=== PATIENT | male | born 1945 | race African-American/Black ===

== ENCOUNTER 2018-02-10 15:18 | Inpatient (IN) | payer OTHER ==
[2018-02-10] MEDS ORDERED: NS 1,000 ML IV ONE (16:03)
--- NOTE | 2018-02-10 16:03 | EDPHY ---
H & P Stated Complaint: Dry cough x 2wks, SOB and dizzy today, denies N/V/D - Personal History Current Tetanus/Diphtheria Vaccine: Yes - Medical/Surgical History Hx Asthma: No Hx Chronic Respiratory Disease: No Hx Diabetes: No Hx Cardiac Disease: No Hx Renal Disease: No Hx Cirrhosis: No Hx Alcoholism: No Hx HIV/AIDS: No Hx Splenectomy or Spleen Trauma: No Other PMH: none - Social History Smoking Status: Never smoked Time Seen by Provider: 02/10/18 15:49 HPI/ROS: CHIEF COMPLAINT: Dyspnea, cough, jaundice HISTORY OF PRESENT ILLNESS: 73 year old male history of diabetes, in the ER with via private vehicle. Patient describes his and him developing cold-like symptoms 3 weeks ago while visiting [place], including sore throat, rhinorrhea, dry cough. These symptoms have by and large resolved however his cough continues. Today when he was pulling is garbage cans up a small uphill he developed chest pain, shortness of breath. He went to [facility] was referred to the ER for both these complaints and new onset of jaundice. notes jaundice seems to developed within the past few days. He has not experienced abdominal pain, distension, fever, chills , back or flank pain, discolored stool or urine Denies unusual Tylenol use. PRIMARY CARE PROVIDER: Dr. Gildardo Cardoza REVIEW OF SYSTEMS: 10 systems reviewed and negative with the exception of the elements mentioned in the history of present illness PAST MEDICAL & SURGICAL HISTORY: diabetes. SOCIAL HISTORY: Nonsmoker. No alcohol use. . PHYSICAL EXAM (Prior to examination, patient consented to physical exam, hands were washed and my usual and customary physical exam procedures followed) 1) GENERAL: Well-developed, well-nourished, alert and oriented. Appears to be in no acute distress. 2) HEAD: Normocephalic, atraumatic 3) HEENT: Pupils equal, round, reactive to light bilaterally. Scleral icterus noted. Nasopharynx, oropharynx, clear, no lesions. Moist Mucous membranes. No tonsillar enlargement or exudate. Ears bilaterally with normal tympanic membranes. Signs of otitis media otitis externa 4) NECK: Full range of motion, no meningeal signs. 5) LUNGS: Clear auscultation bilaterally, no wheezes, no rhonchi, no retractions. 6) HEART: Regular rate and rhythm, no murmur, no heave, no gallop. 7) ABDOMEN: No guarding, no rebound, no focal tenderness, negative McBurney's, negative Pinto's, negative Rovsing's, negative peritoneal sign, unable to elicit any abdominal pain. No fluid wave. 8) MUSCULOSKELETAL: Moving all extremities, no focal areas of tenderness, no obvious trauma. No peripheral edema or discoloration. 9) BACK: No CVA tenderness, no midline vertebral tenderness, no fluctuance, no step-off, no obvious trauma, no visual or palpable abnormality. 10) SKIN: No rash, no petechiae.Jaundice noted. 11) Psychiatric: Patient is oriented X 3, there is no agitation. DIFFERENTIAL DIAGNOSIS: In no particular order include but limited to viral hepatitis, , malignancy, ([place],Annemarie Ellen) Constitutional: Initial Vital Signs Temperature (C) 36.9 C 02/10/18 15:37 Heart Rate 106 H 02/10/18 15:37 Respiratory Rate 18 02/10/18 15:37 Blood Pressure 130/53 H 02/10/18 15:37 O2 Sat (%) 99 02/10/18 15:37 O2 Delivery Mode Room Air Allergies/Adverse Reactions: Penicillins Allergy (Verified 02/10/18 17:57) Rash Home Medications: Medication Instructions Recorded Ascorbic Acid [Vitamin C 500 mg 500 mg PO DAILY 02/10/18 (*)] Cholecalciferol Vit D3 [Vitamin D3 1,000 units PO DAILY 02/10/18 (*)] Cyanocobalamin [Vitamin B12 (*)] 1,000 mcg PO DAILY 02/10/18 Insulin Glargine [Lantus] 30 unit SC HS 02/10/18 Multivitamins [Multivitamin (*)] 1 each PO DAILY 02/10/18 [place]-3 Fatty Acids [Fish Oil 1000 1,000 mg PO DAILY 02/10/18 mg (*)] glyBURIDE [Micronase] 5 mg PO BIDMEAL 02/10/18 metFORMIN HCL [Glucophage 500 mg 500 mg PO BIDMEAL 02/10/18 (*)] Medical Decision Making - Diagnostics Imaging Results: Imaging Impressions Abdomen Ultrasound 02/10/18 17:13 Impression: 1. Mild hepatomegaly, with no discrete mass. 2. There is no intra- or extrahepatic bile duct dilatation. 3. Periportal lymphadenopathy. 4. Contracted gallbladder, limiting assessment. Findings were discussed with Chelsea Rossi PA-C at 18:37, on 02/10/2018. Images reviewed myself (Annemarie Rossi) ED Course/Re-evaluation: 4:09 p.m.: I reviewed the patient's chest x-ray obtained urgent care earlier today. Will hold on repeating this at this time. Will obtain EKG laboratory studies. I saw this patient independently based on established practice protocols. Care of patient under supervision of secondary supervising physician Dr Mcintosh with whom I discussed case. 550 pm: Consultation with Dr Liang cardiology 6:20 p.m.: Patient was also seen and examined by Dr. Vickey Mcintosh in the ER. The differential was discussed with the patient his which includes, but is not limited to, hematologic malignancy. Recommended admission. He and were agreeable with admission. Dr. Mcintosh consulted with Dr. Ariel Dennison. Will consult with Oncology. (Annemarie Rossi) Critical Care: Total Critical Care Time Spent Managing this Patient: 65Minutes. This time was spent Exclusively with this patient. This Care was exclusive of procedures. The Organ System/life at risk was severe leukocytosis, severe anemia This Patient was in Critical Condition because severe anemia. I have consult with Oncology Dr. Rodriguez. He will consult see the patient. Patient has had written consent for blood products. 2 units of packed red blood cells have been ordered. Dr. rodriguez Requests 1gm solumedrol, which has been ordered. (Vickey Mcintosh) - Data Points Laboratory Results: Laboratory Results 02/10/18 18:10 02/10/18 18:10 02/10/18 02/10/18 02/10/18 18:10 18:10 18:10 Smear Review By Mata LONG MD Patient ABO/Rh Pending Rh Phenotype Pending Antibody Screen POSITIVE Antibody Identification UNDETERMINED Antibody ID Referred Pending Red Cell Ag Pheno DNA Pending GLORIA, IgG Interpret Pending GLORIA, Polyspecific Cancelled GLORIA, Poly Interpret Pending GLORIA, Complement Interp Pending Crossmatch See Detail Crossmatch IS Only See Detail See Detail 02/10/18 16:46 Smear Review By Mata LONG MD Patient ABO/Rh Rh Phenotype Antibody Screen Antibody Identification Antibody ID Referred Red Cell Ag Pheno DNA GLORIA, IgG Interpret GLORIA, Polyspecific GLORIA, Poly Interpret GLORIA, Complement Interp Crossmatch Crossmatch IS Only Medications Given: Folic Acid (Folic Acid) 1 mg PO DAILY SERGIO Stop: 08/09/18 18:44 Last Admin: 02/11/18 09:44 Dose: 1 mg Insulin Human Lispro (Humalog Lispro) 3 unit SC TIDMEAL SERGIO Stop: 08/10/18 13:44 Last Admin: 02/11/18 14:02 Dose: 3 units Insulin Human Lispro (Humalog Lispro) 0 unit SC ACHS SERGIO PRN Reason: Protocol Stop: 08/10/18 13:44 Last Admin: 02/11/18 14:07 Dose: 10 units Prednisone (Prednisone) 100 mg PO DAILY SERGIO Stop: 08/10/18 08:59 Last Admin: 02/11/18 09:44 Dose: 100 mg Discontinued Medications Sodium Chloride (Ns) 1,000 mls @ 0 mls/hr IV ONCE ONE PRN Reason: Wide Open Stop: 02/10/18 16:04 Last Admin: 02/10/18 16:26 Dose: 1,000 mls Methylprednisolone Sodium (Succinate 1 gm/ Dextrose) 100 mls @ 100 mls/hr IV AD SERGIO Stop: 08/09/18 19:59 Last Admin: 02/10/18 20:17 Dose: 100 mls Insulin Glargine (Lantus Syringe) 30 units SC HS SERGIO Stop: 08/09/18 20:59 Last Admin: 02/10/18 22:43 Dose: 30 units Methylprednisolone Sodium Succinate (Solu-Medrol) 1,000 mg IVP EDNOW ONE Stop: 02/10/18 19:25 Last Admin: 02/10/18 20:33 Dose: Not Given Point of Care Test Results: Chemistry 02/10/18 02/10/18 17:37 16:10 POC Troponin I 0.01 ng/mL ng/mL 0.02 ng/mL ng/mL (0.00-0.08) (0.00-0.08) Departure - Departure Disposition: [facility] Acute Clinical Impression: Hyperbilirubinemia Anemia Qualifiers: Anemia type: unspecified type Qualified Code(s): D64.9 - Anemia, unspecified Condition: Fair
[2018-02-10 16:29] LABS: INR 1.1 (0.83-1.16); PROTIME(PATIENT) 14.4 SEC (12.0-15.0)
[2018-02-10 17:48] LABS: PLATELET COUNT 241 10^3/uL (150-400)
[2018-02-10 18:27] LABS: PLATELET COUNT 235 10^3/uL (150-400)
[2018-02-10 18:34] LABS: INR 1.17 (0.83-1.16); PROTIME(PATIENT) 15.1 SEC (12.0-15.0)
[2018-02-10 18:54] LABS: HEPATITIS A ANTIBODY IGM (BCH) NEGATIVE (NEGATIVE); HEPATITIS B CORE AB IGM NEGATIVE (NEGATIVE); HEPATITIS B SURFACE ANTIGEN NEGATIVE (NEGATIVE)
[2018-02-10 19:04] LABS: HEPATITIS C ANTIBODY TOTAL NEGATIVE (NEGATIVE)
[2018-02-10] MEDS ORDERED: methylPREDNISolone SOD SUCC 125 MG/2 ML VIAL IVP ONE (19:24)
[2018-02-10] MEDS ORDERED: methylPREDNISolone SOD SUCC 1 GM in D5W 100 ML IV SCH (20:00)
[2018-02-10] MEDS ORDERED: HYDROmorphONE/DILAUDID 1 MG/ML INJ IVP PRN (20:13)
[2018-02-10] MEDS ORDERED: PROMETHAZINE HCL 25 MG/ML INJ IVP PRN (20:13)
[2018-02-10] MEDS ORDERED: ONDANSETRON DISINTEGRATING 4 MG TAB PO PRN (20:13)
[2018-02-10] MEDS ORDERED: LORazepam 0.5 MG TAB PO PRN (20:13)
[2018-02-10] MEDS ORDERED: oxyCODONE IR 5 MG TAB PO PRN (20:13)
[2018-02-10] MEDS ORDERED: ONDANSETRON 4 MG/2 ML VIAL IVP PRN (20:13)
[2018-02-10] MEDS ORDERED: ACETAMINOPHEN 325 MG TAB PO PRN (20:13)
--- NOTE | 2018-02-10 20:22 | PDGENHP ---
History and Physical - Chief Complaint sob - History of Present Illness 73 yo M with PMH of DM presenting from urgent care where he was being evaluated for cough and sob. Patient notes that he has felt a bit lightheaded and had cough for a couple of days, the ER was concerned that he appeared jaundiced and for that reason recommended he come to the ER for more thorough evaluation. Patient denies any significant change in his health recently prior to yesterday. He does seem perhaps a bit confused but his states this is his baseline. In the ER he was found to have WBC of 111k, hgb of 4. In review of his prior labs he was noted to have a WBC of 40K in August with predominant lymphocytes and by review of [facility] records he was referred to Dr. Zacarias for further evaluation. Patient and his note that they did not follow up with DR. Zacarias as they believed that his WBC was elevated as he had just received a pneumonia vaccine. History Information - Allergies/Home Medication List Allergies/Adverse Reactions: Penicillins Allergy (Verified 02/10/18 17:57) Rash Home Medications: Ascorbic Acid [Vitamin C 500 mg (*)] 500 mg PO DAILY 02/10/18 [Last Taken Unknown] Cholecalciferol Vit D3 [Vitamin D3 (*)] 1,000 units PO DAILY 02/10/18 [Last Taken Unknown] Cyanocobalamin [Vitamin B12 (*)] 1,000 mcg PO DAILY 02/10/18 [Last Taken Unknown ] Insulin Glargine [Lantus] 30 unit SC HS 02/10/18 [Last Taken 02/09/18] Multivitamins [Multivitamin (*)] 1 each PO DAILY 02/10/18 [Last Taken Unknown] [place]-3 Fatty Acids [Fish Oil 1000 mg (*)] 1,000 mg PO DAILY 02/10/18 [Last Taken Unknown] glyBURIDE [Micronase] 5 mg PO BIDMEAL 02/10/18 [Last Taken 02/10/18 AM] metFORMIN HCL [Glucophage 500 mg (*)] 500 mg PO BIDMEAL 02/10/18 [Last Taken AM] I have personally reviewed and updated: family history, medical history, social history, surgical history - Past Medical History diabetes type 2 - Surgical History Reports: no pertinent surgical hx - Family History Positive for: non-pertinent - Social History Smoking Status: Never smoked Alcohol Use: None Drug Use: None Additional social history: , his accompanies him here, she is recently retired from [employer] Review of Systems Review of Systems: ROS: 10pt was reviewed & negative except for what was stated in HPI & below Physical Exam Physical Exam: Temp Pulse Resp BP Pulse Ox 36.6 C 105 H 20 114/100 H 95 02/10/18 20:03 02/10/18 20:03 02/10/18 20:03 02/10/18 20:03 02/10/18 20:03 O2 (L/minute) 2 Constitutional: no apparent distress, chronically ill appearing Eyes: PERRL, icteric sclera Ears, Nose, Mouth, Throat: moist mucous membranes, hearing normal Cardiovascular: regular rate and rhythym, no murmur, rub, or gallop, No edema Respiratory: no respiratory distress, no rales or rhonchi Gastrointestinal: normoactive bowel sounds, soft, non-tender abdomen Genitourinary: no bladder tenderness Skin: warm, other (jaundiced, pale) Musculoskeletal: full muscle strength Neurologic: AAOx3 Psychiatric: anxious, poor memory Lymph, Heme, Immunologic: No no cervical LAD, No no supraclavicular LAD Lab Data & Imaging Review 02/10/18 18:10 02/10/18 18:10 WBC 112.28 10^3/uL (3.80-9.50) H* 02/10/18 18:10 RBC 1.43 10^6/uL (4.40-6.38) L 02/10/18 18:10 Hgb 4.1 g/dL (13.7-17.5) L* 02/10/18 18:10 Hct 14.8 % (40.0-51.0) L* 02/10/18 18:10 MCV 103.5 fL (81.5-99.8) H 02/10/18 18:10 MCH 28.7 pg (27.9-34.1) 02/10/18 18:10 MCHC 27.7 g/dL (32.4-36.7) L 02/10/18 18:10 RDW 25.9 % (11.5-15.2) H 02/10/18 18:10 Plt Count 235 10^3/uL (150-400) 02/10/18 18:10 MPV 9.4 fL (8.7-11.7) 02/10/18 18:10 Neut % (Auto) Not Reported 02/10/18 18:10 Lymph % (Auto) Not Reported 02/10/18 18:10 [place] % (Auto) Not Reported 02/10/18 18:10 Eos % (Auto) Not Reported 02/10/18 18:10 Baso % (Auto) Not Reported 02/10/18 18:10 Nucleat RBC Rel Count Not Reported 02/10/18 18:10 Absolute Neuts (auto) Not Reported 02/10/18 18:10 Absolute Lymphs (auto) Not Reported 02/10/18 18:10 Absolute Monos (auto) Not Reported 02/10/18 18:10 Absolute Eos (auto) Not Reported 02/10/18 18:10 Absolute Basos (auto) Not Reported 02/10/18 18:10 Absolute Nucleated RBC Not Reported 02/10/18 18:10 Immature Gran % Not Reported 02/10/18 18:10 Seg Neutrophils % 10.5 % 02/10/18 18:10 Band Neutrophils % 0.0 % 02/10/18 18:10 Lymphocytes % 89.5 % 02/10/18 18:10 Monocytes % 0.0 % 02/10/18 18:10 Eosinophils % 0.0 % 02/10/18 18:10 Basophils % 0.0 % 02/10/18 18:10 Metamyelocytes % 0.0 % 02/10/18 18:10 Myelocytes % 0.0 % 02/10/18 18:10 Promyelocytes % 0.0 % 02/10/18 18:10 Blast Cells % 0.0 % 02/10/18 18:10 Immature Gran # Not Reported 02/10/18 18:10 Absolute Seg Neuts 11.79 10^3/uL (1.70-6.50) H 02/10/18 18:10 Absolute Band Neuts 0.00 10^3/uL (0.00-0.70) 02/10/18 18:10 Absolute Lymphocytes 100.49 10^3/uL (1.00-3.00) H 02/10/18 18:10 Absolute Monocytes 0.00 10^3/uL (0.30-0.80) L 02/10/18 18:10 Absolute Eosinophils 0.00 10^3/uL (0.03-0.40) L 02/10/18 18:10 Absolute Basophils 0.00 10^3/uL (0.02-0.10) L 02/10/18 18:10 Absolute Metamyelocyte 0.00 10^3/mL (0.00-0.00) 02/10/18 18:10 Absolute Myelocytes 0.00 10^3/mL (0.00-0.00) 02/10/18 18:10 Absolute Promyelocytes 0.00 10^3/uL (0.00-0.00) 02/10/18 18:10 Absolute Plasma Cells 0.00 10^3/uL (0.00-0.00) 02/10/18 18:10 Absolute Blast Cells 0.00 10^3/uL (0.00-0.00) 02/10/18 18:10 Plasma Cells % 0.0 % 02/10/18 18:10 Smudge Cells 2+ H 02/10/18 18:10 Platelet Estimate ADEQUATE (ADEQ) 02/10/18 18:10 Polychromasia 2+ H 02/10/18 18:10 Hypochromasia 3+ H 02/10/18 18:10 Basophilic Stippling 1+ H 02/10/18 18:10 Microcytic Cells 3+ H 02/10/18 18:10 Oval Macrocytes 2+ H 02/10/18 18:10 PT 15.1 SEC (12.0-15.0) H 02/10/18 18:10 INR 1.17 (0.83-1.16) H 02/10/18 18:10 APTT 27.0 SEC (23.0-38.0) 02/10/18 18:10 Sodium 137 mEq/L (135-145) 02/10/18 18:10 Potassium 4.2 mEq/L (3.3-5.0) 02/10/18 18:10 Chloride 105 mEq/L (97-110) 02/10/18 18:10 Carbon Dioxide 23 mEq/l (22-31) 02/10/18 18:10 Anion Gap 9 mEq/L (6-14) 02/10/18 18:10 BUN 22 mg/dL (7-23) 02/10/18 18:10 Creatinine 0.8 mg/dL (0.7-1.3) 02/10/18 18:10 Estimated GFR > 60 02/10/18 18:10 Glucose 137 mg/dL (70-100) H 02/10/18 18:10 Calcium 9.5 mg/dL (8.5-10.4) 02/10/18 18:10 Total Bilirubin 9.6 mg/dL (0.1-1.4) H 02/10/18 16:00 Conjugated Bilirubin 1.0 mg/dL (0.0-0.5) H 02/10/18 16:00 Unconjugated Bilirubin 8.6 mg/dL (0.0-1.1) H 02/10/18 16:00 Icterus Index 7 02/10/18 16:00 AST 67 IU/L (17-59) H 02/10/18 16:00 ALT 17 IU/L (21-72) L 02/10/18 16:00 Alkaline Phosphatase 93 IU/L (38-126) 02/10/18 16:00 Lactate Dehydrogenase 740 IU/L (313-618) H 02/10/18 18:10 POC Troponin I 0.01 ng/mL (0.00-0.08) 02/10/18 17:37 Total Protein 7.1 g/dL (6.3-8.2) 02/10/18 16:00 Albumin 4.3 g/dL (3.5-5.0) 02/10/18 16:00 Lipase 221 IU/L (23-300) 02/10/18 16:00 Urine Color YELLOW 02/10/18 16:20 Urine Appearance CLEAR 02/10/18 16:20 Urine pH 5.0 (5.0-7.5) 02/10/18 16:20 Ur Specific [place] 1.008 (1.002-1.030) 02/10/18 16:20 Urine Protein NEGATIVE (NEGATIVE) 02/10/18 16:20 Urine Ketones NEGATIVE (NEGATIVE) 02/10/18 16:20 Urine Blood NEGATIVE (NEGATIVE) 02/10/18 16:20 Urine Nitrate NEGATIVE (NEGATIVE) 02/10/18 16:20 Urine Bilirubin NEGATIVE (NEGATIVE) 02/10/18 16:20 Urine Urobilinogen NEGATIVE EU (0.2-1.0) 02/10/18 16:20 Ur Leukocyte Esterase NEGATIVE (NEGATIVE) 02/10/18 16:20 Urine RBC NONE SEEN /hpf (0-3) 02/10/18 16:20 Urine WBC 0-1 /hpf (0-3) 02/10/18 16:20 Ur Epithelial Cells NONE SEEN /lpf (NONE-1+) 02/10/18 16:20 Hyaline Casts 1-5 /lpf (0-1) 02/10/18 16:20 Urine Glucose NEGATIVE (NEGATIVE) 02/10/18 16:20 Stool Occult Bld Scrn NEGATIVE (NEGATIVE) 02/10/18 18:34 Acetaminophen < 10 mcg/mL (10-30) L 02/10/18 16:46 Hepatitis A IgM Ab NEGATIVE (NEGATIVE) 02/10/18 16:00 Hep Bs Antigen NEGATIVE (NEGATIVE) 02/10/18 16:00 Hep B Core IgM Ab NEGATIVE (NEGATIVE) 02/10/18 16:00 Hepatitis C Antibody NEGATIVE (NEGATIVE) 02/10/18 16:00 Monoscreen NEGATIVE (NEGATIVE) 02/10/18 16:00 Patient ABO/Rh AB POSITIVE 02/10/18 18:10 Antibody Screen POSITIVE 02/10/18 18:10 Antibody Identification UNDETERMINED 02/10/18 18:10 GLORIA, IgG Specific IGG POSITIVE (NEGATIVE) 02/10/18 18:10 GLORIA, Polyspecific POSITIVE (NEGATIVE) H 02/10/18 18:10 Crossmatch IS Only See Detail 02/10/18 18:10 Visualized and Interpreted Chest x-ray results: Yes Chest X-Ray results: no infiltrate Visualized and Interpreted imaging results: Yes Interpretation: abd US: Hepatomegaly without discreet mass, no ductal dilation, periportal LAD Visualized and Interpreted EKG results: Yes EKG additional interpertation: sinus tach, rbbb, lafb Assessment & Plan Assessment: Anemia (Acute) Hyperbilirubinemia (Acute) 73 yo M with PMH of DM presenting with hyperleukocytosis and profound anemia # hyperleukocytosis: oncology consulted and has evaluated patient in ER, this is due to CLL as next. Was SOB but also severely anemic so overall seems he is asymptomatic from this. # CLL: in discussion with oncology this is almost certain dx given peripheral smear and presentation, patient did have significant leukocytosis present in August as well that was not followed up on. Ultimate treatment plan to be determined by oncology. # autoimmune hemolytic anemia: started on steroids and being transfused 2 units , will continue pred at 1mg/kg per onc recommendations, will follow serial hgb. Patient relatively asymptomatic currently. # profound anemia: 2/2 above, transfusing # elevated lfts: with US showing only periportal LAD, hep serologies negative, will continue to trend and obtain CT abdomen in the am for further characterization # DM: will treat with SSI and hold orals for now # IP status will require high level monitoring given significantly abnormal labs and high risk presenting issues > 48 hours for eval/mgmt of above Patient new to my care. Old records reviewed and summarized as above. Care plan reviewed with ER doctor and oncology, further hx obtained from patients present at bedside. > 35 min critical care time spent in review of labs/imaging and in coordination of care with consultants
[2018-02-10] MEDS ORDERED: INSULIN GLARGINE 100 UNITS/ML UNIT SC SCH (21:00)
[2018-02-10] MEDS: FOLIC ACID 1 MG TAB PO SCH (22:43)
--- NOTE | 2018-02-11 02:17 | HOSPPROG ---
Hospitalist Progress Note Assessment/Plan: Hospitalist night float note Notified by RN regarding patient slightly declined H&H. Chart was briefly reviewed and case was discussed at sign out with Dr. Dennison. 73-year-old gentleman presents with fatigue and dyspnea found to have hyper leukocytosis and severe anemia. Patient with likely new diagnosis CLL. He was seen in the emergency department by framing mill supervisor Dr. Rodriguez. As reported to me patient had a discussion with Dr. Rodriguez regarding findings of warm antibodies on type and screen and option for on cross match blood. Patient remains normotensive and mildly tachycardic. He did have a episode of tachycardia to the 140s while standing to void at bedside. Send out pending with [facility] and notified that units of blood will still be several hours out. I went to bedside to discuss status of blood and repeat hemoglobin with patient and his . They would prefer to wait so long as patient remains stable for the appropriate type and cross blood. Will monitor patient's telemetry status closely as well as vital signs. Objective: Vital Signs Temp Pulse Resp BP Pulse Ox 37.4 C 105 H 23 H 127/53 H 96 02/10/18 21:19 02/10/18 21:19 02/10/18 21:19 02/10/18 21:19 02/10/18 21:19 Laboratory Results 02/10/18 22:48 02/09/18 02/10/18 02/11/18 05:59 05:59 05:59 Intake Total 1000 Balance 1000 PT 15.1 SEC (12.0-15.0) H 02/10/18 18:10 INR 1.17 (0.83-1.16) H 02/10/18 18:10 ICD10 Worksheet Patient Problems: Problems Problem Status Onset Anemia Acute Hyperbilirubinemia Acute
[2018-02-11 05:29] LABS: PLATELET COUNT 239 10^3/uL (150-400)
--- NOTE | 2018-02-11 07:05 | PDMN ---
Medical Necessity Medical necessity: MCG: M35 anemia A-1 day: pt presents with cough, SOB, cold, lightheadedness, Hgb 4.1, 3.9, 4.2 Hct 14.8, 15.1 WBC 111, 112, 126, K 5.2, CLL suspected., 2 units PRBC to be transfused. steroids, elevated LFT DM, anticipate > 2 MN ongoing med nec care, further eval, monitoring and tx
--- NOTE | 2018-02-11 09:17 | HOSPPROG ---
Hospitalist Progress Note Assessment/Plan: DIAGNOSES: * acute hemolytic anemia, autoimmune, severe and symptomatic * CLL with marked progression of leukocytosis * hyperglycemia due to steroids in a patient with diabetes * elevated bilirubin, LDH and AST or due to hemolysis PLANS: * Continue high-dose steroids * Hydration * Awaiting 1st unit of red cell transfusion * Will review with Dr. Rodriguez when he visits with the plans are for further therapy for his leukemia * Will need to increase medication for management of hyperglycemia while on steroids * Continue cardiac monitoring * DVT prophylaxis, follow platelets closely Seen by me today on multidisciplinary rounds in addition to hospitalist rounds Reviewed with Dr. Cameron Rodriguez SUBJECTIVE: Tired, mild dyspnea at rest lying in bed No nausea, is hungry No pains, no angina, no neurologic symptoms OBJECTIVE Vitals reviewed: Tachycardic and tachypneic but without fever, blood pressure is okay supine in bed Child And Family Counselor, my review: Sinus tachycardia Exam: alert oriented, mildly anxious skin warm dry color ok resps not labored lungs clear BSs heart regular abd soft nondistended nontender, bowel sounds present limbs warm, no edema iv site ok Laboratory data: With platelet cell count now up to 126,000 Hemoglobin remains at 4 Objective: Vital Signs Temp Pulse Resp BP Pulse Ox 37.1 C 78 20 142/78 H 97 02/11/18 08:12 02/11/18 08:12 02/11/18 08:12 02/11/18 08:12 02/11/18 07:47 Laboratory Results 02/11/18 07:40 02/10/18 02/11/18 02/12/18 06:59 06:59 06:59 Intake Total 1800 Output Total 1175 Balance 625 PT 15.1 SEC (12.0-15.0) H 02/10/18 18:10 INR 1.17 (0.83-1.16) H 02/10/18 18:10 - Time Spent With Patient Time Spent with Patient: greater than 35 minutes Time Spent with Patient: Greater than 35 minutes spent on this patients care, greater than 50% of time spent counseling, educating, and coordinating care regarding the above mentioned plan. ICD10 Worksheet Patient Problems: Problems Problem Status Onset Anemia Acute Hyperbilirubinemia Acute
[2018-02-11] MEDS: predniSONE 20 MG TAB PO SCH (09:44)
[2018-02-11] MEDS: FOLIC ACID 1 MG TAB PO SCH (09:44)
[2018-02-11 11:50] LABS: PLATELET COUNT 228 10^3/uL (150-400)
--- NOTE | 2018-02-11 12:12 | ASMTCMCOM ---
CM Note CM Note Notes: Pt admitted for hemolytic anemia with a hemoglobin of 4.1 and new diagnosis of Chronic Lymphocitic Leukemia. Pt to receive two units of blood today, though pt had multiple antibodies in his type and cross leading to difficulty finding a matching unit. Therapies evals pending. D/C need TBD. CM to follow. D/C Plan: TBD Date Signed: 02/11/2018 12:11 PM Electronically Signed By:Lucila Mortensen
[2018-02-11] MEDS: INSULIN LISPRO 100 UNIT/ML SC SCH ×5 (14:02→22:04)
--- NOTE | 2018-02-11 17:17 | PDCONSULT ---
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 Patient's history is relatively unremarkable. He reports a couple days worth of cough and fatigue. He presented to urgent care on February 10, 2018. After briefly examining the patient they felt he would be best served in the emergency room. In the emergency room he was found to have an elevated white count at 112,280 with 11,790 of those being neutrophils and 100,490 being lymphocytes on differential. Hemoglobin was 4.1 with an MCV of 103.5 platelets were 235,000. Conference of metabolic panel showed an total bilirubin of 9.6 with 8.6 of the bilirubin being unconjugated. His LDH was found to be's 740. Other than fatigue and dry cough, patient reports feeling well without fevers chills or drenching night sweats. No nausea or vomiting. No changes in weight or appetite. Patient has noticed some lumps in his right axillae but no other lumps or bumps. Review of systems: A complete 12 point review of systems was obtained and found to be negative unless indicated in the history of present illness Past Medical History -DM type II Past Surgical History -No relevant surgical history Social History -No history of alcohol, drugs or tobacco Family History -No pertinent family history Medications and allergies reviewed in EMR Physical Examination Vital Signs Reviewed General: Jaundiced, pale male in no acute distress HEENT: pupils are equal round and reactive to light, scleral icterus and conjunctival pallor appreciated Neck: supple CV: Regular in rate and rhythm without rubs thrills or gallops Chest: Clear to auscultation and percussion Abdomen: soft, nontender, distended, without hepatosplenomegaly Neurologic: CN II-XII intact, no focal deficits Lymph: 4cm right supraclavicular LN, multiple enlarged right and left sided axillary LNs, bilateral inguinal adenopathy Extremities: warm and well perfused without edema Labs reviewed in chart Assessment and plan: Patient is a 73 year old male with history of DM who presents with warm autoimmune hemolytic anemia in the setting of likely newly diagnosed CLL. #Warm autoimmune hemolytic anemia Patient has a panagglutinin, GLORIA positive IgG, autoantibody with evidence of hemolysis (anemia/reticulocytosis, elevated LDH and unconjugated hyperbilirubinemia). Thankfully he is asymptomatic at the moment despite hbg of 4 g/dl. This gives time for blood bank to find correct cross match, which will take a long time. I agree with 2 U PRBC transfusion when cross match found. Treatment is immune suppression with steroids and folic acid to prevent aplastic crisis. -1.5mg/kg of prednisone (1 gram of solumedrol given in ER) until hbg >10g/dl then will start taper -1mg of folic acid daily -Hemolysis labs daily (CBC, CMP, LDH, reticulocyte count) #CLL Patient has had lymphocytic leukocytosis for roughly the last year or so, which has increased, as well a rubbery/mobile peripheral adenopathy. While immunophenotyping is pending, this seems consistent with CLL, especially in light of autoimmune hemolytic anemia. He is asymptomatic, outside hemolysis, without splenomegaly. -Flow cytometry is pending -Will likely send prognostic studies as an outpatient (FISH studies, IgVH mutational status) #DM Will need closer management while on steroids Cameron Rodriguez
[2018-02-11] MEDS: INSULIN GLARGINE 100 UNITS/ML UNIT SC SCH (21:59)
[2018-02-12] MEDS: predniSONE 20 MG TAB PO SCH (08:10)
[2018-02-12] MEDS: INSULIN LISPRO 100 UNIT/ML SC SCH ×7 (08:10→21:10)
[2018-02-12] MEDS: FOLIC ACID 1 MG TAB PO SCH (08:10)
[2018-02-12 08:23] LABS: PLATELET COUNT 184 10^3/uL (150-400)
--- NOTE | 2018-02-12 09:11 | HOSPPROG ---
Hospitalist Progress Note Assessment/Plan: DIAGNOSES: * acute hemolytic anemia, autoimmune, severe and symptomatic * CLL with marked progression of leukocytosis * hyperglycemia due to steroids in a patient with diabetes * elevated bilirubin, LDH and AST or due to hemolysis PLANS: * Continue high-dose steroidsWill review with Dr. Rodriguez when he visits with the plans are for further therapy for his leukemia * Will need to increase medication for management of hyperglycemia while on steroids * Continue cardiac monitoring * DVT prophylaxis, follow platelets closely Seen by me today on multidisciplinary rounds in addition to hospitalist rounds Reviewed with Dr. 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: Sinus tachycardia Exam: alert oriented, mildly anxious skin warm dry color ok resps not labored lungs clear BSs heart regular abd soft nondistended nontender, bowel sounds present limbs warm, no edema iv site ok Laboratory data: With platelet cell count now up to 137,000 Hemoglobin up to 5.6 Objective: Vital Signs Temp Pulse Resp BP Pulse Ox 36.6 C 84 22 H 115/61 97 02/12/18 07:32 02/12/18 07:32 02/12/18 07:32 02/12/18 07:32 02/12/18 07:32 Laboratory Results 02/12/18 08:05 02/11/18 07:40 02/11/18 02/12/18 02/13/18 06:59 06:59 06:59 Intake Total 1800 1192 Output Total 1175 Balance 625 1192 PT 15.1 SEC (12.0-15.0) H 02/10/18 18:10 INR 1.17 (0.83-1.16) H 02/10/18 18:10 - Time Spent With Patient Time Spent with Patient: greater than 35 minutes Time Spent with Patient: Greater than 35 minutes spent on this patients care, greater than 50% of time spent counseling, educating, and coordinating care regarding the above mentioned plan. ICD10 Worksheet Patient Problems: Problems Problem Status Onset Anemia Acute Hyperbilirubinemia Acute
--- NOTE | 2018-02-12 17:29 | GCON ---
PULMONARY/CRITICAL CARE CONSULTATION DATE OF CONSULTATION: 02/12/2018 REFERRING PHYSICIAN: Sammy Mayers MD REASON FOR REFERRAL: Evaluation and management of severe anemia. HISTORY: The patient is a 73-year-old male who apparently was known to have lymphocytosis for about a year or so. He did not return for further followup. For the past few days, he has had a cough and fatigue and went to an urgent care 2 days ago. He was found to have an elevated white blood count, mostly lymphocytes, and was also severely anemic with a hemoglobin of 4.5 and an elevated bilirubin. He was transferred to [facility], where he was found to have an autoantibody with ev idence of hemolysis. It took quite a long time to get an appropriate crossmatch, but the patient has been transfused 2 units of packed red blood cells. He does feel a bit better, and really reports no symptoms currently. PAST MEDICAL HISTORY: Type 2 diabetes. MEDICATIONS: At the time of admission include vitamin B12, Glucophage, vitamin C, glyburide, and ins ulin. ALLERGIES: Penicillin. SOCIAL HISTORY: The patient lives with his , who is a former [employer] employee. He denies alcohol, d rugs, or tobacco. FAMILY HISTORY: Unremarkable. REVIEW OF SYSTEMS: A 10-point review of systems adds nothing to the History of Present Illness. PHYSICAL EXAMINATION: GENERAL: The patient is awake and alert. He is in no acute distress. His bl ood pressure is 143/62, with a heart rate of 101. He is afebrile. Oxygen saturations are 95% on honorio m air. HEENT: Normocephalic and atraumatic. He is icteric. NECK: No adenopathy. Trachea is midl ine. CHEST: Clear to auscultation. CARDIAC: Regular rate and rhythm, without murmur. ABDOMEN: S oft, nontender. Bowel sounds are present. EXTREMITIES: No clubbing, cyanosis, or edema. SKIN: Th e patient is mildly jaundiced. NEURO: The patient is awake and alert. He has no gross motor or [place] deficits. LABORATORY: White blood count is 137.2. Hemoglobin is 5.6, up from 3.9 at admission. His white blo od cells are 90% lymphocytes. He has an MCV of 102.7, with polychromasia and oval macrocytes. An ab solute retic count is elevated at 0.2. A haptoglobin is pending. An abdominal ultrasound shows mild hepatomegaly with periportal lymphadenopathy. An LDH is 749, and his blood sugars have been between 220 and 350. Bilirubin is 9.2, mostly unconjugated. AST and ALT are normal. ASSESSMENT: 1. Hemolytic anemia. The patient apparently has an IgG autoantibody with evidence of hemolysis (ane sanam with reticulocytosis and elevated bilirubin). He is asymptomatic after transfusion of 2 units of packed red blood cells. He has been started on steroids. He would probably benefit from further tr ansfusion to get his hemoglobin up to a safer range, but given the risk of ongoing hemolysis, it may be most prudent to try to wait a little while before getting anymore red blood cells. 2. Probable chronic lymphocytic leukemia. 3. Diabetes. The patient's blood sugars are elevated, likely due to steroids. RECOMMENDATIONS: 1. Follow hemoglobin closely. 2. Continue steroids, change to p.o. 3. Sliding scale insulin. 4. Folic acid. 5. Await further studies per Oncology. /[id number]/MODL
--- NOTE | 2018-02-12 17:36 | CPEKG ---
Test Reason : OPEN Blood Pressure : / mmHG Vent. Rate : 104 BPM Atrial Rate : 104 BPM P-R Int : 152 ms QRS Dur : 135 ms QT Int : 378 ms P-R-T Axes : 059 -76 049 degrees QTc Int : 498 ms Sinus tachycardia RBBB and LAFB Minimal ST elevation, lateral leads Confirmed by Luis Damon ([id number]) on 02/12/2018 5:36:17 PM Referred By: Confirmed By:Luis Damon
--- NOTE | 2018-02-12 17:36 | CPEKG ---
Test Reason : OPEN Blood Pressure : / mmHG Vent. Rate : 101 BPM Atrial Rate : 101 BPM P-R Int : 151 ms QRS Dur : 136 ms QT Int : 376 ms P-R-T Axes : 060 -77 056 degrees QTc Int : 488 ms Sinus tachycardia RBBB and LAFB Minimal ST elevation, lateral leads Confirmed by Luis Damon ([id number]) on 02/12/2018 5:36:20 PM Referred By: Confirmed By:Luis Damon
[2018-02-12] MEDS: INSULIN GLARGINE 100 UNITS/ML UNIT SC SCH (21:09)
--- NOTE | 2018-02-12 22:52 | SOAPPROG ---
SOAP Progress Note Assessment/Plan: Assessment/Plan: Patient is a 73 year old male with history of DM who presents with warm autoimmune hemolytic anemia in the setting of likely newly diagnosed CLL. #Warm autoimmune hemolytic anemia Patient has a panagglutinin, GLORIA positive IgG, autoantibody with evidence of hemolysis (anemia/reticulocytosis, elevated LDH and unconjugated hyperbilirubinemia). Thankfully he is asymptomatic at the moment despite hbg of 4 g/dl. This gives time for blood bank to find correct cross match, which will take a long time. Treatment is immune suppression with steroids and folic acid to prevent aplastic crisis. -1.5mg/kg of prednisone (1 gram of solumedrol given in ER) daily until hbg >10g/ dl then will start taper -1mg of folic acid daily -Hemolysis labs daily (CBC, CMP, LDH, reticulocyte count) #CLL Patient has had lymphocytic leukocytosis for roughly the last year or so, which has increased, as well a rubbery/mobile peripheral adenopathy. While immunophenotyping is pending, this seems consistent with CLL, especially in light of autoimmune hemolytic anemia. He is asymptomatic, outside hemolysis, without splenomegaly. -Flow cytometry is pending -Will likely send prognostic studies as an outpatient (FISH studies, IgVH mutational status) #DM Will need closer management while on steroids Cameron Rodriguez 02/12/18 22:53 Subjective: Patient received 2 U of PRBCs without incident. He feels well without complaints. No CP or SOB. Objective: Vital Signs Temp Pulse Resp BP Pulse Ox 36.5 C 107 H 23 H 135/59 H 97 02/12/18 21:00 02/12/18 21:00 02/12/18 21:00 02/12/18 21:00 02/12/18 21:00 Laboratory Results 02/12/18 16:10 02/11/18 07:40 02/11/18 02/12/18 02/13/18 05:59 05:59 05:59 Intake Total 1800 1192 Output Total 1175 Balance 625 1192 PT 15.1 SEC (12.0-15.0) H 02/10/18 18:10 INR 1.17 (0.83-1.16) H 02/10/18 18:10 General: Jaundiced, pale male in no acute distress HEENT: pupils are equal round and reactive to light, scleral icterus and conjunctival pallor appreciated Neck: supple CV: Regular in rate and rhythm without rubs thrills or gallops Chest: Clear to auscultation and percussion Abdomen: soft, nontender, distended, without hepatosplenomegaly Neurologic: no focal deficits Lymph: 4cm right supraclavicular LN, multiple enlarged right and left sided axillary LNs, bilateral inguinal adenopathy Extremities: warm and well perfused without edema ICD10 Worksheet Patient Problems: Problems Problem Status Onset Anemia Acute Hyperbilirubinemia Acute
[2018-02-13 05:36] LABS: PLATELET COUNT 204 10^3/uL (150-400)
[2018-02-13] MEDS: INSULIN LISPRO 100 UNIT/ML SC SCH ×7 (07:40→21:14)
[2018-02-13] MEDS: predniSONE 20 MG TAB PO SCH (08:24)
[2018-02-13] MEDS: FOLIC ACID 1 MG TAB PO SCH (08:25)
--- NOTE | 2018-02-13 10:56 | HOSPPROG ---
Hospitalist Progress Note Assessment/Plan: DIAGNOSES: * acute hemolytic anemia, autoimmune, severe and symptomatic * CLL with marked progression of leukocytosis * hyperglycemia due to steroids in a patient with diabetes * elevated bilirubin, LDH and AST or due to hemolysis PLANS: * Continue high-dose steroids, follow cell counts closely * Will need to increase medication for management of hyperglycemia while on steroids * Continue cardiac monitoring * DVT prophylaxis, follow platelets closely * will review with oncologist when he visits artery plans for therapy for his leukemia Seen by me today on multidisciplinary rounds in addition to hospitalist rounds Reviewed by me with Dr. 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: Sinus tachycardia Exam: alert oriented, mildly anxious skin warm dry color ok resps not labored lungs clear BSs heart regular abd soft nondistended nontender, bowel sounds present limbs warm, no edema iv site ok Laboratory data: With platelet cell count now up to 144,000 Hemoglobin up to 5.9 Stable platelets Objective: Vital Signs Temp Pulse Resp BP Pulse Ox 36.9 C 95 21 H 122/54 H 90 L 02/13/18 08:00 02/13/18 08:00 02/13/18 08:00 02/13/18 08:00 02/13/18 08:00 Laboratory Results 02/13/18 04:59 02/11/18 07:40 02/12/18 02/13/18 02/14/18 06:59 06:59 06:59 Intake Total 1192 1500 Balance 1192 1500 PT 15.1 SEC (12.0-15.0) H 02/10/18 18:10 INR 1.17 (0.83-1.16) H 02/10/18 18:10 - Time Spent With Patient Time Spent with Patient: greater than 35 minutes Time Spent with Patient: Greater than 35 minutes spent on this patients care, greater than 50% of time spent counseling, educating, and coordinating care regarding the above mentioned plan. ICD10 Worksheet Patient Problems: Problems Problem Status Onset Anemia Acute Hyperbilirubinemia Acute
[2018-02-13] MEDS: INSULIN GLARGINE 100 UNITS/ML UNIT SC SCH ×2 (10:59→21:29)
[2018-02-13] MEDS ORDERED: HYDROmorphONE/DILAUDID 2 MG/ML INJ IVP PRN (12:00)
--- NOTE | 2018-02-13 12:52 | SOAPPROG ---
VERN Progress Note Assessment/Plan: Assessment: Patient is a 73 year old male with history of DM who presents with warm autoimmune hemolytic anemia in the setting of likely newly diagnosed CLL. #Warm autoimmune hemolytic anemia Patient has a panagglutinin, GLORIA positive IgG, autoantibody with evidence of hemolysis (anemia/reticulocytosis, elevated LDH and unconjugated hyperbilirubinemia). Hgb is better at 5.9 -1.5mg/kg of prednisone (1 gram of solumedrol given in ER) daily until hbg >10g/ dl then will start taper -1mg of folic acid daily -Hemolysis labs daily (CBC, CMP, LDH, reticulocyte count) #CLL Patient has had lymphocytic leukocytosis for roughly the last year or so, which has increased, as well a rubbery/mobile peripheral adenopathy. While immunophenotyping is pending, this seems consistent with CLL, especially in light of autoimmune hemolytic anemia. He is asymptomatic, outside hemolysis, without splenomegaly. -Flow cytometry is pending -Will likely send prognostic studies as an outpatient (FISH studies, IgVH mutational status) #DM Will need closer management while on steroids Plan: 02/13/18 12:50 Subjective: Feels ok Objective: Vital Signs Temp Pulse Resp BP Pulse Ox 98.3 F 104 H 20 138/56 H 89 L 02/13/18 12:00 02/13/18 12:00 02/13/18 12:00 02/13/18 12:00 02/13/18 12:00 Laboratory Results 02/13/18 04:59 02/11/18 07:40 02/12/18 02/13/18 02/14/18 05:59 05:59 05:59 Intake Total 1192 1500 Balance 1192 1500 PT 15.1 SEC (12.0-15.0) H 02/10/18 18:10 INR 1.17 (0.83-1.16) H 02/10/18 18:10 Physical Exam - Physical Exam General Appearance: alert, no apparent distress ICD10 Worksheet Patient Problems: Problems Problem Status Onset Anemia Acute Hyperbilirubinemia Acute
--- NOTE | 2018-02-13 13:32 | PDINTPN ---
Meteorology Faculty Member Progress Note Assessment/Plan: Assessment: Hemolytic anemia: On high-dose steroids. Hemoglobin drifted up slightly today. Lymphocytosis: Probable CLL Hyperglycemia: Due to high-dose steroids. Plan: Continue high-dose steroids. Follow CBC closely. Increase insulin. Okay to transfer to oncology floor. 02/13/18 13:29 02/13/18 13:31 Subjective: No dyspnea, chest pain, or lightheadedness Objective: Vital Signs Temp Pulse Resp BP Pulse Ox 36.8 C 104 H 20 138/56 H 89 L 02/13/18 12:00 02/13/18 12:00 02/13/18 12:00 02/13/18 12:00 02/13/18 12:00 Laboratory Results 02/13/18 04:59 02/11/18 07:40 02/12/18 02/13/18 02/14/18 05:59 05:59 05:59 Intake Total 1192 1500 Balance 1192 1500 PT 15.1 SEC (12.0-15.0) H 02/10/18 18:10 INR 1.17 (0.83-1.16) H 02/10/18 18:10 Physical Exam - Physical Exam General Appearance: alert, no apparent distress EENT: normal ENT inspection Neck: normal inspection Respiratory: lungs clear, normal breath sounds Cardiac/Chest: regular rate, rhythm, No edema Abdomen: normal bowel sounds, non-tender, soft Skin: normal color, warm/dry Extremities: normal inspection Neuro/Psych: alert, normal mood/affect, oriented x 3 ICD10 Worksheet Patient Problems: Problems Problem Status Onset Anemia Acute Hyperbilirubinemia Acute
--- NOTE | 2018-02-13 14:11 | ASMTCMCOM ---
CM Note CM Note Notes: Met with patient and to see if they were interested in receiving home RN services; they declined. No other d/c needs identified. Case Management available if this changes. Date Signed: 02/13/2018 02:10 PM Electronically Signed By:Bela Wade RN
[2018-02-13 16:17] LABS: PLATELET COUNT 209 10^3/uL (150-400)
[2018-02-14 05:52] LABS: PLATELET COUNT 212 10^3/uL (150-400)
[2018-02-14] MEDS: INSULIN LISPRO 100 UNIT/ML SC SCH ×7 (08:42→21:40)
[2018-02-14] MEDS: FOLIC ACID 1 MG TAB PO SCH (08:48)
[2018-02-14] MEDS: predniSONE 20 MG TAB PO SCH (08:48)
[2018-02-14] MEDS: INSULIN GLARGINE 100 UNITS/ML UNIT SC SCH ×2 (09:59→21:41)
--- NOTE | 2018-02-14 11:16 | SOAPPROG ---
VERN Progress Note Assessment/Plan: Assessment: Patient is a 73 year old male with history of DM who presents with warm autoimmune hemolytic anemia in the setting of likely newly diagnosed CLL. #Warm autoimmune hemolytic anemia Patient has a panagglutinin, GLORIA positive IgG, autoantibody with evidence of hemolysis (anemia/reticulocytosis, elevated LDH and unconjugated hyperbilirubinemia). Hgb is better at 6.5 -1.5mg/kg of prednisone (1 gram of solumedrol given in ER) daily until hbg >10g/ dl then will start taper -1mg of folic acid daily -Hemolysis labs daily (CBC, CMP, LDH, reticulocyte count) #CLL Patient has had lymphocytic leukocytosis for roughly the last year or so, which has increased, as well a rubbery/mobile peripheral adenopathy. While immunophenotyping is pending, this seems consistent with CLL, especially in light of autoimmune hemolytic anemia. He is asymptomatic, outside hemolysis, without splenomegaly. -Flow cytometry is pending -Will likely send prognostic studies as an outpatient (FISH studies, IgVH mutational status) #DM Will need closer management while on steroids Plan:Continue prednisone at the current dose, continue to manage glucose, possibly home tomorrow with outpt follow up Dr Rodriguez 02/13/18 12:50 02/14/18 11:14 Subjective: Feels ok Objective: Vital Signs Temp Pulse Resp BP Pulse Ox 98.7 F 91 19 135/67 H 92 02/14/18 07:39 02/14/18 07:39 02/14/18 07:39 02/14/18 07:39 02/14/18 07:39 Laboratory Results 02/14/18 04:00 02/14/18 05:01 02/13/18 02/14/18 02/15/18 05:59 05:59 05:59 Intake Total 1500 3060 Balance 1500 3060 PT 15.1 SEC (12.0-15.0) H 02/10/18 18:10 INR 1.17 (0.83-1.16) H 02/10/18 18:10 Physical Exam - Physical Exam EENT: scleral icterus (R), scleral icterus (L) Respiratory: lungs clear Cardiac/Chest: regular rate, rhythm Abdomen: normal bowel sounds ICD10 Worksheet Patient Problems: Problems Problem Status Onset Anemia Acute Hyperbilirubinemia Acute
[2018-02-14] MEDS ORDERED: metFORMIN HCL 500 MG TAB PO SCH (20:18)
--- NOTE | 2018-02-14 20:18 | HOSPPROG ---
Hospitalist Progress Note Assessment/Plan: DIAGNOSES: * acute hemolytic anemia, autoimmune, severe and symptomatic * On treatment with prednisone, with slow response so far but moving in good direction * Did require 2 units of transfusion for initial hemoglobin 4 * CLL with marked progression of leukocytosis, but aside from the hemolysis no symptoms, with good reticulocyte response and good platelets * hyperglycemia due to steroids in a patient with diabetes * elevated bilirubin, LDH and AST are due to hemolysis PLANS: * Continue high-dose steroids, follow cell counts closely, repeat CBC ordered for a.m. * Will resume his metformin and glyburide at this time, and continue to adjust insulin doses for steroid induced hyperglycemia (home dose lantus 30 units daily , currently receiving Lantus 20 units a.m, 38 units p.m. + scheduled and sliding scale short-acting) Unclear why oral meds were held at admission * Continue cardiac monitoring * DVT prophylaxis, follow platelets closely * No current plans for other treatment for CLL DISPOSITION: Potentially discharge to home tomorrow if continues to increase hemoglobin and no signs of other complications; review with Hematology SUBJECTIVE: Overall feels better, no symptoms from his anemia at this time No fever symptoms or other new changes OBJECTIVE Vitals reviewed: Still intermittent tachycardia currently at 98, otherwise stable without fever Supervisor Patching, my review: Sinus tachycardia Exam: alert oriented, mildly anxious skin warm dry color ok resps not labored lungs clear BSs heart regular abd soft nondistended nontender, bowel sounds present limbs warm, no edema iv site ok Laboratory data: White blood cell count a bit lower today Hemoglobin continues to rise slowly without further transfusion LDH and bilirubin slightly lower Haptoglobin today pending Platelets stable I discussed all the above in detail with the patient and his at the bedside today, answered numerous questions, extensive conversation Objective: Vital Signs Temp Pulse Resp BP Pulse Ox 36.8 C 103 H 16 128/80 H 98 02/14/18 16:17 02/14/18 16:17 02/14/18 16:17 02/14/18 16:17 02/14/18 16:17 Laboratory Results 02/14/18 04:00 02/14/18 05:01 02/13/18 02/14/18 02/15/18 06:59 06:59 06:59 Intake Total 1500 3060 Balance 1500 3060 PT 15.1 SEC (12.0-15.0) H 02/10/18 18:10 INR 1.17 (0.83-1.16) H 02/10/18 18:10 - Time Spent With Patient Time Spent with Patient: greater than 35 minutes Time Spent with Patient: Greater than 35 minutes spent on this patients care, greater than 50% of time spent counseling, educating, and coordinating care regarding the above mentioned plan. ICD10 Worksheet Patient Problems: Problems Problem Status Onset Anemia Acute Hyperbilirubinemia Acute
[2018-02-14] MEDS: glyBURIDE 5 MG TAB PO SCH (21:36)
[2018-02-14] MEDS: metFORMIN HCL 500 MG TAB PO SCH (21:36)
[2018-02-15] MEDS: INSULIN LISPRO 100 UNIT/ML SC SCH ×4 (07:46→12:00)
[2018-02-15] MEDS: metFORMIN HCL 500 MG TAB PO SCH (07:46)
[2018-02-15 08:00] VITALS: BP 124/65
[2018-02-15] MEDS: glyBURIDE 5 MG TAB PO SCH (08:08)
[2018-02-15] MEDS: INSULIN GLARGINE 100 UNITS/ML UNIT SC SCH (08:48)
[2018-02-15] MEDS: FOLIC ACID 1 MG TAB PO SCH (08:48)
[2018-02-15] MEDS: predniSONE 20 MG TAB PO SCH (08:48)
[2018-02-15 11:01] LABS: PLATELET COUNT 198 10^3/uL (150-400)
--- NOTE | 2018-02-15 12:47 | ASMTCMCOM ---
CM Note CM Note Notes: Patient plan of care reviewed in rounds. He is likely to be able to discharge today. Per therapies, no needs at this time. Cm available should other needs arise. Plan: DC to home independently when medically cleared. Date Signed: 02/15/2018 12:44 PM Electronically Signed By:Chandni Wesley RN
--- NOTE | 2018-02-15 13:35 | PDIAF ---
- Diagnosis Diagnosis: hemolytic anemia, CLL Code Status: Full Code - Medication Management Discharge Medications: electronically signed and located in the Home Medication List. - Orders Services needed: Home Care, Registered Nurse, Physical Therapy, Occupational Therapy Home Care Face to Face: I certify that this patient was under my care and that I had the required [id number] encounter meeting the encounter requirements on the discharge day. My findings support the fact that the patient is homebound as defined in Home Care Face to Face Continued: CMS Chapter 7 Medicare Benefits Manual 30.1.1 , The condition of the patient is such that there exists a normal inability to leave home and consequently, leaving home would require a considerable and taxing effort. Diet Recommendation: no restrictions on diet Additional Instructions: Check blood glucose 3 x day before meals and record results - follow-up closely with Dr. Cardoza for diabetes management - Follow Up Care Current Providers and Referrals: Cameron Rodriguez MD [Medical Doctor] - 02/17/18 Gildardo Cardoza MD [Primary Care Provider] - 3-5 days
--- NOTE | 2018-02-15 14:49 | ASMTLACE ---
LACE Length of stay for Answers: 4-6 days current admission Acuity / Level of Answers: Yes Care: Did the patient have an inpatient admission? Comorbidities - select Answers: Diabetes (uncontrolled or all that apply controlled) # of Emergency department Answers: 1-2 visits in the last 6 months Score: 9 Date Signed: 02/15/2018 02:48 PM Electronically Signed By:Chandni Wesley RN
--- NOTE | 2018-02-15 15:56 | SOAPPROG ---
SOAP Progress Note Assessment/Plan: E&M for Olimpia pos hemolytic anemia * Warm autoimmune hemolytic anemia: panagglutinin, GLORIA positive IgG, autoantibody with evidence of hemolysis (anemia/reticulocytosis, elevated LDH and unconjugated hyperbilirubinemia). Hemoglobin is better on prednisone. We will continue 100 mg of prednisone daily until hemoglobin closer to 10 g/dL and then start tapering. He is also to continue folic acid. * Probable CLL: Patient has had lymphocytic leukocytosis for roughly the last year, which has increased, as well a rubbery/mobile peripheral adenopathy. We are still awaiting the results of the flow cytometry but the picture is consistent. It is unclear if he will need systemic therapy but I suspect he probably will sooner than later. This can be determined after his hemolysis is calm down. Further workup can be performed once a diagnosis has been made. * Diabetes: The steroids are causing hyperglycemia so he will need to continue monitor this closely. * Disposition: There is no contraindication from our standpoint to going home and following up closely in our office. Have contacted Dr. Rodriguez who can see him later this week. Subjective: He is feeling well. He is tolerating his lunch and denies any acute GI complaints. He is a little bit tremulous with the steroids but otherwise tolerating it well. His blood sugars are elevated. He has no acute complaints. He denies any previous drenching night sweats. Objective: Vital Signs Temp Pulse Resp BP Pulse Ox 36.7 C 92 19 124/65 H 94 02/15/18 07:59 02/15/18 07:59 02/15/18 07:59 02/15/18 07:59 02/15/18 07:59 Laboratory Results 02/15/18 04:24 02/15/18 04:24 02/14/18 02/15/18 02/16/18 05:59 05:59 05:59 Intake Total 3060 Balance 3060 PT 15.1 SEC (12.0-15.0) H 02/10/18 18:10 INR 1.17 (0.83-1.16) H 02/10/18 18:10 Physical Exam - Physical Exam General Appearance: no apparent distress Respiratory: lungs clear Cardiac/Chest: regular rate, rhythm Skin: jaundice ICD10 Worksheet Patient Problems: Problems Problem Status Onset Anemia Acute Hyperbilirubinemia Acute
--- NOTE | 2018-02-15 18:50 | GDS ---
DISCHARGE DIAGNOSES: 1. Warm autoimmune hemolytic anemia. 2. CLL. 3. Diabetes. HISTORY: The patient is a 73-year-old male who presented with shortness of breath as well as found t o be jaundiced. He was found to have a white blood cell count greater than 100,000, hemoglobin of 4 as well as increased LFTs consistent with hemolytic anemia. He was seen in consultation with Jah carlos. All of his lab studies were consistent with a warm autoimmune hemolytic anemia. He was started on high-dose prednisone. He probably has CLL, flow cytometry is pending. He will probably need sys temic therapy for this but that can be initiated as an outpatient. High-dose steroids were causing s ome severe hyperglycemia. We had increased his insulin. DISCHARGE MEDICATIONS: Please see computerized record for full detailed list. New medications: 1. Prednisone 100 mg p.o. daily. 2. Lantus insulin 20 units added to the morning in addition to his previous 30 at night. 3. Lispro insulin 7 units subcu three times daily with meals. ADDITIONAL DISCHARGE INSTRUCTIONS: 1. Check blood glucoses 3 times a day before meals and record results to follow up closely with Dr. Cardoza for diabetes management. 2. Slow taper from steroids under the direction of Hematology. He has a followup appoint with Dr. iNng Rodriguez in 2 days. 3. Greater than 30 minutes' time was spent arranging this discharge. Patient seen and examined by me on day of discharge. /[id number]/MODL
== END 2018-02-15 15:27 | disposition home or self-care (01) | DRG 809 ==
LOC: OBSVTOIN 18:15 → F2N 21:12 → F1N 02-13 21:36
PROVIDERS: ADMIT Internal Medicine; ATTEND Internal Medicine
PROC: 30233N1 Transfusion of Nonautologous Red Blood Cells into Peripheral Vein, Percutaneous Approach (ICD-10-PCS; principal; 2018-02-11)
DX: D59.1 Other autoimmune hemolytic anemias (principal); C91.10 Chronic lymphocytic leukemia of B-cell type not having achieved remission; E11.65 Type 2 diabetes mellitus with hyperglycemia; T38.0X5A Adverse effect of glucocorticoids and synthetic analogues, initial encounter
CPT/HCPCS: 83010-90; 84484-PO; 85060-90; 86850-90; 86860-90; 86870-90; 86905-90; 86922-90; 86970-90; 86978-90; 88184-90; 88185-91; 97116-GP; 97161-GP; 97165-GO; 99001-90; G0472; G0480; G8978-GP-CH; G8978-GP-CJ; G8979-GP-CH; G8979-GP-CI; G8980-GP-CH; G8987-GO-CJ; G8988-GO-CH; J1815; J2930; J7512; P9016

== ENCOUNTER → 2018-02-10 | Outpatient (CLI) | payer OTHER | LOC: GIMAGING 14:09 | PROVIDERS: ATTEND Nurse Practitioner | DX: J00 Acute nasopharyngitis [common cold] (principal); R05 Cough; J45.909 Unspecified asthma, uncomplicated; E11.9 Type 2 diabetes mellitus without complications | CPT/HCPCS: 71046-PO ==

== ENCOUNTER 2018-08-01 19:50 | Inpatient (IN) | payer OTHER ==
[2018-08-01] MEDS ORDERED: NS 1,000 ML IV ONE ×2 (20:03→20:49)
--- NOTE | 2018-08-01 20:09 | EDPHY ---
H & P Stated Complaint: Weakness Time Seen by Provider: 08/01/18 19:55 HPI/ROS: CHIEF COMPLAINT: Altered mental status HISTORY OF PRESENT ILLNESS: Patient is a 73-year-old man with a history of type 2 diabetes and possibly CLL who's called the paramedics tonight because he was confused and jaundiced and breathing rapidly. She states that she 1st noticed this yesterday. He has not been febrile. The patient denies having any pain. No nausea vomiting. He denies shortness of breath. No urinary symptoms. No GI symptoms. Severity: Severe Modifying factors: None REVIEW OF SYSTEMS: Constitutional: See HPI denies: chills, fever, recent illness, recent injury EENTM: denies: blurred vision, double vision, nose congestion Respiratory: denies: cough, shortness of breath Cardiac: denies: chest pain, irregular heart rate, lightheadedness, palpitations Gastrointestinal/Abdominal: denies: abdominal pain, diarrhea, nausea, vomiting, blood streaked stools Genitourinary: denies: dysuria, frequency, hematuria, pain Musculoskeletal: denies: joint pain, muscle pain Skin: See HPI Neurological: See HPI denies: headache, numbness, paresthesia, tingling, dizziness, weakness Hematologic/Lymphatic: denies: blood clots, easy bleeding, easy bruising Immunologic/allergic: denies: HIV/AIDS, transplant 10 systems reviewed and negative except as noted EXAM: GENERAL: Moderate distress, severely jaundiced HEAD: Atraumatic, normocephalic. EYES: Pupils equal round and reactive to light, extraocular movements intact, sclera icteric ENT: TMs normal, nares patent, oropharynx clear without exudates. Moist mucous membranes. NECK: Normal range of motion, supple without lymphadenopathy or JVD. LUNGS: Tachypneic, Breath sounds clear to auscultation bilaterally and equal. No wheezes HEART: Tachycardic, Regular rate, a mild systolic murmur, rubs or gallops. ABDOMEN: Distended but nontender, normoactive bowel sounds. No guarding, no rebound. No masses appreciated. BACK: No CVA tenderness, no spinal tenderness, step-offs or deformities EXTREMITIES: Normal range of motion, no pitting or edema. No clubbing or cyanosis. NEUROLOGICAL: Cranial nerves II through XII grossly intact. Normal speech, normal gait. 5/5 strength, normal movement in all extremities, normal sensation , normal reflexes PSYCH: Answers questions but requires prompting SKIN: Jaundice, see above Source: Patient Exam Limitations: No limitations - Personal History Current Tetanus/Diphtheria Vaccine: Yes Current Tetanus Diphtheria and Acellular Pertussis (TDAP): Yes - Medical/Surgical History Hx Asthma: No Hx Chronic Respiratory Disease: No Hx Diabetes: No Hx Cardiac Disease: No Hx Renal Disease: No Hx Cirrhosis: No Hx Alcoholism: No Hx HIV/AIDS: No Hx Splenectomy or Spleen Trauma: No Other PMH: none - Family History Significant Family History: No pertinent family hx - Social History Smoking Status: Never smoked Alcohol Use: Sober Drug Use: None Constitutional: Initial Vital Signs Temperature (C) 37.5 C 08/01/18 19:56 Heart Rate 117 H 08/01/18 19:56 Respiratory Rate 32 H 08/01/18 19:56 Blood Pressure 144/54 H 08/01/18 19:56 O2 Sat (%) 93 08/01/18 19:56 O2 Delivery Mode Nasal Cannula O2 (L/minute) 2 Allergies/Adverse Reactions: Penicillins Allergy (Verified 08/01/18 19:56) Rash Home Medications: Medication Instructions Recorded Cholecalciferol Vit D3 [Vitamin D3 1,000 units PO WE@172902/10/18 (*)] Cyanocobalamin [Vitamin B12 (*)] 1,000 mcg PO DAILY@172902/10/18 Insulin Glargine [Lantus] 30 unit SC HS 02/10/18 Multivitamins [Multivitamin (*)] 1 each PO DAILY@172902/10/18 Summit-3 Fatty Acids [Fish Oil 1000 1,000 mg PO DAILY@172902/10/18 mg (*)] metFORMIN HCL [Glucophage 500 mg 500 mg PO BIDMEAL 02/10/18 (*)] Herbals/Supplements -Info Only 1 ea PO DAILY 08/01/18 Medical Decision Making - Diagnostics EKG Interpretation: An EKG obtained and was read and documented in trace view. Please see trace view for full reading and report. Sinus rhythm tachycardic, right bundle branch block similar to previous Imaging Results: Imaging Impressions Chest X-Ray 08/01/18 20:04 Impression: Hypoventilatory chest with no acute findings. Imaging: Discussed imaging studies w/ call center nurse Radiologist ED Course/Re-evaluation: The patient has a metabolic acidosis with a compensated respiratory alkalosis. He is severely anemic and white blood cell count greater than 100,000. He had a similar presentation 6 months ago and was diagnosed with warm autoimmune hemolytic anemia as well as CLL. He was treated with 1.5 mg per kg of prednisone and folic acid daily and blood transfusions although those take a long time to cross match. Will admit him and began treatment for the same. I discussed the case with the hospitalist Dr. Waller who will accept to step- down. I discussed the case with Dr. Smith who recommends 80 mg of prednisone and folic acid and blood transfusions. He will consult. Will also need to closely monitor his blood glucose considering the high-dose steroids. Differential Diagnosis: Partial list of the Differential diagnosis considered include but were not limited to; hemolytic anemia, liver cancer, pancreatic cancer, pleural effusion , DKA, hyperglycemia and although unlikely based on the history and physical exam, I also considered sepsis, trauma. I discussed these differential diagnoses and the plan with the patient as well as the usual and expected course. The patient understands that the diagnosis is provisional and that in medicine we are not always correct and that further workup is often warranted. Usual and customary warnings were given. All of the patient's questions were answered. The patient was instructed to return to the emergency department should the symptoms at all worsen or return, otherwise to followup with the physician as we discussed. Critical Care Time: Critical care time spent by me, Dr. Barnett exclusive with this patient was 45 minutes, exclusive of the PA time exclusive of procedures. The organ system that was at risk was cardiovascular and I gave IV fluids, medications, consultations and admission to prevent worsening of the patient's condition - Data Points Laboratory Results: Laboratory Results 08/01/18 20:10 08/01/18 20:10 08/01/18 08/01/18 08/01/18 20:25 20:15 20:11 WBC RBC Hgb POC Hgb Hct POC Hct MCV MCH MCHC RDW Plt Count MPV Neut % (Auto) Lymph % (Auto) [place] % (Auto) Eos % (Auto) Baso % (Auto) Nucleat RBC Rel Count Absolute Neuts (auto) Absolute Lymphs (auto) Absolute Monos (auto) Absolute Eos (auto) Absolute Basos (auto) Absolute Nucleated RBC Immature Gran % Seg Neutrophils % Band Neutrophils % Lymphocytes % Monocytes % Eosinophils % Basophils % Metamyelocytes % Myelocytes % Promyelocytes % Blast Cells % Immature Gran # Absolute Seg Neuts Absolute Band Neuts Absolute Lymphocytes Absolute Monocytes Absolute Eosinophils Absolute Basophils Absolute Metamyelocyte Absolute Myelocytes Absolute Promyelocytes Absolute Plasma Cells Nucleated RBCs Absolute Blast Cells Plasma Cells % Platelet Estimate Polychromasia Basophilic Stippling Microcytic Cells Smear Review By PT REJ INR REJ APTT REJ Puncture Site VENOUS Patient Temperature 37.0 DEGREES DEGREES VBG pH 7.39 (7.31-7.42) VBG HCO3 17 mEQ/L L mEQ/L (22-26) VBG Total CO2 17 mEq/L L mEq/L (21-27) VBG O2 Saturation 100 % H % (65-75) VBG Base Excess -7.6 mEq/L L mEq/L (-2.5-2.5) VBG Lactic Acid Mixed VBG pCO2 28 mmHg L mmHg (40-44) Mixed VBG pO2 127 mmHG H mmHG (35-40) POC Sodium Sodium POC Potassium Potassium POC Chloride Chloride Carbon Dioxide POC Total CO2 Anion Gap POC BUN BUN Creatinine POC Creatinine Estimated GFR Glucose POC Glucose Calcium Total Bilirubin Conjugated Bilirubin Unconjugated Bilirubin AST ALT Alkaline Phosphatase Ammonia Total Protein Albumin Lipase Patient ABO/Rh Pending Rh Phenotype Pending Antibody Screen POSITIVE Antibody Identification UNDETERMINED Antibody ID Referred Pending Red Cell Ag Pheno DNA Pending GLORIA, IgG Specific IGG POSITIVE (NEGATIVE) GLORIA, IgG Interpret Pending GLORIA, Polyspecific POSITIVE H (NEGATIVE) GLORIA, Poly Interpret Pending GLORIA, Complement Interp Pending Crossmatch See Detail Crossmatch IS Only See Detail 08/01/18 08/01/18 08/01/18 20:11 20:11 20:10 WBC RBC Hgb POC Hgb TNP Hct POC Hct < 15 % L* % (40-51) MCV MCH MCHC RDW Plt Count MPV Neut % (Auto) Lymph % (Auto) [place] % (Auto) Eos % (Auto) Baso % (Auto) Nucleat RBC Rel Count Absolute Neuts (auto) Absolute Lymphs (auto) Absolute Monos (auto) Absolute Eos (auto) Absolute Basos (auto) Absolute Nucleated RBC Immature Gran % Seg Neutrophils % Band Neutrophils % Lymphocytes % Monocytes % Eosinophils % Basophils % Metamyelocytes % Myelocytes % Promyelocytes % Blast Cells % Immature Gran # Absolute Seg Neuts Absolute Band Neuts Absolute Lymphocytes Absolute Monocytes Absolute Eosinophils Absolute Basophils Absolute Metamyelocyte Absolute Myelocytes Absolute Promyelocytes Absolute Plasma Cells Nucleated RBCs Absolute Blast Cells Plasma Cells % Platelet Estimate Polychromasia Basophilic Stippling Microcytic Cells Smear Review By PT INR APTT Puncture Site Patient Temperature VBG pH VBG HCO3 VBG Total CO2 VBG O2 Saturation VBG Base Excess VBG Lactic Acid 5.5 mmol/L H mmol/L (0.7-2.1) Mixed VBG pCO2 Mixed VBG pO2 POC Sodium 135 mEq/L mEq/L (135-145) Sodium POC Potassium 4.6 mEq/L mEq/L (3.3-5.0) Potassium POC Chloride 105 mEq/L mEq/L (97-110) Chloride Carbon Dioxide POC Total CO2 17 mEq/L L mEq/L (22-31) Anion Gap POC BUN 41 mg/dL H mg/dL (7-23) BUN Creatinine POC Creatinine 1.4 mg/dL H mg/dL (0.7-1.3) Estimated GFR Glucose POC Glucose 378 mg/dL H mg/dL (70-100) Calcium Total Bilirubin Conjugated Bilirubin Unconjugated Bilirubin AST ALT Alkaline Phosphatase Ammonia 15.0 uMOL/L uMOL/L (9.0-30.0) Total Protein Albumin Lipase Patient ABO/Rh Rh Phenotype Antibody Screen Antibody Identification Antibody ID Referred Red Cell Ag Pheno DNA GLORIA, IgG Specific GLORIA, IgG Interpret GLORIA, Polyspecific GLORIA, Poly Interpret GLORIA, Complement Interp Crossmatch Crossmatch IS Only 08/01/18 08/01/18 20:10 20:10 WBC 104.11 10^3/uL H* 10^3/uL (3.80-9.50) RBC 1.29 10^6/uL L 10^6/uL (4.40-6.38) Hgb 3.5 g/dL L* g/dL (13.7-17.5) POC Hgb Hct 12.2 % L* % (40.0-51.0) POC Hct MCV 94.6 fL fL (81.5-99.8) MCH 27.1 pg L pg (27.9-34.1) MCHC 28.7 g/dL L g/dL (32.4-36.7) RDW 20.1 % H % (11.5-15.2) Plt Count 217 10^3/uL 10^3/uL (150-400) MPV 10.7 fL fL (8.7-11.7) Neut % (Auto) Not Reported Lymph % (Auto) Not Reported [place] % (Auto) Not Reported Eos % (Auto) Not Reported Baso % (Auto) Not Reported Nucleat RBC Rel Count Not Reported Absolute Neuts (auto) Not Reported Absolute Lymphs (auto) Not Reported Absolute Monos (auto) Not Reported Absolute Eos (auto) Not Reported Absolute Basos (auto) Not Reported Absolute Nucleated RBC Not Reported Immature Gran % Not Reported Seg Neutrophils % 16.0 % % Band Neutrophils % 0.0 % % Lymphocytes % 84.0 % % Monocytes % 0.0 % % Eosinophils % 0.0 % % Basophils % 0.0 % % Metamyelocytes % 0.0 % % Myelocytes % 0.0 % % Promyelocytes % 0.0 % % Blast Cells % 0.0 % % Immature Gran # Not Reported Absolute Seg Neuts 16.66 10^3/uL H 10^3/uL (1.70-6.50) Absolute Band Neuts 0.00 10^3/uL 10^3/uL (0.00-0.70) Absolute Lymphocytes 87.45 10^3/uL H 10^3/uL (1.00-3.00) Absolute Monocytes 0.00 10^3/uL L 10^3/uL (0.30-0.80) Absolute Eosinophils 0.00 10^3/uL L 10^3/uL (0.03-0.40) Absolute Basophils 0.00 10^3/uL L 10^3/uL (0.02-0.10) Absolute Metamyelocyte 0.00 10^3/mL 10^3/mL (0.00-0.00) Absolute Myelocytes 0.00 10^3/mL 10^3/mL (0.00-0.00) Absolute Promyelocytes 0.00 10^3/uL 10^3/uL (0.00-0.00) Absolute Plasma Cells 0.00 10^3/uL 10^3/uL (0.00-0.00) Nucleated RBCs 3.0 /100 WBC H /100 WBC (0-0) Absolute Blast Cells 0.00 10^3/uL 10^3/uL (0.00-0.00) Plasma Cells % 0.0 % % Platelet Estimate ADEQUATE (ADEQ) Polychromasia 3+ H Basophilic Stippling 1+ H Microcytic Cells 3+ H Smear Review By Pending PT INR APTT Puncture Site Patient Temperature VBG pH VBG HCO3 VBG Total CO2 VBG O2 Saturation VBG Base Excess VBG Lactic Acid Mixed VBG pCO2 Mixed VBG pO2 POC Sodium Sodium 137 mEq/L mEq/L (135-145) POC Potassium Potassium 4.6 mEq/L mEq/L (3.5-5.2) POC Chloride Chloride 102 mEq/L mEq/L (97-110) Carbon Dioxide 17 mEq/l L mEq/l (22-31) POC Total CO2 Anion Gap 18 mEq/L H mEq/L (6-14) POC BUN BUN 38 mg/dL H mg/dL (7-23) Creatinine 1.3 mg/dL mg/dL (0.7-1.3) POC Creatinine Estimated GFR 54 Glucose 367 mg/dL H mg/dL (70-100) POC Glucose Calcium 9.6 mg/dL mg/dL (8.5-10.4) Total Bilirubin 15.8 mg/dL H mg/dL (0.1-1.4) Conjugated Bilirubin 1.9 mg/dL H mg/dL (0.0-0.5) Unconjugated Bilirubin 13.9 mg/dL H mg/dL (0.0-1.1) AST 61 IU/L H IU/L (17-59) ALT 14 IU/L L IU/L (21-72) Alkaline Phosphatase 79 IU/L IU/L (38-126) Ammonia Total Protein 7.2 g/dL g/dL (6.3-8.2) Albumin 4.6 g/dL g/dL (3.5-5.0) Lipase 123 IU/L IU/L (23-300) Patient ABO/Rh Rh Phenotype Antibody Screen Antibody Identification Antibody ID Referred Red Cell Ag Pheno DNA GLORIA, IgG Specific GLORIA, IgG Interpret GLORIA, Polyspecific GLORIA, Poly Interpret GLORIA, Complement Interp Crossmatch Crossmatch IS Only Medications Given: Discontinued Medications Folic Acid (Folic Acid) 1 mg PO EDNOW ONE Stop: 08/01/18 20:38 Last Admin: 08/01/18 20:46 Dose: 1 mg Sodium Chloride (Ns) 1,000 mls @ 0 mls/hr IV EDNOW ONE; Wide Open PRN Reason: Protocol Stop: 08/01/18 20:04 Last Admin: 08/01/18 20:20 Dose: 1,000 mls Sodium Chloride (Ns) 1,000 mls @ 0 mls/hr IV ONCE ONE PRN Reason: Wide Open Stop: 08/01/18 20:50 Last Admin: 08/01/18 20:50 Dose: 1,000 mls Insulin Glargine (Lantus Syringe) 10 units SC HS SERGIO Stop: 01/28/19 20:59 Last Admin: 08/02/18 00:49 Dose: Not Given Insulin Human Regular (Humulin R) 5 unit IVP EDNOW ONE Stop: 08/01/18 20:43 Last Admin: 08/01/18 20:47 Dose: 5 units Prednisone (Prednisone) 80 mg PO EDNOW ONE Stop: 08/01/18 20:34 Last Admin: 08/01/18 20:44 Dose: 80 mg Point of Care Test Results: Chemistry 08/01/18 20:10 POC Sodium 135 mEq/L mEq/L (135-145) POC Potassium 4.6 mEq/L mEq/L (3.3-5.0) POC Chloride 105 mEq/L mEq/L (97-110) POC Total CO2 17 mEq/L L mEq/L (22-31) POC BUN 41 mg/dL H mg/dL (7-23) POC Creatinine 1.4 mg/dL H mg/dL (0.7-1.3) POC Glucose 378 mg/dL H mg/dL (70-100) ISTAT H&H 08/01/18 20:10 POC Hgb TNP POC Hct < 15 % L* % (40-51) Departure - Departure Disposition: [facility] Inpatient Acute Clinical Impression: Warm autoimmune hemolytic anemia, CLL (chronic lymphocytic leukemia), Hyperglycemia Condition: Critical
[2018-08-01] MEDS ORDERED: IOPAMIDOL (ISOVUE-300) 100 ML BTL ONE (20:20)
[2018-08-01] MEDS ORDERED: predniSONE 20 MG TAB PO ONE (20:33)
[2018-08-01] MEDS ORDERED: FOLIC ACID 1 MG TAB PO ONE (20:37)
[2018-08-01] MEDS ORDERED: INSULIN REGULAR HUMAN 100 UNIT/ML UNIT IVP ONE (20:42)
--- NOTE | 2018-08-01 20:45 | CPEKG ---
Test Reason : OPEN Blood Pressure : / mmHG Vent. Rate : 116 BPM Atrial Rate : 116 BPM P-R Int : 112 ms QRS Dur : 141 ms QT Int : 358 ms P-R-T Axes : 035 -71 036 degrees QTc Int : 498 ms Sinus tachycardia Multiple ventricular premature complexes RBBB and LAFB Confirmed by Leslie Herron ([id number]) on 08/01/2018 8:45:11 PM Referred By: LESLIE HERRON Confirmed By:Leslie Herron
[2018-08-01] MEDS ORDERED: INSULIN GLARGINE 100 UNITS/ML UNIT SC SCH (21:00)
[2018-08-01] MEDS ORDERED: ACETAMINOPHEN 325 MG TAB PO PRN (21:07)
[2018-08-01] MEDS ORDERED: D50W 25 GM/50 ML SYR IVP PRN (21:09)
[2018-08-01 21:21] LABS: PLATELET COUNT 217 10^3/uL (150-400)
[2018-08-01 22:15] LABS: INR 1.3 (0.83-1.16); PROTIME(PATIENT) 15.6 SEC (12.0-15.0)
--- NOTE | 2018-08-01 22:46 | GHP ---
[f rep st] HISTORY AND PHYSICAL DATE OF ADMISSION: 08/01/2018 CHIEF COMPLAINT: Jaundice. HISTORY OF PRESENT ILLNESS: The patient is a pleasant 73-year-old gentleman with a past medical hist ory of CLL and warm autoimmune hemolytic anemia as well as diabetes mellitus type 2, who had a very s imilar presentation to the hospital in the fall of 2017. It was at that time he was diagnosed with h emolytic anemia and CLL. He has had an elevated white blood cell count dating back to 2016. At that time, he was started on prednisone and the patient's tells me that this was tapered off in ua of this year. His bilirubin level and hemoglobin level had trended favorably when checked again in May, but today he presents to the emergency room with a total bilirubin of 15 and unconjugated bilirubin level at 13. His hemoglobin is remarkably low at 3.5, which was measured at 9.8 in May o this year. Hematology/oncology was consulted and it was recommended to start prednisone and folic acid. The patient is currently complaining of fatigue, but no complaints of shortness of breath, jay st pressure or chest tightness. PAST MEDICAL HISTORY: 1. Diabetes mellitus type 2. 2. CLL. 3. Warm autoimmune hemolytic anemia. PAST SURGICAL HISTORY: None. MEDICATIONS: 1. Metformin. 2. Glyburide. 3. Humalog sliding scale. 4. Lantus 30 units nightly. 5. Of note, patient was discharged previously when on prednisone with Lantus at 20 units in the morn ing and 30 units in the evening time. ALLERGIES: Penicillin. FAMILY HISTORY: No family history of CLL. SOCIAL HISTORY: The patient is currently . No children. He is a nonsmoker, nondrinker. He lives at home. 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 His was an employee here at [employer] for many years and retired 1 to 2 years ago. REVIEW OF SYSTEMS: CONSTITUTIONAL: No complaints of any fevers or chills. ENT: No recent upper re spiratory illnesses. CARDIOVASCULAR: No complaints of any chest pain, palpitations, or syncopal epi sodes. RESPIRATORY: No complaints of shortness of breath or productive cough. GASTROINTESTINAL: N o nausea, vomiting, diarrhea, or constipation. No focal abdominal pain. GENITOURINARY: No difficul ty with urination. The patient's reports that she thought there might have been blood in his ur ine. NEUROLOGIC: No complaints of any headaches or focal weakness. HEMATOLOGIC: No history of any deep vein thrombosis or pulmonary embolism. PSYCHIATRIC: No history of anxiety or depression. END OCRINE: No polyuria or heat intolerance. SKIN: Jaundiced but no other skin rashes. MUSCULOSKELETA L: No focal joint pains. PHYSICAL EXAM: VITAL SIGNS: Temperature 37.5, blood pressure 144/54, heart rate 117, respirations 3 2, saturating 93% on 2 L nasal cannula. GENERAL: The patient is awake and alert, but quite fatigued appearing. His does much of the talking in obtaining history. HEENT: Extraocular movements i ntact. Scleral icterus is notable. NECK: Supple. No thyroid enlargement appreciated. CHEST: Nimesh ar on auscultation with normal respiratory effort. HEART: Tachycardic, regular. No murmurs noted. ABDOMEN: Mildly distended. No splenomegaly appreciated. Nontender. GENITOURINARY: No Zazueta cath eter in place. EXTREMITIES: Trace edema noted on both lower extremities, equal. NEUROLOGIC: Crani al nerves 2 through 12 appear intact. Strength testing deferred considering fatigue. IMAGING DATA: Chest x-ray shows hypoventilatory changes without acute findings. LABORATORY DATA: White blood cell count is 104,000, hemoglobin 3.5, platelets 217. Sodium 135, pota ssium 4.6, chloride 102, bicarb 17, BUN 38, creatinine 1.3, glucose of 367, AST 61, ALT 14, alk phos 79, total bilirubin is 15, unconjugated bilirubin is 13. ASSESSMENT AND PLAN: 1. Anemia. Findings are consistent with hemolytic anemia and patient has a history of warm autoimmu ne hemolytic anemia. 2 units of blood have been ordered and it may take some time to find an appropr iate match. Hematology/oncology is consulted and recommended to start prednisone 80 mg daily along w ith folic acid. We will await formal consultation. 2. Diabetes mellitus type 2. Uncertain control. Hemoglobin A1c will not be helpful in light of sev ere anemia. Continue with 30 units of Lantus nightly and sliding scale, but I am anticipating he robert l need more aggressive dosing of Lantus. At his prior discharge when he was on prednisone, he needed 20 units of Lantus in the morning in addition to the 30 at nighttime. 3. Chronic lymphocytic leukemia. Currently under the care of Dr. Rodriguez with hematology/oncology. 4. Deep venous thrombosis prophylaxis. Compression devices. 5. Disposition. We will admit under inpatient status. /[id number]/MODL
[2018-08-02] MEDS: FOLIC ACID 1 MG TAB PO SCH (07:28)
[2018-08-02] MEDS ORDERED: INSULIN GLARGINE 100 UNITS/ML UNIT SC SCH ×2 (07:30→21:00)
[2018-08-02] MEDS ORDERED: INSULIN LISPRO 100 UNIT/ML SC SCH (08:00)
[2018-08-02] MEDS ORDERED: metFORMIN HCL 500 MG TAB PO SCH (08:00)
[2018-08-02] MEDS ORDERED: predniSONE 20 MG TAB PO SCH (09:00)
[2018-08-02] MEDS ORDERED: PETROLAT,WHT/MIN OIL/SOD CHL 3.5 GM OPHT.OINT EACHEYE PRN ×2 (09:17→10:31)
[2018-08-02] MEDS ORDERED: fentanYL/NACL/100 ML BAG IV ONE (09:19)
[2018-08-02] MEDS ORDERED: PROPOFOL/EMULSION 1,000 MG/100 ML BOTTLE IV ONE (09:20)
[2018-08-02] MEDS ORDERED: EPINEPHrine 1 MG/10 ML SYR IVP ONE ×2 (09:24→11:17)
[2018-08-02] MEDS ORDERED: SODIUM BICARBONATE 50 MEQ/50 ML SYR ONE (09:24)
[2018-08-02] MEDS ORDERED: MAGNESIUM SULFATE 1 GM/2 ML VIAL ONE (09:24)
[2018-08-02] MEDS ORDERED: methylPREDNISolone SOD SUCC 125 MG/2 ML VIAL IVP ONE (09:29)
[2018-08-02] MEDS ORDERED: D5W 1,000 ML IV SCH (09:30)
[2018-08-02] MEDS: INSULIN REGULAR HUMAN 100 UNIT in NS 100 ML IV SCH (09:36)
--- NOTE | 2018-08-02 09:39 | HOSPPROG ---
Hospitalist Progress Note Assessment/Plan: CRITICAL CARE NOTE > 90 MINS BEDSIDE CRITICAL CARE TIME See ACLS Resuscitation note of this am DIAGNOSES: * s/p cardiac arrest in hospital, resuscitated with return of mentation * profound anemia, hemolytic * Severe metabolic acidosis * Acute kidney injury * CLL which is the cause of his anemia * Diabetes mellitus currently with significant hyperglycemia; was hyperglycemic through the night after receiving steroids last night and he did not receive his Lantus last night as best I can tell PLANS: * Continue mechanical ventilation at this time, may be able to wean him off of that very quickly * Continue to monitor vital signs oxygenation and EKG closely * He has received a total of 3 units packed red blood cell transfusion and has been treated with Solu-Medrol 125 mg this morning; we have asked for another 6 units of packed red blood cells to be kept in blood bank and repeat hemoglobin is pending at this time, expect he will continue to hemolyze for the time being , hopefully steroids will arrest that but expect will need further transfusion 1 we can get it available * Have reviewed with Dr. Batres and Dr. Rodriguez and they both agree that IVIG would not be helpful in this situation * Insulin drip protocol at this time * IV hydration and will follow closely for any signs of pulmonary or other edema development SUBJECTIVE: Patient has had cardiac arrest this morning now resuscitated and awake and following commands Currently on mechanical ventilator OBJECTIVE Vitals reviewed: Helmet Hat Puncher, my review: Sinus tachycardia Exam: Orally intubated with tube in good position and secured, on mechanical ventilator alert making good eye contact and following commands skin warm dry quite jaundiced resps Proventil lungs clear BSs heart regular abd soft nondistended nontender, bowel sounds present limbs warm, no edema iv site ok Imaging: Have reviewed images from today's chest x-ray after his resuscitation; endotracheal tube tip approximately 3 cm above jovanny, low lung volumes with crowding of structures, there appears to be some perihilar edema which is new Lab data: All this morning's chemistry and CBC numbers are pending at this time 1st ABG after resuscitation: Objective: Vital Signs Temp Pulse Resp BP Pulse Ox 37.0 C 115 H 40 H 118/52 L 100 08/01/18 22:22 08/02/18 06:00 08/02/18 06:00 08/02/18 06:00 08/02/18 06:00 08/01/18 08/02/18 08/03/18 06:59 06:59 06:59 Intake Total 1900 Output Total 0 Balance 1900 PT 15.6 SEC (12.0-15.0) H 08/01/18 21:50 INR 1.30 (0.83-1.16) H 08/01/18 21:50 ICD10 Worksheet Patient Problems: Problems Problem Status Onset CLL (chronic lymphocytic leukemia) Acute Hyperglycemia Acute Anemia Acute Hyperbilirubinemia Acute
[2018-08-02] MEDS ORDERED: SODIUM BICARBONATE 50 MEQ/50 ML SYR IVP ONE (09:43)
[2018-08-02] MEDS ORDERED: NS 1,000 ML IV SCH ×2 (09:45→23:15)
[2018-08-02] MEDS ORDERED: fentaNYL/NACL 100 ML IV SCH (10:00)
[2018-08-02] MEDS ORDERED: NA BICARBONATE 50 MEQ/50 ML VIAL IV ONE (10:00)
[2018-08-02] MEDS: PROPOFOL/EMULSION 100 ML IV SCH ×2 (10:03→14:01)
--- NOTE | 2018-08-02 10:04 | PDCODEBLUE ---
Giancarlo Lancaster Note Responded to giancarlo lancaster this morning in the patient's room at 8:35 a.m. This patient was admitted last evening with hemolytic anemia hemoglobin 3 bilirubin 15 without history of known hemolytic anemia from CLL not on treatment at the time of admission. Blood for transfusion was requested from the ER last night but because of difficulty with cross matching it took until this morning to get blood here. We had 3 units of packed red cells for him, and his nurse was in the room with the 1st unit getting ready to her get up when the patient suddenly became unresponsive in full cardiopulmonary arrest. She immediately started chest compressions and called for help and giancarlo lancaster called and ACLS was started. The electrical rhythm was PE a throughout the period of arrest. The patient had good chest compressions throughout with rotating participants. He was bag mask ventilated promptly and we had successful endotracheal intubation by anesthesiologist. He had some secretions but no other material in the airway and ventilation seemed appropriate throughout. There was good CO2 color change with the advanced airway placement. He received 3 doses of epinephrine and we are able to give him the 1st unit of blood during CPR. At 8:50 a.m. we had return of circulation with a sinus tachycardia and at that point he was hypertensive probably from the epinephrine. His airway was secured. Since that time he has remained in a sinus tachycardia with good blood pressure. He has by this time had return of mentation is making good eye contact 1 week all his name and is following commands by wiggling his toes. His was at the bedside throughout the protocol and she has received excellent support from the staff here. We have a chest x-ray which now shows good placement of the endotracheal tube, as well as some mild perihilar edema We have an EKG showing a sinus rhythm tachycardic with right bundle branch block otherwise unremarkable Initial ABG showed a pH of 6.7, repeat ABG now on ventilator pH is up to 7.0 but very low bicarb levels He has been oxygenating easily Feet and hands warm will with good capillary refill No fever CBC and chemistries are pending Dr. Irizarry has arrived at the bedside and is assisting in his care as well
[2018-08-02] MEDS: SODIUM BICARBONATE 150 MEQ in WATER FOR INJECTION,STERILE 1,000 ML IV SCH ×2 (10:08→15:47)
[2018-08-02 10:14] LABS: PLATELET COUNT 115 10^3/uL (150-400)
--- NOTE | 2018-08-02 10:44 | CPEKG ---
Test Reason : OPEN Blood Pressure : / mmHG Vent. Rate : 120 BPM Atrial Rate : 121 BPM P-R Int : 118 ms QRS Dur : 152 ms QT Int : 337 ms P-R-T Axes : 007 -77 056 degrees QTc Int : 477 ms Sinus tachycardia RBBB and LAFB Confirmed by Jaime Abraham ([id number]) on 08/02/2018 10:44:29 AM Referred By: Salbador Waller Confirmed By:Jaime Abraham
--- NOTE | 2018-08-02 10:45 | PDMN ---
Medical Necessity Medical necessity: [facility] [place] liver disease complications: total serum bili > 5 ( 15). pt with hemolytic anemia - Hgb 3, bili 15, with known hx of CLL , severe metabolic acidosis, acute kidney injury, DM,. pt will be transfused , hematology/oncology consult pend. PT was called code blue 08/02/18 pt currently on vent. good response- following commands. > 2 MN ongoing med nec care anticipated.
[2018-08-02] MEDS ORDERED: EPINEPHrine 1 MG/ML INJ ONE (11:17)
[2018-08-02] MEDS: FAMOTIDINE 20 MG/NACL 50 ML IV SCH ×2 (11:54→20:12)
--- NOTE | 2018-08-02 15:54 | ASMTCMCOM ---
CM Note CM Note Notes: Pt is a 73 yo M with a history of CLL, warm autoimmune hemolytic anemia, and diabetes type 2. Giancarlo Saleh was called on pt this am. CM provided support to his , Kaleigh, including check-ins throughout the day. Pt is currently vented and sedated but has followed some commands. Kaleigh reports she and Al met in College and that she feels he is the kindest man she has met. She says he makes her laugh all the time and is her best friend. Kaleigh just retired from [employer] 18 months ago. CM will continue to follow as pt progresses for discharge planning and to provide ongoing support. Plan: TBD Date Signed: 08/02/2018 03:53 PM Electronically Signed By:ZOHRA Szymanski
[2018-08-02 18:05] LABS: PLATELET COUNT 156 10^3/uL (150-400)
[2018-08-02] MEDS ORDERED: NS BOLUS 500 ML (Wide open) IV ONE (18:30)
[2018-08-02] MEDS ORDERED: ACETAMINOPHEN 650 MG/20.3 ML UDCUP TUBE PRN (20:00)
--- NOTE | 2018-08-02 21:09 | GOP ---
[f rep st] OPERATIVE REPORT DATE OF OPERATION: 08/02/2018 SURGEON: Seymour Ravi MD PREOPERATIVE DIAGNOSIS: Hypovolemic shock. POSTOPERATIVE DIAGNOSIS: Hypovolemic shock. PROCEDURE PERFORMED: Right radial arterial line. DESCRIPTION OF PROCEDURE: Verbal consent was obtained from the patient's at bedside. The right radial artery was directly punctured with a 20-gauge over -the-wire arterial catheter. The artery was directly punctured and the guidewire passed smoothly into the artery. The catheter slid to its hub. There was good pulsatile blood flow noted upon connection to the monitor. The catheter was secured to the wrist with a silk suture. Sterile dressing was applied. No immediate complications occurred. /[id number]/MODL MTDD
[2018-08-02] MEDS ORDERED: NOREPINEPHRINE BITARTRATE 4 MG in NS 500 ML IV SCH (21:30)
--- NOTE | 2018-08-02 23:33 | HOSPPROG ---
Hospitalist Progress Note Assessment/Plan: Hospitalist night float note Notified by RN regarding patient's evening lab studies. Chart was reviewed. Patient with history CLL presented found to be severely anemic. Delay in transfusion due to multiple antibodies. Patient coded 0835 and ROSC obtained at 8:50 a.m. Per day hospitalist documentation patient did have appropriate neurologic testing and responses in the afternoon. His has since been sedated and intubated. Patient with acute rise in creatinine this evening from 1.7-2.8. Additionally has not had any urine output since resuscitation due to likely ATN. ABG result also noted to be alkalotic. Patient continues to require low-dose Levophed Case discussed with Nephrology Dr. Goodwin. Will plan to DC the bicarb drip. Changed to normal saline. Monitor electrolytes and ABG. Maintain MAP greater than 65. No need for emergent dialysis. Nephrology will consult in the morning. Spoke with patient's at bedside and updated on plan. Objective: Vital Signs Temp Pulse Resp BP Pulse Ox 38.1 C 114 H 16 115/51 L 100 08/02/18 23:00 08/02/18 23:00 08/02/18 23:00 08/02/18 23:00 08/02/18 23:00 Laboratory Results 08/02/18 21:35 08/02/18 21:35 08/01/18 08/02/18 08/03/18 05:59 05:59 05:59 Intake Total 1900 2945.5 Output Total 0 1025 Balance 1900 1920.5 PT 15.6 SEC (12.0-15.0) H 08/01/18 21:50 INR 1.30 (0.83-1.16) H 08/01/18 21:50 ICD10 Worksheet Patient Problems: Problems Problem Status Onset CLL (chronic lymphocytic leukemia) Acute Hyperglycemia Acute Anemia Acute Hyperbilirubinemia Acute
[2018-08-03] MEDS: INSULIN REGULAR HUMAN 100 UNIT in NS 100 ML IV SCH (02:38)
--- NOTE | 2018-08-03 08:05 | GCON ---
[f rep st] CONSULTATION HEMATOLOGICAL/ONCOLOGICAL INITIAL VISIT PRIMARY ONCOLOGIST: Dr. Cameron Rodriguez. REASON FOR CONSULTATION: Hemolytic anemia and CLL. HISTORY OF PRESENT ILLNESS: The patient is a 73-year-old gentleman who was diagnosed last January with an autoimmune hemolytic anemia. At that time, he also had an elevated white count of 112,000 with most of it being lymphocytes. Hemoglobin at the time of diagnosis was only 4.1 g/dL. 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 He was able to taper off the steroids in the initial event, but has refused to go on any therapy for the underlying CLL due to concerns of toxicity. However, he does not want to stop all therapy and he has been watched closely by Dr. Rodriguez, who just saw him a few weeks ago. Patient and his called Dr. Rodriguez yesterday complaining of fatigue. He recommended evaluation in the emergency room, where he was found to have hemoglobin of only 3.5 g/dL and a very high bilirubin of 15. He was admitted to the hospital and started back on steroids. Blood was typed and crossed, but took several hours to find matching units. Early this morning, when he was getting the first unit ready for transfusion, the patient suddenly became unresponsive and in full cardiac arrest. Chest compressions were started immediately as well as a Code Blue called and it looked like he was in a PEA. He was intubated and after epinephrine did have return of circulation and he also received his first unit of blood during the CPR. He is currently sedated and intubated. His is in the room with him. I was unable to collect any history from the patient but got from the records, from Dr. Rodriguez, Dr. Mayers, and his . PAST MEDICAL HISTORY: ALLERGIES: He is allergic to penicillin. HOME MEDICATIONS: Include metformin, omega-3 fatty acids, multivitamins, insulin, B12, and vitamin D. CHRONIC ILLNESSES: Included: 1. Type 2 diabetes. 2. CLL FISH panel negative, IgVH unmutated. 3. Warm antibody hemolytic anemia. SURGICAL HISTORY: Noncontributory. FAMILY HISTORY: Noncontributory. SOCIAL HISTORY: He is . Nonsmoker, nondrinker, and previously worked for [employer]. His was an employee at [employer] for years and retired about 2 years ago. REVIEW OF SYSTEMS: Unable to obtain. PHYSICAL EXAMINATION: VITAL SIGNS: Temperature is currently 38.7, pulse 126, blood pressure is 82/62. GENERAL: He is an intubated gentleman and sedated. HEENT: Sclerae are icteric. SKIN: Jaundice. LUNGS: Reveal bilateral crackles. CARDIAC: Tachycardic. LABORATORY DATA: When he was last in the office, his hemoglobin was 9.8 g/dL and stable. His retic at the time was normal at 1.6%. White count was 36,000, platelet count 253,000. Bilirubin was relatively stable at 4. LDH was normal. When he came into the hospital, his white count was 104,000, hemoglobin 3.5, platelet count 217,000. After the code, his white count was 120,000, hemoglobin up to 5.3, platelet count 115,000. Chemistries on arrival showed a BUN and creatinine 41 and 1.4. Glucose was high. Lactic acid at that time was up a little bit at 5.5. At the time of the code or shortly thereafter, his BUN and creatinine was 45 and 1.7 and his bicarb was 9. AST and ALT were 214 and 124. Bilirubin at that time was 13.1. It was 15.8 when he first arrived. His lactic acid now is up to 15.2. Chest x-ray showed bilateral parahilar infiltrates and atelectasis. IMPRESSION: 1. Acute cardiac arrest secondary to severe anemia. 2. 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 3. Chronic lymphocytic leukemia without other disease defining characteristics , except for the hemolytic anemia. Unfortunately, in his situation, the hemolysis will continue to recur until his chronic lymphocytic leukemia is under better control. He has been somewhat reluctant to consider going on systemic therapy for the chronic lymphocytic leukemia . I have recommend going back on steroids and he is currently on 125 mg of Solu-Medrol twice daily. I would like to keep him on that until his blood counts are better and then we can start bringing him down. I spoke to his regarding the underlying chronic lymphocytic leukemia and explained to her that sometimes patients can also get benefit from the hemolysis with concurrent rituximab. In addition, obinutuzumab, a cousin of rituximab, is very active against chronic lymphocytic leukemia . Finally, a drug such as ibrutinib is very active in chronic lymphocytic leukemia and generally well- tolerated. She indicated she does not want to make any major decision about treatment until he is able to discuss it with her. We will see if he will recover from this cardiac arrest. I would recommend keeping his goal hemoglobin closer to 7 with transfusions and the steroids. We will continue to follow along with you while in the hospital. /[id number]/MODL MTDD
[2018-08-03] MEDS: FAMOTIDINE 20 MG/NACL 50 ML IV SCH ×2 (08:08→21:12)
[2018-08-03] MEDS: methylPREDNISolone SOD SUCC 125 MG/2 ML VIAL IVP SCH (08:31)
[2018-08-03 08:55] LABS: PLATELET COUNT 136 10^3/uL (150-400)
--- NOTE | 2018-08-03 08:55 | SOAPPROG ---
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 When better recovered , especially after extubation, can discuss options. No urgent need to treat right now but hemolysis won't entirely resolve without therapy. * Olimpia+ Hemolytic anemia: Received 4 units PRBC. Hgb stable and bilirubin dropping on solumedrol; continue at 125 mg daily. Transfuse if hgb drops below 7 g/dL with recent cardiac arrest. * Cardiac Arrest: primarily due to critically low hgb; still tachy but off pressors this morning * Acute, oliguric renal failure: ATN from cardiac arrest * Elevated LFTs: shock liver from cardiac arrest Subjective: Intubated but awake. I explained to the patient what happened yesterday and what we are doing about the hemolytic anemia. Objective: Vital Signs Temp Pulse Resp BP Pulse Ox 38.5 C H 112 H 29 H 128/59 H 98 08/03/18 08:00 08/03/18 08:00 08/03/18 08:00 08/03/18 08:00 08/03/18 08:00 Laboratory Results 08/03/18 05:45 08/03/18 05:45 08/02/18 08/03/18 08/04/18 05:59 05:59 05:59 Intake Total 1900 4720.5 Output Total 0 1041 Balance 1900 3679.5 PT 15.6 SEC (12.0-15.0) H 08/01/18 21:50 INR 1.30 (0.83-1.16) H 08/01/18 21:50 Laboratory Tests 08/02/18 08/02/18 08/03/18 09:30 15:30 05:45 Hgb 7.7 L 7.5 L Carbon Dioxide 9 L* Creatinine 1.7 H Total Bilirubin 13.1 H AST 214 H ALT 124 H 08/03/18 05:45 Hgb Carbon Dioxide 18 L Creatinine 3.6 H Total Bilirubin 11.2 H AST 717 H ALT 519 H Physical Exam - Physical Exam General Appearance: alert EENT: scleral icterus (R), scleral icterus (L) Respiratory: lungs clear Cardiac/Chest: tachycardia Abdomen: soft Skin: jaundice ICD10 Worksheet Patient Problems: Problems Problem Status Onset CLL (chronic lymphocytic leukemia) Acute Hyperglycemia Acute Anemia Acute Hyperbilirubinemia Acute
--- NOTE | 2018-08-03 09:03 | HOSPPROG ---
Hospitalist Progress Note Assessment/Plan: CRITICAL CARE NOTE > 50 mins crit care time today DIAGNOSES: * s/p PEA cardiac arrest in hospital, resuscitated with return of mentation * profound anemia, autoimmune hemolytic (this was the cause of his cardiac arrest) -hemoglobin currently stable at 7 after 3 units packed red blood cells ( these were not ideally compatable due to antibodies but only available units) -significant difficulty finding compatible blood, but we do have 5 units in the blood bank that we can use * Hypotension fever and tachycardia, concern for possible sepsis * Acute respiratory failure on mechanical ventilator - currently doing well on a CPAP weaning trial, may be able to extubate later today * Acute oliguric renal failure with rapidly rising creatinine * Shock liver (mild with high transaminases) - note that bilirubin today is actually improved from admission and is mostly due to hemolysis * Metabolic acidosis is now resolved * CLL which is the cause of his hemolytic anemia * Diabetes mellitus - doing well so far on insulin drip * Will want to start DVT prophylaxis but waiting to see today's platelet count before starting * Ulcer prophylaxis PLANS: * Continue efforts to wean from mechanical ventilation * Attempting to wean off of pressor support at this time * I have ordered Blood cultures * Will review chest x-ray and consult with Infectious Disease regarding antibiotic therapy for possible sepsis * Follow anemia very closely, transfuse for hemoglobin less than 7 * Continue Solu-Medrol 125 mg daily at this time, changed to p. O. 1 milligram/ kilogram daily when taking oral * Insulin drip protocol at this time * Nephrology has been consulted for his kidneys; no definite indications to start any replacement therapy at present * IV hydration and will follow closely for any signs of pulmonary or other edema development Seen by me on hospitalist rounds as well as multidisciplinary rounds today Current devices include * oral tracheal tube and mechanical ventilator * PICC catheter * Arterial line * Zazueta catheter * A tibial IO catheter had been placed during his ACLS resuscitation but has been removed SUBJECTIVE: Answering questions by nodding his head Denies pain or discomfort other than irritation of endotracheal tube Denies shortness of breath or nausea Is aware he is in the hospital OBJECTIVE Vitals reviewed: Tachycardic approximately 115 regular, blood pressures in normal range currently weaning off nor epi, temperatures have been steady at 38.6 range, respirations currently on CPAP at 22 per minute Brusher Hand, my review: Sinus tachycardia with occasional PVCs, no other arrhythmia is Exam: Orally intubated with tube in good position and secured, on mechanical ventilator alert making good eye contact; answers questions with head nod, moves all 4 limbs, seems a reasonably oriented skin warm dry quite jaundiced resps Proventil lungs clear BSs heart regular abd soft nondistended nontender, bowel sounds present limbs some edema No signs of bleeding or bruising iv site ok Imaging: Have reviewed images from today's chest x-ray after his resuscitation; endotracheal tube tip approximately 3 cm above jovanny, low lung volumes with crowding of structures, there appears to be some perihilar edema which is new Lab data: Sugars in good range on insulin drip Creatinine is increased to 3.6 Electrolytes in good range AST 700 ALT 500 Bilirubin has improved to 11 CO2 still low at 18 Last ABG shows some mild respiratory alkalosis Hemoglobin stable 7.5 with the rest of CBC pending Objective: Vital Signs Temp Pulse Resp BP Pulse Ox 38.5 C H 112 H 29 H 128/59 H 98 08/03/18 08:00 08/03/18 08:00 08/03/18 08:00 08/03/18 08:00 08/03/18 08:00 Laboratory Results 08/03/18 05:45 08/03/18 05:45 08/02/18 08/03/18 08/04/18 06:59 06:59 06:59 Intake Total 1900 4720.5 Output Total 0 1041 Balance 1900 3679.5 PT 15.6 SEC (12.0-15.0) H 08/01/18 21:50 INR 1.30 (0.83-1.16) H 08/01/18 21:50 ICD10 Worksheet Patient Problems: Problems Problem Status Onset CLL (chronic lymphocytic leukemia) Acute Hyperglycemia Acute Anemia Acute Hyperbilirubinemia Acute
--- NOTE | 2018-08-03 10:43 | PDCONSULT ---
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 The patient reportedly had been doing well and his prednisone was tapered off a couple of months ago. Yesterday he presented to the ED with jaundice and had a PEA arrest with a Hb of <4mg/dL. He was intubated and resuscitated successfully and is s/p transfusion. This am he was extubated and currently feeling ok, however is confused and does not recall the events of yesterday. He is c/o thirst. He has been anuric most of the night and is currently requiring a low dose of levophed. His is at bedside and is waiting for her family to get here late this am prior to making any major decisions. She states he has had no issues with his kidneys in the past. He denies use of NSAIDs and other ROS. MEDICATIONS: List reviewed. ALLERGIES: PCN ROS: Negative except as per HPI. PMH: AHA, warm, DM2, CLL SURGICAL HX: None. FAMILY HX: No family h/o renal disease. SOCIAL HX: , no ETOH or smoking history. OBJECTIVE: Temp Pulse Resp BP Pulse Ox 38.2 C 85 33 H 119/53 L 94 08/03/18 10:00 08/03/18 10:00 08/03/18 10:00 08/03/18 10:00 08/03/18 10:00 O2 (L/minute) 2 FIO2 (%) 40 PHYSICAL EXAM: General: awake, alert but oriented to self only HEENT: Mild jaundice, dry MM Neck: Supple, no thyromegaly CV: RRR, no murmur or rubs RESP: CTA b/l, no wheezing ABD: Soft, distended, NT EXT: No edema, no rashes NEURO: Non-focal, confused LABS: WBC 101.93 10^3/uL (3.80-9.50) H* 08/03/18 05:45 RBC 2.52 10^6/uL (4.40-6.38) L 08/03/18 05:45 Hgb 7.5 g/dL (13.7-17.5) L 08/03/18 05:45 POC Hgb TNP 08/01/18 20:10 Hct 22.9 % (40.0-51.0) L 08/03/18 05:45 POC Hct < 15 % (40-51) L* 08/01/18 20:10 MCV 92.1 fL (81.5-99.8) 08/03/18 05:45 MCH 29.8 pg (27.9-34.1) 08/03/18 05:45 MCHC 32.3 g/dL (32.4-36.7) L 08/03/18 05:45 RDW 18.2 % (11.5-15.2) H 08/03/18 05:45 Plt Count 136 10^3/uL (150-400) L 08/03/18 05:45 MPV 10.1 fL (8.7-11.7) 08/02/18 15:30 Neut % (Auto) Not Reported 08/02/18 15:30 Lymph % (Auto) Not Reported 08/02/18 15:30 [place] % (Auto) Not Reported 08/02/18 15:30 Eos % (Auto) Not Reported 08/02/18 15:30 Baso % (Auto) Not Reported 08/02/18 15:30 Nucleat RBC Rel Count Not Reported 08/02/18 15:30 Absolute Neuts (auto) Not Reported 08/02/18 15:30 Absolute Lymphs (auto) Not Reported 08/02/18 15:30 Absolute Monos (auto) Not Reported 08/02/18 15:30 Absolute Eos (auto) Not Reported 08/02/18 15:30 Absolute Basos (auto) Not Reported 08/02/18 15:30 Absolute Nucleated RBC Not Reported 08/02/18 15:30 Immature Gran % CHILD'S NURSE 08/02/18 15:30 Seg Neutrophils % 10.7 % 08/02/18 15:30 Band Neutrophils % 0.0 % 08/02/18 15:30 Lymphocytes % 88.8 % 08/02/18 15:30 Monocytes % 0.0 % 08/02/18 15:30 Eosinophils % 0.0 % 08/02/18 15:30 Basophils % 0.0 % 08/02/18 15:30 Metamyelocytes % 0.0 % 08/02/18 15:30 Myelocytes % 0.5 % 08/02/18 15:30 Promyelocytes % 0.0 % 08/02/18 15:30 Blast Cells % 0.0 % 08/02/18 15:30 Immature Gran # CHILD'S NURSE 08/02/18 15:30 Absolute Seg Neuts 11.27 10^3/uL (1.70-6.50) H 08/02/18 15:30 Absolute Band Neuts 0.00 10^3/uL (0.00-0.70) 08/02/18 15:30 Absolute Lymphocytes 93.53 10^3/uL (1.00-3.00) H 08/02/18 15:30 Absolute Monocytes 0.00 10^3/uL (0.30-0.80) L 08/02/18 15:30 Absolute Eosinophils 0.00 10^3/uL (0.03-0.40) L 08/02/18 15:30 Absolute Basophils 0.00 10^3/uL (0.02-0.10) L 08/02/18 15:30 Absolute Metamyelocyte 0.00 10^3/mL (0.00-0.00) 08/02/18 15:30 Absolute Myelocytes 0.53 10^3/mL (0.00-0.00) H 08/02/18 15:30 Absolute Promyelocytes 0.00 10^3/uL (0.00-0.00) 08/02/18 15:30 Absolute Plasma Cells 0.00 10^3/uL (0.00-0.00) 08/02/18 15:30 Nucleated RBCs 6.1 /100 WBC (0-0) H 08/02/18 15:30 Absolute Blast Cells 0.00 10^3/uL (0.00-0.00) 08/02/18 15:30 Plasma Cells % 0.0 % 08/02/18 15:30 Platelet Estimate ADEQUATE (ADEQ) 08/02/18 15:30 Polychromasia 1+ H 08/02/18 15:30 Hypochromasia 1+ H 08/02/18 09:30 Basophilic Stippling 1+ H 08/01/18 20:10 Microcytic Cells 2+ H 08/02/18 15:30 Oval Macrocytes 1+ H 08/02/18 09:30 Echinocytes 2+ H 08/02/18 09:30 Elliptocytes 1+ H 08/02/18 09:30 Smear Review By Keith ROTHMAN MD 08/02/18 09:30 PT 15.6 SEC (12.0-15.0) H 08/01/18 21:50 INR 1.30 (0.83-1.16) H 08/01/18 21:50 APTT 20.0 SEC (23.0-38.0) L 08/01/18 21:50 POC Blood Source ARTERIAL 08/02/18 09:39 Puncture Site NONE GIVEN 08/03/18 01:15 Patient Temperature 37.0 DEGREES 08/03/18 01:15 pCO2 29 mmHg (34-38) L 08/03/18 01:15 pO2 112 mmHg (65-75) H 08/03/18 01:15 Total CO2 22 mEq/L (23-27) L 08/03/18 01:15 POC ABG pH 7.01 (7.35-7.45) L* 08/02/18 09:39 ABG pH 7.47 (7.35-7.45) H 08/03/18 01:15 POC ABG pCO2 29 mmHg (34-38) L 08/02/18 09:39 POC ABG pO2 193 mmHg (65-75) H 08/02/18 09:39 ABG PO2/FiO2 Ratio 224 RATIO 08/02/18 20:34 POC ABG HCO3 7 mEq/L (22-26) L 08/02/18 09:39 ABG HCO3 21 mEq/L (22-26) L 08/03/18 01:15 POC ABG Total CO2 8 mEq/L (23-27) L* 08/02/18 09:39 POC ABG O2 Sat 99 % (92-95) H 08/02/18 09:39 ABG O2 Saturation 99 % (92-95) H 08/03/18 01:15 POC ABG Base Excess -24.0 mEq/L (-2.5-2.5) L 08/02/18 09:39 ABG Base Excess -2.2 mEq/L (-2.5-2.5) 08/03/18 01:15 ABG Lactic Acid 14.9 mmol/L (0.5-1.6) H 08/02/18 09:49 VBG pH 7.39 (7.31-7.42) 08/01/18 20:11 POC VBG pH 6.70 (7.31-7.42) L 08/02/18 08:57 POC VBG pCO2 35 mmHg (40-44) L 08/02/18 08:57 POC VBG pO2 270 mmHg (35-40) H 08/02/18 08:57 VBG HCO3 17 mEQ/L (22-26) L 08/01/18 20:11 POC VBG HCO3 4 mEq/L (22-26) L 08/02/18 08:57 VBG Total CO2 17 mEq/L (21-27) L 08/01/18 20:11 POC VBG Total CO2 5 mEq/L (21-27) L 08/02/18 08:57 VBG O2 Saturation 100 % (65-75) H 08/01/18 20:11 VBG Base Excess -7.6 mEq/L (-2.5-2.5) L 08/01/18 20:11 POC VBG Base Excess < -30.0 mEq/L (-2.5-2.5) L 08/02/18 08:57 VBG Lactic Acid 5.5 mmol/L (0.7-2.1) H 08/01/18 20:11 Mixed VBG pCO2 28 mmHg (40-44) L 08/01/18 20:11 Mixed VBG pO2 127 mmHG (35-40) H 08/01/18 20:11 POC Mix VBG O2 Sat 99 % (65-75) H 08/02/18 08:57 O2 Concentration % 80 % (0-100) 08/02/18 20:34 Respiration Rate 28 08/02/18 09:40 Set Respiration Rate 24 08/02/18 09:40 Assist Control YES 08/02/18 09:40 POC FiO2 100.0000 % (0-100) 08/02/18 09:39 Tidal Volume 650 08/02/18 09:40 End Tidal CO2 17 08/02/18 20:34 PEEP 5 08/02/18 09:40 POC Sodium 135 mEq/L (135-145) 08/01/18 20:10 Sodium 137 mEq/L (135-145) 08/03/18 05:45 POC Potassium 4.6 mEq/L (3.3-5.0) 08/01/18 20:10 Potassium 4.5 mEq/L (3.5-5.2) 08/03/18 05:45 POC Chloride 105 mEq/L (97-110) 08/01/18 20:10 Chloride 105 mEq/L (97-110) 08/03/18 05:45 Carbon Dioxide 18 mEq/l (22-31) L 08/03/18 05:45 POC Total CO2 17 mEq/L (22-31) L 08/01/18 20:10 Anion Gap 14 mEq/L (6-14) 08/03/18 05:45 POC BUN 41 mg/dL (7-23) H 08/01/18 20:10 BUN 84 mg/dL (7-23) H 08/03/18 05:45 Creatinine 3.6 mg/dL (0.7-1.3) H 08/03/18 05:45 POC Creatinine 1.4 mg/dL (0.7-1.3) H 08/01/18 20:10 Estimated GFR 17 08/03/18 05:45 Glucose 157 mg/dL (70-100) H 08/03/18 05:45 POC Glucose 176 mg/dL (70-100) H 08/03/18 10:01 Hemoglobin A1c 5.3 % (4.0-6.0) 08/02/18 09:30 Estim Average Glucose 105 mg/dL (68-126) 08/02/18 09:30 POC Lactic Acid Arter 15.2 mmol/L (0.5-1.6) H 08/02/18 09:39 POC Lactic Acid Reggie 17.2 mmol/L (0.7-2.1) H 08/02/18 08:57 Calcium 7.2 mg/dL (8.5-10.4) L 08/03/18 05:45 Phosphorus 8.4 mg/dL (2.5-4.5) H 08/03/18 05:45 Magnesium 2.3 mg/dL (1.6-2.3) 08/03/18 05:45 Total Bilirubin 11.2 mg/dL (0.1-1.4) H 08/03/18 05:45 Conjugated Bilirubin 4.2 mg/dL (0.0-0.5) H 08/03/18 05:45 Unconjugated Bilirubin 7.0 mg/dL (0.0-1.1) H 08/03/18 05:45 AST 717 IU/L (17-59) H 08/03/18 05:45 ALT 519 IU/L (21-72) H 08/03/18 05:45 Alkaline Phosphatase 68 IU/L (38-126) 08/03/18 05:45 Ammonia 15.0 uMOL/L (9.0-30.0) 08/01/18 20:11 Total Protein 5.2 g/dL (6.3-8.2) L 08/03/18 05:45 Albumin 3.2 g/dL (3.5-5.0) L 08/03/18 05:45 Lipase 123 IU/L (23-300) 08/01/18 20:10 Specimen Hemolysis Cancelled 08/02/18 09:30 Urine Color KIMMY 08/02/18 17:10 Urine Appearance HAZY 08/02/18 17:10 Urine pH 5.0 (5.0-7.5) 08/02/18 17:10 Ur Specific Eck[place] 1.014 (1.002-1.030) 08/02/18 17:10 Urine Protein 2+ (NEGATIVE) H 08/02/18 17:10 Urine Ketones NEGATIVE (NEGATIVE) 08/02/18 17:10 Urine Blood 3+ (NEGATIVE) H 08/02/18 17:10 Urine Nitrate NEGATIVE (NEGATIVE) 08/02/18 17:10 Urine Bilirubin NEGATIVE (NEGATIVE) 08/02/18 17:10 Urine Urobilinogen NEGATIVE EU (0.2-1.0) 08/02/18 17:10 Ur Leukocyte Esterase NEGATIVE (NEGATIVE) 08/02/18 17:10 Urine RBC 1-3 /hpf (0-3) 08/02/18 17:10 Urine WBC 3-5 /hpf (0-3) H 08/02/18 17:10 Ur Epithelial Cells NONE SEEN /lpf (NONE-1+) 08/02/18 17:10 Urine Bacteria TRACE /hpf (NONE SEEN) H 08/02/18 17:10 Urine Glucose 2+ (NEGATIVE) H 08/02/18 17:10 Antibody Screen POSITIVE 08/01/18 20:25 Antibody Identification UNDETERMINED 08/01/18 20:25 Antibody ID Referred Cancelled 08/01/18 Unknown GLORIA, IgG Specific IGG POSITIVE (NEGATIVE) 08/01/18 20:25 GLORIA, IgG Interpret Cancelled 08/01/18 Unknown GLORIA, Polyspecific POSITIVE (NEGATIVE) H 08/01/18 20:25 GLORIA, Poly Interpret Cancelled 08/01/18 Unknown GLORIA, Complement Interp Cancelled 08/01/18 Unknown Crossmatch See Detail 08/01/18 20:25 Crossmatch IS Only See Detail 08/01/18 20:25 IMAGING: Renal US pending. ASSESSMENT/PLAN: The patient is a 73 y/o M with a known h/o CLL, AIHA, and DM2 who presented with significant anemia causing PEA arrest now with CONTRERAS likely 2/ 2 to hypovolemic ATN. CONTRERAS -unknown baseline Cr,up to 1.8 on admission now 3.6 -anuric, germain in place -renal US, urine culture, urine sodium, Upr:cr ordered -long discussion with regarding need for hemodialysis and will make decision to place catheter in IR this afternoon -avoid contrast and nephrotoxins -will continue to monitor Hypotension -unclear etiology -blood cultures ordered -Hb stable at >7 -keep MAP>65, on levophed -consider echo AIHA and CLL -hematology consult appreciated -will await if any indication for plasma exchange Acidosis -likely 2/2 to CONTRERAS and arrest -bicarb 18, currently on fluids with bicarb BMD -phos >8, hold binder for now -renal diet if progressing Consult appreciated, will continue to follow. Please contact if ?'s. Talib Cantu, [facility] #[phone]
[2018-08-03] MEDS: ENOXAPARIN 40 MG/0.4 ML SYR SC SCH (12:26)
--- NOTE | 2018-08-03 15:23 | PDINTPN ---
Registered Radiologic Technologist Progress Note Assessment/Plan: Assessment: Status post PEA arrest: Likely due to severe anemia with lactic acidosis. Vital signs stable since initial cardiac arrest, although he has persistent tachycardia. Acute respiratory failure: This was due to his arrest. His gas exchange is now good and he has passed weaning parameters Hemolytic anemia: Patient has been transfused and his hemoglobin has been stable. He is on high-dose IV steroids Acute kidney injury: The patient is oliguric and has a rapidly jovanny aiming creatinine. It is likely the DDL need dialysis, but he does not have an acute indication currently. CLL: His white blood count remains at his stable elevated level Plan: Extubate. Continue steroids. Follow hemoglobin closely. Renal consult 35 min critical care time managing ventilator status, tachycardia 08/03/18 15:23 Subjective: Alert, nods appropriately. Denies pain. Objective: Vital Signs Temp Pulse Resp BP Pulse Ox 37.8 C 99 32 H 124/61 H 92 08/03/18 14:00 08/03/18 15:00 08/03/18 15:00 08/03/18 15:00 08/03/18 15:00 Laboratory Results 08/03/18 05:45 08/03/18 12:30 08/02/18 08/03/18 08/04/18 05:59 05:59 05:59 Intake Total 1900 4720.5 1100 Output Total 0 1041 Balance 1900 3679.5 1100 PT 15.6 SEC (12.0-15.0) H 08/01/18 21:50 INR 1.30 (0.83-1.16) H 08/01/18 21:50 Physical Exam - Physical Exam General Appearance: alert, no apparent distress EENT: normal ENT inspection Neck: normal inspection Respiratory: lungs clear, normal breath sounds Cardiac/Chest: regular rate, rhythm, No edema Abdomen: normal bowel sounds, non-tender Skin: normal color, warm/dry Extremities: normal inspection Neuro/Psych: alert, normal mood/affect, oriented x 3 ICD10 Worksheet Patient Problems: Problems Problem Status Onset CLL (chronic lymphocytic leukemia) Acute Hyperglycemia Acute Anemia Acute Hyperbilirubinemia Acute
--- NOTE | 2018-08-03 16:06 | GCON ---
[f rep st] CONSULTATION PULMONARY/CRITICAL CARE CONSULTATION DATE OF CONSULTATION: 08/02/2018 REFERRING PHYSICIAN: Sammy Mayers MD REASON FOR REFERRAL: Evaluation and management of shock and cardiopulmonary arrest. HISTORY: The patient is a 73-year-old gentleman with a history of CLL, warm autoimmune hemolytic anemia and type 2 diabetes. He has been followed by Oncology, but has been treated only with steroids for his hemolytic anemia, no therapy specifically directed at his CLL. His steroids were tapered off in April of this year and he was followed by Oncology, most recently in May. He presented to the emergency room yesterday with hemoglobin level of 3.5 and a bilirubin of 15, mostly unconjugated. Prednisone was started in units and blood was ordered, but he had antibodies and was a difficult crossmatch, so the blood had come up from [facility]. The blood was being given this morning when the patient suddenly had a PEA arrest. CPR was initiated and the patient was intubated. The blood had just arrived and was quickly infused, with return of spontaneous circulation. PAST MEDICAL HISTORY: 1. Type 2 diabetes. 2. CLL. 3. Warm autoimmune hemolytic anemia. MEDICATIONS: At the time of admission include metformin, glyburide, insulin. ALLERGIES: Penicillin. SOCIAL HISTORY: The patient is . His was a long-time employee of [employer]. He does not smoke or drink. FAMILY HISTORY: Unremarkable. REVIEW OF SYSTEMS: Review of systems is unobtainable. PHYSICAL EXAMINATION: GENERAL: The patient is intubated and unresponsive. He was not sedated for the code/intubation. VITAL SIGNS: Blood pressure 100/75 with a heart rate of 119. He is afebrile, oxygen saturations are 100% on a ventilator. HEENT: Normocephalic and atraumatic. He is icteric. NECK: No adenopathy. Trachea is midline. CHEST: Clear to auscultation. CARDIAC: Regular, tachycardia without murmur. ABDOMEN: Soft. Bowel sounds are present. He is not distended. EXTREMITIES: No clubbing, cyanosis, or edema. NEURO: The patient is unresponsive. LABORATORY: Hemoglobin is 3.5 with a white blood count of 104, 84% lymphocytes. A chemistry group shows a carbon dioxide level of 9 with an anion gap of 26. His creatinine is 1.7, glucose is 453. A bilirubin is 13.1 with an unconjugated bilirubin of 9.6 and albumin is 3.3. An INR is 1.3. An arterial blood gas shows a pH of 6.72 with a pO2 of 210, and a CO2 of 33. Chest x-ray shows perihilar infiltrates. Images reviewed by me. Serum lactate level is 14.9. ASSESSMENT: 1. Acute pulseless electrical activity arrest. This is likely due to severe anemia with diffuse anoxic lactic acidosis. He has had return of spontaneous circulation with packed red blood cells. 2. Severe lactic acidosis. This is likely due to severe anemia with impaired tissue oxygenation. This should improve with transfusions. I have also given him some sodium bicarbonate. 3. Autoimmune hemolytic anemia. The patient developed severe anemia with elevated bilirubin due to hemolysis. He has received a transfusion for this as well as getting steroids, which were started last night. Hopefully, he will not hemolyze his crossmatch blood as rapidly as he hemolyzed his own [place] blood. 4. Chronic lymphocytic leukemia. This is currently untreated and being followed by Oncology. 5. Acute kidney injury. This is likely due to anoxic injury from the anemia. RECOMMENDATIONS: Check stat hemoglobin and transfuse further to maintain hemoglobin at the level of at least 6. The patient will be given bicarb to help correct his lactic acidosis. Steroids will be continued. Oncology has been consulted. Hopefully, once his hemodynamics have stabilized and we are able to correct his acid-base abnormality, he can be extubated. Sixty-five minutes critical care time managing shock, respiratory failure, and severe anemia. /[id number]/MODL MTDD
[2018-08-03] MEDS ORDERED: D50W 25 GM/50 ML SYR IVP PRN (17:15)
[2018-08-03] MEDS ORDERED: INSULIN GLARGINE 100 UNITS/ML UNIT SC SCH (17:16)
[2018-08-03] MEDS: INSULIN REGULAR HUMAN 100 UNIT/ML UNIT SC SCH ×2 (17:57→21:52)
[2018-08-03] MEDS: LIDOCAINE 4%/MENTHOL 1% PATCH TD SCH (17:58)
[2018-08-03] MEDS ORDERED: NA BICARBONATE 50 MEQ/50 ML VIAL ONE (18:43)
[2018-08-03] MEDS ORDERED: NA BICARBONATE 50 MEQ/50 ML VIAL IV ONE (18:45)
[2018-08-03] MEDS ORDERED: SODIUM BICARBONATE 650 MG TAB PO SCH (21:00)
[2018-08-03] MEDS: ALTEPLASE 2 MG VIAL IVP PRN (21:12)
--- NOTE | 2018-08-03 21:28 | PDINTPN ---
Bell Staff Progress Note Assessment/Plan: 73 M with a history of CLL and warm autoimmune hemolytic anemia admitted 2018 with altered mental status, shortness of breath and jaundice. He was found to have a hemoglobin of only 3.5 down from 9.8 2 months ago. He had been tapering off prednisone and folic acid. He was given prednisone and blood which was difficult to match. On the morning of 08/02/2018 however he had a PEA arrest requiring CPR and intubation, thought to be related to severe anemia and diffuse anoxic lactic acidosis. He subsequently stabilized and was extubated the morning of 08/03/2018. However he has remained anuric and continues to have respiratory distress with respiratory rates in the 40s.. * CONTRERAS-likely related to his PEA arrest and with worsening, refractory acidosis with marginal respiratory compensation. Have discussed with renal and surgery with plans for HD. His is not currently on pressors. Long discussion with his about his wishes which are clearly in line with aggressive treatment * Acute respiratory failure with hypoxemia- likely the result of volume overload related to CONTRERAS- his oxygen is marginal and his physical exam reveals coarse rales. We should be able to stabilize his breathing with Bipap to hold him over until an adequate amount of volume can be removed. * Code status- let it be quite clear, after discussion with his , who was understandably upset at the mere mention of code status, that this patient is a full code. * CLL- WBC is at about 100k, but no therapy at this time for CLL per heme onc * Hemolytic anemia- one unit RBC transfusing now and remains on steroids. * Transaminitis- related to shock liver and improving- observe * * critical care time 65 minutes Objective: Vital Signs Temp Pulse Resp BP Pulse Ox 38.1 C 89 32 H 130/60 H 98 08/03/18 21:00 08/03/18 21:00 08/03/18 21:00 08/03/18 21:00 08/03/18 21:00 Laboratory Results 08/03/18 18:20 08/03/18 12:30 08/02/18 08/03/18 08/04/18 05:59 05:59 05:59 Intake Total 1900 4720.5 3056 Output Total 0 1041 35 Balance 1900 3679.5 3021 PT 15.6 SEC (12.0-15.0) H 08/01/18 21:50 INR 1.30 (0.83-1.16) H 08/01/18 21:50 Physical Exam - Physical Exam General Appearance: alert, moderate distress, obese EENT: PERRL/EOMI, No scleral icterus (R), No scleral icterus (L) Neck: supple, No lymphadenopathy (R), No lymphadenopathy (L) Respiratory: respiratory distress, accessory muscle use, rhonchi, No wheezing Cardiac/Chest: regular rate, rhythm, No edema, No JVD Abdomen: non-tender, soft, No distended Skin: normal color, warm/dry, No cyanosis Lymphatic: no adenopathy Extremities: No pedal edema Neuro/Psych: alert, cognition abnormalities, No abnormal mold filling operator [id number] ICD10 Worksheet Patient Problems: Problems Problem Status Onset CLL (chronic lymphocytic leukemia) Acute Hyperglycemia Acute Anemia Acute Hyperbilirubinemia Acute
[2018-08-03] MEDS ORDERED: LIDOCAINE 1% 300 MG/30 ML SDV MISC ONE (22:15)
--- NOTE | 2018-08-03 22:32 | SOAPPROG ---
SOAP Progress Note Assessment/Plan: Assessment: Renal buttoner Asked to see pt re: resp distress and need for hd. Extubated earlier today and did reasonably well with RR in 30's all day. This evening had some decompensation with RR into 40's and sl worsening of met acidosis. Remains essentially anuric but is now off pressors. Doing better now on bipap but remains dyspneic. Will dialyze this evening and again tomorrow. Attempt gentle uf, would resume pressors if needed to support bp. Discussed with [id number], consent obtained. Surgery has kindly agreed to place catheter. Plan: 08/03/18 22:27 Objective: Vital Signs Temp Pulse Resp BP Pulse Ox 38.1 C 105 H 41 H 132/60 H 92 08/03/18 21:59 08/03/18 21:59 08/03/18 21:59 08/03/18 21:59 08/03/18 21:59 Laboratory Results 08/03/18 18:20 08/03/18 12:30 08/02/18 08/03/18 08/04/18 05:59 05:59 05:59 Intake Total 1900 4720.5 3056 Output Total 0 1041 35 Balance 1900 3679.5 3021 PT 15.6 SEC (12.0-15.0) H 08/01/18 21:50 INR 1.30 (0.83-1.16) H 08/01/18 21:50 Physical Exam - Physical Exam General Appearance: mild distress Respiratory: rhonchi Cardiac/Chest: tachycardia Abdomen: non-tender, soft Extremities: other (trace dependent edema) ICD10 Worksheet Patient Problems: Problems Problem Status Onset CLL (chronic lymphocytic leukemia) Acute Hyperglycemia Acute Anemia Acute Hyperbilirubinemia Acute
--- NOTE | 2018-08-04 00:34 | POSTOPPROG ---
Post Op Note Date of Operation: 08/04/18 Surgeon: Gildardo Cox Pre-op Diagnosis: ARF due to cardiopulmonary arrest Post-op Diagnosis: ARF due to cardiopulmonary arrest Indication: ARF due to cardiopulmonary arrest Procedure: placement of right subclavian dialysis catheter Findings: ARF due to cardiopulmonary arrest Inf/Abcess present in the surg proc area at time of surgery?: No EBL: Minimal Total fluids administered: maintance Complications: none Bowel Protocol: N/A Clean Closure Performed: N/A Specimen(s): none
[2018-08-04] MEDS ORDERED: HEPARIN 50,000 UNIT/10 ML VIAL IV ONE (06:04)
[2018-08-04] MEDS: PATCH REMOVAL 1 EA PATCH TD SCH (07:03)
[2018-08-04] MEDS: INSULIN REGULAR HUMAN 100 UNIT/ML UNIT SC SCH ×4 (07:55→20:53)
[2018-08-04] MEDS: methylPREDNISolone SOD SUCC 125 MG/2 ML VIAL IVP SCH (08:24)
[2018-08-04] MEDS: ENOXAPARIN 40 MG/0.4 ML SYR SC SCH (08:26)
--- NOTE | 2018-08-04 09:04 | GOP ---
[f rep st] OPERATIVE REPORT DATE OF OPERATION: 08/03/2018 SURGEON: Gildardo Cox MD ANESTHESIA: Local infiltrative anesthesia (intradermal and subcutaneous injection of lidocaine 3 cc). PREOPERATIVE DIAGNOSIS: Acute renal failure secondary to cardiopulmonary arrest , secondary to severe anemia due to hemolytic process. POSTOPERATIVE DIAGNOSIS: Acute renal failure secondary to cardiopulmonary arrest, secondary to severe anemia due to hemolytic process. PROCEDURE PERFORMED: Placement of a right subclavian dialysis catheter. FINDINGS: Acute renal failure secondary to cardiopulmonary arrest, secondary to severe anemia due to hemolytic process. INDICATIONS: Acute renal failure secondary to cardiopulmonary arrest, secondary to severe anemia due to hemolytic process. DESCRIPTION OF PROCEDURE: The patient is placed as close to supine as possible. He is on a CPAP mask and he gets short of breath with supine position. At approximately 5 degrees, he tolerates the position,his neck veins are distended and I feel I can safely do it at this level. Note is made that he has previously had a Lovenox injection today (40 mg, 8 hours prior). Surgical time-out is carried out. The consent has been signed by his sister-in- law. The ICU nurse and I agree as to the procedure. The right chest is carefully prepped with a ChloraPrep swab. A large sterile field is developed. Dialysis catheter has the Hep-Lock adaptor is placed and all lumens are flushed. An attempt is made to use the supraclavicular approach because of the potential for bleeding. Transiently, I am able to access the supraclavicular portion of the subclavian vein, but I cannot feed a guidewire. Second attempt is unsuccessful. A change is made to the subclavian approach. Using subclavian approach, I am able to access the vein on the first pass. I feed a guidewire centrally. The access needle is removed over the wire. The skin is incised. Both dilators are carefully individually passed. The flushed dialysis catheter is carefully passed over the guidewire. The appropriate hub is removed and the guidewire passed through that lumen. Now, the dialysis catheter is advanced over the guidewire. The guidewire is removed. Hep-Lock adaptor is again placed and it is subsequently flushed. A Biopatch is placed. The skin is anesthetized and 2 separate sutures are used to secure the dialysis catheter to the skin. A sterile dressing is applied. A chest x-ray is obtained, which shows no evidence of pneumothorax and good dialysis catheter position. The patient tolerates the procedure well. TIME: 11 p.m. /[id number]/MODL MTDD
[2018-08-04] MEDS ORDERED: FUROSEMIDE 100 MG/10 ML VIAL IVP ONE (11:12)
[2018-08-04] MEDS ORDERED: FUROSEMIDE 120 MG in D5W 50 ML IV ONE (11:30)
[2018-08-04 11:53] LABS: CREATINE KINASE 1181 IU/L (0-224)
--- NOTE | 2018-08-04 12:19 | PDINTPN ---
Manager Marketing Communications Progress Note Assessment/Plan: Assessment: Status post PEA arrest: Likely due to severe anemia with lactic acidosis. Vital signs stable since initial cardiac arrest, although he has persistent tachycardia. Acute respiratory failure: This was due to his arrest. He was extubated 08/03, did well for a while, then had increased oxygen needs and tachypnea, likely due to pulmonary edema. Now on BiPAP. Pneumonia is possible but less likely. Hemolytic anemia: Patient has been transfused and his hemoglobin has been stable. Bili remains elevated. He is on high-dose IV steroids Acute kidney injury: The patient is oliguric and had increasing creatinine. Received dialysis due to worsening respiratory status 08/03 evening. Urine output a bit better this AM. CLL: His white blood count remains at his stable elevated level Plan: Continue steroids. Follow hemoglobin closely. Continue BiPAP. HD later today. Will try a dose of Lasix 40 min critical care time managing tenuous respiratory status, tachycardia 08/04/18 12:19 Subjective: Increased dyspnea/tachypnea compared to yesterday. Objective: Vital Signs Temp Pulse Resp BP Pulse Ox 37.9 C 131 H 35 H 122/67 H 98 08/04/18 11:45 08/04/18 11:45 08/04/18 11:45 08/04/18 11:45 08/04/18 11:45 Laboratory Results 08/04/18 11:30 08/04/18 05:20 08/03/18 08/04/18 08/05/18 05:59 05:59 05:59 Intake Total 4720.5 3829 Output Total 1041 2120 Balance 3679.5 1709 PT 15.6 SEC (12.0-15.0) H 08/01/18 21:50 INR 1.30 (0.83-1.16) H 08/01/18 21:50 CXR: Increased infiltrates. Images reviewed by me. Physical Exam - Physical Exam General Appearance: alert, no apparent distress EENT: normal ENT inspection Neck: normal inspection Respiratory: decreased breath sounds Abdomen: normal bowel sounds, non-tender Skin: normal color, warm/dry Extremities: normal inspection Neuro/Psych: alert, normal mood/affect, No motor weakness ICD10 Worksheet Patient Problems: Problems Problem Status Onset CLL (chronic lymphocytic leukemia) Acute Hyperglycemia Acute Anemia Acute Hyperbilirubinemia Acute
--- NOTE | 2018-08-04 13:05 | SOAPPROG ---
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 When better can discuss options. No urgent need to treat right now but hemolysis won't entirely resolve without therapy. * Olimpia+ Hemolytic anemia: Received total of 5 units PRBC. Hgb stable and bilirubin dropping on solumedrol; continue at 125 mg daily. Transfuse if hgb drops below 7 g/dL with recent cardiac arrest. The increase in bilirubin may be due to the recent liver injury as the unconjugated portion is about the same. * Cardiac Arrest: primarily due to critically low hgb; still tachy but off pressors this morning * Acute renal failure: ATN from cardiac arrest; getting HD for fluid overload but may be starting to produce urine. * Elevated LFTs: shock liver from cardiac arrest. Subjective: Extubated but still tachypnic. with patient. Chest sore from compressions. Objective: Vital Signs Temp Pulse Resp BP Pulse Ox 37.9 C 131 H 35 H 122/67 H 98 08/04/18 11:45 08/04/18 11:45 08/04/18 11:45 08/04/18 11:45 08/04/18 11:45 Laboratory Results 08/04/18 11:30 08/04/18 05:20 08/03/18 08/04/18 08/05/18 05:59 05:59 05:59 Intake Total 4720.5 3829 Output Total 1041 2120 Balance 3679.5 1709 PT 15.6 SEC (12.0-15.0) H 08/01/18 21:50 INR 1.30 (0.83-1.16) H 08/01/18 21:50 Laboratory Tests 08/03/18 08/04/18 05:45 05:20 WBC 101.93 H* 81.17 H* Hgb 7.5 L 8.0 L Plt Count 136 L 116 L Laboratory Tests 08/03/18 08/03/18 08/04/18 05:45 12:30 05:20 BUN 84 H 92 H 76 H Creatinine 3.6 H 4.3 H 4.0 H Total Bilirubin 11.2 H 12.1 H 15.2 H Conjugated Bilirubin 4.2 H 5.2 H 8.2 H Unconjugated Bilirubin 7.0 H 6.9 H 7.0 H AST 717 H 544 H 306 H ALT 519 H 479 H 465 H Physical Exam - Physical Exam General Appearance: alert Respiratory: decreased breath sounds, rhonchi Cardiac/Chest: tachycardia Skin: jaundice ICD10 Worksheet Patient Problems: Problems Problem Status Onset CLL (chronic lymphocytic leukemia) Acute Hyperglycemia Acute Anemia Acute Hyperbilirubinemia Acute
--- NOTE | 2018-08-04 13:15 | SOAPPROG ---
SOAP Progress Note Assessment/Plan: Assessment: 73 y/o M with a known h/o CLL, AIHA, and DM2 who presented with significant anemia causing PEA arrest now with CONTRERAS likely 2/2 to hypovolemic ATN. CONTRERAS -unknown baseline Cr, 1.8 on admission. Suspected ATN in setting of PEA arrest -oliguric with germain in -HD initiated early this am- plan again this afternoon given volume overload, resp status-- will reassess after treatment to decide if needs to be placed on CRRT overnight to keep up with volume. Per crit care, doing better from resp status -will check lytes frequently to ensure not tumor lysis developing-- has only gotten steroids so less likely -ok for prn lasix Hypotension -blood cultures, TTE ordered -off pressors currently AIHA and CLL -hematology consult appreciated -on steroids, hb stable -follow lytes Acidosis -likely 2/2 to CONTRERAS and arrest -improving with HD BMD -phos >8, hold binder for now until taking po. HD will help -renal diet if progressing I discussed with ICU MD/RN and family Denita Prasad MD [facility] pager [phone] office [phone] Subjective: Had HD overnight due to resp failure-- 2kg UF. On BIPAP currently. Family at bedside and I updated them on status. Objective: Vital Signs Temp Pulse Resp BP Pulse Ox 37.9 C 131 H 35 H 122/67 H 98 08/04/18 11:45 08/04/18 11:45 08/04/18 11:45 08/04/18 11:45 08/04/18 11:45 Laboratory Results 08/04/18 11:30 08/04/18 05:20 08/03/18 08/04/18 08/05/18 05:59 05:59 05:59 Intake Total 4720.5 3829 Output Total 1041 2120 Balance 3679.5 1709 PT 15.6 SEC (12.0-15.0) H 08/01/18 21:50 INR 1.30 (0.83-1.16) H 08/01/18 21:50 Physical Exam - Physical Exam General Appearance: other (on BIPAP, tachypneic, awake and alert) Respiratory: other (coarse bs throughout) Cardiac/Chest: regular rate, rhythm, other (tachycardic, no rub) Abdomen: normal bowel sounds, non-tender, soft Extremities: other (trace edema bilat LE) Neuro/Psych: alert, other (follows commands) ICD10 Worksheet Patient Problems: Problems Problem Status Onset CLL (chronic lymphocytic leukemia) Acute Hyperglycemia Acute Anemia Acute Hyperbilirubinemia Acute
[2018-08-04] MEDS: HEPARIN 5,000 UNIT/0.5 ML INJ SC SCH ×2 (13:59→21:53)
--- NOTE | 2018-08-04 16:48 | HOSPPROG ---
Hospitalist Progress Note Assessment/Plan: # PEA arrest - in setting of severe anemia - currently neurologically recovered # acute resp failure - now extubated; d/t pulm edema # acute renal failure - currently on HD - markedly elevated uric acid - will hold on rasburicase if does not improve with HD (discussed with Dr Batres) # pulm edema - volume removal via HD # hemolytic anemia - d/t CLL - cont steroids # CLL - had not been on treatment # DM2 - glucs elevated; restart lantus today # fever - not clearly infective; possibly d/t hemolysis - follow BCx # elevated LFTs - shock liver + hemolysis # hypotension - off pressors Subjective: extubated yesterday; c/o chest pain today Objective: Vital Signs Temp Pulse Resp BP Pulse Ox 37.9 C 126 H 30 H 151/68 H 91 L 08/04/18 15:49 08/04/18 15:49 08/04/18 15:49 08/04/18 15:49 08/04/18 15:49 Laboratory Results 08/04/18 11:30 08/04/18 05:20 08/03/18 08/04/18 08/05/18 05:59 05:59 05:59 Intake Total 4720.5 3829 Output Total 1041 2120 Balance 3679.5 1709 PT 15.6 SEC (12.0-15.0) H 08/01/18 21:50 INR 1.30 (0.83-1.16) H 08/01/18 21:50 45 mins cc time - Physical Exam Constitutional: no apparent distress, appears nourished Cardiovascular: other (R subclavian HD catheter) Respiratory: inspiratory crackles, No clear to auscultation, No expiratory wheeze Gastrointestinal: soft, non-tender abdomen, no palpable masses, No guarding, No rebound ICD10 Worksheet Patient Problems: Problems Problem Status Onset Anemia Acute Hyperbilirubinemia Acute CLL (chronic lymphocytic leukemia) Acute Hyperglycemia Acute
[2018-08-04] MEDS ORDERED: INSULIN GLARGINE 100 UNITS/ML UNIT SC SCH ×2 (16:52→21:00)
[2018-08-04] MEDS: LIDOCAINE 4%/MENTHOL 1% PATCH TD SCH (17:28)
--- NOTE | 2018-08-04 18:33 | CPEKG ---
Test Reason : OPEN Blood Pressure : / mmHG Vent. Rate : 132 BPM Atrial Rate : 136 BPM P-R Int : 164 ms QRS Dur : 143 ms QT Int : 318 ms P-R-T Axes : -71 -78 025 degrees QTc Int : 471 ms Sinus tachycardia with irregular rate Probable left atrial enlargement RBBB and LAFB Confirmed by Jaime Abraham ([id number] on 08/04/2018 6:32:38 PM Referred By: Salbador Waller Confirmed By:Jaime Abraham
[2018-08-04 20:01] LABS: HEPATITIS B CORE AB TOTAL NEGATIVE (NEGATIVE); HEPATITIS B SURFACE ANTIGEN NEGATIVE (NEGATIVE)
[2018-08-04] MEDS ORDERED: HEPARIN 50,000 UNIT/10 ML VIAL ONE (20:54)
[2018-08-04] MEDS: FAMOTIDINE 20 MG/NACL 50 ML IV SCH (20:54)
[2018-08-05] MEDS: ACETAMINOPHEN 325 MG TAB PO PRN (01:11)
[2018-08-05 06:01] LABS: PLATELET COUNT 114 10^3/uL (150-400)
[2018-08-05] MEDS: HEPARIN 5,000 UNIT/0.5 ML INJ SC SCH ×3 (06:29→21:41)
[2018-08-05] MEDS: PATCH REMOVAL 1 EA PATCH TD SCH (06:30)
[2018-08-05] MEDS: INSULIN REGULAR HUMAN 100 UNIT/ML UNIT SC SCH ×4 (09:06→21:41)
[2018-08-05] MEDS: methylPREDNISolone SOD SUCC 125 MG/2 ML VIAL IVP SCH (09:08)
--- NOTE | 2018-08-05 09:28 | ASMTCMCOM ---
CM Note CM Note Notes: Patient has not been able to participate in therapies yet. Awaiting recommendations for d/c planning. D/C plan TBD. CM is following. Date Signed: 08/05/2018 09:26 AM Electronically Signed By:Karina Vyas LCSW
--- NOTE | 2018-08-05 10:13 | SOAPPROG ---
SOAP Progress Note Assessment/Plan: Assessment/Plan: 73 y/o M with a known h/o CLL, AIHA, and DM2 who presented with significant anemia causing PEA arrest now with CONTRERAS likely 2/2 to hypovolemic ATN. 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 08/05/18 11:14 Subjective: Patient up to chair but still slightly confused. at bedside and aware of plan. Objective: Vital Signs Temp Pulse Resp BP Pulse Ox 37.5 C 132 H 28 H 105/56 L 97 08/05/18 07:00 08/05/18 07:00 08/05/18 07:00 08/05/18 07:00 08/05/18 07:00 Laboratory Results 08/05/18 05:43 08/05/18 05:43 08/04/18 08/05/18 08/06/18 05:59 05:59 05:59 Intake Total 3829 707 Output Total 2120 400 Balance 1709 307 PT 15.6 SEC (12.0-15.0) H 08/01/18 21:50 INR 1.30 (0.83-1.16) H 08/01/18 21:50 Physical Exam - Physical Exam General Appearance: alert, mild distress EENT: PERRL/EOMI, scleral icterus (L) Neck: non-tender, supple Respiratory: decreased breath sounds, crackles Cardiac/Chest: tachycardia Abdomen: normal bowel sounds, non-tender, soft Skin: jaundice Extremities: normal range of motion Neuro/Psych: alert, disoriented to time ICD10 Worksheet Patient Problems: Problems Problem Status Onset CLL (chronic lymphocytic leukemia) Acute Hyperglycemia Acute Anemia Acute Hyperbilirubinemia Acute
--- NOTE | 2018-08-05 11:10 | PDINTPN ---
Systems Requirements Planner Progress Note Assessment/Plan: Assessment: Status post PEA arrest: Likely due to severe anemia with lactic acidosis. Vital signs stable since initial cardiac arrest, although he has persistent tachycardia. Acute respiratory failure: This was due to his arrest. He was extubated 08/03, did well for a while, then had increased oxygen needs and tachypnea, likely due to pulmonary edema. Now on BiPAP. Pneumonia is possible but less likely. Hemolytic anemia: Patient has been transfused and his hemoglobin has been stable. Bili remains elevated. He is on high-dose IV steroids Acute kidney injury: The patient is oliguric and had increasing creatinine. Received dialysis due to worsening respiratory status 08/03 evening. Urine output a bit better this AM. CLL: His white blood count remains at his stable elevated level Plan: Continue steroids. Follow hemoglobin closely. Continue BiPAP. HD later today. Will try a dose of Lasix 40 min critical care time managing tenuous respiratory status, tachycardia 08/04/18 12:19 Subjective: Complains of dyspnea. Objective: Vital Signs Temp Pulse Resp BP Pulse Ox 37.5 C 132 H 28 H 105/56 L 97 08/05/18 07:00 08/05/18 07:00 08/05/18 07:00 08/05/18 07:00 08/05/18 07:00 Microbiology 08/03/18 10:55 Urine Culture - Final Urine,Catheterized Laboratory Results 08/05/18 05:43 08/05/18 05:43 08/04/18 08/05/18 08/06/18 05:59 05:59 05:59 Intake Total 3829 707 Output Total 2120 400 Balance 1709 307 PT 15.6 SEC (12.0-15.0) H 08/01/18 21:50 INR 1.30 (0.83-1.16) H 08/01/18 21:50 Physical Exam - Physical Exam General Appearance: alert, no apparent distress EENT: normal ENT inspection Neck: normal inspection Respiratory: lungs clear Cardiac/Chest: regular rate, rhythm, No edema Abdomen: normal bowel sounds, non-tender Skin: normal color, warm/dry Extremities: normal inspection Neuro/Psych: alert, normal mood/affect, No oriented x 3 ICD10 Worksheet Patient Problems: Problems Problem Status Onset CLL (chronic lymphocytic leukemia) Acute Hyperglycemia Acute Anemia Acute Hyperbilirubinemia Acute
--- NOTE | 2018-08-05 11:29 | PDINTPN ---
Upholsterer Outside Progress Note Assessment/Plan: Assessment: Status post PEA arrest: Likely due to severe anemia with lactic acidosis. Vital signs stable since initial cardiac arrest, although he has persistent tachycardia. Acute respiratory failure: This was due to his arrest. He was extubated 08/03, did well for a while, then had increased oxygen needs and tachypnea, likely due to pulmonary edema. Now on BiPAP. Pneumonia is possible but less likely. Hemolytic anemia: Patient has been transfused and his hemoglobin has generally been stable, although down a bit this morning. Bili remains elevated. He is on high-dose IV steroids Acute kidney injury: The patient is oliguric and had increasing creatinine. Received dialysis due to worsening respiratory status 08/03, 08/04. Urine output a bit better this AM but still not adequate. CLL: His white blood count trends down, likely due to steroids Elevated uric acid Tachycardia: ST. Likely multifactorial. Plan: Continue steroids. Follow hemoglobin closely, will repeat this afternoon after HD, which should also remove uric acid. HD later this morning. Continue PO with fluid restriction. Possibly transfer to SDU after HD if doing well. 40 min critical care time managing tenuous respiratory status, tachycardia 08/05/18 11:22 Subjective: Feels a bit better, less dyspnea. Thirsty. Objective: Vital Signs Temp Pulse Resp BP Pulse Ox 37.5 C 132 H 28 H 105/56 L 97 08/05/18 07:00 08/05/18 07:00 08/05/18 07:00 08/05/18 07:00 08/05/18 07:00 Microbiology 08/03/18 10:55 Urine Culture - Final Urine,Catheterized Laboratory Results 08/05/18 05:43 08/05/18 05:43 08/04/18 08/05/18 08/06/18 05:59 05:59 05:59 Intake Total 3829 707 Output Total 2120 400 Balance 1709 307 PT 15.6 SEC (12.0-15.0) H 08/01/18 21:50 INR 1.30 (0.83-1.16) H 08/01/18 21:50 Physical Exam - Physical Exam General Appearance: alert, no apparent distress EENT: normal ENT inspection Neck: normal inspection Respiratory: lungs clear, normal breath sounds Cardiac/Chest: regular rate, rhythm, No edema Abdomen: normal bowel sounds, non-tender Skin: normal color, warm/dry Extremities: normal inspection Neuro/Psych: alert, normal mood/affect, oriented x 3 ICD10 Worksheet Patient Problems: Problems Problem Status Onset CLL (chronic lymphocytic leukemia) Acute Hyperglycemia Acute Anemia Acute Hyperbilirubinemia Acute
[2018-08-05] MEDS: SEVELAMER HCL 800 MG TAB PO SCH ×2 (12:17→17:12)
--- NOTE | 2018-08-05 12:45 | HOSPPROG ---
Hospitalist Progress Note Assessment/Plan: # PEA arrest - in setting of severe anemia - currently neurologically recovered # acute resp failure - now extubated; d/t pulm edema # acute renal failure - currently on HD - markedly elevated uric acid - will hold on rasburicase if does not improve with HD (discussed with Dr Batres) # pulm edema - volume removal via HD # aspiration pna - suspect this is driving his tachycardia and fevers - start levaquin/flagyl to cover nosocomial aspiration (pcn allergy) - start mucinex - oxy for pain control so he can cough # hemolytic anemia - d/t CLL - cont steroids # CLL - had not been on treatment # DM2 - glucs elevated; cont lantus today # elevated LFTs - shock liver + hemolysis # hypotension - off pressors Subjective: sitting in chair; persistent tachycardia, borderline fevers; coughing Objective: Vital Signs Temp Pulse Resp BP Pulse Ox 37.7 C 134 H 15 128/63 H 98 08/05/18 12:00 08/05/18 12:00 08/05/18 12:00 08/05/18 12:00 08/05/18 12:00 Microbiology 08/03/18 10:55 Urine Culture - Final Urine,Catheterized Laboratory Results 08/05/18 05:43 08/05/18 05:43 08/04/18 08/05/18 08/06/18 05:59 05:59 05:59 Intake Total 3829 707 Output Total 2120 400 125 Balance 1709 307 -125 PT 15.6 SEC (12.0-15.0) H 08/01/18 21:50 INR 1.30 (0.83-1.16) H 08/01/18 21:[address] Irizarry CXR personally reviewed - Physical Exam Constitutional: no apparent distress, appears nourished Cardiovascular: no murmur, rub, or gallop, tachycardia, No systolic murmur Respiratory: no respiratory distress, inspiratory crackles, No dullness to percussion, No rhonchi Gastrointestinal: soft, non-tender abdomen, no palpable masses, No guarding, No rebound, No distension ICD10 Worksheet Patient Problems: Problems Problem Status Onset Anemia Acute Hyperbilirubinemia Acute CLL (chronic lymphocytic leukemia) Acute Hyperglycemia Acute
[2018-08-05] MEDS ORDERED: ALBUMIN 25% 50 ML SOLN IV ONE (14:39)
--- NOTE | 2018-08-05 15:02 | SOAPPROG ---
VERN Progress Note Assessment/Plan: E&M for CLL * CLL; FISH neg; IgVH unmutated: Has not wanted therapy. I recommended treating with rituximab as it will help the hemolysis and the CLL. He was agreeable. I don't think the lab abnormalities are indicative of tumor lysis syndrome. I suspect it may be due to recent cardiac arrest and renal failure. He is undergoing dialysis so the uric acid can be monitored closely. * Olimpia+ Hemolytic anemia: Received total of 5 units PRBC. Hgb still going down slowly and bilirubin going up on solumedrol; continue at 125 mg daily. Recommend starting rituximab to help alleviate the hemolysis. Transfuse if hgb drops below 7 g/dL with recent cardiac arrest. The increase in bilirubin may be due to the recent liver injury as the unconjugated portion is about the same. * Elevated Uric acid and phosphorous: see above * Cardiac Arrest: primarily due to critically low hgb; * Acute renal failure: ATN from cardiac arrest; getting HD; still producing some urine. * Elevated LFTs: shock liver from cardiac arrest. Subjective: He is up in a chair and eating some lunch. He is still very sore in his chest and his voice is a little bit soft. He has family members with him today. Objective: Vital Signs Temp Pulse Resp BP Pulse Ox 37.7 C 134 H 15 128/63 H 98 08/05/18 12:00 08/05/18 12:00 08/05/18 12:00 08/05/18 12:00 08/05/18 12:00 Microbiology 08/03/18 10:55 Urine Culture - Final Urine,Catheterized Laboratory Results 08/05/18 05:43 08/05/18 05:43 08/04/18 08/05/18 08/06/18 05:59 05:59 05:59 Intake Total 3829 707 Output Total 2120 400 125 Balance 1709 307 -125 PT 15.6 SEC (12.0-15.0) H 08/01/18 21:50 INR 1.30 (0.83-1.16) H 08/01/18 21:50 Laboratory Tests 08/03/18 08/04/18 08/05/18 05:45 05:20 05:43 WBC 101.93 H* 81.17 H* 61.76 H* Hgb 7.5 L 8.0 L 7.0 L Plt Count 136 L 116 L 114 L Laboratory Tests 08/04/18 08/04/18 08/05/18 05:20 11:30 05:43 BUN 80 H Creatinine 4.7 H Uric Acid 17.3 H 13.1 H Phosphorus 8.9 H 10.2 H Total Bilirubin 15.2 H 16.2 H AST 306 H 154 H ALT 465 H 376 H Physical Exam - Physical Exam General Appearance: no apparent distress EENT: scleral icterus (R), scleral icterus (L) Respiratory: rhonchi (mild) Cardiac/Chest: regular rate, rhythm, tachycardia Abdomen: non-tender, soft Skin: jaundice ICD10 Worksheet Patient Problems: Problems Problem Status Onset CLL (chronic lymphocytic leukemia) Acute Hyperglycemia Acute Anemia Acute Hyperbilirubinemia Acute
[2018-08-05] MEDS: ALTEPLASE 2 MG VIAL IVP PRN ×2 (15:27→16:43)
[2018-08-05] MEDS ORDERED: NOREPINEPHRINE BITARTRATE 4 MG in NS 500 ML IV SCH (15:30)
[2018-08-05] MEDS: ALBUMIN 25% 50 ML IV PRN ×2 (15:37→15:38)
[2018-08-05] MEDS: guaiFENesin 600 MG TAB.ER PO SCH ×2 (17:12→20:32)
[2018-08-05] MEDS: oxyCODONE IR 5 MG TAB PO PRN (17:17)
[2018-08-05] MEDS: LIDOCAINE 4%/MENTHOL 1% PATCH TD SCH (17:20)
[2018-08-05] MEDS: FAMOTIDINE 20 MG/NACL 50 ML IV SCH (20:27)
[2018-08-05] MEDS: INSULIN GLARGINE 100 UNITS/ML UNIT SC SCH (21:41)
[2018-08-05] MEDS ORDERED: HEPARIN 50,000 UNIT/10 ML VIAL ONE (23:25)
[2018-08-06] MEDS: HEPARIN 5,000 UNIT/0.5 ML INJ SC SCH ×3 (06:00→21:12)
[2018-08-06] MEDS: PATCH REMOVAL 1 EA PATCH TD SCH (06:00)
[2018-08-06 06:46] LABS: PLATELET COUNT 117 10^3/uL (150-400)
[2018-08-06] MEDS: INSULIN REGULAR HUMAN 100 UNIT/ML UNIT SC SCH ×2 (07:50→11:50)
[2018-08-06] MEDS: SEVELAMER HCL 800 MG TAB PO SCH ×3 (07:52→17:24)
[2018-08-06] MEDS: guaiFENesin 600 MG TAB.ER PO SCH ×2 (07:53→20:42)
[2018-08-06] MEDS: methylPREDNISolone SOD SUCC 125 MG/2 ML VIAL IVP SCH (07:55)
[2018-08-06] MEDS ORDERED: diphenhydrAMINE 25 MG CAP PO ONE ×2 (10:30→19:30)
[2018-08-06] MEDS ORDERED: ACETAMINOPHEN 325 MG TAB PO ONE ×3 (10:30→19:30)
[2018-08-06] MEDS ORDERED: RITUXIMAB IV ONE ×2 (11:00→20:00)
[2018-08-06] MEDS ORDERED: NS IV ONE ×2 (11:00→20:00)
--- NOTE | 2018-08-06 11:00 | SOAPPROG ---
SOAP Progress Note Assessment/Plan: Assessment/Plan: CONTRERAS: oliguric, likely ATN. Pt had HD yesterday but still with worsening hyperkalemia and acidosis compared to yesterday. - Will do HD again today. - If his potassium and acid loads continue to rise despite HD, will consider CRRT tomorrow. - Avoid hypotension and nephrotoxins. - Will continue to monitor. Hyperkalemia: will modulate on HD as above. Acidosis: will modulate on HD as above. Hyperuricemia: will recheck tomorrow. Anemia: pt being transfused PRBCs today. Subjective: No acute events overnight. Pt had HD yesterday, had difficulty with BP. Objective: Vital Signs Temp Pulse Resp BP Pulse Ox 37.4 C 130 H 28 H 114/60 94 08/06/18 09:58 08/06/18 09:58 08/06/18 09:58 08/06/18 09:58 08/06/18 09:58 Microbiology 08/03/18 10:55 Urine Culture - Final Urine,Catheterized Laboratory Results 08/06/18 06:30 08/06/18 07:45 08/05/18 08/06/18 08/07/18 05:59 05:59 05:59 Intake Total 707 2202 Output Total 400 275 Balance 307 1927 PT 15.6 SEC (12.0-15.0) H 08/01/18 21:50 INR 1.30 (0.83-1.16) H 08/01/18 21:50 General: awake, alert, no acute distress Eyes: EOMI, PERRL OP: Clear CV: RRR Resp: nonlabored respirations on NC Abd: Soft, NT Ext: +1 edema BLE Neuro: CN II-XII Grossly intact Access: R subclavian catheter ICD10 Worksheet Patient Problems: Problems Problem Status Onset CLL (chronic lymphocytic leukemia) Acute Hyperglycemia Acute Anemia Acute Hyperbilirubinemia Acute
--- NOTE | 2018-08-06 11:23 | SOAPPROG ---
SOAP Progress Note Assessment/Plan: E&M for CLL * CLL; FISH neg; IgVH unmutated: Has not wanted therapy but willing to get rituximab as it will help the hemolysis and the CLL. I don't think the lab abnormalities are indicative of tumor lysis syndrome. I suspect it may be due to recent cardiac arrest and renal failure. He is undergoing dialysis so the uric acid and electrolyte abnormalities can be monitored and managed closely. I spoke with Nephrology and Critical care. * Olimpia+ Hemolytic anemia: Received total of 6 units PRBC. Hgb still going down slowly and bilirubin going up on solumedrol; continue at 125 mg daily. Will start rituximab to help alleviate the hemolysis today and run slow. Transfuse if hgb drops below 7 g/dL with recent cardiac arrest. The increase in bilirubin may be due to the recent liver injury as the unconjugated portion is about the same. Will check retic, ldh, and lft's daily. * Elevated Uric acid and phosphorous: see above * Cardiac Arrest: primarily due to critically low hgb; * Acute renal failure: ATN from cardiac arrest; getting HD; still producing some urine. * Elevated LFTs: shock liver from cardiac arrest. Subjective: Family with patient. Chest is sore and very tired but no acute complaints. Off levophed this morning. Had bmx2 yesterday. Objective: Vital Signs Temp Pulse Resp BP Pulse Ox 37.4 C 130 H 28 H 114/60 94 08/06/18 09:58 08/06/18 09:58 08/06/18 09:58 08/06/18 09:58 08/06/18 09:58 Microbiology 08/03/18 10:55 Urine Culture - Final Urine,Catheterized Laboratory Results 08/06/18 06:30 08/06/18 07:45 08/05/18 08/06/18 08/07/18 05:59 05:59 05:59 Intake Total 707 2202 Output Total 400 275 Balance 307 1927 PT 15.6 SEC (12.0-15.0) H 08/01/18 21:50 INR 1.30 (0.83-1.16) H 08/01/18 21:50 Laboratory Tests 08/05/18 08/06/18 05:43 06:30 WBC 61.76 H* 55.97 H* Hgb 7.0 L 6.1 L Plt Count 114 L 117 L Laboratory Tests 08/05/18 08/06/18 05:43 07:45 BUN 80 H 97 H Creatinine 4.7 H 5.1 H Physical Exam - Physical Exam General Appearance: alert, no apparent distress Respiratory: rales Cardiac/Chest: edema, tachycardia Abdomen: soft, distended (mild), No normal bowel sounds Skin: jaundice ICD10 Worksheet Patient Problems: Problems Problem Status Onset CLL (chronic lymphocytic leukemia) Acute Hyperglycemia Acute Anemia Acute Hyperbilirubinemia Acute
--- NOTE | 2018-08-06 11:38 | PDINTPN ---
Chyron Operator Progress Note Assessment/Plan: Assessment: Status post PEA arrest: Likely due to severe anemia with lactic acidosis. Vital signs stable since initial cardiac arrest, although he has persistent tachycardia. Acute respiratory failure: This was due to his arrest. He was extubated 08/03, did well for a while, then had increased oxygen needs and tachypnea, likely due to pulmonary edema. Now on BiPAP. Pneumonia is possible but less likely. Hemolytic anemia: Patient has been transfused and his hemoglobin has trended down again. Bili remains elevated. He is on high-dose IV steroids Acute kidney injury: The patient is oliguric and had persistently elevated creatinine. Received dialysis due to worsening respiratory status 08/03, 08/04. Urine output a bit better this AM but still not adequate. Potassium remains high. CLL: His white blood count trends down, likely due to steroids Elevated uric acid Tachycardia: ST. Likely multifactorial. Plan: Continue steroids. Repeat HD today, which should also remove uric acid. Transfuse PRBCs. Unable to get a complete crossmatch due to his antibodies, but will observe closely in the ICU. Continue PO with fluid restriction. Rituxan later today Increase activity as tolerated Continue DVT, GI prophylaxis 08/06/18 11:40 08/06/18 11:40 Subjective: Still feels quite weak. Thirsty. Poor appetite Objective: Vital Signs Temp Pulse Resp BP Pulse Ox 37.4 C 130 H 28 H 114/60 94 08/06/18 09:58 08/06/18 09:58 08/06/18 09:58 08/06/18 09:58 08/06/18 09:58 Microbiology 08/03/18 10:55 Urine Culture - Final Urine,Catheterized Laboratory Results 08/06/18 06:30 08/06/18 07:45 08/05/18 08/06/18 08/07/18 05:59 05:59 05:59 Intake Total 707 2202 Output Total 400 275 Balance 307 1927 PT 15.6 SEC (12.0-15.0) H 08/01/18 21:50 INR 1.30 (0.83-1.16) H 08/01/18 21:50 Chest x-ray 08/05: Persistent multifocal infiltrates. Images reviewed by me. Physical Exam - Physical Exam General Appearance: alert, no apparent distress EENT: normal ENT inspection Neck: normal inspection Respiratory: lungs clear, normal breath sounds Cardiac/Chest: regular rate, rhythm, No edema Abdomen: normal bowel sounds, non-tender Skin: normal color, warm/dry Extremities: normal inspection Neuro/Psych: alert, normal mood/affect, oriented x 3 ICD10 Worksheet Patient Problems: Problems Problem Status Onset CLL (chronic lymphocytic leukemia) Acute Hyperglycemia Acute Anemia Acute Hyperbilirubinemia Acute
--- NOTE | 2018-08-06 12:41 | HOSPPROG ---
Hospitalist Progress Note Assessment/Plan: # S/P PEA arrest - in setting of severe anemia, lactic acidosis # acute resp failure - now extubated; d/t pulm edema -Stable # acute renal failure, likely due to ATN - currently on HD - markedly elevated uric acid - HD today # pulm edema - volume removal via HD, appears improving # aspiration pna - suspect this is driving his tachycardia and fevers - cont levaquin/flagyl to cover nosocomial aspiration (pcn allergy) - start mucinex - oxy for pain control so he can cough # hemolytic anemia - d/t CLL, Olimpia + - cont steroids - s/p multiple units PRBC transfusion - Additional transfusion today # CLL - had not been on treatment -Rituxan to be given today # DM2 - glucs elevated -Steroids are contributing -A1C was not elevated -cont Lantus at current dose -change ISS to regular dose (from low dose) # elevated LFTs - shock liver + hemolysis # hypotension - off pressors # Hyperkalemia -HD today #Hyponatremia, volume overload Subjective: feels better. getting transfused. will have HD today Objective: Vital Signs Temp Pulse Resp BP Pulse Ox 37.3 C 129 H 33 H 128/65 H 94 08/06/18 11:52 08/06/18 11:52 08/06/18 11:52 08/06/18 11:52 08/06/18 11:52 Microbiology 08/03/18 10:55 Urine Culture - Final Urine,Catheterized Laboratory Results 08/06/18 11:45 08/06/18 07:45 08/05/18 08/06/18 08/07/18 05:59 05:59 05:59 Intake Total 707 2202 Output Total 400 275 Balance 307 1927 PT 15.6 SEC (12.0-15.0) H 08/01/18 21:50 INR 1.30 (0.83-1.16) H 08/01/18 21:50 - Physical Exam Constitutional: no apparent distress Eyes: PERRL, EOMI Ears, Nose, Mouth, Throat: moist mucous membranes, hearing normal Cardiovascular: regular rate and rhythym, edema Respiratory: no respiratory distress, reduced air movement Gastrointestinal: normoactive bowel sounds, soft, non-tender abdomen Skin: warm Neurologic: AAOx3 Psychiatric: interacting appropriately, not anxious, not encephalopathic Lymph, Heme, Immunologic: No petechiae ICD10 Worksheet Patient Problems: Problems Problem Status Onset CLL (chronic lymphocytic leukemia) Acute Hyperglycemia Acute Anemia Acute Hyperbilirubinemia Acute
[2018-08-06] MEDS ORDERED: ALBUMIN 25% 50 ML IV PRN (14:00)
--- NOTE | 2018-08-06 14:06 | ASMTCMCOM ---
CM Note CM Note Notes: Patient's Kaleigh would like to cancel the family meeting today and revisit the option next week. CM following. Date Signed: 08/06/2018 02:04 PM Electronically Signed By:Karina Vyas LCSW
[2018-08-06] MEDS: INSULIN LISPRO 100 UNIT/ML SC SCH (17:23)
[2018-08-06] MEDS: LIDOCAINE 4%/MENTHOL 1% PATCH TD SCH (17:24)
[2018-08-06] MEDS ORDERED: HEPARIN 50,000 UNIT/10 ML VIAL ONE (18:41)
[2018-08-06] MEDS: FAMOTIDINE 20 MG/NACL 50 ML IV SCH (19:29)
[2018-08-06] MEDS: INSULIN GLARGINE 100 UNITS/ML UNIT SC SCH (20:56)
[2018-08-07 04:45] LABS: PLATELET COUNT 149 10^3/uL (150-400)
[2018-08-07] MEDS: HEPARIN 5,000 UNIT/0.5 ML INJ SC SCH ×3 (06:10→20:29)
[2018-08-07] MEDS: PATCH REMOVAL 1 EA PATCH TD SCH (06:15)
[2018-08-07] MEDS: INSULIN LISPRO 100 UNIT/ML SC SCH ×3 (09:01→18:38)
[2018-08-07] MEDS: SEVELAMER HCL 800 MG TAB PO SCH ×3 (09:01→18:38)
[2018-08-07] MEDS: guaiFENesin 600 MG TAB.ER PO SCH ×2 (09:01→20:37)
[2018-08-07] MEDS: methylPREDNISolone SOD SUCC 125 MG/2 ML VIAL IVP SCH (09:02)
[2018-08-07] MEDS: levOFLOXACIN 500 MG/DEXTROSE 100 ML IV SCH (09:02)
--- NOTE | 2018-08-07 10:32 | SOAPPROG ---
SOAP Progress Note Assessment/Plan: Assessment: CONTRERAS: oliguric, likely ATN. - Pt had HD 08/05, 08/06, and will do HD again today. - Mental status improved today - Avoid hypotension and nephrotoxins. - Will continue to monitor. Hyperkalemia: Improved, continue HD as needed Acidosis: Improved, continue HD as needed Hyperuricemia: Improved, continue HD as needed Anemia: Hemolytic, s/p multiple pRBCs, last given 08/06, stable today CLL: On Rituxan, getting dose today Plan: 08/07/18 10:29 08/07/18 10:31 08/07/18 10:33 08/07/18 10:34 Subjective: Pt has good appetite this morning, no complaints. Significant improvement in mental status this morning per pt, and RN at bedside. Objective: Vital Signs Temp Pulse Resp BP Pulse Ox 37.1 C 111 H 19 137/70 H 93 08/07/18 07:00 08/07/18 07:00 08/07/18 07:00 08/07/18 07:00 08/07/18 07:00 Laboratory Results 08/07/18 04:30 08/07/18 04:30 08/06/18 08/07/18 08/08/18 05:59 05:59 05:59 Intake Total 2202 1600 Output Total 275 425 Balance 1927 1175 PT 15.6 SEC (12.0-15.0) H 08/01/18 21:50 INR 1.30 (0.83-1.16) H 08/01/18 21:50 ICD10 Worksheet Patient Problems: Problems Problem Status Onset CLL (chronic lymphocytic leukemia) Acute Hyperglycemia Acute Anemia Acute Hyperbilirubinemia Acute
--- NOTE | 2018-08-07 11:17 | PDINTPN ---
Layer Out Plate Glass Progress Note Assessment/Plan: Assessment: Status post PEA arrest: Likely due to severe anemia with lactic acidosis. Vital signs stable since initial cardiac arrest, although he has persistent tachycardia. Acute respiratory failure: This was due to his arrest. He was extubated 08/03, did well for a while, then had increased oxygen needs and tachypnea, likely due to pulmonary edema, now improved. Pneumonia is possible but less likely. Hemolytic anemia: Patient has been transfused and his hemoglobin has trended down again, last transfusion 08/06. Bili remains elevated. He is on high-dose IV steroids Acute kidney injury: The patient is oliguric and had persistently elevated creatinine. Received dialysis due to worsening respiratory status 08/03, 08/04. Urine output a bit better this AM but still not adequate. Potassium remains high. CLL: His white blood count trends down, likely due to steroids/Rituxan Elevated uric acid Tachycardia: ST. Likely multifactorial. Plan: Continue steroids. Repeat HD today, which should also remove uric acid/ phosphorus. Continue PO with fluid restriction. Increase activity as tolerated Continue DVT, GI prophylaxis Repeat CXR. Tx to SDU 08/07/18 11:15 08/07/18 11:17 Subjective: Feels better, strength improved. Didn't sleep very well due to uncomfortable bed. Objective: Vital Signs Temp Pulse Resp BP Pulse Ox 37.0 C 117 H 28 H 118/77 99 08/07/18 11:00 08/07/18 11:00 08/07/18 11:00 08/07/18 11:00 08/07/18 11:00 Laboratory Results 08/07/18 04:30 08/07/18 04:30 08/06/18 08/07/18 08/08/18 05:59 05:59 05:59 Intake Total 2202 1600 Output Total 275 425 Balance 1927 1175 PT 15.6 SEC (12.0-15.0) H 08/01/18 21:50 INR 1.30 (0.83-1.16) H 08/01/18 21:50 Physical Exam - Physical Exam General Appearance: alert, no apparent distress EENT: normal ENT inspection Neck: normal inspection Respiratory: lungs clear, normal breath sounds Cardiac/Chest: regular rate, rhythm, edema Abdomen: non-tender, soft Skin: normal color, warm/dry Extremities: normal inspection Neuro/Psych: alert, normal mood/affect, oriented x 3 ICD10 Worksheet Patient Problems: Problems Problem Status Onset CLL (chronic lymphocytic leukemia) Acute Hyperglycemia Acute Anemia Acute Hyperbilirubinemia Acute
--- NOTE | 2018-08-07 13:41 | SOAPPROG ---
SOAP Progress Note Assessment/Plan: Assessment: 1) CLL (Untreated) 2) Warm antibody AIHA secondary to #1 3) Cardiac arrest 4) Acute renal failure 5) Elevated LFT'S secondary to shock liver Plan: Mr. Castrejon AIHA seems to be stabilizing/ improving. He received a dose of IV Rituxan yesterday. I would favor giving a total of 4 weekly doses. Next would be due Thursday of next week. For now will continue High dose solumedrol and daily folic acid. He is receiving hemodialysis. Agree with transfusion of PRBC's if Hgb falls below 7.0 given his recent cardiac arrest. Plan d/w patient and family. Their questions were answered. Case d/w nursing. 08/07/18 13:37 08/07/18 13:39 08/07/18 13:41 Subjective: Doing somewhat better. Received Rituxan last evening. Family at bedside. Objective: Vital Signs Temp Pulse Resp BP Pulse Ox 37.3 C 114 H 20 123/81 H 98 08/07/18 12:00 08/07/18 12:00 08/07/18 12:00 08/07/18 12:00 08/07/18 12:00 Laboratory Results 08/07/18 04:30 08/07/18 04:30 08/06/18 08/07/18 08/08/18 05:59 05:59 05:59 Intake Total 2202 1600 Output Total 275 425 Balance 1927 1175 PT 15.6 SEC (12.0-15.0) H 08/01/18 21:50 INR 1.30 (0.83-1.16) H 08/01/18 21:50 - Time Spent With Patient Time Spent With Patient: 25 minutes Physical Exam - Physical Exam General Appearance: alert, no apparent distress EENT: scleral icterus (R), scleral icterus (L) Cardiac/Chest: regular rate, rhythm Abdomen: non-tender, soft, No splenomegaly Skin: pallor Neuro/Psych: alert, normal mood/affect ICD10 Worksheet Patient Problems: Problems Problem Status Onset CLL (chronic lymphocytic leukemia) Acute Hyperglycemia Acute Anemia Acute Hyperbilirubinemia Acute
--- NOTE | 2018-08-07 15:14 | HOSPPROG ---
Hospitalist Progress Note Assessment/Plan: # S/P PEA arrest - in setting of severe anemia, lactic acidosis # acute resp failure - now extubated; d/t pulm edema -Stable # acute renal failure, likely due to ATN - currently on HD, getting me HD - markedly elevated uric acid, improving - HD today # pulm edema - volume removal via HD, appears improving # aspiration pna - suspect this is driving his tachycardia and fevers - cont levaquin/flagyl to cover nosocomial aspiration (pcn allergy) - cont mucinex # hemolytic anemia - d/t CLL, Olimpia + - cont steroids - s/p multiple units PRBC transfusion - Additional transfusion today # CLL - had not been on treatment -Rituxan to be given today # DM2 - glucs elevated -Steroids are contributing -A1C was not elevated -cont Lantus at current dose -change ISS to regular dose (from low dose) # elevated LFTs - shock liver + hemolysis # hypotension - off pressors # Hyperkalemia -HD today #Hyponatremia, volume overload Plan: overall improving HD today cont steroids daily cont abx Rituxan q weekly glucose mgmt, will adjust further today Subjective: no cp or sob. no n/v. getting HD Objective: Vital Signs Temp Pulse Resp BP Pulse Ox 37.3 C 114 H 20 123/81 H 98 08/07/18 12:00 08/07/18 12:00 08/07/18 12:00 08/07/18 12:00 08/07/18 12:00 Laboratory Results 08/07/18 04:30 08/07/18 04:30 08/06/18 08/07/18 08/08/18 05:59 05:59 05:59 Intake Total 2202 1600 Output Total 275 425 Balance 1927 1175 PT 15.6 SEC (12.0-15.0) H 08/01/18 21:50 INR 1.30 (0.83-1.16) H 08/01/18 21:50 - Physical Exam Constitutional: no apparent distress Eyes: PERRL, EOMI Ears, Nose, Mouth, Throat: moist mucous membranes, hearing normal Cardiovascular: regular rate and rhythym, No edema Respiratory: no respiratory distress, no rales or rhonchi, reduced air movement Gastrointestinal: normoactive bowel sounds, soft, non-tender abdomen Skin: warm Neurologic: AAOx3 Psychiatric: interacting appropriately, not anxious, not encephalopathic Lymph, Heme, Immunologic: No petechiae ICD10 Worksheet Patient Problems: Problems Problem Status Onset CLL (chronic lymphocytic leukemia) Acute Hyperglycemia Acute Anemia Acute Hyperbilirubinemia Acute
[2018-08-07] MEDS: LIDOCAINE 4%/MENTHOL 1% PATCH TD SCH (18:38)
[2018-08-07] MEDS ORDERED: HEPARIN 50,000 UNIT/10 ML VIAL ONE (20:00)
[2018-08-07] MEDS: FAMOTIDINE 20 MG/NACL 50 ML IV SCH (20:28)
[2018-08-07] MEDS: oxyCODONE IR 5 MG TAB PO PRN (20:33)
[2018-08-07] MEDS: INSULIN GLARGINE 100 UNITS/ML UNIT SC SCH (20:37)
[2018-08-08 04:21] LABS: PLATELET COUNT 166 10^3/uL (150-400)
[2018-08-08] MEDS: HEPARIN 5,000 UNIT/0.5 ML INJ SC SCH ×3 (06:17→21:22)
[2018-08-08] MEDS: PATCH REMOVAL 1 EA PATCH TD SCH (06:18)
[2018-08-08] MEDS: INSULIN LISPRO 100 UNIT/ML SC SCH ×3 (08:46→18:13)
[2018-08-08] MEDS: guaiFENesin 600 MG TAB.ER PO SCH ×3 (08:59→21:20)
[2018-08-08] MEDS: methylPREDNISolone SOD SUCC 125 MG/2 ML VIAL IVP SCH (08:59)
[2018-08-08] MEDS: SEVELAMER HCL 800 MG TAB PO SCH ×3 (08:59→18:13)
--- NOTE | 2018-08-08 09:58 | SOAPPROG ---
SOTESSIE Progress Note Assessment/Plan: Assessment: 1) CLL (Untreated) 2) Warm antibody AIHA secondary to #1 3) Cardiac arrest 4) Acute renal failure 5) Elevated LFT'S secondary to shock liver Plan: Mr. Castrejon AIHA is stable and improving. He received a dose of IV Rituxan on ThursdayAugust 06. I would favor giving a total of 4 weekly doses. Next would be due Thursday of this coming week. [facility] he will need more definitive treatment of his CLL. For now will continue High dose solumedrol and daily folic acid. If things continue to improve, we could consider decreasing his steroid dose tomorrow. He is receiving intermittent hemodialysis. He is still making urine. Recommend transfusion of PRBC's if Hgb falls below 7.0 given his recent cardiac arrest. Plan d/w patient and family. Their questions were answered. Case d/w nursing. Subjective: Hgb slightly better. at bedside. Objective: Vital Signs Temp Pulse Resp BP Pulse Ox 36.6 C 114 H 19 117/82 H 97 08/08/18 07:55 08/08/18 07:55 08/08/18 07:55 08/08/18 07:55 08/08/18 07:55 Laboratory Results 08/08/18 04:05 08/08/18 04:05 08/07/18 08/08/18 08/09/18 05:59 05:59 05:59 Intake Total 1600 1946.5 Output Total 425 1725 Balance 1175 221.5 PT 15.6 SEC (12.0-15.0) H 08/01/18 21:50 INR 1.30 (0.83-1.16) H 08/01/18 21:50 - Time Spent With Patient Time Spent With Patient: 25 minutes Physical Exam - Physical Exam General Appearance: alert, other (Fatigued) EENT: scleral icterus (R), scleral icterus (L) Cardiac/Chest: regular rate, rhythm Abdomen: non-tender, soft, No splenomegaly Skin: jaundice Neuro/Psych: alert ICD10 Worksheet Patient Problems: Problems Problem Status Onset CLL (chronic lymphocytic leukemia) Acute Hyperglycemia Acute Anemia Acute Hyperbilirubinemia Acute
--- NOTE | 2018-08-08 11:09 | SOAPPROG ---
SOAP Progress Note Assessment/Plan: Assessment/Plan: CONTRERAS: oliguric, likely ATN. Pt had HD yesterday. He is now having more UOP. - No need for HD today. - Will continue to monitor daily for HD needs and renal recovery. - Avoid hypotension and nephrotoxins. - Will continue to monitor. Hyperkalemia: now improved with HD, not gaining in between HD as much as last week. Will continue to monitor. Acidosis: will continue to monitor and modulate on HD as needed. Hyperuricemia: much improved with uric acid down to 7.1, will continue to monitor. Anemia: pt transfused on 08/06, will continue to monitor. Subjective: No acute events overnight. Pt states that he is feeling quite tired. He has no pain or dyspnea. He is having increasing UOP since yesterday. Objective: Vital Signs Temp Pulse Resp BP Pulse Ox 36.6 C 112 H 20 117/82 H 94 08/08/18 07:55 08/08/18 10:00 08/08/18 10:00 08/08/18 07:55 08/08/18 10:00 Laboratory Results 08/08/18 04:05 08/08/18 04:05 08/07/18 08/08/18 08/09/18 05:59 05:59 05:59 Intake Total 1600 1946.5 Output Total 425 1725 Balance 1175 221.5 PT 15.6 SEC (12.0-15.0) H 08/01/18 21:50 INR 1.30 (0.83-1.16) H 08/01/18 21:50 General: alert and oriented, no acute distress Eyes: EOMI, PERRL OP: Clear CV: RRR Resp: nonlabored respirations on NC Abd: Soft, NT Ext: trace edema BLE Neuro: CN II-XII grossly intact, no asterixis Psych: cooperative ICD10 Worksheet Patient Problems: Problems Problem Status Onset CLL (chronic lymphocytic leukemia) Acute Hyperglycemia Acute Anemia Acute Hyperbilirubinemia Acute
--- NOTE | 2018-08-08 11:21 | PDINTPN ---
Differential Tester Progress Note Assessment/Plan: Assessment: Status post PEA arrest: Likely due to severe anemia with lactic acidosis. Vital signs stable since initial cardiac arrest, although he has persistent tachycardia. Acute respiratory failure: This was due to his arrest. He was extubated 08/03, did well for a while, then had increased oxygen needs and tachypnea, likely due to pulmonary edema, now improved. Pneumonia is possible but less likely. Hemolytic anemia: Patient has been transfused and his hemoglobin has trended down again, last transfusion 08/06. Bili remains elevated. He is on high-dose IV steroids Acute kidney injury: The patient has had persistently elevated creatinine, although urine output is increasing (25-30 ml/hour). Received dialysis due to worsening respiratory status and electrolyte abnormalities 08/03-08/07. Potassium remains high. CLL: His white blood count trends down, likely due to steroids/Rituxan Elevated uric acid Tachycardia: ST. Likely multifactorial. Diabetes: Remains hyperglycemic on insulin. Likely due to steroids. Plan: Continue steroids. Hold HD today, reassess daily. Continue PO with fluid restriction. Complete course of Levaquin/metronidazole for possible aspiration. Consider restarting metformin Increase activity as tolerated Continue DVT, GI prophylaxis Tx to MedSurg/Oncology floor. 08/08/18 11:29 Subjective: Slept poorly last night due to noise. Still feels quite weak. Appetite good. Objective: Vital Signs Temp Pulse Resp BP Pulse Ox 36.6 C 112 H 20 117/82 H 94 08/08/18 07:55 08/08/18 10:00 08/08/18 10:00 08/08/18 07:55 08/08/18 10:00 Laboratory Results 08/08/18 04:05 08/08/18 04:05 08/07/18 08/08/18 08/09/18 05:59 05:59 05:59 Intake Total 1600 1946.5 Output Total 425 1725 Balance 1175 221.5 PT 15.6 SEC (12.0-15.0) H 08/01/18 21:50 INR 1.30 (0.83-1.16) H 08/01/18 21:50 Check chest x-ray: Improved infiltrates, particularly the right upper lobe. Images reviewed by me Physical Exam - Physical Exam General Appearance: alert, no apparent distress EENT: normal ENT inspection Neck: normal inspection Respiratory: lungs clear, normal breath sounds Cardiac/Chest: regular rate, rhythm, No edema Abdomen: normal bowel sounds, non-tender Skin: normal color, warm/dry Extremities: normal inspection Neuro/Psych: alert, normal mood/affect, oriented x 3 ICD10 Worksheet Patient Problems: Problems Problem Status Onset CLL (chronic lymphocytic leukemia) Acute Hyperglycemia Acute Anemia Acute Hyperbilirubinemia Acute
--- NOTE | 2018-08-08 12:25 | ASMTCMCOM ---
CM Note CM Note Notes: CM spoke with pt in the room and with pt's Kaleigh ([phone]). They would both prefer pt discharge to [facility] inpatient rehab, which is the recommendation of therapies. Kaleigh doesn not think IpR outside of [place] would work for her. Referral sent to [facility] IpR and message left for Yumiko. CM to follow. D/C Plan: IpR Date Signed: 08/08/2018 12:24 PM Electronically Signed By:Lucila Mortensen
--- NOTE | 2018-08-08 13:21 | HOSPPROG ---
Hospitalist Progress Note Assessment/Plan: # S/P PEA arrest - in setting of severe anemia, lactic acidosis # acute resp failure - now extubated; d/t pulm edema -Stable # acute renal failure, likely due to ATN - No HD. -Renal following. Monitor need for ongoing HD daily -making urine # pulm edema - volume removal via HD, but making good urine today. He still has some edema which will need to be followed closely. No diuretics today, await nephrology reccs # aspiration pna - cont levaquin/flagyl to cover nosocomial aspiration (pcn allergy) - cont mucinex # hemolytic anemia - d/t CLL, Olimpia + - cont steroids - s/p multiple units PRBC transfusion - transfuse as needed # CLL - had not been on treatment -Rituxan weekly # DM2 - glucs elevated -Steroids are contributing -A1C was not elevated on admission -cont Lantus and ISS. The pt's is reluctant to modify or increase regimen further as she is hoping to decrease the steroids soon and A1C was low on admission. -can likely restart metformin soon pending renal improvement # elevated LFTs - shock liver + hemolysis # hypotension - off pressors # Hyperkalemia, resolving -monitor closely #Hyponatremia, volume overload Ok to transfer to med surg Subjective: feels better. no cp or sob. on O2. no HD today Objective: Vital Signs Temp Pulse Resp BP Pulse Ox 36.6 C 112 H 20 117/82 H 94 08/08/18 07:55 08/08/18 10:00 08/08/18 10:00 08/08/18 07:55 08/08/18 10:00 Laboratory Results 08/08/18 04:05 08/08/18 04:05 08/07/18 08/08/18 08/09/18 05:59 05:59 05:59 Intake Total 1600 1946.5 Output Total 425 1725 Balance 1175 221.5 PT 15.6 SEC (12.0-15.0) H 08/01/18 21:50 INR 1.30 (0.83-1.16) H 08/01/18 21:50 - Physical Exam Constitutional: no apparent distress Eyes: PERRL, EOMI Ears, Nose, Mouth, Throat: moist mucous membranes Cardiovascular: regular rate and rhythym, edema Respiratory: reduced air movement Gastrointestinal: normoactive bowel sounds, soft, non-tender abdomen Skin: warm Neurologic: AAOx3 Psychiatric: interacting appropriately, not anxious, not encephalopathic Lymph, Heme, Immunologic: No petechiae ICD10 Worksheet Patient Problems: Problems Problem Status Onset CLL (chronic lymphocytic leukemia) Acute Hyperglycemia Acute Anemia Acute Hyperbilirubinemia Acute
[2018-08-08] MEDS: ACETAMINOPHEN 325 MG TAB PO PRN (14:30)
[2018-08-08] MEDS: oxyCODONE IR 5 MG TAB PO PRN (14:35)
[2018-08-08] MEDS: FAMOTIDINE 20 MG/NACL 50 ML IV SCH (21:20)
[2018-08-08] MEDS: INSULIN GLARGINE 100 UNITS/ML UNIT SC SCH (21:21)
[2018-08-09] MEDS: LIDOCAINE 4%/MENTHOL 1% PATCH TD SCH ×3 (01:43→18:26)
[2018-08-09] MEDS: HEPARIN 5,000 UNIT/0.5 ML INJ SC SCH ×3 (06:05→21:07)
[2018-08-09 06:57] LABS: PLATELET COUNT 213 10^3/uL (150-400)
[2018-08-09] MEDS: guaiFENesin 600 MG TAB.ER PO SCH ×3 (07:57→21:07)
[2018-08-09] MEDS: methylPREDNISolone SOD SUCC 125 MG/2 ML VIAL IVP SCH (07:57)
[2018-08-09] MEDS: INSULIN LISPRO 100 UNIT/ML SC SCH ×4 (07:58→18:26)
[2018-08-09] MEDS: levOFLOXACIN 500 MG/DEXTROSE 100 ML IV SCH (07:59)
[2018-08-09] MEDS: SEVELAMER HCL 800 MG TAB PO SCH ×3 (07:59→18:25)
[2018-08-09] MEDS: PATCH REMOVAL 1 EA PATCH TD SCH (07:59)
[2018-08-09] MEDS: FOLIC ACID 1 MG TAB PO SCH (08:31)
--- NOTE | 2018-08-09 11:23 | SOAPPROG ---
VERN Progress Note Assessment/Plan: Assessment: Assessment: 1) CLL (Untreated) 2) Warm antibody AIHA secondary to #1 3) Cardiac arrest 4) Acute renal failure 5) Elevated LFT'S secondary to shock liver Plan: Mr. Castrejon AIHA is stable . He received a dose of IV Rituxan on ThursdayAugust 06. I would favor giving a total of 4 weekly doses. Next would be due Thursday of this coming week.Retic count and bilirubin remain elevated [facility] he will need more definitive treatment of his CLL. For now will continue High dose solumedrol and daily folic acid. continue solumedrol at current dose. He is receiving intermittent hemodialysis. He is still making urine. no transfusion today Plan d/w patient and family. Their questions were answered. Case d/w nursing. 08/09/18 11:21 Subjective: weak Objective: Vital Signs Temp Pulse Resp BP Pulse Ox 98.0 F 110 H 22 H 120/79 98 08/09/18 07:23 08/09/18 07:23 08/09/18 07:23 08/09/18 07:23 08/09/18 07:23 Microbiology 08/03/18 10:55 Blood Culture - Final Blood 08/03/18 11:15 Blood Culture - Final Blood Laboratory Results 08/09/18 05:40 08/09/18 05:40 08/08/18 08/09/18 08/10/18 05:59 05:59 05:59 Intake Total 1946.5 1947 Output Total 1725 975 Balance 221.5 972 PT 15.6 SEC (12.0-15.0) H 08/01/18 21:50 INR 1.30 (0.83-1.16) H 08/01/18 21:50 Physical Exam - Physical Exam General Appearance: mild distress Respiratory: lungs clear Cardiac/Chest: regular rate, rhythm Abdomen: normal bowel sounds, non-tender Extremities: swelling ICD10 Worksheet Patient Problems: Problems Problem Status Onset CLL (chronic lymphocytic leukemia) Acute Hyperglycemia Acute Anemia Acute Hyperbilirubinemia Acute
--- NOTE | 2018-08-09 11:42 | SOAPPROG ---
SOAP Progress Note Assessment/Plan: Assessment/Plan: CONTRERAS: oliguric, likely ATN. Pt had HD yesterday. He is now having more UOP and is nonoliguric. - Will do HD today. - Will continue to monitor daily for HD needs and renal recovery. - Avoid hypotension and nephrotoxins. - Will continue to monitor. Hyperkalemia: now improved with HD, not gaining in between HD as much as last week. Will continue to monitor, modulating with HD today. Acidosis: will continue to monitor and modulate on HD as needed. Hyperuricemia: uric acid up to 10.6 today, HD today, will continue to monitor daily. Anemia: pt transfused on 08/06, Hgb again down to 7.1 today, will continue to monitor. Hyperphosphatemia: will increase sevelamer and continue to monitor. Subjective: No acute events overnight. Pt states that he is tired, has no other complaints today. Objective: Vital Signs Temp Pulse Resp BP Pulse Ox 36.7 C 110 H 22 H 120/79 98 08/09/18 07:23 08/09/18 07:23 08/09/18 07:23 08/09/18 07:23 08/09/18 07:23 Microbiology 08/03/18 10:55 Blood Culture - Final Blood 08/03/18 11:15 Blood Culture - Final Blood Laboratory Results 08/09/18 05:40 08/09/18 05:40 08/08/18 08/09/18 08/10/18 05:59 05:59 05:59 Intake Total 1946.5 1947 Output Total 1725 975 Balance 221.5 972 PT 15.6 SEC (12.0-15.0) H 08/01/18 21:50 INR 1.30 (0.83-1.16) H 08/01/18 21:50 General: alert and oriented, no acute distress Eyes: EOMI, pERRL OP: Clear CV: RRR REsp: nonlabored respirations on NC Abd: Soft, NT Ext: no edema BLE Neuro: CN II-XII Grossly intact Psych: cooperative ICD10 Worksheet Patient Problems: Problems Problem Status Onset CLL (chronic lymphocytic leukemia) Acute Hyperglycemia Acute Anemia Acute Hyperbilirubinemia Acute
[2018-08-09] MEDS ORDERED: D50W 25 GM/50 ML SYR IVP PRN (12:05)
--- NOTE | 2018-08-09 12:06 | HOSPPROG ---
Hospitalist Progress Note Assessment/Plan: 73yo M with h/o untreated CLL, hemolytic anemia presented with jaundice found to have severe hemolytic anemia that precipitated cardiac arrest. Fortunately, has done well neurologically. #AIHA: Stable. s/p 6u PRBCs. Warm ab mediated 2/2 CLL. - No indication for transfusion today - Follow reticulocyte count and bilirubin levels - Heme following. Continue solumedrol 125mg IV daily. - Planning on 4 weekly doses of rituximab, 2nd dose on 08/13 #PEA cardiac arrest s/p ROSC: In setting of severe anemia. #Acute renal failure: Due to ATN, making some urine - Renal following, plan for HD today #Acute respiratory failure: 2/2 pulm edema, aspiration. Now on nasal cannula. - Volume removal with dialysis #Aspiration pneumonia - Continue levofloxacin/metronidazole (pcn allergy) #CLL: WBC better - Rituximab as above #DM2 with steroid-induced hyperglycemia: A1c 5.2% - Increasing glargine 37->40u qhs, increasing SSI - Hold metformin #Abnormal LFTs: Shock liver + hemolysis. Improving. #Hypotension: Off pressors. #Hyperkalemia: Resolved. #Hyponatremia: 2/2 volume overload. #Hyperuricemia: 10.6. Monitor. VTE ppx: SQH Code: full Dispo: Remain inpatient, ok for floor. Subjective: Feeling lethargic but otherrwise ok. No breathing difficulty or chest pain. Not dizzy when getting up. Objective: Vital Signs Temp Pulse Resp BP Pulse Ox 36.7 C 110 H 22 H 120/79 98 08/09/18 07:23 08/09/18 07:23 08/09/18 07:23 08/09/18 07:23 08/09/18 07:23 Microbiology 08/03/18 10:55 Blood Culture - Final Blood 08/03/18 11:15 Blood Culture - Final Blood Laboratory Results 08/09/18 05:40 08/09/18 05:40 08/08/18 08/09/18 08/10/18 05:59 05:59 05:59 Intake Total 1946.5 1947 Output Total 1725 975 Balance 221.5 972 PT 15.6 SEC (12.0-15.0) H 08/01/18 21:50 INR 1.30 (0.83-1.16) H 08/01/18 21:50 - Physical Exam Constitutional: no apparent distress, appears nourished, not in pain Eyes: icteric sclera Ears, Nose, Mouth, Throat: moist mucous membranes, hearing normal, ears appear normal, no oral mucosal ulcers Cardiovascular: regular rate and rhythym, no murmur, rub, or gallop, No edema Respiratory: reduced air movement (bases), No expiratory wheeze, No inspiratory crackles Gastrointestinal: normoactive bowel sounds, soft, non-tender abdomen, no palpable masses Genitourinary: no bladder fullness, no bladder tenderness, no renal bruits Skin: no rashes or abrasions, no fluctuance, no induration Musculoskeletal: full muscle strength, no muscle tenderness, normal joint ROM Neurologic: AAOx3 Psychiatric: interacting appropriately ICD10 Worksheet Patient Problems: Problems Problem Status Onset CLL (chronic lymphocytic leukemia) Acute Hyperglycemia Acute Anemia Acute Hyperbilirubinemia Acute
--- NOTE | 2018-08-09 14:41 | WOCRNPDOC ---
WOCRN Advanced Assessment Note - Skin Integrity Problem, Advanced Assess Sacrum Pressure Injury Dressing Type: Allevyn Life Dressing Description: Clean/Dry, Intact Integumentary Issue Intervention: Dressing Changed Vera Wound Tissue: Blanching Wound Bed Color: [place], Yellow Wound Bed Constitution: Smooth Tissue Wound Edges: Attached Site Measurement - Head-to-Toe Length X Width X Depth (cm): 8x1.5x0.1 Pressure Injury Stage: Deep Tissue Injury (DTI) Pressure Injury Present on Admit: No Skin Integrity Problem Comment: Presents as a linear wound in the gluteal cleft that runs from lower sacrum to just below coccyx. Cleaned area surrounding lower wound bed to remove calizime cream for better visualization. Area seems very tender based on patient verbalizing discomfort. Wound bed is a mixture of smooth tissue and deflated blister with a clear yellowish line running vertically 12-6 oclock down the middle of the open area. Cleaned wound with ns and gauze. Wound gel applied and covered with upside down Mepilex sacral border dressing. Jennifer PYLE in room for care. Discussed wound and patient at length with who expressed many concerns about this wound and its etiology. Left Sacrum Dressing Type: Allevyn Life Dressing Description: Intact Integumentary Issue Intervention: Dressing Changed Site Measurement - Head-to-Toe Length X Width X Depth (cm): 1x2.5xblister Pressure Injury Stage: Deep Tissue Injury (DTI) Pressure Injury Present on Admit: No Skin Integrity Problem Comment: Possible DTI, appears to be a blister that angles downward from sacrum towards greater trochanget on the L buttocks. covered with Mepilex border sacral dressing and will continue to monitor. Jennifer PYLE in room for care.
[2018-08-09] MEDS ORDERED: INSULIN LISPRO 100 UNIT/ML SC SCH (18:00)
[2018-08-09] MEDS: CYANO/VITAMIN B12 1000 MCG TAB PO SCH (18:25)
[2018-08-09] MEDS ORDERED: HEPARIN 50,000 UNIT/10 ML VIAL ONE (19:26)
[2018-08-09] MEDS: INSULIN GLARGINE 100 UNITS/ML UNIT SC SCH (21:06)
[2018-08-09] MEDS: FAMOTIDINE 20 MG TAB PO SCH (21:07)
[2018-08-10] MEDS: HEPARIN 5,000 UNIT/0.5 ML INJ SC SCH ×3 (06:13→20:53)
[2018-08-10] MEDS: PATCH REMOVAL 1 EA PATCH TD SCH (06:14)
[2018-08-10] MEDS: INSULIN LISPRO 100 UNIT/ML SC SCH ×3 (09:55→17:54)
[2018-08-10] MEDS: guaiFENesin 600 MG TAB.ER PO SCH ×2 (10:00→20:53)
[2018-08-10] MEDS: FOLIC ACID 1 MG TAB PO SCH (10:01)
[2018-08-10] MEDS: SEVELAMER HCL 800 MG TAB PO SCH ×4 (10:01→17:50)
[2018-08-10] MEDS: methylPREDNISolone SOD SUCC 125 MG/2 ML VIAL IVP SCH (10:01)
--- NOTE | 2018-08-10 10:49 | SOAPPROG ---
SOAP Progress Note Assessment/Plan: Assessment: CONTRERAS after PEA arrest, non oliguric CLL with Warm AIHA, recieved steroids and rituximab PEA arrest atrial fib with RVR jaundice Plan: no HD today Assess HD needs tomorrow, discussed with and patient indications for dialysis 08/10/18 10:44 Subjective: feels overall OK no cp sob nausea or vomiting enjoying his breakfast spirits good at bedside Objective: Vital Signs Temp Pulse Resp BP Pulse Ox 36.2 C 117 H 22 H 123/72 H 90 L 08/10/18 08:00 08/10/18 08:00 08/10/18 08:00 08/10/18 08:00 08/10/18 08:00 Laboratory Results 08/10/18 05:00 08/10/18 05:00 08/09/18 08/10/18 08/11/18 05:59 05:59 05:59 Intake Total 1947 300 Output Total 975 1826 Balance 972 -1526 PT 15.6 SEC (12.0-15.0) H 08/01/18 21:50 INR 1.30 (0.83-1.16) H 08/01/18 21:50 Physical Exam - Physical Exam General Appearance: alert, other (ill appearing) Neck: normal inspection Respiratory: No rhonchi, No wheezing Cardiac/Chest: other (tachy, irreg, no rub + 1/6 murmur) Abdomen: normal bowel sounds, non-tender, soft Extremities: pedal edema Neuro/Psych: alert, normal mood/affect, oriented x 3 ICD10 Worksheet Patient Problems: Problems Problem Status Onset CLL (chronic lymphocytic leukemia) Acute Hyperglycemia Acute Anemia Acute Hyperbilirubinemia Acute
[2018-08-10] MEDS: ALTEPLASE 2 MG VIAL IVP PRN ×2 (11:44→12:29)
--- NOTE | 2018-08-10 13:37 | SOAPPROG ---
VERN Progress Note Assessment/Plan: Assessment: Assessment: 1) CLL (Untreated) 2) Warm antibody AIHA secondary to #1 3) Cardiac arrest 4) Acute renal failure 5) Elevated LFT'S secondary to shock liver Plan: Mr. Castrejon AIHA is stable . He received a dose of IV Rituxan on ThursdayAugust 06. I would favor giving a total of 4 weekly doses. Next would be due Thursday of this coming week.Retic count and bilirubin remain elevated [facility] he will need more definitive treatment of his CLL. Discussed Ibrutinib with patient and his today, will also discuss with Dr. Rodriguez. May take 1-2 weeks to obtain this medication if we pursue this course. For now will continue High dose solumedrol and daily folic acid. continue solumedrol at current dose. He is receiving intermittent hemodialysis. He is still making urine. no transfusion today Plan d/w patient and family. Their questions were answered. Case d/w nursing. 08/09/18 11:21 08/10/18 13:34 Subjective: Patient quiet without complaints today. Objective: Vital Signs Temp Pulse Resp BP Pulse Ox 98.4 F 120 H 17 122/75 H 94 08/10/18 11:37 08/10/18 11:37 08/10/18 11:37 08/10/18 11:37 08/10/18 11:37 Laboratory Results 08/10/18 05:00 08/10/18 05:00 08/09/18 08/10/18 08/11/18 05:59 05:59 05:59 Intake Total 1947 300 Output Total 975 1826 Balance 972 -1526 PT 15.6 SEC (12.0-15.0) H 08/01/18 21:50 INR 1.30 (0.83-1.16) H 08/01/18 21:50 Physical Exam - Physical Exam General Appearance: other (Somnolent) EENT: scleral icterus (R), scleral icterus (L) Respiratory: chest non-tender, lungs clear, normal breath sounds, wheezing, No respiratory distress Neuro/Psych: alert ICD10 Worksheet Patient Problems: Problems Problem Status Onset CLL (chronic lymphocytic leukemia) Acute Hyperglycemia Acute Anemia Acute Hyperbilirubinemia Acute
--- NOTE | 2018-08-10 13:49 | HOSPPROG ---
Hospitalist Progress Note Assessment/Plan: 73yo M with h/o untreated CLL, hemolytic anemia presented with jaundice found to have severe hemolytic anemia that precipitated cardiac arrest. Fortunately, has done well neurologically. #AIHA: Stable, hemolysis parameters still elevated. s/p 6u PRBCs. Warm ab mediated 2/2 CLL. - Have ordered 2 units PRBCs to hold given difficult crossmatch and possible need for transfusion in near future - Follow reticulocyte count, bilirubin, LDH daily - Heme following. Continue solumedrol 125mg IV daily. - Planning on 4 weekly doses of rituximab, 2nd dose on 08/13 #PEA cardiac arrest s/p ROSC: In setting of severe anemia. #Acute renal failure: Due to ATN, making some urine - Renal following, no HD today #Acute respiratory failure: 2/2 pulm edema, aspiration. Now on nasal cannula. - Volume removal with dialysis #Aspiration pneumonia - Continue levofloxacin/metronidazole (pcn allergy), day 4 #CLL: WBC better - Onc discussing ibrutinib w/pt #DM2 with steroid-induced hyperglycemia: A1c 5.2% - Cont glargine 40u qhs, increased SSI - Hold metformin #Abnormal LFTs: Shock liver + hemolysis. Improving. #Hypotension: Off pressors. #Hyperkalemia: Resolved. #Hyponatremia: 2/2 volume overload. #Hyperuricemia: 10.6. Monitor. VTE ppx: SQH Code: full Dispo: Remain inpatient, ok for floor. Subjective: Sleepy, worn out from dialysis. Otherwise no complaints. Family at bedside, had nice chat. Objective: Vital Signs Temp Pulse Resp BP Pulse Ox 36.9 C 120 H 17 122/75 H 94 08/10/18 11:37 08/10/18 11:37 08/10/18 11:37 08/10/18 11:37 08/10/18 11:37 Laboratory Results 08/10/18 05:00 08/10/18 05:00 08/09/18 08/10/18 08/11/18 05:59 05:59 05:59 Intake Total 1947 300 Output Total 975 6136 Balance 972 -1526 PT 15.6 SEC (12.0-15.0) H 08/01/18 21:50 INR 1.30 (0.83-1.16) H 08/01/18 21:50 - Physical Exam Constitutional: no apparent distress, other (tired) Eyes: icteric sclera Ears, Nose, Mouth, Throat: moist mucous membranes, hearing normal, ears appear normal, no oral mucosal ulcers Cardiovascular: regular rate and rhythym, no murmur, rub, or gallop, No edema Respiratory: no respiratory distress, no rales or rhonchi, clear to auscultation Gastrointestinal: normoactive bowel sounds, soft, non-tender abdomen, no palpable masses Genitourinary: no bladder fullness, no bladder tenderness, no renal bruits Skin: no rashes or abrasions, no fluctuance, no induration Musculoskeletal: full muscle strength, no muscle tenderness, normal joint ROM Neurologic: AAOx3, sensation intact bilaterally Psychiatric: interacting appropriately, not anxious, not encephalopathic, thought process linear ICD10 Worksheet Patient Problems: Problems Problem Status Onset CLL (chronic lymphocytic leukemia) Acute Hyperglycemia Acute Anemia Acute Hyperbilirubinemia Acute
--- NOTE | 2018-08-10 15:05 | ASMTCMCOM ---
CM Note CM Note Notes: CM notified by inpatient rehab that they are unable to accommodate pt on dialysis. CM notified pt's and sisters and Kaleigh is very upset and does not want to consider any other facility. She asked for director's name of inpatient rehab and said she is going to advocate for herself. CM notified Yumiko from inpt rehab and said she would relay Kaleigh's contact information to Susan Simms. Kaleigh said she would NOT consider a SNF, despite providing list of nicer facilities in the area, including private pay facilities. She said she would rather him to go home with homecare instead of going to a SNF. CM to follow as pt continues to progress. CM supervisor coin machine notified of situation. Plan: TBD. Date Signed: 08/10/2018 03:04 PM Electronically Signed By:ZOHRA Szymanski
[2018-08-10] MEDS: CYANO/VITAMIN B12 1000 MCG TAB PO SCH (17:50)
[2018-08-10] MEDS: LIDOCAINE 4%/MENTHOL 1% PATCH TD SCH (19:33)
[2018-08-10] MEDS: INSULIN GLARGINE 100 UNITS/ML UNIT SC SCH (20:53)
[2018-08-10] MEDS: FAMOTIDINE 20 MG TAB PO SCH (20:54)
[2018-08-11] MEDS: HEPARIN 5,000 UNIT/0.5 ML INJ SC SCH ×3 (05:27→21:55)
[2018-08-11] MEDS: PATCH REMOVAL 1 EA PATCH TD SCH ×2 (07:07→18:46)
[2018-08-11] MEDS: INSULIN LISPRO 100 UNIT/ML SC SCH ×3 (07:58→17:52)
[2018-08-11] MEDS: SEVELAMER HCL 800 MG TAB PO SCH ×3 (08:00→18:37)
[2018-08-11] MEDS: FOLIC ACID 1 MG TAB PO SCH (08:23)
[2018-08-11] MEDS: guaiFENesin 600 MG TAB.ER PO SCH (08:23)
[2018-08-11] MEDS: levOFLOXACIN 500 MG/DEXTROSE 100 ML IV SCH (09:20)
[2018-08-11] MEDS: methylPREDNISolone SOD SUCC 125 MG/2 ML VIAL IVP SCH (09:20)
--- NOTE | 2018-08-11 10:03 | SOAPPROG ---
SOAP Progress Note Assessment/Plan: Assessment: CONTRERAS after PEA arrest, non oliguric, UOP better today, rate of rise of creat slowing a bit as well CLL with Warm AIHA, recieved steroids and rituximab PEA arrest atrial fib with RVR jaundice Plan: I have suggested a short run of HD today, family will discuss whether or not to do dialysis today Assess HD needs tomorrow, discussed with , family and patient indications for dialysis all questions answered continue support next Rituximab will be Thursday, 08/1308/10/18 10:44 08/11/18 09:59 Subjective: tired had BM earlier today germain back in place, didn't like the straight caths very much no cp today SOB about the same, no nausea or vomiting had a pretty good appetite this morning as well Objective: Vital Signs Temp Pulse Resp BP Pulse Ox 36.4 C 114 H 20 112/55 L 96 08/11/18 07:44 08/11/18 07:44 08/11/18 07:44 08/11/18 07:44 08/11/18 07:44 Laboratory Results 08/11/18 05:30 08/11/18 05:30 08/10/18 08/11/18 08/12/18 05:59 05:59 05:59 Intake Total 300 860 240 Output Total 1826 1950 Balance -1526 -1090 240 PT 15.6 SEC (12.0-15.0) H 08/01/18 21:50 INR 1.30 (0.83-1.16) H 08/01/18 21:50 Physical Exam - Physical Exam General Appearance: other (ill appearing, ) Neck: normal inspection Respiratory: rales, wheezing, No rhonchi Cardiac/Chest: edema, systolic murmur, irregularly irregular, No friction rub Abdomen: normal bowel sounds, non-tender, soft Skin: warm/dry Extremities: swelling (awake, tired, answers questions appropriately) ICD10 Worksheet Patient Problems: Problems Problem Status Onset CLL (chronic lymphocytic leukemia) Acute Hyperglycemia Acute Anemia Acute Hyperbilirubinemia Acute
--- NOTE | 2018-08-11 11:36 | SOAPPROG ---
SOAP Progress Note Assessment/Plan: Assessment: Assessment: 1) CLL (Untreated) 2) Warm antibody AIHA secondary to #1 3) Cardiac arrest 4) Acute renal failure 5) Elevated LFT'S secondary to shock liver, also possible hemolysis Plan: Mr. Aguirre's AIHA is stable to slightly worse . He received a dose of IV Rituxan on ThursdayAugust 06. I would favor giving a total of 4 weekly doses. Next would be due Thursday of this coming week.Retic count and bilirubin remain elevated. will transfuse 1 unit prbc today for hgb 6.6. long term care pharmacist he will need more definitive treatment of his CLL. Discussed Ibrutinib with patient and his today, on order For now will continue High dose solumedrol and daily folic acid. continue solumedrol at current dose. He is receiving intermittent hemodialysis. He is still making urine. Plan d/w patient and family. Their questions were answered. Case d/w nursing and hospital team 08/09/18 11:21 08/10/18 13:34 08/11/18 11:36 Subjective: Tired Objective: Vital Signs Temp Pulse Resp BP Pulse Ox 97.6 F 114 H 20 112/55 L 96 08/11/18 07:44 08/11/18 07:44 08/11/18 07:44 08/11/18 07:44 08/11/18 07:44 Laboratory Results 08/11/18 05:30 08/11/18 05:30 08/10/18 08/11/18 08/12/18 05:59 05:59 05:59 Intake Total 300 860 240 Output Total 1826 1950 420 Balance -1526 -1090 -180 PT 15.6 SEC (12.0-15.0) H 08/01/18 21:50 INR 1.30 (0.83-1.16) H 08/01/18 21:50 Physical Exam - Physical Exam General Appearance: no apparent distress EENT: scleral icterus (R), scleral icterus (L) ICD10 Worksheet Patient Problems: Problems Problem Status Onset CLL (chronic lymphocytic leukemia) Acute Hyperglycemia Acute Anemia Acute Hyperbilirubinemia Acute
[2018-08-11] MEDS ORDERED: INSULIN GLARGINE 100 UNITS/ML UNIT SC SCH ×2 (11:58→12:40)
--- NOTE | 2018-08-11 12:03 | HOSPPROG ---
Hospitalist Progress Note Assessment/Plan: 73yo M with h/o untreated CLL, hemolytic anemia presented with jaundice found to have severe hemolytic anemia that precipitated cardiac arrest. Fortunately, has done well neurologically. #AIHA: Not better. s/p 6u PRBCs. Warm ab mediated 2/2 CLL. - Transfuse 1u PRBC (blood not completely compatible. d/w heme, benefits outweigh risks so will proceed with transfusion) - Follow reticulocyte count, bilirubin, LDH daily - Continue solumedrol 125mg IV daily. - Planning on 4 weekly doses of rituximab, 2nd dose on 08/13 #Acute renal failure: Due to ATN, making some urine - Renal following, HD today with blood transfusion #PEA cardiac arrest s/p ROSC: In setting of severe anemia. #Acute respiratory failure: Resolved. 2/2 pulm edema, aspiration. #Aspiration pneumonia - Continue levofloxacin/metronidazole (pcn allergy), day 10/03 #CLL: Untreated - Onc discussing ibrutinib w/pt #DM2 with steroid-induced hyperglycemia and now hypoglycemia: A1c 5.2% - Decrease glargine to 30u qhs, decrease SSI - Hold metformin #Urinary retention - Germain in place, start flomax #Abnormal LFTs: Shock liver + hemolysis. Improving. #Hypotension: Off pressors. #Hyperkalemia: Resolved. #Hyponatremia: 2/2 volume overload. #Hyperuricemia: 10.6. Monitor. VTE ppx: SQH Code: full Dispo: Remain inpatient, ok for floor. Subjective: Very tired. Otherwise no new complaints. Germain catheter placed after straight cath x3 for urinary retention. Objective: Vital Signs Temp Pulse Resp BP Pulse Ox 36.4 C 114 H 20 112/55 L 96 08/11/18 07:44 08/11/18 07:44 08/11/18 07:44 08/11/18 07:44 08/11/18 07:44 Laboratory Results 08/11/18 05:30 08/11/18 05:30 08/10/18 08/11/18 08/12/18 05:59 05:59 05:59 Intake Total 300 860 240 Output Total 1826 1950 420 Balance -1526 -1090 -180 PT 15.6 SEC (12.0-15.0) H 08/01/18 21:50 INR 1.30 (0.83-1.16) H 08/01/18 21:50 - Physical Exam Constitutional: no apparent distress, other (tired) Eyes: icteric sclera Ears, Nose, Mouth, Throat: dry mucous membranes Cardiovascular: no murmur, rub, or gallop, tachycardia, No edema Respiratory: no respiratory distress, no rales or rhonchi, clear to auscultation Gastrointestinal: normoactive bowel sounds, soft, non-tender abdomen, no palpable masses Genitourinary: germain in urethra Skin: no rashes or abrasions, no fluctuance, no induration Musculoskeletal: generalized weakness Neurologic: AAOx3 Psychiatric: interacting appropriately ICD10 Worksheet Patient Problems: Problems Problem Status Onset CLL (chronic lymphocytic leukemia) Acute Hyperglycemia Acute Anemia Acute Hyperbilirubinemia Acute
--- NOTE | 2018-08-11 13:42 | ASMTCMCOM ---
CM Note CM Note Notes: Spoke with patient's , Kaleigh and she states she is ready for patient to be transferred to when the Dr.'s are ready. Patient is scheduled for dialysis and blood transfusion today. Kaleigh was informed Inpatient Rehab cannot take a patient on dialysis ( per Susan Simms, Director) but they will follow the patient's progress and reevaluate him when he is medically ready for rehab. (if he still qualifies) Kaleigh states if patient does not get inpatient rehab then she will want home health PT/OT and she chooses [facility] as her home health resource. D/C plan remains inpatient rehab when medically ready or [facility] PT/OT if patient does not need higher level of care. CM following. ' Date Signed: 08/11/2018 01:40 PM Electronically Signed By:Karina Vyas LCSW
[2018-08-11] MEDS: TAMSULOSIN HCL 0.4 MG CAP PO SCH (13:58)
[2018-08-11] MEDS: CYANO/VITAMIN B12 1000 MCG TAB PO SCH (17:59)
[2018-08-11] MEDS: LIDOCAINE 4%/MENTHOL 1% PATCH TD SCH ×2 (18:04→20:18)
[2018-08-11] MEDS ORDERED: HEPARIN 50,000 UNIT/10 ML VIAL ONE (18:43)
[2018-08-11] MEDS: FAMOTIDINE 20 MG TAB PO SCH (20:19)
[2018-08-11] MEDS: ACETAMINOPHEN 325 MG TAB PO PRN (21:53)
[2018-08-12] MEDS: HEPARIN 5,000 UNIT/0.5 ML INJ SC SCH ×3 (05:52→21:56)
[2018-08-12] MEDS: INSULIN LISPRO 100 UNIT/ML SC SCH ×3 (09:02→18:31)
[2018-08-12] MEDS: methylPREDNISolone SOD SUCC 125 MG/2 ML VIAL IVP SCH (09:29)
[2018-08-12] MEDS: TAMSULOSIN HCL 0.4 MG CAP PO SCH (09:29)
[2018-08-12] MEDS: FOLIC ACID 1 MG TAB PO SCH (09:29)
[2018-08-12] MEDS: SEVELAMER HCL 800 MG TAB PO SCH ×3 (09:35→18:30)
--- NOTE | 2018-08-12 09:46 | WOCRNPDOC ---
LISA Advanced Assessment Note - Skin Integrity Problem, Advanced Assess Sacrum Pressure Injury Dressing Type: Mepilex Border Dressing Description: Clean/Dry, Intact Integumentary Issue Intervention: Dressing Changed Keron Wound Tissue: Blanching Wound Bed Color: [place], [place], Yellow Wound Bed Constitution: Red/[place] - Non Granular Tissue Wound Edges: Attached Site Measurement - Head-to-Toe Length X Width X Depth (cm): 8x1.5x0.1 Pressure Injury Stage: Stage 2 Pressure Injury Present on Admit: No Skin Integrity Problem Comment: Wound appears to be in the healing process; Wound bed is pinker and what was a distinct yellowish line running the length of the wound (12-6 oclock) is more difuse and pink tinged. The top third that looked like a deflated blister is now open. Entirety of wound looks healthy, no signs of infection. Since so close to anus, used keron wipes to clean. Appears that pt was recently incontinent of small smount of stool. This was cleaned thuroughly to allow for optimal visualization of area. Wound also cleaned with ns and gauze. Wound gel applied and covered with Mepilex sacral border placed upside down. present and aware of dindings. Questions answered. Padmini Rollins COURT TRANSCRIBER in room for care and assessment. Left Sacrum Dressing Type: Mepilex Border Dressing Description: Clean/Dry, Intact Integumentary Issue Intervention: Dressing Changed Site Measurement - Head-to-Toe Length X Width X Depth (cm): 1x2.5x0 Skin Integrity Problem Comment: This wound also apears to be in the healing process. What was a very loose blister now appears completely deflated and the tissue seems to be re-attaching as evidenced by the tissue in the middle of the wound appears utility clerk (closer to the color of the patient's healthy skin) than the edge. Cleaned with ns and gauze. Mepilex sacral border dressing applied upside down. Padmini PYLE and COURT TRANSCRIBER in room for assessment.
--- NOTE | 2018-08-12 10:35 | SOAPPROG ---
SOAP Progress Note Assessment/Plan: Assessment/Plan: CONTRERAS: oliguric, likely ATN. Pt had HD yesterday. He is now having more UOP and is nonoliguric. - HD last done yesterday. - Will plan on next HD on Thursday if needed, but will continue to assess daily for HD needs and renal recovery. - Avoid hypotension and nephrotoxins. Hyperkalemia: now improved with HD, will continue to monitor. Hyperuricemia: improved from admission, will continue to monitor. Anemia: pt transfused PRBCs yesterday, will continue to monitor. Hyperphosphatemia: will continue sevelamer and continue to monitor, expect to improve with renal recovery. Subjective: No acute events overnight. Pt had HD yesterday, tolerated well. He is feeling well, breathing comfortably, eating breakfast. He has no new complaints today. Objective: Vital Signs Temp Pulse Resp BP Pulse Ox 36.6 C 117 H 21 H 119/74 94 08/12/18 08:09 08/12/18 08:09 08/12/18 08:09 08/12/18 08:09 08/12/18 08:09 Laboratory Results 08/12/18 04:45 08/12/18 04:45 08/11/18 08/12/18 08/13/18 05:59 05:59 05:59 Intake Total 860 665 Output Total 1950 1940 Balance -1090 -1275 PT 15.6 SEC (12.0-15.0) H 08/01/18 21:50 INR 1.30 (0.83-1.16) H 08/01/18 21:50 General: alert and oriented, no acute distress Eyes: EOMI, PERRL OP: Clear CV: RRR Resp: nonlabored respirations on RA Abd: Soft, NT/ND Ext: no edema BLE Neuro: CN II-XII grossly intact, no asterixis Psych: cooperative ICD10 Worksheet Patient Problems: Problems Problem Status Onset CLL (chronic lymphocytic leukemia) Acute Hyperglycemia Acute Anemia Acute Hyperbilirubinemia Acute
--- NOTE | 2018-08-12 11:21 | SOAPPROG ---
SOAP Progress Note Assessment/Plan: Assessment: Assessment: 1) CLL (Untreated) 2) Warm antibody AIHA secondary to #1 3) Cardiac arrest 4) Acute renal failure 5) Elevated LFT'S secondary to shock liver, also possible hemolysis Plan: Labs showing some improvement today, decreased reticulocyte count, downtrending LDH and bilirubin suggest that hemolysis may be improving. Transfused yesterday with good response with improvement of hemoglobin from 6.7 to 7.5. -Plan for IV Rituxan tomorrow, will need total of 4 weekly doses.Retic count and bilirubin remain elevated -Plan as discussed with patient and Dr. Rodriguez is to start Ibrutinib as soon as possible as more definitive treatment of his CLL. Ibrutinib has been ordered, pending insurance approval and delivery, will start as soon as available. Long discussion with patient's regarding Ibrutinib, patient and his are in agreement to start when Ibrutinib available. For now will continue High dose solumedrol and daily folic acid. continue solumedrol at current dose. Plan d/w patient and family. Their questions were answered. Case d/w nursing and hospital team 08/09/18 11:21 08/10/18 13:34 08/11/18 11:36 08/12/18 10:57 08/12/18 11:24 Subjective: Feeling slightly better than yesterday, very tired Objective: Vital Signs Temp Pulse Resp BP Pulse Ox 97.9 F 117 H 21 H 119/74 94 08/12/18 08:09 08/12/18 08:09 08/12/18 08:09 08/12/18 08:09 08/12/18 08:09 Laboratory Results 08/12/18 04:45 08/12/18 04:45 08/11/18 08/12/18 08/13/18 05:59 05:59 05:59 Intake Total 860 665 Output Total 1950 1940 Balance -1090 -1275 PT 15.6 SEC (12.0-15.0) H 08/01/18 21:50 INR 1.30 (0.83-1.16) H 08/01/18 21:50 Somnolent, NAD Lying in bed + Scleral icterus Tachycardia, normal rhythm on monitor Breathing non-labored Alert - Time Spent With Patient Time Spent With Patient: 25 minutes ICD10 Worksheet Patient Problems: Problems Problem Status Onset CLL (chronic lymphocytic leukemia) Acute Hyperglycemia Acute Anemia Acute Hyperbilirubinemia Acute
--- NOTE | 2018-08-12 12:00 | HOSPPROG ---
Hospitalist Progress Note Assessment/Plan: 73yo M with h/o untreated CLL, hemolytic anemia presented with jaundice found to have severe hemolytic anemia that precipitated cardiac arrest. Fortunately, has done well neurologically. #AIHA: Parameters improving. s/p 7u PRBCs. Warm ab mediated 2/2 CLL. - No transfusion today - Follow reticulocyte count, bilirubin, LDH daily - Continue solumedrol 125mg IV daily. - Planning on 4 weekly doses of rituximab, 2nd dose tomorrow 08/13 #Acute renal failure: Due to ATN, making some urine - Renal following, no HD today (last yesterday) #PEA cardiac arrest s/p ROSC: In setting of severe anemia. #Acute respiratory failure: Resolved. 2/2 pulm edema, aspiration. #Aspiration pneumonia: s/p 7 day course of levofloxacin and metronidazole #CLL: Untreated - Onc discussing ibrutinib w/pt #DM2 with steroid-induced hyperglycemia and now hypoglycemia: A1c 5.2% - Decrease glargine to 25u qhs, decrease SSI - Hold metformin #Urinary retention - Germain in place, started flomax #Abnormal LFTs: Shock liver + hemolysis. Improving. #Hypotension: Off pressors. #Hyperkalemia: Resolved. #Hyponatremia: 2/2 volume overload. #Hyperuricemia: 10.6. Monitor. VTE ppx: SQH Code: full Dispo: Remain inpatient, ok for floor. ADD pending clinical course. Subjective: Tired, worn out form dialysis. Otherwise no new complaints. Objective: Vital Signs Temp Pulse Resp BP Pulse Ox 36.6 C 117 H 21 H 119/74 94 08/12/18 08:09 08/12/18 08:09 08/12/18 08:09 08/12/18 08:09 08/12/18 08:09 Laboratory Results 08/12/18 04:45 08/12/18 04:45 08/11/18 08/12/18 08/13/18 05:59 05:59 05:59 Intake Total 860 665 Output Total 1950 1940 Balance -1090 -1275 PT 15.6 SEC (12.0-15.0) H 08/01/18 21:50 INR 1.30 (0.83-1.16) H 08/01/18 21:50 - Physical Exam Constitutional: no apparent distress Eyes: icteric sclera Ears, Nose, Mouth, Throat: moist mucous membranes Cardiovascular: no murmur, rub, or gallop, tachycardia, No edema Respiratory: no respiratory distress, no rales or rhonchi, clear to auscultation Gastrointestinal: normoactive bowel sounds, soft, non-tender abdomen, no palpable masses Genitourinary: germain in urethra Skin: no rashes or abrasions, no fluctuance, no induration Musculoskeletal: full muscle strength, no muscle tenderness, normal joint ROM Neurologic: AAOx3 Psychiatric: interacting appropriately ICD10 Worksheet Patient Problems: Problems Problem Status Onset CLL (chronic lymphocytic leukemia) Acute Hyperglycemia Acute Anemia Acute Hyperbilirubinemia Acute
--- NOTE | 2018-08-12 15:42 | ASMTCMCOM ---
CM Note CM Note Notes: Spoke og Calderon at [facility] - they may have a bed for patient next week if he does not require dialysis anymore. Also spoke with Gina Archibald, home care and home health aides teacher at [facility]. She would like to be kept in the loop re: patient's d/c plan. [phone] Current CM Discharge plan: [facility] vs home with [facility] Date Signed: 08/12/2018 03:42 PM Electronically Signed By:Bela Wade RN
[2018-08-12] MEDS: CYANO/VITAMIN B12 1000 MCG TAB PO SCH (18:30)
[2018-08-12] MEDS: LIDOCAINE 4%/MENTHOL 1% PATCH TD SCH (18:30)
[2018-08-12] MEDS: FAMOTIDINE 20 MG TAB PO SCH (21:54)
[2018-08-12] MEDS: INSULIN GLARGINE 100 UNITS/ML UNIT SC SCH (21:55)
[2018-08-13] MEDS: HEPARIN 5,000 UNIT/0.5 ML INJ SC SCH ×3 (06:41→21:25)
[2018-08-13] MEDS: PATCH REMOVAL 1 EA PATCH TD SCH (06:50)
[2018-08-13] MEDS: INSULIN LISPRO 100 UNIT/ML SC SCH ×3 (08:39→18:36)
[2018-08-13] MEDS: methylPREDNISolone SOD SUCC 125 MG/2 ML VIAL IVP SCH (09:01)
[2018-08-13] MEDS: FOLIC ACID 1 MG TAB PO SCH (09:01)
[2018-08-13] MEDS: TAMSULOSIN HCL 0.4 MG CAP PO SCH (09:01)
[2018-08-13] MEDS: SEVELAMER HCL 800 MG TAB PO SCH ×3 (09:01→18:36)
--- NOTE | 2018-08-13 09:01 | HOSPPROG ---
Hospitalist Progress Note Assessment/Plan: 73yo M with h/o untreated CLL, hemolytic anemia presented with jaundice found to have severe hemolytic anemia that precipitated cardiac arrest. Fortunately, has done well neurologically. #AIHA: Stable. s/p 7u PRBCs total. Warm ab mediated 2/2 CLL. - No transfusion today - Follow reticulocyte count, bilirubin, LDH daily - Continue solumedrol 125mg IV daily. - Planning on 4 weekly doses of rituximab, 2nd dose today 08/13 #Acute renal failure: Due to ATN, making fair amount of urine (1.5L yesterday) - Renal following, likely no HD today but will defer to them #Atrial fibrillation/flutter w/RVR: New diagnosis - TTE - Trop neg - Discussed starting beta rose but pt/family hesitant now. His bahtz2ende is 2 - will need to discuss systemic anticoagulation with heme/onc and family. #PEA cardiac arrest s/p ROSC: In setting of severe anemia. #Acute respiratory failure: Resolved. 2/2 pulm edema, aspiration. #Aspiration pneumonia: s/p 7 day course of levofloxacin and metronidazole #CLL: Untreated - Onc obtaining ibrutinib #DM2 with steroid-induced hyperglycemia and intermittent hypoglycemia: A1c 5.2% . BG now stable - Cont glargine 25u qhs, SSI, hold metformin #Urinary retention - Zazueta in place, started flomax #Abnormal LFTs: Shock liver + hemolysis. Improving. #Hypotension: Off pressors. #Hyperkalemia: Resolved. #Hyponatremia: 2/2 volume overload. #Hyperuricemia: 10.6. Monitor. VTE ppx: SQH Code: full Dispo: Remain inpatient. ADD pending clinical course. Therapies recommending inpt rehab, which may be a challenge if still needs HD. Ongoing discussion w/CM. Subjective: More awake today. Bilateral lower legs hurt, he thinks from SCDs. Denies dizziness, palpitations, dyspnea, chest pain. Objective: Vital Signs Temp Pulse Resp BP Pulse Ox 36.8 C 115 H 18 120/71 94 08/13/18 07:44 08/13/18 07:44 08/13/18 07:44 08/13/18 07:44 08/13/18 07:44 Laboratory Results 08/13/18 06:40 08/13/18 06:40 08/12/18 08/13/18 08/14/18 05:59 05:59 05:59 Intake Total 665 2000 Output Total 1940 1500 Balance -1275 500 PT 15.6 SEC (12.0-15.0) H 08/01/18 21:50 INR 1.30 (0.83-1.16) H 08/01/18 21:50 - Physical Exam Constitutional: no apparent distress, appears nourished, not in pain Eyes: PERRL, EOMI, icteric sclera Ears, Nose, Mouth, Throat: moist mucous membranes Cardiovascular: tachycardia, No edema Respiratory: no respiratory distress, no rales or rhonchi, clear to auscultation Gastrointestinal: normoactive bowel sounds, soft, non-tender abdomen, no palpable masses Genitourinary: no bladder fullness, no bladder tenderness, no renal bruits Skin: no rashes or abrasions, no fluctuance, no induration Musculoskeletal: generalized weakness Neurologic: AAOx3 Psychiatric: interacting appropriately ICD10 Worksheet Patient Problems: Problems Problem Status Onset CLL (chronic lymphocytic leukemia) Acute Hyperglycemia Acute Anemia Acute Hyperbilirubinemia Acute
[2018-08-13] MEDS: LIDOCAINE 4%/MENTHOL 1% PATCH TD SCH (09:14)
--- NOTE | 2018-08-13 09:57 | SOAPPROG ---
SOAP Progress Note Assessment/Plan: Assessment/Plan: CONTRERAS: oliguric, likely ATN. Pt had HD last on 08/11. He is now having more UOP and is nonoliguric, but Cr continues to uptrend. - Will do HD again tomorrow. - Will continue to monitor for renal recovery. - Avoid hypotension and nephrotoxins. Hyperkalemia: now improved with HD, will continue to monitor. Hyperuricemia: improved from admission, 8.7 today, will continue to monitor. Anemia: pt transfused PRBCs last on 08/11, will continue to monitor. Hyperphosphatemia: will continue sevelamer and continue to monitor, expect to improve with renal recovery. Subjective: No acute events overnight. Pt states that he is quite tired, he also has pain in his legs. Planning for rituximab #2 today. Objective: Vital Signs Temp Pulse Resp BP Pulse Ox 36.8 C 115 H 18 120/71 94 08/13/18 07:44 08/13/18 07:44 08/13/18 07:44 08/13/18 07:44 08/13/18 07:44 Laboratory Results 08/13/18 06:40 08/13/18 06:40 08/12/18 08/13/18 08/14/18 05:59 05:59 05:59 Intake Total 665 2000 Output Total 1940 1500 Balance -1275 500 PT 15.6 SEC (12.0-15.0) H 08/01/18 21:50 INR 1.30 (0.83-1.16) H 08/01/18 21:50 General: alert and oriented, no acute distress Eyes: EOMI, PERRL OP: Clear CV: RRR Resp: nonlabored respirations on RA Abd: Soft, NT Ext: +1 edema BLE Neuro: CN II-XII Grossly intact Psych: cooperative ICD10 Worksheet Patient Problems: Problems Problem Status Onset CLL (chronic lymphocytic leukemia) Acute Hyperglycemia Acute Anemia Acute Hyperbilirubinemia Acute
[2018-08-13] MEDS ORDERED: ACETAMINOPHEN 325 MG TAB PO SCH (11:30)
[2018-08-13] MEDS ORDERED: diphenhydrAMINE 25 MG CAP PO SCH (11:30)
[2018-08-13] MEDS ORDERED: NS IV SCH (12:00)
[2018-08-13] MEDS ORDERED: RITUXIMAB IV SCH (12:00)
--- NOTE | 2018-08-13 12:42 | SOAPPROG ---
SOAP Progress Note Assessment/Plan: Assessment: Assessment: 1) CLL (Untreated) 2) Warm antibody AIHA secondary to #1 3) Cardiac arrest 4) Acute renal failure 5) Elevated LFT'S secondary to shock liver, also possible hemolysis Plan: CBC stable. Plan for HD tomorrow per nephrology recs. -IV Rituxan today, will need total of 4 weekly doses. -Plan to start Ibrutinib as soon as possible as more definitive treatment of his CLL. Ibrutinib has been ordered, pending insurance approval and delivery, will start as soon as available. Plan d/w patient and family. Their questions were answered. Case d/w nursing and hospital team 08/09/18 11:21 08/10/18 13:34 08/11/18 11:36 08/12/18 10:57 08/12/18 11:24 08/13/18 12:34 Subjective: Unobtained, patient sleeping. reports he is feeling about the same today. Objective: Vital Signs Temp Pulse Resp BP Pulse Ox 98.4 F 112 H 18 125/73 H 94 08/13/18 11:43 08/13/18 11:43 08/13/18 11:43 08/13/18 11:43 08/13/18 11:43 Laboratory Results 08/13/18 06:40 08/13/18 06:40 08/12/18 08/13/18 08/14/18 05:59 05:59 05:59 Intake Total 665 2000 Output Total 1940 1500 Balance -1275 500 PT 15.6 SEC (12.0-15.0) H 08/01/18 21:50 INR 1.30 (0.83-1.16) H 08/01/18 21:50 Sleeping, Tachycardia, breathing non-labored, jaundice ICD10 Worksheet Patient Problems: Problems Problem Status Onset CLL (chronic lymphocytic leukemia) Acute Hyperglycemia Acute Anemia Acute Hyperbilirubinemia Acute
--- NOTE | 2018-08-13 15:42 | ASMTCMCOM ---
CM Note CM Note Notes: CM met with pt in his room. He was not up to having a conversation and gave CM permission to speak with his Kaleigh and sister Kamla. Kaleigh had gone home to sleep, per Kamla, so CM spoke with Kamla. CM explained that [facility] says pt does not meet criteria for inpatient rehab (needs to meet 3 modifiers and not be on dialysis, which he most likely will still be on upon D/C) and that hospitalist strongly recommends SNF. CM left a list of SNFs to be given to . Sister says will most likely not consider that option. Per previous CM notes, if inpatient rehab is not an option she wants [facility] PT and OT. CM put in a referral today. CM will continue to follow. CM D/C plan: TBD Date Signed: 08/13/2018 03:41 PM Electronically Signed By:Elaine Barton
--- NOTE | 2018-08-13 17:37 | ECHO ---
[email or web address] [address] [address] Main: [phone] Echocardiography Examination Transthoracic Name: JC ACOSTA MR#: [id number] Study Date: 08/13/2018 Study Time: 11:04 AM Date of : 1945 Age: 73 year(s) Height: 180.3 cm (71 in.) Weight: 94.8 kg (209 lb.) BSA: 2.15 m2 Gender: Male Examination: Echo Contrast: Image Quality: Adequate Rhythm: Heart Rate: BP: 120 mmHg/71 mmHg Indication: New atrial fibrillation/eval valves Procedure Staff Referring Physician: Underlay Stitcher: Evita Huffman [facility] Reading Physician: Jennie Benavides MD Requesting Provider: Ordering Physician: Kong Prajapati Indication: New atrial fibrillation/eval valves Measurements Chambers AV/MV Label Value Normal Value Label Value Normal Value LVOTd 2.3 cm (1.9cm - 2.1cm) AV PGmax 16 mmHg LVDd, 2D 4.4 cm (4.2cm - 5.9cm) AV PGmean 9 mmHg LVDs, 2D 3 cm (2.1cm - 4cm) AV Vmax 2.03 m/s IVSd, 2D 0.9 cm (0.6cm - 1.1cm) MV E Vmax 1.19 m/s LVPWd, 2D 0.7 cm (0.6cm - 1cm) MV A Vmax 0.47 m/s LA Volume, BP 78 ml (18ml - 58ml) MV E/A 2.53 LADs, 2D 3.2 cm (3cm - 4cm) MV E/E' lateral 9.2 LAESV index, BP 36.3 ml/m2 MV E/E' septal 10.4 (0.45 - 1.25) Additional Vessels MV E' septal 0.11 m/s Label Value Normal Value MV E' lateral 0.13 m/s AoAsc 3.4 cm MV E/E' mean 9.92 AoRoot, MM 3.6 cm (2.2cm - 3.7cm) MV E' mean 0.12 m/s Conclusions 1. The left ventricle is normal in size. There is global hypercontractility. Ejection fraction 75%. No regional wall motion abnormalities. 2. RV is normal diastolic function. 3. Mild mitral regurgitation. 4. unable to estimate PA systolic pressure. Patient: JC ACOSTA Study Date: 08/13/2018 Page 1 of 2 11:04 AM 5. no previous echo Findings Left Ventricle: Left ventricle is normal in size. Global hypercontractility of the left ventricle. EF range is estimated at 75 % - 80 %. Left ventricle wall thickness is normal. There are no regional wall motion abnormalities. Unable to assess Diastolic Dysfunction due to atrial fibrillation/a flutter. IVS: The septum is intact. Right Ventricle: Normal size right ventricle. Right ventricular systolic function is normal. Left Atrium: The left atrium is normal in size. Left Atrium Measurements LAESV index, BP is 36.3 ml/m2. IAS: Normal appearing atrial septum. Right Atrium: The right atrium is normal in size. Mitral Valve: Calcified posterior mitral leaflet.. Mild mitral regurgitation. No mitral valve stenosis. Aortic Valve: Aortic leaflets are normal in appearance. No aortic valve regurgitation. There is no aortic stenosis. Aortic leaflets exhibit moderate calcification. Tricuspid Valve: Tricuspid valve leaflets are normal in appearance and function. Trivial tricuspid regurgitation. No tricuspid valve stenosis. Pulmonic Valve: Pulmonic valve is poorly visualized. Pulmonic leaflets exhibit normal cuspal separation. No pulmonic valve regurgitation is evident. There is no pulmonic valve stenosis. Aorta: The aorta is normal. The aortic root size in M-mode measures 3.6 cm. The ascending aorta measures 3.4 cm. Aorta Measurements AoRoot, MM is 3.6 cm. Pulmonary Artery: The pulmonary artery morphology appears normal. Pericardium: No pericardial effusion. There is a left pleural effusion. Exam Details Procedure Ordered: Echo Procedure Status: Routine study Image Quality: Adequate Facility Location: Cardiac Echo 1 (No Signature Object) Patient: JC ACOSTA Study Date: 08/13/2018 Page 2 of 2 11:04 AM [id number]
[2018-08-13] MEDS: CYANO/VITAMIN B12 1000 MCG TAB PO SCH (18:36)
[2018-08-13] MEDS: FAMOTIDINE 20 MG TAB PO SCH (21:25)
[2018-08-13] MEDS: INSULIN GLARGINE 100 UNITS/ML UNIT SC SCH (21:25)
[2018-08-14] MEDS: PATCH REMOVAL 1 EA PATCH TD SCH (00:05)
[2018-08-14] MEDS: HEPARIN 5,000 UNIT/0.5 ML INJ SC SCH ×3 (06:41→21:34)
[2018-08-14] MEDS: INSULIN LISPRO 100 UNIT/ML SC SCH ×3 (08:21→16:22)
[2018-08-14] MEDS: SEVELAMER HCL 800 MG TAB PO SCH ×3 (08:26→16:24)
[2018-08-14] MEDS: TAMSULOSIN HCL 0.4 MG CAP PO SCH (08:27)
[2018-08-14] MEDS: methylPREDNISolone SOD SUCC 125 MG/2 ML VIAL IVP SCH (08:27)
[2018-08-14] MEDS: FOLIC ACID 1 MG TAB PO SCH (08:27)
--- NOTE | 2018-08-14 12:09 | SOAPPROG ---
SOAP Progress Note Assessment/Plan: Assessment: 1. arf: ischemic atn s/p arrest, now clearly recovering based on increasing uo and stablizing creat but remains extremely azotemic. Will dialyze today without fluid removal, I expect this may be his last hd treatment. Discussed in detail with , she is in agreement. 2. hyperphos: on binder, dialyzing, anticipate resolution as arf recovers 3. anemia: transfusing prn 4. CLL: rx per Heme/Onc Plan: 08/03/18 22:27 08/14/18 12:06 Subjective: Having some LE pain. concerned about need for hd. Objective: Vital Signs Temp Pulse Resp BP Pulse Ox 36.4 C 116 H 20 128/79 H 96 08/14/18 08:00 08/14/18 08:00 08/14/18 08:00 08/14/18 08:00 08/14/18 08:00 Laboratory Results 08/14/18 05:05 08/14/18 05:05 08/13/18 08/14/18 08/15/18 05:59 05:59 05:59 Intake Total 2000 550 Output Total 1500 3050 Balance 500 -2500 PT 15.6 SEC (12.0-15.0) H 08/01/18 21:50 INR 1.30 (0.83-1.16) H 08/01/18 21:50 Physical Exam - Physical Exam General Appearance: no apparent distress Respiratory: lungs clear (anteriorly) Cardiac/Chest: tachycardia Abdomen: normal bowel sounds, non-tender, soft Extremities: pedal edema (?trace) ICD10 Worksheet Patient Problems: Problems Problem Status Onset CLL (chronic lymphocytic leukemia) Acute Hyperglycemia Acute Anemia Acute Hyperbilirubinemia Acute
--- NOTE | 2018-08-14 12:55 | SOAPPROG ---
[facility] Progress Note Assessment/Plan: Assessment/Plan: 73 yo gentleman with 1) CLL (Untreated) 2) Warm antibody AIHA secondary to #1 3) Cardiac arrest due to severe hemolytic anemia 4) Acute renal failure likely due to ATN 5) Elevated LFT'S secondary to shock liver, also possible hemolysis Plan: -Slight drop in Hgb today; will transfuse in HD today per nephrology recs. -IV Rituxan 08/13, will need total of 4 weekly doses. -Plan to start Ibrutinib as soon as possible as more definitive treatment of his CLL. Ibrutinib has been ordered, pending insurance approval and delivery, will start as soon as available. Given new onset afib and possible need to anticoagulate, would start BTK inhibitor at 50% dose as ibrutinib has potential SE of afib/bleeding risk -hemolysis is improving based on trend of LDH and Unconjugated bili Will discuss w Pt in HD today 08/14/18 12:55 Subjective: In HD now Objective: Vital Signs Temp Pulse Resp BP Pulse Ox 36.9 C 122 H 16 123/64 H 95 08/14/18 12:00 08/14/18 12:00 08/14/18 12:00 08/14/18 12:00 08/14/18 12:00 Laboratory Results 08/14/18 05:05 08/14/18 05:05 08/13/18 08/14/18 08/15/18 05:59 05:59 05:59 Intake Total 2000 550 Output Total 1500 3050 Balance 500 -2500 PT 15.6 SEC (12.0-15.0) H 08/01/18 21:50 INR 1.30 (0.83-1.16) H 08/01/18 21:50 Plan to examine in HD today ICD10 Worksheet Patient Problems: Problems Problem Status Onset CLL (chronic lymphocytic leukemia) Acute Hyperglycemia Acute Anemia Acute Hyperbilirubinemia Acute
--- NOTE | 2018-08-14 15:09 | HOSPPROG ---
Hospitalist Progress Note Assessment/Plan: 73yo M with h/o untreated CLL, hemolytic anemia presented with jaundice found to have severe hemolytic anemia that precipitated cardiac arrest. #AIHA 2/2 untreated CLL: Hemolysis parameters improving. s/p 7u PRBCs total. - Transfuse 1u PRBC today (may take time to get compatible blood) - Continue solumedrol 125mg IV daily - Planning on 4 weekly doses of rituximab, 2nd dose 08/13 #Acute renal failure: Due to ATN, making fair amount of urine (3L yesterday) - Renal following, HD today, assess daily for dialysis needs #Atrial fibrillation/flutter w/RVR: New diagnosis. HR persistently 140s. TTE nl valves, ef - Pt and initially resistant to any AV kirti blockers. Later today, they agreed to PO metop but not IV dilt. Will start metop 25mg PO BID. - Also had lengthy discussion re: indication for anticoagulation to prevent strokes ([id number]=1 for age, DM). became upset that we are starting so many medications and refused. #CLL: Untreated - Onc obtaining ibrutinib #PEA cardiac arrest s/p ROSC: In setting of severe anemia. #Acute respiratory failure: Resolved. 2/2 pulm edema, aspiration. #Aspiration pneumonia: s/p 7 day course of levofloxacin and metronidazole #DM2 with steroid-induced hyperglycemia and intermittent hypoglycemia: A1c 5.2% . BG ok - Cont glargine 25u qhs, SSI, hold metformin #Urinary retention - Germain in place, started flomax #Abnormal LFTs: Shock liver + hemolysis. Improving. #Hypotension: Off pressors. #Hyperkalemia: Resolved. #Hyponatremia: 2/2 volume overload. #Hyperuricemia: 10.6. Monitor. VTE ppx: SQH Code: full Dispo: Remain inpatient. ADD pending clinical course. Therapies recommending inpt rehab, however, wouldn't be accepted if on HD. Family adamant about no SNF. Ongoing discussion w/CM, patient, family. Subjective: Met with patient and family in dialysis today. Al is feeling ok, no new compalints. feeling overwhelmed. Objective: Vital Signs Temp Pulse Resp BP Pulse Ox 36.9 C 122 H 16 123/64 H 95 08/14/18 12:00 08/14/18 12:00 08/14/18 12:00 08/14/18 12:00 08/14/18 12:00 Laboratory Results 08/14/18 05:05 08/14/18 05:05 08/13/18 08/14/18 08/15/18 05:59 05:59 05:59 Intake Total 2000 550 Output Total 1500 3050 Balance 500 -2500 PT 15.6 SEC (12.0-15.0) H 08/01/18 21:50 INR 1.30 (0.83-1.16) H 08/01/18 21:50 - Physical Exam Constitutional: no apparent distress Eyes: icteric sclera Ears, Nose, Mouth, Throat: moist mucous membranes Cardiovascular: irregularly irregular, tachycardia, No edema Respiratory: no respiratory distress, reduced air movement (bases) Gastrointestinal: normoactive bowel sounds, soft, non-tender abdomen, no palpable masses Genitourinary: germain in urethra Skin: no rashes or abrasions, no fluctuance, no induration Musculoskeletal: generalized weakness Neurologic: AAOx3 Psychiatric: interacting appropriately ICD10 Worksheet Patient Problems: Problems Problem Status Onset CLL (chronic lymphocytic leukemia) Acute Hyperglycemia Acute Anemia Acute Hyperbilirubinemia Acute
[2018-08-14] MEDS: CYANO/VITAMIN B12 1000 MCG TAB PO SCH (16:23)
[2018-08-14] MEDS: METOPROLOL TARTRATE 25 MG TAB PO SCH ×2 (16:23→22:23)
[2018-08-14] MEDS: LIDOCAINE 4%/MENTHOL 1% PATCH TD SCH (17:00)
[2018-08-14] MEDS ORDERED: HEPARIN 50,000 UNIT/10 ML VIAL DIAL ONE (20:34)
[2018-08-14] MEDS: INSULIN GLARGINE 100 UNITS/ML UNIT SC SCH (20:44)
[2018-08-14] MEDS: FAMOTIDINE 20 MG TAB PO SCH (20:46)
[2018-08-15] MEDS: HEPARIN 5,000 UNIT/0.5 ML INJ SC SCH ×3 (05:03→21:32)
[2018-08-15] MEDS: ALTEPLASE 2 MG VIAL IVP PRN (05:58)
[2018-08-15] MEDS: PATCH REMOVAL 1 EA PATCH TD SCH (07:49)
[2018-08-15] MEDS: SEVELAMER HCL 800 MG TAB PO SCH ×3 (08:10→17:37)
[2018-08-15] MEDS: methylPREDNISolone SOD SUCC 125 MG/2 ML VIAL IVP SCH (08:10)
[2018-08-15] MEDS: FOLIC ACID 1 MG TAB PO SCH (08:11)
[2018-08-15] MEDS: TAMSULOSIN HCL 0.4 MG CAP PO SCH (08:11)
[2018-08-15] MEDS: METOPROLOL TARTRATE 25 MG TAB PO SCH ×2 (08:11→21:33)
[2018-08-15] MEDS: INSULIN LISPRO 100 UNIT/ML SC SCH ×3 (08:12→17:42)
--- NOTE | 2018-08-15 11:54 | SOAPPROG ---
SOAP Progress Note Assessment/Plan: Assessment/Plan: 73 yo gentleman with 1) CLL (Untreated) 2) Warm antibody AIHA secondary to #1 3) Cardiac arrest due to severe hemolytic anemia 4) Acute renal failure likely due to ATN 5) Elevated LFT'S secondary to shock liver, also possible hemolysis Plan: -H/H improved today; no need for transfusion -IV Rituxan 08/13, will need total of 4 weekly doses. -Plan to start Ibrutinib as soon as possible as more definitive treatment of his CLL. Ibrutinib has been ordered, pending insurance approval and delivery, will start as soon as available. Given new onset afib and possible need to anticoagulate (although pt and refuse at this time), would start BTK inhibitor at 50-75% dose as ibrutinib has potential SE of afib/bleeding risk -hemolysis is improving based on overall trend of LDH and Unconjugated bili -No additional changes to therapy made today 08/14/18 12:55 08/15/18 11:51 Subjective: No acute events overnight Received 1unit PRBCs without incident Tachycardia treated w b-rose Objective: Vital Signs Temp Pulse Resp BP Pulse Ox 36.7 C 118 H 19 110/70 99 08/15/18 11:32 08/15/18 11:32 08/15/18 11:32 08/15/18 11:32 08/15/18 11:32 Laboratory Results 08/15/18 07:52 08/15/18 07:52 08/14/18 08/15/18 08/16/18 05:59 05:59 05:59 Intake Total 550 1660 Output Total 3050 1150 1000 Balance -2500 510 -1000 PT 15.6 SEC (12.0-15.0) H 08/01/18 21:50 INR 1.30 (0.83-1.16) H 08/01/18 21:50 Not examined today per pt preference ICD10 Worksheet Patient Problems: Problems Problem Status Onset CLL (chronic lymphocytic leukemia) Acute Hyperglycemia Acute Anemia Acute Hyperbilirubinemia Acute
--- NOTE | 2018-08-15 12:33 | SOAPPROG ---
SOAP Progress Note Assessment/Plan: Assessment: 1. arf: ischemic atn s/p arrest, now clearly recovering based on increasing uo and stablized creat yesterday prior to hd. Dialyzed yesterday for azotemia, will plan to monitor off hd for next few days for recovery. I am cautiously optimistic that he will not require add'l hd but would leave hd cath in place until clearly recovered. 2. hyperphos: on binder, dialyzing, anticipate resolution as arf recovers 3. anemia: transfusing prn 4. CLL: rx per Heme/Onc Plan: 08/03/18 22:27 08/14/18 12:06 08/15/18 12:30 Subjective: Uneventful hd yesterday without UF. Objective: Vital Signs Temp Pulse Resp BP Pulse Ox 36.7 C 118 H 19 110/70 99 08/15/18 11:32 08/15/18 11:32 08/15/18 11:32 08/15/18 11:32 08/15/18 11:32 Laboratory Results 08/15/18 07:52 08/15/18 07:52 08/14/18 08/15/18 08/16/18 05:59 05:59 05:59 Intake Total 550 1660 Output Total 3050 1150 1750 Balance -2500 510 -1750 PT 15.6 SEC (12.0-15.0) H 08/01/18 21:50 INR 1.30 (0.83-1.16) H 08/01/18 21:50 Physical Exam - Physical Exam General Appearance: no apparent distress EENT: scleral icterus (R), scleral icterus (L) Respiratory: lungs clear (anteriorly) Cardiac/Chest: regular rate, rhythm Abdomen: soft Extremities: pedal edema (trace) ICD10 Worksheet Patient Problems: Problems Problem Status Onset CLL (chronic lymphocytic leukemia) Acute Hyperglycemia Acute Anemia Acute Hyperbilirubinemia Acute
--- NOTE | 2018-08-15 13:20 | HOSPPROG ---
Hospitalist Progress Note Assessment/Plan: 73yo M with h/o untreated CLL, hemolytic anemia presented with jaundice found to have severe hemolytic anemia that precipitated cardiac arrest. #AIHA 2/2 untreated CLL: Hemolysis parameters stable/improving. s/p 8u PRBCs total. - No transfusion today - Continue solumedrol 125mg IV daily - Planning on 4 weekly doses of rituximab, 2nd dose was 08/13 #Acute renal failure: Due to ATN, making fair amount of urine (2-3L yesterday) - Renal following, last HD 08/14, may not need any more #Atrial fibrillation/flutter w/RVR: New diagnosis this admit. Looks like converted back to sinus tachy yesterday. TTE nl valves, ef. - Check ecg - Continue metop 25mg BID. Pt/ refused IV diltiazem drip yesterday when rates consistently >140 - Several discussions with pt/ re: indication for anticoagulation to prevent strokes ([id number]=6 for age, DM). They are refusing currently (of note , ibrutinib also increases afib risk) #CLL: Untreated - Onc planning on starting ibrutinib as soon as it's available #PEA cardiac arrest s/p ROSC: In setting of severe anemia. #Acute respiratory failure: Resolved. 2/2 pulm edema, aspiration. #Aspiration pneumonia: s/p 7 day course of levofloxacin and metronidazole #DM2 with steroid-induced hyperglycemia and intermittent hypoglycemia: A1c 5.2% . BG ok - Cont glargine 25u qhs, SSI, hold metformin #Urinary retention - Germain in place, started flomax #Abnormal LFTs: Shock liver + hemolysis. Improving. #Hypotension: Off pressors. #Hyperkalemia: Resolved. #Hyponatremia: 2/2 volume overload. #Hyperuricemia: 10.6. Monitor. VTE ppx: SQH Code: full Dispo: Remain inpatient. ADD pending clinical course. Therapies recommending inpt rehab, however, wouldn't be accepted if on HD. Family adamant about no SNF. Ongoing discussion w/CM, patient, family. Subjective: More alert today. No new complaints. He has limited recollection of events earlier in hospitalization (resonably so) and we went over these in detail, including his cardiac arrest. Objective: Vital Signs Temp Pulse Resp BP Pulse Ox 36.7 C 118 H 19 110/70 99 08/15/18 11:32 08/15/18 11:32 08/15/18 11:32 08/15/18 11:32 08/15/18 11:32 Laboratory Results 08/15/18 07:52 08/15/18 07:52 08/14/18 08/15/18 08/16/18 05:59 05:59 05:59 Intake Total 550 1660 Output Total 3050 1150 1750 Balance -2500 510 -1750 PT 15.6 SEC (12.0-15.0) H 08/01/18 21:50 INR 1.30 (0.83-1.16) H 08/01/18 21:50 - Physical Exam Constitutional: no apparent distress, appears nourished, not in pain Eyes: icteric sclera Ears, Nose, Mouth, Throat: moist mucous membranes, hearing normal, ears appear normal, no oral mucosal ulcers Cardiovascular: tachycardia, No edema Respiratory: no respiratory distress, reduced air movement (bases), No expiratory wheeze, No inspiratory crackles Gastrointestinal: normoactive bowel sounds, soft, non-tender abdomen, no palpable masses Genitourinary: germain in urethra Skin: no rashes or abrasions, no fluctuance, no induration Musculoskeletal: generalized weakness Neurologic: AAOx3 Psychiatric: interacting appropriately ICD10 Worksheet Patient Problems: Problems Problem Status Onset CLL (chronic lymphocytic leukemia) Acute Hyperglycemia Acute Anemia Acute Hyperbilirubinemia Acute
[2018-08-15] MEDS: CYANO/VITAMIN B12 1000 MCG TAB PO SCH (17:38)
[2018-08-15] MEDS: LIDOCAINE 4%/MENTHOL 1% PATCH TD SCH (17:56)
[2018-08-15] MEDS: INSULIN GLARGINE 100 UNITS/ML UNIT SC SCH (21:32)
[2018-08-15] MEDS: ACETAMINOPHEN 325 MG TAB PO PRN (21:33)
[2018-08-15] MEDS: FAMOTIDINE 20 MG TAB PO SCH (21:34)
[2018-08-16] MEDS: HEPARIN 5,000 UNIT/0.5 ML INJ SC SCH ×3 (05:40→22:27)
[2018-08-16] MEDS: PATCH REMOVAL 1 EA PATCH TD SCH (05:41)
[2018-08-16] MEDS: INSULIN LISPRO 100 UNIT/ML SC SCH ×3 (09:22→19:09)
[2018-08-16] MEDS: METOPROLOL TARTRATE 25 MG TAB PO SCH ×2 (09:27→22:24)
[2018-08-16] MEDS: methylPREDNISolone SOD SUCC 125 MG/2 ML VIAL IVP SCH (09:28)
[2018-08-16] MEDS: TAMSULOSIN HCL 0.4 MG CAP PO SCH (09:28)
[2018-08-16] MEDS: SEVELAMER HCL 800 MG TAB PO SCH ×4 (09:28→19:24)
[2018-08-16] MEDS: FOLIC ACID 1 MG TAB PO SCH (09:28)
--- NOTE | 2018-08-16 10:36 | SOAPPROG ---
SOAP Progress Note Assessment/Plan: Assessment/Plan: CONTRERAS: oliguric, likely ATN. Pt had HD last on 08/14. He is now having more UOP and is nonoliguric, may be recovering. - No HD today. - Will continue to monitor daily for renal recovery and HD needs, may not need further HD but will leave catheter in for now. - Avoid hypotension and nephrotoxins. Hyperuricemia: will recheck with am labs. Anemia: pt transfused PRBCs multiple times this admission. Hyperphosphatemia: expect this to improve further with renal recovery, will cut down sevelamer dosage and monitor. Subjective: No acute events overnight. Pt notes he has pain in his legs, particularly when they are touched. He has no dyspnea. Objective: Vital Signs Temp Pulse Resp BP Pulse Ox 36.6 C 118 H 20 121/74 H 96 08/16/18 08:02 08/16/18 09:27 08/16/18 08:02 08/16/18 09:27 08/16/18 08:02 Laboratory Results 08/16/18 06:15 08/16/18 06:15 08/15/18 08/16/18 08/17/18 05:59 05:59 05:59 Intake Total 1660 1200 Output Total 1150 3750 Balance 510 -2550 PT 15.6 SEC (12.0-15.0) H 08/01/18 21:50 INR 1.30 (0.83-1.16) H 08/01/18 21:50 General: alert and oriented, no acute distress Eyes: EOMI, PERRL OP: Clear CV: RRR Resp: nonlabored respirations on RA Abd: Soft, NT Exxt: +1 edema BLE Neuro: CN II-XII Grossly intact, no asterixis Psych: cooperative ICD10 Worksheet Patient Problems: Problems Problem Status Onset CLL (chronic lymphocytic leukemia) Acute Hyperglycemia Acute Anemia Acute Hyperbilirubinemia Acute
--- NOTE | 2018-08-16 12:00 | WOCRNPDOC ---
WOCRN Advanced Assessment Note - Skin Integrity Problem, Advanced Assess Sacrum Pressure Injury Dressing Type: Mepilex Border Dressing Description: Intact Integumentary Issue Intervention: Dressing Changed Wound Bed Color: [place] Wound Bed Constitution: Red/[place] - Non Granular Tissue (100%) Site Measurement - Head-to-Toe Length X Width X Depth (cm): 5 cm total length; two smaller open areas of 1.5x0.8x0.1 proximal and 1.5x0.7x0.1 distal Skin Integrity Problem Comment: Wound almost fully epithelized. Open area to this wound has decreased to a total length of 5 cm consisting of two smaller epithelizing areas seperated by a fully healed skin bridge of roughly 2 cm. Cleaned with ns and gauze. Wound gel applied and covered with Mepilex sacral border placed upside down. Per RN, patient had just refused repositioning. Reinforced to patient importance of turning and offloading. Explained to patient and findings and reiterated the importance of keeping up with the turning. LASHANDA Dumont in room for care and aware of findings. Left Sacrum Dressing Type: Mepilex Border Dressing Description: Intact Integumentary Issue Intervention: Dressing Changed Wound Bed Color: [place] Wound Bed Constitution: Red/[place] - Non Granular Tissue (100%) Wound Edges: Epithelizing Site Measurement - Head-to-Toe Length X Width X Depth (cm): 0.3x0.6x0.1 Skin Integrity Problem Comment: Epithelizing wound almost fully healed. Wound care will continue to follow. LASHANDA Dumont in room for care.
--- NOTE | 2018-08-16 13:55 | CPEKG ---
Test Reason : OPEN Blood Pressure : / mmHG Vent. Rate : 122 BPM Atrial Rate : 135 BPM P-R Int : 107 ms QRS Dur : 137 ms QT Int : 344 ms P-R-T Axes : 194 -76 -02 degrees QTc Int : 490 ms Atrial flutter RBBB and LAFB Confirmed by Wili Liang ([id number]) on 08/16/2018 1:55:17 PM Referred By: Salbador Waller Confirmed By:Wili Liang
--- NOTE | 2018-08-16 14:00 | CPEKG ---
Test Reason : OPEN Blood Pressure : / mmHG Vent. Rate : 107 BPM Atrial Rate : 283 BPM P-R Int : 207 ms QRS Dur : 137 ms QT Int : 361 ms P-R-T Axes : 214 268 005 degrees QTc Int : 482 ms Atrial flutter RBBB and LAFB Confirmed by Wili Liang ([id number]) on 08/16/2018 2:00:07 PM Referred By: Salbador Waller Confirmed By:Wili Liang
--- NOTE | 2018-08-16 14:26 | SOAPPROG ---
SOAP Progress Note Assessment/Plan: A/P: 73 yo gentleman with previously untreated CLL with severe hemolytic anemia resulting in cardiac arrest and ARF. * CLL: had previously planned ibrutinib but with recent afib and arrhtythmia potential with ibrutinib, plan venetoclax instead. Disc with Dr. Rodriguez who is coordinating with [facility] outpatient pharmacy. Anticipate initiation of tx later this week when drug arrives. * Warm antibody AIHA secondary to CLL: hemoglobin stabilizing, LDH and bili improving. Rituxan #2 08/13/18, on Solumedrol 125 mg QD. Will complete 2 more weekly doses of Rituxan. Reinforced with that treatment of AIHA is treatment of underlying CLL itself. - Rituxan 08/20 and 08/27 - cont steroids - xfus support - CLL therapy as above. * Afib: now in sinus rhythm. /pt refused anticoagulation. * Cardiac arrest due to severe hemolytic anemia. * Acute renal failure likely due to ATN: non-oliguric, improving. d/w Dr. Rodriguez and Dr. Banks-Rosa Elena. 08/16/18 14:19 Subjective: No pain. Good appetite. No new complaints. PE: VS reviewed. Gen: fatigued, NAD. HEENT: icteric. Lungs: breathing comfortably, CTA. CV: RRR, 1+ bilat edema. Abd: soft, NT. Neuro: grossly nonfocal. Laboratory Tests 08/13/18 08/14/18 08/15/18 06:40 05:05 07:52 WBC Hgb 7.3 L 6.8 L Plt Count Creatinine Unconjugated Bilirubin 2.6 H Lactate Dehydrogenase 1142 H 08/15/18 08/16/18 08/16/18 07:52 06:15 06:15 WBC 25.20 H Hgb 7.8 L 7.3 L Plt Count 215 Creatinine 3.9 H Unconjugated Bilirubin Lactate Dehydrogenase 08/16/18 06:15 WBC Hgb Plt Count Creatinine Unconjugated Bilirubin 1.8 H Lactate Dehydrogenase 1046 H Objective: Vital Signs Temp Pulse Resp BP Pulse Ox 36.3 C 115 H 20 111/70 94 08/16/18 11:32 08/16/18 11:32 08/16/18 11:32 08/16/18 11:32 08/16/18 11:32 Laboratory Results 08/16/18 06:15 08/16/18 06:15 08/15/18 08/16/18 08/17/18 05:59 05:59 05:59 Intake Total 1660 1200 Output Total 1150 3750 550 Balance 510 -2550 -550 PT 15.6 SEC (12.0-15.0) H 08/01/18 21:50 INR 1.30 (0.83-1.16) H 08/01/18 21:50 ICD10 Worksheet Patient Problems: Problems Problem Status Onset CLL (chronic lymphocytic leukemia) Acute Hyperglycemia Acute Anemia Acute Hyperbilirubinemia Acute
[2018-08-16] MEDS: ALTEPLASE 2 MG VIAL IVP PRN ×4 (16:24→23:05)
--- NOTE | 2018-08-16 16:27 | HOSPPROG ---
Hospitalist Progress Note Assessment/Plan: 73yo M with h/o untreated CLL, hemolytic anemia presented with jaundice found to have severe hemolytic anemia that precipitated cardiac arrest. #AIHA 2/2 untreated CLL: Hemolysis parameters stable/improving. s/p 8u PRBCs total. - No transfusion today, H/H borderline -repeat H/H later today, if below 7.21 will order PRBC - Continue solumedrol 125mg IV daily - Planning on 4 weekly doses of rituximab, 2nd dose was 08/13 #Acute renal failure: Due to ATN, making fair amount of urine (2-3L yesterday) -non oliguric now, discussed with renal, hold off on HD now, but leave catheter in place. - Renal following, last HD 08/14, may not need any more #Atrial fibrillation/flutter w/RVR: New diagnosis this admit. Looks like converted back to sinus tachy yesterday. TTE nl valves, ef. - sinus tach now - Continue metop 25mg BID. Pt/ refused IV diltiazem drip when rates consistently >140 - Several discussions with pt/ re: indication for anticoagulation to prevent strokes ([id number]=8 for age, DM). They are refusing currently (of note , ibrutinib also increases afib risk) #CLL: Untreated -Discussed with onc and no longer planning ibrutinib, rather will plan on starting venoclotax #PEA cardiac arrest s/p ROSC: In setting of severe anemia. #Acute respiratory failure: Resolved. 2/2 pulm edema, aspiration. improved today #Aspiration pneumonia: s/p 7 day course of levofloxacin and metronidazole #DM2 with steroid-induced hyperglycemia and intermittent hypoglycemia: A1c 5.2% . BG ok - Cont glargine 25u qhs, SSI, hold metformin #Urinary retention - Germain in place, started flomax #Abnormal LFTs: Shock liver + hemolysis. Improving. #Hypotension: Off pressors. #Hyperkalemia: Resolved. #Hyponatremia: 2/2 volume overload. resolved now #Hyperuricemia: 10.6. Monitor. Subjective: tired today. no acute complaints. Objective: Vital Signs Temp Pulse Resp BP Pulse Ox 36.3 C 115 H 20 111/70 94 08/16/18 11:32 08/16/18 11:32 08/16/18 11:32 08/16/18 11:32 08/16/18 11:32 Laboratory Results 08/16/18 06:15 08/16/18 06:15 08/15/18 08/16/18 08/17/18 05:59 05:59 05:59 Intake Total 1660 1200 Output Total 1150 3750 1000 Balance 510 -2550 -1000 PT 15.6 SEC (12.0-15.0) H 08/01/18 21:50 INR 1.30 (0.83-1.16) H 08/01/18 21:50 - Physical Exam Constitutional: chronically ill appearing Eyes: PERRL, anicteric sclera, EOMI Ears, Nose, Mouth, Throat: moist mucous membranes, hearing normal, ears appear normal, no oral mucosal ulcers Cardiovascular: tachycardia Respiratory: no respiratory distress, reduced air movement Gastrointestinal: normoactive bowel sounds, soft, non-tender abdomen, no palpable masses Genitourinary: germain in urethra Skin: no rashes or abrasions, no fluctuance, no induration Musculoskeletal: generalized weakness Neurologic: AAOx3 Psychiatric: interacting appropriately, not encephalopathic Lymph, Heme, Immunologic: no cervical LAD, no supraclavicular LAD ICD10 Worksheet Patient Problems: Problems Problem Status Onset CLL (chronic lymphocytic leukemia) Acute Hyperglycemia Acute Anemia Acute Hyperbilirubinemia Acute
--- NOTE | 2018-08-16 18:50 | ASMTCMCOM ---
CM Note CM Note Notes: Pt discussed in rounds and is not ready for discharge. Pt was seen by Palliative care who will follow up again tomorrow. CM available for needs. PLAN: Likely IP REHAB or HHC when medically cleared Date Signed: 08/16/2018 05:43 PM Electronically Signed By:Camelia Simpson
[2018-08-16] MEDS: LIDOCAINE 4%/MENTHOL 1% PATCH TD SCH ×2 (19:07→22:23)
[2018-08-16] MEDS: CYANO/VITAMIN B12 1000 MCG TAB PO SCH (19:10)
[2018-08-16] MEDS: FAMOTIDINE 20 MG TAB PO SCH (22:24)
[2018-08-16] MEDS: INSULIN GLARGINE 100 UNITS/ML UNIT SC SCH (22:28)
[2018-08-17] MEDS: PATCH REMOVAL 1 EA PATCH TD SCH (05:08)
[2018-08-17] MEDS: INSULIN LISPRO 100 UNIT/ML SC SCH ×3 (07:53→16:48)
[2018-08-17] MEDS: FOLIC ACID 1 MG TAB PO SCH (08:21)
[2018-08-17] MEDS: METOPROLOL TARTRATE 25 MG TAB PO SCH ×2 (08:21→20:37)
[2018-08-17] MEDS: TAMSULOSIN HCL 0.4 MG CAP PO SCH (08:22)
[2018-08-17] MEDS: SEVELAMER HCL 800 MG TAB PO SCH ×3 (08:22→17:13)
--- NOTE | 2018-08-17 09:01 | SOAPPROG ---
SOAP Progress Note Assessment/Plan: Assessment: Reviewed hx. Non oliguric ATN related to PEA arrest. Major issues are CLL with warm AIHA. 1. Non oliguric ATN BUN, Cr still rising. Excellent UO, lytes ok. Asked patient to increase fluid intake today. Likely HD tomorrow, but expect recovery. 2. Convert to regular diet to try to increase intake. K has been fine, excellent UO. 3. Would like to DC germain. 4. HG down. Per heme re threshold for transfusion > 25 minutes spent. Plan: 08/17/18 08:58 Subjective: Pain in multiple locations Objective: Vital Signs Temp Pulse Resp BP Pulse Ox 36.7 C 116 H 20 120/76 97 08/17/18 07:50 08/17/18 08:21 08/17/18 07:50 08/17/18 08:21 08/17/18 07:50 Laboratory Results 08/17/18 06:20 08/17/18 06:20 08/16/18 08/17/18 08/18/18 05:59 05:59 05:59 Intake Total 1200 1000 Output Total 3750 2000 Balance -2550 -1000 PT 15.6 SEC (12.0-15.0) H 08/01/18 21:50 INR 1.30 (0.83-1.16) H 08/01/18 21:50 Physical Exam - Physical Exam General Appearance: mild distress Neck: other (Tunneled dialysis catheter line site ok) Respiratory: normal breath sounds Cardiac/Chest: regular rate, rhythm Male Genitalia: other (germain) Skin: normal color Extremities: pedal edema (trace) Neuro/Psych: oriented x 3 ICD10 Worksheet Patient Problems: Problems Problem Status Onset CLL (chronic lymphocytic leukemia) Acute Hyperglycemia Acute Anemia Acute Hyperbilirubinemia Acute
[2018-08-17] MEDS: methylPREDNISolone SOD SUCC 125 MG/2 ML VIAL IVP SCH (10:50)
--- NOTE | 2018-08-17 10:53 | SOAPPROG ---
SOAP Progress Note Assessment/Plan: Assessment: SOAP Progress Note Assessment/Plan: A/P: 73 yo gentleman with previously untreated CLL with severe hemolytic anemia resulting in cardiac arrest and ARF. * CLL: had previously planned ibrutinib but with recent afib and arrhtythmia potential with ibrutinib, plan venetoclax instead. Unclear when insurance auth will come through. Started brief conversation with regarding potential side effects. She is very reluctant to start a new med, until he is 'stronger'. Due to risk of tumor lysis with the drug, will give rasburicase prior to starting. Will need to coordinate timing of dialysis, etc. Consider non contrast CT at some point to establish extent of disease prior to therapy. * Warm antibody AIHA secondary to CLL: hemoglobin stabilizing, LDH and bili improving. Rituxan #2 08/13/18, on Solumedrol 125 mg QD. Will complete 2 more weekly doses of Rituxan. Reinforced with that treatment of AIHA is treatment of underlying CLL itself. - Rituxan 08/20 and 08/27 - cont steroids - xfus support, reasonable to order another unit for transfusion given Hct today. - CLL therapy as above. * Afib: now in sinus rhythm. /pt refused anticoagulation. * Cardiac arrest due to severe hemolytic anemia. * Acute renal failure likely due to ATN: non-oliguric, improving. * * Deconditioning-PT working with patient. d/w Dr. Rodriguez and Dr. Gomez. Subjective: feels weak, doesn't like the food here Objective: Vital Signs Temp Pulse Resp BP Pulse Ox 36.7 C 116 H 20 120/76 97 08/17/18 07:50 08/17/18 08:21 08/17/18 07:50 08/17/18 08:21 08/17/18 07:50 Laboratory Results 08/17/18 06:20 08/17/18 06:20 08/16/18 08/17/18 08/18/18 05:59 05:59 05:59 Intake Total 1200 1000 Output Total 3750 2000 Balance -2550 -1000 PT 15.6 SEC (12.0-15.0) H 08/01/18 21:50 INR 1.30 (0.83-1.16) H 08/01/18 21:50 Physical Exam - Physical Exam General Appearance: no apparent distress Neck: supple Respiratory: lungs clear (anteriorly) Abdomen: soft, other (slight tender to palpation, no rebound) Neuro/Psych: alert, depressed affect ICD10 Worksheet Patient Problems: Problems Problem Status Onset CLL (chronic lymphocytic leukemia) Acute Hyperglycemia Acute Anemia Acute Hyperbilirubinemia Acute
[2018-08-17] MEDS: HEPARIN 5,000 UNIT/0.5 ML INJ SC SCH ×3 (12:25→20:36)
--- NOTE | 2018-08-17 14:57 | HOSPPROG ---
Hospitalist Progress Note Assessment/Plan: 73yo M with h/o untreated CLL, hemolytic anemia presented with jaundice found to have severe hemolytic anemia that precipitated cardiac arrest. #AIHA 2/2 untreated CLL: Hemolysis parameters stable/improving. s/p 8u PRBCs total. - Transfuse today for hgb of 7 hct of 20. - Continue solumedrol 125mg IV daily - Planning on 4, weekly doses of rituximab, 2nd dose was 08/13 #Acute renal failure: Due to ATN, making fair amount of urine (2-3L yesterday) -non oliguric now, discussed with renal, -creatinine trending up. - Renal following, last HD 08/14, -likely HD tomorrow, after discussion with nephrology. #Atrial fibrillation/flutter w/RVR: New diagnosis this admit. Today appears to be in a flutter. rates up to 140 today - back in a flutter. -patient sees Dr. Yoo. -consulted cardiology today to discuss treatment options, family may be interested in anticoagulation after all. - Continue metop 25mg BID. Pt/ refused IV diltiazem drip when rates consistently >140 - Several discussions with pt/ re: indication for anticoagulation to prevent strokes ([id number]=9 for age, DM), may be interested in anticoagulation at this point. #CLL: Untreated -Discussed with onc and no longer planning ibrutinib, rather will plan on starting venoclotax -per discussion with nephrology and onc will give rasburicase with venetoclax given renal impairment. #PEA cardiac arrest s/p ROSC: In setting of severe anemia. #Acute respiratory failure: Resolved. 2/2 pulm edema, aspiration. improved today #Aspiration pneumonia: s/p 7 day course of levofloxacin and metronidazole #DM2 with steroid-induced hyperglycemia and intermittent hypoglycemia: A1c 5.2% . BG ok - Cont glargine 25u qhs, SSI, hold metformin #Urinary retention -dc germain today, cleared by renal. #Abnormal LFTs: Shock liver + hemolysis. Improving. #Hypotension: Off pressors. #Hyperkalemia: Resolved. #Hyponatremia: 2/2 volume overload. resolved now #Hyperuricemia: 10.6. Monitor. Subjective: sternum still sore. better appetitte. Objective: Vital Signs Temp Pulse Resp BP Pulse Ox 37.0 C 110 H 18 109/67 95 08/17/18 11:42 08/17/18 11:42 08/17/18 11:42 08/17/18 11:42 08/17/18 11:42 Laboratory Results 08/17/18 06:20 08/17/18 06:20 08/16/18 08/17/18 08/18/18 05:59 05:59 05:59 Intake Total 1200 1000 Output Total 3750 2000 Balance -2550 -1000 PT 15.6 SEC (12.0-15.0) H 08/01/18 21:50 INR 1.30 (0.83-1.16) H 08/01/18 21:50 - Physical Exam Constitutional: chronically ill appearing Eyes: PERRL, anicteric sclera, EOMI Ears, Nose, Mouth, Throat: moist mucous membranes, hearing normal, ears appear normal, no oral mucosal ulcers Cardiovascular: regular rate and rhythym, no murmur, rub, or gallop Respiratory: no respiratory distress, no rales or rhonchi, clear to auscultation Gastrointestinal: normoactive bowel sounds, soft, non-tender abdomen, no palpable masses Genitourinary: germain in urethra Skin: no rashes or abrasions, no fluctuance, no induration Musculoskeletal: generalized weakness Neurologic: AAOx3 Psychiatric: interacting appropriately, not anxious, not encephalopathic, thought process linear Lymph, Heme, Immunologic: no cervical LAD, no supraclavicular LAD ICD10 Worksheet Patient Problems: Problems Problem Status Onset CLL (chronic lymphocytic leukemia) Acute Hyperglycemia Acute Anemia Acute Hyperbilirubinemia Acute
[2018-08-17] MEDS: LIDOCAINE 4%/MENTHOL 1% PATCH TD SCH (16:48)
[2018-08-17] MEDS: CYANO/VITAMIN B12 1000 MCG TAB PO SCH (16:49)
[2018-08-17] MEDS ORDERED: fentaNYL 100 MCG/2 ML INJ ONE (16:52)
--- NOTE | 2018-08-17 17:04 | ASMTCMCOM ---
CM Note CM Note Notes: Pt discussed in rounds and Pt continues to have low platelet and Hct, not ready for D/c Palliative care met with Pt and who is opening to Pall Care. If Pt off dialysis he may be accepted to IP Rehab if there is a bed. Yumiko (IP Rehab Coordinator) has been watching his progress. CM will continue to monitor for needs. PLAN: IP Rehab vs HHC when medically stable. Date Signed: 08/17/2018 05:04 PM Electronically Signed By:Camelia Simpson
[2018-08-17] MEDS: INSULIN GLARGINE 100 UNITS/ML UNIT SC SCH (20:29)
[2018-08-17] MEDS: SIMETHICONE 80 MG TAB CHEW PO SCH (20:37)
[2018-08-17] MEDS: FAMOTIDINE 20 MG TAB PO SCH (20:38)
[2018-08-18] MEDS: HEPARIN 5,000 UNIT/0.5 ML INJ SC SCH ×3 (06:02→21:42)
[2018-08-18] MEDS: PATCH REMOVAL 1 EA PATCH TD SCH (06:02)
[2018-08-18 06:17] LABS: PLATELET COUNT 152 10^3/uL (150-400)
[2018-08-18] MEDS: INSULIN LISPRO 100 UNIT/ML SC SCH ×3 (08:12→18:15)
--- NOTE | 2018-08-18 10:09 | SOAPPROG ---
SOAP Progress Note Assessment/Plan: Assessment: Reviewed hx. Non oliguric ATN related to PEA arrest. Major issues are CLL with warm AIHA. 1. Non oliguric ATN Cr stable, BUN slightly. Excellent UO. Chose to dialyze today given potential for chemo with tumor lysis in days ahead. 2. Zazueta now DC'd 3. Now on regular diet, encouraging intake. 4. Heme Pt to receive Venetoclax when available. This may induce tumor lysis. He will get rasburicase. We will need to prehydrate, and monitor Ca and Phos. Plan: 08/17/18 08:58 08/18/18 10:04 Subjective: Seen on dialysis. Stable run Objective: Vital Signs Temp Pulse Resp BP Pulse Ox 36.6 C 111 H 18 125/78 H 97 08/18/18 07:35 08/18/18 07:35 08/18/18 07:35 08/18/18 07:35 08/18/18 07:35 Laboratory Results 08/18/18 06:06 08/18/18 06:06 08/17/18 08/18/18 08/19/18 05:59 05:59 05:59 Intake Total 1000 2535 Output Total 1999 2049 350 Balance -1000 485 -350 PT 15.6 SEC (12.0-15.0) H 08/01/18 21:50 INR 1.30 (0.83-1.16) H 08/01/18 21:50 Physical Exam - Physical Exam General Appearance: no apparent distress Neck: other (Catheter site ok) Respiratory: lungs clear Cardiac/Chest: tachycardia Extremities: pedal edema Neuro/Psych: oriented x 3 ICD10 Worksheet Patient Problems: Problems Problem Status Onset CLL (chronic lymphocytic leukemia) Acute Hyperglycemia Acute Anemia Acute Hyperbilirubinemia Acute
[2018-08-18] MEDS: SIMETHICONE 80 MG TAB CHEW PO SCH ×4 (12:55→21:45)
[2018-08-18] MEDS: SEVELAMER HCL 800 MG TAB PO SCH ×5 (12:55→18:16)
--- NOTE | 2018-08-18 13:45 | HOSPPROG ---
Hospitalist Progress Note Assessment/Plan: 73yo M with h/o untreated CLL, hemolytic anemia presented with jaundice found to have severe hemolytic anemia that precipitated cardiac arrest. #AIHA 2/2 untreated CLL: Hemolysis parameters stable/improving. s/p 8u PRBCs total. - Transfuse 1 unit PRBC yesterday for hgb of 7 hct of 20. - Continue solumedrol 125mg IV daily - Planning on 4 X once weekly doses of rituximab, 2nd dose was 08/13 #Acute renal failure: Due to ATN, making fair amount of urine (2-3L yesterday) -non oliguric now, discussed with renal,HD today -creatinine stable - Renal following, last HD 08/14, #Atrial fibrillation/flutter w/RVR: New diagnosis this admit. Today appears to be in a flutter. rates up to 140 today - back in a flutter yesterday, rates 115-140. -patient sees Dr. Yoo. -consulted cardiology today to discuss treatment options, family may be interested in anticoagulation after all. - Continue metop 25mg BID. Pt/ refused IV diltiazem drip when rates consistently >140 - Several discussions with pt/ re: indication for anticoagulation to prevent strokes ([id number]=9 for age, DM), may be interested in anticoagulation at this point. #CLL: Untreated -Discussed with onc and no longer planning ibrutinib, rather will plan on starting venoclotax -per discussion with nephrology and onc will give rasburicase with venetoclax given renal impairment. #PEA cardiac arrest s/p ROSC: In setting of severe anemia. #Acute respiratory failure: Resolved. 2/2 pulm edema, aspiration. improved today #Aspiration pneumonia: s/p 7 day course of levofloxacin and metronidazole #DM2 with steroid-induced hyperglycemia and intermittent hypoglycemia: A1c 5.2% . BG ok - Cont glargine 25u qhs, SSI, hold metformin #Urinary retention -dc germain today, cleared by renal. still making large amounts of urine #Abnormal LFTs: Shock liver + hemolysis. Improving. #Hypotension: Off pressors. #Hyperkalemia: Resolved. #Hyponatremia: 2/2 volume overload. resolved now #Hyperuricemia: 10.6. Monitor. Subjective: patient does fairly little talking, discussion mostly dominated by . chest is sore. no other specific complaints. Objective: Vital Signs Temp Pulse Resp BP Pulse Ox 36.6 C 116 H 18 146/80 H 96 08/18/18 13:29 08/18/18 13:29 08/18/18 13:29 08/18/18 13:29 08/18/18 13:29 Laboratory Results 08/18/18 06:06 08/18/18 06:06 08/17/18 08/18/18 08/19/18 05:59 05:59 05:59 Intake Total 9995 Output Total 1999 2049 350 Balance -1000 485 -350 PT 15.6 SEC (12.0-15.0) H 08/01/18 21:50 INR 1.30 (0.83-1.16) H 08/01/18 21:50 - Physical Exam Constitutional: chronically ill appearing Eyes: PERRL, anicteric sclera, EOMI Ears, Nose, Mouth, Throat: moist mucous membranes, hearing normal, ears appear normal, no oral mucosal ulcers Cardiovascular: irregularly irregular Respiratory: reduced air movement Gastrointestinal: normoactive bowel sounds, soft, non-tender abdomen, no palpable masses Genitourinary: no bladder fullness, no bladder tenderness, no renal bruits Skin: no rashes or abrasions, no fluctuance, no induration Musculoskeletal: generalized weakness Neurologic: AAOx3, sensation intact bilaterally Psychiatric: interacting appropriately, not anxious, not encephalopathic, thought process linear Lymph, Heme, Immunologic: no cervical LAD, no supraclavicular LAD ICD10 Worksheet Patient Problems: Problems Problem Status Onset CLL (chronic lymphocytic leukemia) Acute Hyperglycemia Acute Anemia Acute Hyperbilirubinemia Acute
[2018-08-18] MEDS: METOPROLOL TARTRATE 25 MG TAB PO SCH ×4 (13:54→22:05)
[2018-08-18] MEDS: methylPREDNISolone SOD SUCC 125 MG/2 ML VIAL IVP SCH (13:54)
[2018-08-18] MEDS: FOLIC ACID 1 MG TAB PO SCH ×3 (13:58→16:03)
[2018-08-18] MEDS: TAMSULOSIN HCL 0.4 MG CAP PO SCH ×3 (14:00→17:08)
[2018-08-18] MEDS ORDERED: HEPARIN 50,000 UNIT/10 ML VIAL ONE (14:38)
[2018-08-18] MEDS: CYANO/VITAMIN B12 1000 MCG TAB PO SCH (18:16)
[2018-08-18] MEDS: LIDOCAINE 4%/MENTHOL 1% PATCH TD SCH (18:16)
--- NOTE | 2018-08-18 19:17 | GCON ---
[f rep st] CONSULTATION CARDIAC CONSULTATION DATE OF CONSULTATION: 08/18/2018 CHIEF COMPLAINT: Atrial fibrillation/flutter. HISTORY OF PRESENT ILLNESS: This is a 73-year-old gentleman whom I first met many years ago. I have not seen him in quite some time. He has a history of CLL and diabetes mellitus. Apparently, he had an exacerbation of CLL and was admitted on 08/01 for hemolytic anemia. He subsequently had a cardia c arrest thought secondary to hypoperfusion from his anemia. He was resuscitated and returned to nor mal sinus rhythm. He has had since that time intermittent bouts of atrial fibrillation/flutter and s inus tachycardia with no other cardiac events. An echocardiogram showed normal LV function without s ignificant valvar heart disease. He has received hemodialysis and blood units throughout the ensuing days. We were asked to comment on his atrial fibrillation. His did not want IV diltiazem. He has been on p.o. metoprolol. He is on no blood thinners by choice, as well as the patient remains a nemic. His hemoglobin today was 8.4. Today, he is seen and he is eating dinner with his . He is feeling better. He did have dialysis today. He appears to be in sinus tach that cardioverts to sinus versus atrial fibrillation at this time. I had a discussion with him about our options. At this point, they have agreed to try amiodarone p.o. at this time, and we can titrate this up and discontinue the beta rose. The is comfortable with this approach , and I think hopefully it will help stabilize the rhythm. He does not appear to be having an any AC S symptomatology. He has potassium 4.8. His creatinine is 4.0, BUN 95. He appears to be making uri ne at this time. He also has abnormal liver functions. Some of this could have been post arrest hyp operfusion. All in all though, he is not short of breath or having any syncope, and maintains a good blood pressure at this time. PAST MEDICAL HISTORY: 1. Type 2 diabetes mellitus. 2. CLL. 3. Autoimmune hemolytic anemia. 4. No history of arrhythmias or known CAD. PAST SURGICAL HISTORY: None. MEDICINES: See reconciliation form. ALLERGIES: Penicillin. FAMILY HISTORY: Noncontributory. SOCIAL HISTORY: He is , lives with his . No alcohol or cigarette issues. REVIEW OF SYSTEMS: Except for HPI, negative for any ACS symptomatology or other problems. PHYSICAL EXAMINATION: VITAL SIGNS: Blood pressure now is 133/69. Heart rate in the one-teens, appe ars to be atrial fibrillation. GENERAL: He is alert and oriented, in no acute distress. He is eati ng dinner. HEENT: Mouth: Oropharynx clear. He is swallowing without problems. BACK/CVA/CHEST WAL L: No palpable tenderness. LUNGS: Clear to auscultation. CARDIOVASCULAR: Regular rate and rhythm . I cannot hear loud gallops, murmurs, rubs. ABDOMEN: Soft, nontender. MUSCULOSKELETAL: No signs of clubbing or edema. LABORATORY DATA: Labs as above. Echocardiogram showed normal LV function. No regional wall motion abnormality. He was in atrial fibrillation at that time. He had no significant valvar heart disease or pericardial effusion. ASSESSMENT: 1. Atrial arrhythmias, including probable sinus tachycardia, premature atrial contractions, atrial f ibrillation, atrial flutter. This has all been in response to his ongoing cardiac arrest, anemia, an d metabolic issues with his dialysis. At this point, he has maintained good blood pressure support. His echocardiogram shows normal left ventricular function without ischemic wall motion abnormality. He is not having any ongoing symptoms acute coronary syndrome at this time. At this point, I would like to begin amiodarone 200 mg p.o. b.i.d. and would anticipate probably keeping this med on for a m atter of months while he gets through his acute chronic lymphocytic leukemia crisis and renal insuffi ciency. We can back off the metoprolol as tolerated as well. The patient and do not want intra venous meds or blood thinners at this time. I think this is reasonable, especially given his overall condition. He is not having acute blood loss. At this time, he has been having p.r.n. dialysis. 2. Cardiac arrest, possibly due to hypoperfusion. No acute coronary syndrome. The patient has not had ischemic testing for many years. In speaking to his , he was not having any acute coronary s yndrome symptomatology prior to this admission. At some point down the line, probably outpatient, nu clear stress test will be performed unless he has more unstable cardiac issues which can be dealt wit h as an inpatient. For now, he appears to be stable from a cardiac standpoint. Many questions answe red with the patient and his . We will continue to follow through the hospital. /[id number]/MODL
[2018-08-18] MEDS: FAMOTIDINE 20 MG TAB PO SCH (21:29)
[2018-08-18] MEDS: INSULIN GLARGINE 100 UNITS/ML UNIT SC SCH (21:42)
[2018-08-18] MEDS: AMIODARONE HCL 200 MG TAB PO SCH (22:06)
[2018-08-19 04:58] LABS: PLATELET COUNT 144 10^3/uL (150-400)
[2018-08-19] MEDS: PATCH REMOVAL 1 EA PATCH TD SCH (05:32)
[2018-08-19] MEDS ORDERED: SIMETHICONE 80 MG TAB CHEW PO ONE (05:45)
[2018-08-19] MEDS: HEPARIN 5,000 UNIT/0.5 ML INJ SC SCH ×3 (06:27→21:17)
[2018-08-19] MEDS: METOPROLOL TARTRATE 25 MG TAB PO SCH ×3 (08:59→21:17)
[2018-08-19] MEDS: FOLIC ACID 1 MG TAB PO SCH (09:00)
[2018-08-19] MEDS: TAMSULOSIN HCL 0.4 MG CAP PO SCH (09:00)
[2018-08-19] MEDS: SEVELAMER HCL 800 MG TAB PO SCH (09:01)
[2018-08-19] MEDS: methylPREDNISolone SOD SUCC 125 MG/2 ML VIAL IVP SCH (09:01)
[2018-08-19] MEDS: AMIODARONE HCL 200 MG TAB PO SCH ×2 (09:01→21:17)
[2018-08-19] MEDS: INSULIN LISPRO 100 UNIT/ML SC SCH ×3 (09:01→18:56)
[2018-08-19] MEDS: SIMETHICONE 80 MG TAB CHEW PO SCH ×4 (09:02→19:44)
--- NOTE | 2018-08-19 10:27 | SOAPPROG ---
SOAP Progress Note Assessment/Plan: Assessment/Plan: CONTRERAS: oliguric, likely ATN. Pt had HD on 08/14 and then again on 08/18, looked like his Cr was peaking. He is now having more UOP and is nonoliguric, likely recovering. - No HD today. - Will plan to hold off on further HD if possible, if can show improvement and not need HD through the weekend then will consider removing catheter on Thursday. - Will continue to monitor daily for HD needs and renal recovery. - Avoid hypotension and nephrotoxins. Anemia: pt transfused PRBCs multiple times this admission, will continue to monitor. Hyperphosphatemia: expect this to improve further with renal recovery, will d/c sevelamer and continue to monitor. Hypervolemia: pt with good UOP, will continue to monitor. Subjective: No acute events overnight. Pt had HD yesterday, tolerated well. He still has tenderness in his legs. He has no other complaints today. Objective: Vital Signs Temp Pulse Resp BP Pulse Ox 36.7 C 83 17 117/82 H 95 08/19/18 08:35 08/19/18 08:35 08/19/18 08:35 08/19/18 08:35 08/19/18 08:35 Laboratory Results 08/19/18 04:30 08/19/18 04:30 08/18/18 08/19/18 08/20/18 05:59 05:59 05:59 Intake Total 2535 1200 Output Total 2050 1850 Balance 485 -650 PT 15.6 SEC (12.0-15.0) H 08/01/18 21:50 INR 1.30 (0.83-1.16) H 08/01/18 21:50 General: alert and oriented, no acute distress Eyes: EOMI, PERRL OP: Clear CV: RRR Resp: nonlabored respirations Abd: Soft, NT Ext: +1 edema BLE Neuro: CN II-XII Grossly intact, no asterixis Psych: cooperative Access: RIJ tunneled catheter ICD10 Worksheet Patient Problems: Problems Problem Status Onset CLL (chronic lymphocytic leukemia) Acute Hyperglycemia Acute Anemia Acute Hyperbilirubinemia Acute
--- NOTE | 2018-08-19 11:21 | SOAPPROG ---
SOAP Progress Note Assessment/Plan: Assessment:1 1. Atrial arrhythmias. Most likely due to the overall stress and strain of his recent hospitalization chemotherapy. He is hemodynamically stable. At this time will continue beta-rose and amiodarone for rate control. Anticoagulation will not be use at this time per patient wishes and also concern over bleeding risk with his hemolytic anemia. He remains hemodynamically stable. He can increase his activity as tolerated. Plan: 1. Continue current meds. 08/19/18 11:21 Subjective: Patient is hemodynamically stable. Remains in probable atrial fib with rate fairly well controlled. He seems to be improving from his ATN. At this point would continue current meds. Risk of anticoagulation discussed with and patient they declined at this time. Objective: Vital Signs Temp Pulse Resp BP Pulse Ox 36.7 C 83 17 117/82 H 95 08/19/18 08:35 08/19/18 08:35 08/19/18 08:35 08/19/18 08:35 08/19/18 08:35 Laboratory Results 08/19/18 04:30 08/19/18 04:30 08/18/18 08/19/18 08/20/18 05:59 05:59 05:59 Intake Total 2535 1200 Output Total 2050 1850 Balance 485 -650 PT 15.6 SEC (12.0-15.0) H 08/01/18 21:50 INR 1.30 (0.83-1.16) H 08/01/18 21:50 ICD10 Worksheet Patient Problems: Problems Problem Status Onset CLL (chronic lymphocytic leukemia) Acute Hyperglycemia Acute Anemia Acute Hyperbilirubinemia Acute
--- NOTE | 2018-08-19 12:21 | HOSPPROG ---
Hospitalist Progress Note Assessment/Plan: 73yo M with h/o untreated CLL, hemolytic anemia presented with jaundice found to have severe hemolytic anemia that precipitated cardiac arrest. #AIHA 2/2 untreated CLL: Hemolysis parameters improving. s/p 8u PRBCs total. - No transfusion today - Continue solumedrol 125mg IV daily - Planning on 4 weekly doses of rituximab, 3rd dose tomorrow 08/20 #Acute renal failure: Due to ATN, great UOP - Renal following, last HD 08/18, none today, hopeful that he may not need further HD #Atrial arrhythmia (afib/flutter): New diagnosis this admit - Cards consulted - continue amio 200bid, metoprolol 25bid - Patient declining anticoagulation ([id number]=3) #CLL: Untreated - Onc no longer planning ibrutinib (arrhythmogenic), instead planning on venetoclax (will need rasburicase to mitigate TLS) #Abnormal LFTs: rising ast/alt and alk phos - Monitor for now, consider RUQ US if continues to increase #PEA cardiac arrest s/p ROSC: In setting of severe anemia. #Acute respiratory failure: Resolved. 2/2 pulm edema, aspiration. #Aspiration pneumonia: s/p 7 day course of levofloxacin and metronidazole #DM2 with steroid-induced hyperglycemia and intermittent hypoglycemia: A1c 5.2% . BG ok - Cont glargine 25u qhs, SSI, hold metformin #Urinary retention: Resolved, germain now out. #Hypotension: Off pressors. #Hyperkalemia: Resolved. #Hyponatremia: 2/2 volume overload. #Hyperuricemia: 10.6. Monitor. VTE ppx: SQH Code: full Dispo: Remain inpatient. ADD pending clinical course. Therapies recommending inpt rehab, however, wouldn't be accepted if on HD. Family adamant about no SNF. Ongoing discussion w/CM, patient, family. Subjective: No complaints. Objective: Vital Signs Temp Pulse Resp BP Pulse Ox 37 C 111 H 16 125/73 H 98 08/19/18 11:23 08/19/18 11:47 08/19/18 11:47 08/19/18 11:47 08/19/18 11:47 Laboratory Results 08/19/18 04:30 08/19/18 04:30 08/18/18 08/19/18 08/20/18 05:59 05:59 05:59 Intake Total 2535 1200 200 Output Total 2049 1850 Balance 485 -650 200 PT 15.6 SEC (12.0-15.0) H 08/01/18 21:50 INR 1.30 (0.83-1.16) H 08/01/18 21:50 - Physical Exam Constitutional: no apparent distress Eyes: PERRL, anicteric sclera, EOMI Ears, Nose, Mouth, Throat: moist mucous membranes, hearing normal, ears appear normal, no oral mucosal ulcers Cardiovascular: no murmur, rub, or gallop, tachycardia, No edema Respiratory: no respiratory distress, no rales or rhonchi, clear to auscultation Gastrointestinal: normoactive bowel sounds, soft, non-tender abdomen, no palpable masses Genitourinary: no bladder fullness, no bladder tenderness, no renal bruits Skin: no rashes or abrasions, no fluctuance, no induration Musculoskeletal: generalized weakness Neurologic: AAOx3 Psychiatric: interacting appropriately ICD10 Worksheet Patient Problems: Problems Problem Status Onset CLL (chronic lymphocytic leukemia) Acute Hyperglycemia Acute Anemia Acute Hyperbilirubinemia Acute
--- NOTE | 2018-08-19 12:59 | WOCRNPDOC ---
WOCRN Advanced Assessment Note - Skin Integrity Problem, Advanced Assess Sacrum Pressure Injury Dressing Type: Mepilex Border Dressing Description: Intact Integumentary Issue Intervention: Dressing Changed Wound Bed Constitution: Healed Pressure Injury Stage: Stage 2 Pressure Injury Present on Admit: No Skin Integrity Problem Comment: Fully epithelized and still fragile tissue. Cleaned with ns, perianal area wiped with wet washcloth, pt expressed discomfort at wiping asking to stop. Wound gel applied and covered with Mepilex sacral border dressing upside down. LASHANDA Rose and in room for care. Reinforced with patient and continued importance of turning and off loading , skin care, etc. Will follow up again next week. Left Sacrum Dressing Type: Mepilex Border Wound Bed Constitution: Healed Skin Integrity Problem Comment: Healed wound.
--- NOTE | 2018-08-19 18:09 | SOAPPROG ---
SOAP Progress Note Assessment/Plan: Assessment: SOAP Progress Note Assessment/Plan: A/P: 73 yo gentleman with previously untreated CLL with severe hemolytic anemia resulting in cardiac arrest and ARF. * CLL: had previously planned ibrutinib but with recent afib and arrhythmia potential with ibrutinib, plan venetoclax instead. Patient and reluctant to start any new therapy Venetoclax has been ordered through the office, waiting insurance authorization.Due to risk of tumor lysis with the drug, will give rasburicase prior to starting. Consider non contrast CT at some point to establish extent of disease prior to therapy. * Warm antibody AIHA secondary to CLL: hemoglobin stabilizing, LDH and bili improving. Rituxan #2 08/13/18, on Solumedrol 125 mg QD. Will complete 2 more weekly doses of Rituxan. Reinforced with that treatment of AIHA is treatment of underlying CLL itself. - Rituxan 08/20 and 08/27 - cont steroids, can likely switch to po soon. - xfus support, - CLL therapy as above. * Afib: intermittent, /pt refused anticoagulation. * Cardiac arrest due to severe hemolytic anemia. * Acute renal failure likely due to ATN: non-oliguric, improving. still with intermittent dialysis * * Deconditioning-PT working with patient. 08/19/18 18:06 Subjective: in bed, but awake and alert, questioning the need for all the medicines Objective: Vital Signs Temp Pulse Resp BP Pulse Ox 36.8 C 118 H 19 118/71 97 08/19/18 15:40 08/19/18 15:40 08/19/18 15:40 08/19/18 15:40 08/19/18 15:40 Laboratory Results 08/19/18 04:30 08/19/18 04:30 08/18/18 08/19/18 08/20/18 05:59 05:59 05:59 Intake Total 2535 1200 200 Output Total 2050 1850 Balance 485 -650 200 PT 15.6 SEC (12.0-15.0) H 08/01/18 21:50 INR 1.30 (0.83-1.16) H 08/01/18 21:50 Physical Exam - Physical Exam General Appearance: alert, no apparent distress Respiratory: lungs clear (anteriorly) Abdomen: soft Extremities: pedal edema ICD10 Worksheet Patient Problems: Problems Problem Status Onset CLL (chronic lymphocytic leukemia) Acute Hyperglycemia Acute Anemia Acute Hyperbilirubinemia Acute
[2018-08-19] MEDS: LIDOCAINE 4%/MENTHOL 1% PATCH TD SCH (18:47)
[2018-08-19] MEDS: CYANO/VITAMIN B12 1000 MCG TAB PO SCH (18:47)
[2018-08-19] MEDS: ACETAMINOPHEN 325 MG TAB PO PRN ×2 (18:51→21:18)
[2018-08-19] MEDS: INSULIN GLARGINE 100 UNITS/ML UNIT SC SCH (21:18)
[2018-08-19] MEDS: FAMOTIDINE 20 MG TAB PO SCH (22:34)
[2018-08-20] MEDS: HEPARIN 5,000 UNIT/0.5 ML INJ SC SCH ×3 (05:33→21:12)
[2018-08-20] MEDS: PATCH REMOVAL 1 EA PATCH TD SCH (05:33)
[2018-08-20 06:01] LABS: PLATELET COUNT 123 10^3/uL (150-400)
[2018-08-20] MEDS: FOLIC ACID 1 MG TAB PO SCH (08:54)
[2018-08-20] MEDS: METOPROLOL TARTRATE 25 MG TAB PO SCH ×2 (08:54→21:12)
[2018-08-20] MEDS: INSULIN LISPRO 100 UNIT/ML SC SCH ×3 (08:54→18:23)
[2018-08-20] MEDS: AMIODARONE HCL 200 MG TAB PO SCH (08:54)
[2018-08-20] MEDS: SIMETHICONE 80 MG TAB CHEW PO SCH ×4 (08:55→21:17)
[2018-08-20] MEDS: TAMSULOSIN HCL 0.4 MG CAP PO SCH (08:55)
[2018-08-20] MEDS: methylPREDNISolone SOD SUCC 125 MG/2 ML VIAL IVP SCH (08:55)
[2018-08-20] MEDS: ACETAMINOPHEN 325 MG TAB PO PRN ×2 (09:13→18:23)
[2018-08-20] MEDS ORDERED: ACETAMINOPHEN 325 MG TAB PO SCH (11:30)
[2018-08-20] MEDS ORDERED: diphenhydrAMINE 25 MG CAP PO SCH (11:30)
--- NOTE | 2018-08-20 11:56 | SOAPPROG ---
SOAP Progress Note Assessment/Plan: A/P: 73 yo gentleman with previously untreated CLL with severe hemolytic anemia resulting in cardiac arrest and ARF. * CLL: had previously planned ibrutinib but with recent afib and arrhythmia potential with ibrutinib, plan venetoclax instead. Patient and reluctant to start any new therapy. Venetoclax has been ordered through the office, waiting insurance authorization. Due to risk of tumor lysis with the drug, will give rasburicase prior to starting and keep HD catheter. Consider non contrast CT at some point to establish extent of disease prior to therapy. * Warm antibody AIHA secondary to CLL: hemoglobin stabilizing, LDH and bili improving. Rituxan #2 08/13/18, on Solumedrol 125 mg QD. Will complete 2 more weekly doses of Rituxan. Reinforced with that treatment of AIHA is treatment of underlying CLL itself. - Rituxan 08/20 and 08/27 - switch methylpred to prednisone 60 mg QD - xfus support - CLL therapy as above. * Afib: intermittent, /pt refused anticoagulation. * Cardiac arrest due to severe hemolytic anemia. * Acute renal failure likely due to ATN: non-oliguric, improving. still with intermittent dialysis * Deconditioning-PT working with patient. 08/20/18 11:53 Subjective: S: slow improvement, no new concerns. O: VS reviewed. Gen: NAD. HEENT: icteric. Lungs: breathing comfortably, reduced BS bilat (supine). CV: bilat pretibial edema. Abd: soft , NT. Laboratory Tests 08/19/18 08/20/18 08/20/18 04:30 05:25 05:25 WBC 11.05 H Hgb 7.6 L Plt Count 123 L Sodium 134 L Potassium 4.1 Chloride 103 Carbon Dioxide 22 BUN 70 H Creatinine 3.1 H Glucose 288 H Total Bilirubin 3.1 H Conjugated Bilirubin 1.6 H Unconjugated Bilirubin 1.5 H AST 33 ALT 105 H Alkaline Phosphatase 166 H Lactate Dehydrogenase 899 H Objective: Vital Signs Temp Pulse Resp BP Pulse Ox 36.2 C 99 18 120/76 97 08/20/18 11:06 08/20/18 11:06 08/20/18 11:06 08/20/18 11:06 08/20/18 11:06 Laboratory Results 08/20/18 05:25 08/20/18 05:25 08/19/18 08/20/18 08/21/18 05:59 05:59 05:59 Intake Total 1200 630 Output Total 1850 875 Balance -650 -245 PT 15.6 SEC (12.0-15.0) H 08/01/18 21:50 INR 1.30 (0.83-1.16) H 08/01/18 21:50 ICD10 Worksheet Patient Problems: Problems Problem Status Onset CLL (chronic lymphocytic leukemia) Acute Hyperglycemia Acute Anemia Acute Hyperbilirubinemia Acute
[2018-08-20] MEDS ORDERED: RITUXIMAB IV SCH (12:00)
[2018-08-20] MEDS ORDERED: NS IV SCH (12:00)
--- NOTE | 2018-08-20 12:22 | SOAPPROG ---
VERN Progress Note Assessment/Plan: Assessment:1 1. Atrial arrhythmias. Most likely due to the overall stress and strain of his recent hospitalization chemotherapy. He is hemodynamically stable. At this time will continue beta-rose and amiodarone for rate control. Anticoagulation will not be use at this time per patient wishes and also concern over bleeding risk with his hemolytic anemia. He remains hemodynamically stable. He can increase his activity as tolerated. Plan: 1. Continue current meds. No changes today. Discussed patient with Dr. Prajapati. We will follow-up on a p.r.n. Basis. Please call us if there are questions. 08/19/18 11:21 08/20/18 12:21 Subjective: Patient without CV complaints. He seems to be in better spirits today. His was not here went around it. I told him that he should be able to comply with physical therapy as tolerated. Objective: Vital Signs Temp Pulse Resp BP Pulse Ox 36.2 C 99 18 120/76 97 08/20/18 11:06 08/20/18 11:06 08/20/18 11:06 08/20/18 11:06 08/20/18 11:06 Laboratory Results 08/20/18 05:25 08/20/18 05:25 08/19/18 08/20/18 08/21/18 05:59 05:59 05:59 Intake Total 1200 630 Output Total 1850 875 100 Balance -650 -245 -100 PT 15.6 SEC (12.0-15.0) H 08/01/18 21:50 INR 1.30 (0.83-1.16) H 08/01/18 21:50 Physical Exam - Physical Exam Respiratory: lungs clear (Anteriorly) Cardiac/Chest: regular rate, rhythm, No gallop, No JVD ICD10 Worksheet Patient Problems: Problems Problem Status Onset Anemia Acute Hyperbilirubinemia Acute CLL (chronic lymphocytic leukemia) Acute Hyperglycemia Acute
--- NOTE | 2018-08-20 12:34 | ASMTCMCOM ---
CM Note CM Note Notes: Patient continues to make slow progress. His last HD was 08/18, and if no need arises he will have catheter removed Wednesday 08/23. Inpatient rehab is following and will accept based on the above. Case Management will follow. Date Signed: 08/20/2018 12:33 PM Electronically Signed By:Bela Wade RN
--- NOTE | 2018-08-20 14:08 | HOSPPROG ---
Hospitalist Progress Note Assessment/Plan: 73yo M with h/o untreated CLL, hemolytic anemia presented with jaundice found to have severe hemolytic anemia that precipitated cardiac arrest. #AIHA 2/2 untreated CLL: Hemolysis parameters improving. s/p 8u PRBCs total. - No transfusion today - Switched from solumedrol to pred 60mg daily. Will need to discuss ppx ( bactrim, PPI, ca/vit D, etc) given likelihood of long-term steroids - Planning on 4 weekly doses of rituximab, 3rd dose today 08/20 #Acute renal failure: Due to ATN, good UOP - Temp HD cath placed 08/03, need to exchange to prevent infection. D/w pt/ , renal, onc, and surgery. Plan to exchange over wire however patient refused today. Will re-discuss tomorrow. He understands infection risk. - Renal following, last HD 08/18, none today, hopeful that he may not need further HD #Atrial arrhythmia (afib/flutter): New diagnosis this admit - Cards consulted - continue amio 200bid, metoprolol 25bid - Patient declining anticoagulation ([id number]) #CLL: Untreated - Onc no longer planning ibrutinib (arrhythmogenic), instead planning on venetoclax (will need rasburicase to mitigate TLS) #Abnormal LFTs: better today - Monitor for now, consider RUQ US if continues to increase #PEA cardiac arrest s/p ROSC: In setting of severe anemia. #Acute respiratory failure: Resolved. 2/2 pulm edema, aspiration. #Aspiration pneumonia: s/p 7 day course of levofloxacin and metronidazole #DM2 with steroid-induced hyperglycemia and intermittent hypoglycemia: A1c 5.2% . BG ok - Cont glargine 25u qhs, SSI, hold metformin #Urinary retention: Resolved, germain now out. #Hypotension: Off pressors. #Hyperkalemia: Resolved. #Hyponatremia: 2/2 volume overload. #Hyperuricemia: 10.6. Monitor. VTE ppx: SQH Code: full Dispo: Remain inpatient. ADD pending clinical course. Therapies recommending inpt rehab, however, wouldn't be accepted if on HD. Family adamant about no SNF. Ongoing discussion w/CM, patient, family. Subjective: In good spirits today, feeling better. Getting stronger. No new complaints. Objective: Vital Signs Temp Pulse Resp BP Pulse Ox 36.6 C 103 H 14 138/73 H 98 08/20/18 13:04 08/20/18 13:50 08/20/18 13:50 08/20/18 13:50 08/20/18 13:50 Laboratory Results 08/20/18 05:25 08/20/18 05:25 08/19/18 08/20/18 08/21/18 05:59 05:59 05:59 Intake Total 1200 630 Output Total 1850 875 100 Balance -650 -245 -100 PT 15.6 SEC (12.0-15.0) H 08/01/18 21:50 INR 1.30 (0.83-1.16) H 08/01/18 21:50 - Physical Exam Constitutional: no apparent distress, appears nourished, not in pain Eyes: PERRL, anicteric sclera, EOMI Ears, Nose, Mouth, Throat: moist mucous membranes, hearing normal, ears appear normal, no oral mucosal ulcers Cardiovascular: no murmur, rub, or gallop, tachycardia, No edema Respiratory: no respiratory distress, no rales or rhonchi, clear to auscultation Gastrointestinal: normoactive bowel sounds, soft, non-tender abdomen, no palpable masses Genitourinary: no bladder fullness, no bladder tenderness, no renal bruits Skin: no rashes or abrasions, no fluctuance, no induration Musculoskeletal: generalized weakness Neurologic: AAOx3 Psychiatric: interacting appropriately ICD10 Worksheet Patient Problems: Problems Problem Status Onset CLL (chronic lymphocytic leukemia) Acute Hyperglycemia Acute Anemia Acute Hyperbilirubinemia Acute
--- NOTE | 2018-08-20 14:34 | SOAPPROG ---
SOAP Progress Note Assessment/Plan: Assessment/Plan: CONTRERAS: oliguric, likely ATN. Pt had HD on 08/14 and then again on 08/18, looked like his Cr was peaking. He is now having more UOP and is nonoliguric, likely recovering. Cr stable around 3 at this point *Continue to monitor daily for HD needs, though don't suspect he will need more unless develops significant TLS with future chemo -- Will plan to keep temp dialysis catheter for now in case patient develops TLS with next chemo. *Temp dialysis catheter has been in for >2 weeks, so needs to be exchanged. Discussed with patient's who prefers to wait until 08/21 for catheter exchange and understands potential infection risk - Avoid hypotension and nephrotoxins. Anemia: pt transfused PRBCs multiple times this admission --per primary team and heme/onc Hyperphosphatemia: expect this to improve further with renal recovery, CTM Hypervolemia: pt with good UOP, will continue to monitor. Discussed with Dr. Prajapati, patient, , and bedside nurse >30min spent on the care of this patient with >50% of time spent on counseling and coordination of care 08/20/18 14:33 Subjective: Patient currently getting Ritux. Feeling tired. No shortness of breath. Making good urine. Objective: Vital Signs Temp Pulse Resp BP Pulse Ox 36.6 C 103 H 14 138/73 H 98 08/20/18 13:04 08/20/18 13:50 08/20/18 13:50 08/20/18 13:50 08/20/18 13:50 Laboratory Results 08/20/18 05:25 08/20/18 05:25 08/19/18 08/20/18 08/21/18 05:59 05:59 05:59 Intake Total 1200 630 Output Total 1850 875 100 Balance -650 -245 -100 PT 15.6 SEC (12.0-15.0) H 08/01/18 21:50 INR 1.30 (0.83-1.16) H 08/01/18 21:50 General: alert and oriented, no acute distress Eyes: + scleral incterus OP: Clear CV: RRR Resp: nonlabored respirations Abd: Soft, NT Ext: some edema BLE (patient did not want palpation of edema) Neuro: CN II-XII Grossly intact, no asterixis Psych: cooperative Access: RIJ subclavian temp dialysis catheter ICD10 Worksheet Patient Problems: Problems Problem Status Onset CLL (chronic lymphocytic leukemia) Acute Hyperglycemia Acute Anemia Acute Hyperbilirubinemia Acute
[2018-08-20] MEDS: LIDOCAINE 4%/MENTHOL 1% PATCH TD SCH (18:22)
[2018-08-20] MEDS: CYANO/VITAMIN B12 1000 MCG TAB PO SCH (18:23)
[2018-08-20] MEDS: INSULIN GLARGINE 100 UNITS/ML UNIT SC SCH (21:12)
[2018-08-20] MEDS: FAMOTIDINE 20 MG TAB PO SCH (21:17)
[2018-08-21] MEDS: HEPARIN 5,000 UNIT/0.5 ML INJ SC SCH ×3 (05:54→21:22)
[2018-08-21] MEDS: PATCH REMOVAL 1 EA PATCH TD SCH (05:54)
[2018-08-21 06:04] LABS: PLATELET COUNT 120 10^3/uL (150-400)
[2018-08-21] MEDS: ACETAMINOPHEN 325 MG TAB PO PRN (08:56)
[2018-08-21] MEDS: METOPROLOL TARTRATE 25 MG TAB PO SCH ×2 (09:00→21:23)
[2018-08-21] MEDS: FOLIC ACID 1 MG TAB PO SCH (09:00)
[2018-08-21] MEDS: AMIODARONE HCL 200 MG TAB PO SCH (09:00)
[2018-08-21] MEDS: predniSONE 20 MG TAB PO SCH (09:00)
[2018-08-21] MEDS: SIMETHICONE 80 MG TAB CHEW PO SCH ×4 (09:01→21:28)
[2018-08-21] MEDS: TAMSULOSIN HCL 0.4 MG CAP PO SCH (09:01)
[2018-08-21] MEDS: INSULIN LISPRO 100 UNIT/ML SC SCH ×3 (09:07→17:44)
--- NOTE | 2018-08-21 12:27 | HOSPPROG ---
Hospitalist Progress Note Assessment/Plan: 73yo M with h/o untreated CLL, hemolytic anemia presented with jaundice found to have severe hemolytic anemia that precipitated cardiac arrest. #AIHA 2/2 untreated CLL: Hemolysis parameters improving. s/p 8u PRBCs total. - No transfusion today - Continue pred 60mg daily. Will need to discuss PCP ppx (considering 1 dose of pentamidine and less likely bactrim), gi ppx, etc - Planning on 4 weekly doses of rituximab, 3rd dose 08/20. May be able to get 4th dose early #Acute renal failure: Due to ATN, good UOP - Renal following, last HD 08/18, none today, hopeful that he may not need further HD - Discussion w/surgery, oncology, renal re: ongoing need for temp hd catheter. Surgery/oncology prefer removing. Will d/w renal and possibly remove later today. #Atrial arrhythmia (afib/flutter): New diagnosis this admit - Cards consulted - continue amio 200bid, metoprolol 25bid - Patient declining anticoagulation ([id number]) #CLL: Untreated - Ongoing discussion re: treatment. Considering ibrutinib vs venetoclax but pt/ very hesitant currently #Abnormal LFTs: better today - Monitor for now, consider RUQ US if continues to increase #PEA cardiac arrest s/p ROSC: In setting of severe anemia. #Acute respiratory failure: Resolved. 2/2 pulm edema, aspiration. #Aspiration pneumonia: s/p 7 day course of levofloxacin and metronidazole #DM2 with steroid-induced hyperglycemia and intermittent hypoglycemia: A1c 5.2% . BG ok - Cont glargine 25u qhs, SSI, hold metformin #Urinary retention: Resolved, germain now out. #Hypotension: Off pressors. #Hyperkalemia: Resolved. #Hyponatremia: 2/2 volume overload. #Hyperuricemia: 10.6. Monitor. VTE ppx: SQH Code: full Dispo: Remain inpatient. ADD pending clinical course. Therapies recommending inpt rehab, however, wouldn't be accepted if on HD. Family adamant about no SNF. Ongoing discussion w/CM, patient, family. Subjective: Has a headache this AM. Chest wall a little more achy due to moving around more. Otherwise, appetite is great. Objective: Vital Signs Temp Pulse Resp BP Pulse Ox 37.1 C 101 H 16 114/76 96 08/21/18 12:00 08/21/18 12:00 08/21/18 12:00 08/21/18 12:00 08/21/18 12:00 Laboratory Results 08/21/18 06:00 08/21/18 06:00 08/20/18 08/21/18 08/22/18 05:59 05:59 05:59 Intake Total 630 370 Output Total 875 1325 Balance -245 -955 PT 15.6 SEC (12.0-15.0) H 08/01/18 21:50 INR 1.30 (0.83-1.16) H 08/01/18 21:50 - Physical Exam Constitutional: no apparent distress, appears nourished, not in pain Eyes: PERRL, anicteric sclera, EOMI Ears, Nose, Mouth, Throat: moist mucous membranes, hearing normal, ears appear normal, no oral mucosal ulcers Cardiovascular: no murmur, rub, or gallop, tachycardia, No edema Respiratory: no respiratory distress, no rales or rhonchi, clear to auscultation Gastrointestinal: normoactive bowel sounds, soft, non-tender abdomen, no palpable masses Genitourinary: no bladder fullness, no bladder tenderness, no renal bruits Skin: no rashes or abrasions, no fluctuance, no induration, other (R subclavian PICC c/d/i) Musculoskeletal: generalized weakness Neurologic: AAOx3 Psychiatric: interacting appropriately ICD10 Worksheet Patient Problems: Problems Problem Status Onset CLL (chronic lymphocytic leukemia) Acute Hyperglycemia Acute Anemia Acute Hyperbilirubinemia Acute
--- NOTE | 2018-08-21 14:34 | SOAPPROG ---
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 I explained to him and his that this might help control his disease for a while but eventually it will recur. The main concern with it recurring is that hemolysis may also recur with it. Patients do best if they go on first- line ibrutinib but they did have some concerns about bruising and bleeding as well as the atrial fibrillation. Venetoclax is also been discussed with the patient but it can cause some tumor lysis and other cytopenias. I recommend holding off any further treatment at this time and just complete the rituximab. This will give him some time to rehabilitate from the hospitalization and allow his kidneys to heal and recover. The patient and his prefers this as well. * Olimpia+ Hemolytic anemia: His hemolysis is significantly declining with improvement in both the total bilirubin as well as the LDH. He is received a total of 9 units of blood in the last was on August 17. He is currently on 60 mg of prednisone which I would like him to stay on for a week and then do a slow taper probably down to 5 mg daily and then have him remain on that dose. * Cardiac Arrest: primarily due to critically low hgb; * Acute renal failure: ATN from cardiac arrest; Nephrology has recommended stopping dialysis and the dialysis catheter can be removed. I recommend removing it to allow him to get out of the hospital and recover rather than going on to drug that may potentially cause tumor lysis. I spent approximately 35 minutes with the patient and his today. Subjective: He is is with him today. He is has no acute complaints. He still very fatigued and needs assistance with getting around. Objective: Vital Signs Temp Pulse Resp BP Pulse Ox 37.1 C 101 H 16 114/76 96 08/21/18 12:00 08/21/18 12:00 08/21/18 12:00 08/21/18 12:00 08/21/18 12:00 Laboratory Results 08/21/18 06:00 08/21/18 06:00 08/20/18 08/21/18 08/22/18 05:59 05:59 05:59 Intake Total 630 370 Output Total 875 1325 Balance -245 -955 PT 15.6 SEC (12.0-15.0) H 08/01/18 21:50 INR 1.30 (0.83-1.16) H 08/01/18 21:50 Laboratory Tests 08/19/18 08/20/18 08/21/18 04:30 05:25 06:00 WBC 13.86 H 11.05 H 9.23 Hgb 8.3 L 7.6 L 7.4 L Plt Count 144 L 123 L 120 L Laboratory Tests 08/19/18 08/20/18 08/21/18 04:30 05:25 06:00 Creatinine 2.9 H 3.1 H 3.1 H Total Bilirubin 3.7 H 3.1 H 2.6 H Lactate Dehydrogenase 899 H 750 H Physical Exam - Physical Exam General Appearance: no apparent distress EENT: No scleral icterus (R), No scleral icterus (L) Respiratory: lungs clear Cardiac/Chest: regular rate, rhythm ICD10 Worksheet Patient Problems: Problems Problem Status Onset CLL (chronic lymphocytic leukemia) Acute Hyperglycemia Acute Anemia Acute Hyperbilirubinemia Acute
--- NOTE | 2018-08-21 15:24 | SOAPPROG ---
SOAP Progress Note Assessment/Plan: Assessment: complex medical history - chart reviewed Asked to change temporary dialysis catheter in the event he will need it in the future Since he is not going to pursue more therapy at this time, I think it is better to have a line holiday and replace if needed Surgery will be on standby Discussed with Dr Batres and Dr. Prajapati S: Will do what needs to be done O: Sitting in bed, at bedside Line R chest without signs of infection Plan: 08/21/18 15:22 c Objective: Vital Signs Temp Pulse Resp BP Pulse Ox 37.1 C 101 H 16 114/76 96 08/21/18 12:00 08/21/18 12:00 08/21/18 12:00 08/21/18 12:00 08/21/18 12:00 Laboratory Results 08/21/18 06:00 08/21/18 06:00 08/20/18 08/21/18 08/22/18 05:59 05:59 05:59 Intake Total 630 370 Output Total 875 1325 Balance -245 -955 PT 15.6 SEC (12.0-15.0) H 08/01/18 21:50 INR 1.30 (0.83-1.16) H 08/01/18 21:50 ICD10 Worksheet Patient Problems: Problems Problem Status Onset CLL (chronic lymphocytic leukemia) Acute Hyperglycemia Acute Anemia Acute Hyperbilirubinemia Acute
[2018-08-21] MEDS: CYANO/VITAMIN B12 1000 MCG TAB PO SCH (17:53)
[2018-08-21] MEDS: LIDOCAINE 4%/MENTHOL 1% PATCH TD SCH (17:56)
--- NOTE | 2018-08-21 19:25 | SOAPPROG ---
SOAP Progress Note Assessment/Plan: Assessment/Plan: CONTRERAS: oliguric, likely ATN. Pt had HD on 08/14 and then again on 08/18, looked like his Cr was peaking. He is now having more UOP and is nonoliguric, likely recovering. Cr stable around 3 at this point *Do not expect patient will need any further dialysis at this point *Now not planning on any further dialysis in the near future. Will plan to remove temp dialysis catheter. would like to wait for Dr. Tanner to do this on 08/22 - Avoid hypotension and nephrotoxins. *Ok for discharge from nephrology [place]. Will request outpatient follow-up Anemia: pt transfused PRBCs multiple times this admission --per primary team and heme/onc Hyperphosphatemia: resolved Hypervolemia: pt with good UOP, will continue to monitor. Hyperkalemia: at goal --would continue to limit K in diet for now, but ok to have some foods with K after discharge Please provide patient a handout on low K diet on discharge. Discussed this with Discussed with Dr. Prajapati, patient, , and bedside nurse Subjective: Was having a little chest discomfort earlier today. Feeling better now. Eating more now that diet has been liberalized. No shortness of breath. Objective: Vital Signs Temp Pulse Resp BP Pulse Ox 36.8 C 105 H 16 120/61 96 08/21/18 16:00 08/21/18 16:00 08/21/18 16:00 08/21/18 16:00 08/21/18 12:00 Laboratory Results 08/21/18 06:00 08/21/18 06:00 08/20/18 08/21/18 08/22/18 05:59 05:59 05:59 Intake Total 630 370 Output Total 875 1325 Balance -245 -955 PT 15.6 SEC (12.0-15.0) H 08/01/18 21:50 INR 1.30 (0.83-1.16) H 08/01/18 21:50 General: alert and oriented, no acute distress Eyes: + scleral incterus OP: Clear CV: RRR Resp: nonlabored respirations Abd: Soft, NT Ext: some edema BLE (patient did not want palpation of edema) Neuro: CN II-XII Grossly intact, mentally sharp Psych: cooperative Access: RIJ subclavian temp dialysis catheter ICD10 Worksheet Patient Problems: Problems Problem Status Onset CLL (chronic lymphocytic leukemia) Acute Hyperglycemia Acute Anemia Acute Hyperbilirubinemia Acute
[2018-08-21] MEDS: INSULIN GLARGINE 100 UNITS/ML UNIT SC SCH (21:23)
[2018-08-21] MEDS: FAMOTIDINE 20 MG TAB PO SCH (21:28)
[2018-08-22] MEDS: PATCH REMOVAL 1 EA PATCH TD SCH (06:02)
[2018-08-22] MEDS: HEPARIN 5,000 UNIT/0.5 ML INJ SC SCH ×3 (06:02→21:49)
[2018-08-22 06:38] LABS: PLATELET COUNT 112 10^3/uL (150-400)
[2018-08-22] MEDS: INSULIN LISPRO 100 UNIT/ML SC SCH ×3 (08:09→18:10)
[2018-08-22] MEDS: TAMSULOSIN HCL 0.4 MG CAP PO SCH (08:40)
[2018-08-22] MEDS: SIMETHICONE 80 MG TAB CHEW PO SCH ×4 (08:40→21:50)
[2018-08-22] MEDS: predniSONE 20 MG TAB PO SCH (08:41)
[2018-08-22] MEDS: AMIODARONE HCL 200 MG TAB PO SCH (08:41)
[2018-08-22] MEDS: METOPROLOL TARTRATE 25 MG TAB PO SCH ×2 (08:41→21:18)
[2018-08-22] MEDS: FOLIC ACID 1 MG TAB PO SCH (08:41)
--- NOTE | 2018-08-22 11:50 | SOAPPROG ---
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 I explained to him and his that this might help control his disease for a while but eventually it will recur. The main concern with the CLL recurring is that hemolysis may also recur with it. Patients do best if they go on first-line ibrutinib but they have concerns about the risk of bruising and bleeding and atrial fibrillation. Venetoclax can cause some tumor lysis and other cytopenias. I recommend holding off any further treatment at this time and just complete the rituximab. This will give him some time to rehabilitate from the hospitalization and allow his kidneys to heal and recover. The patient and his prefers this as well. * Olimpia+ Hemolytic anemia: His hemolysis is declining. He received a total of 9 units of blood; the last was 08/17. He was decreased to prednisone 60 mg qday on 08/20. Plan is to start taper 08/27. I recommend going down by 10 mg per week to 5 mg daily and then have him remain on that dose. * Cardiac Arrest: due to critically low hgb; recovering * Acute renal failure: ATN from cardiac arrest; Nephrology has stopped dialysis ; recommend removing dialysis catheter. Subjective: He is doing about the same without any new complaints. His is with him today. Objective: Vital Signs Temp Pulse Resp BP Pulse Ox 36.8 C 110 H 18 125/80 H 98 08/22/18 07:54 08/22/18 08:41 08/22/18 07:54 08/22/18 08:41 08/22/18 07:54 Laboratory Results 08/22/18 06:05 08/22/18 06:05 08/21/18 08/22/18 08/23/18 05:59 05:59 05:59 Intake Total 370 250 Output Total 1786 154 703 Balance -879 -705 -086 PT 15.6 SEC (12.0-15.0) H 08/01/18 21:50 INR 1.30 (0.83-1.16) H 08/01/18 21:50 Laboratory Tests 08/20/18 08/21/18 08/22/18 05:25 06:00 06:05 WBC 11.05 H 9.23 8.05 Hgb 7.6 L 7.4 L 8.1 L Absolute Lymphs (auto) 5.36 H 4.50 H 3.83 H Physical Exam - Physical Exam General Appearance: no apparent distress EENT: No scleral icterus (R), No scleral icterus (L) ICD10 Worksheet Patient Problems: Problems Problem Status Onset CLL (chronic lymphocytic leukemia) Acute Hyperglycemia Acute Anemia Acute Hyperbilirubinemia Acute
--- NOTE | 2018-08-22 14:16 | HOSPPROG ---
Hospitalist Progress Note Assessment/Plan: 73yo M with h/o untreated CLL, hemolytic anemia presented with jaundice found to have severe hemolytic anemia that precipitated cardiac arrest. #AIHA 2/2 untreated CLL: Hemolysis parameters improving. s/p 9u PRBCs total. - No transfusion today - Continue pred 60mg daily. Will need PCP ppx (considering inh pentamidine) - Planning on 4 weekly doses of rituximab, 3rd dose 08/20. May be able to get 4th dose early #Acute renal failure: Due to ATN, good UOP, now recovering - Renal following, last HD 08/18, temp HD cath now out #CLL: Untreated - Onc recommdending holding tx (ibrutinib) until after completing ritux and rehab #Atrial arrhythmia (afib/flutter): New diagnosis this admit - Cards consulted - continue amio 200bid, metoprolol 25bid - Patient declining anticoagulation ([id number]) #Abnormal LFTs: better - Monitor for now, consider RUQ US if continues to increase #PEA cardiac arrest s/p ROSC: In setting of severe anemia. #Acute respiratory failure: Resolved. 2/2 pulm edema, aspiration. #Aspiration pneumonia: s/p 7 day course of levofloxacin and metronidazole #DM2 with steroid-induced hyperglycemia and intermittent hypoglycemia: A1c 5.2% . BG ok - Cont glargine 25u qhs, SSI, hold metformin #Urinary retention: Resolved, germain now out. #Hypotension: Off pressors. #Hyperkalemia: Resolved. #Hyponatremia: 2/2 volume overload. #Hyperuricemia: 10.6. Monitor. VTE ppx: SQH Code: full Dispo: Remain inpatient. ADD pending clinical course. Therapies recommending inpt rehab. Family adamant about no SNF. Ongoing discussion w/CM, patient, family. Subjective: Had large BM and feeling much better. Temp hd catheter now removed. No complaints. Objective: Vital Signs Temp Pulse Resp BP Pulse Ox 36.8 C 102 H 18 123/74 H 96 08/22/18 12:00 08/22/18 12:00 08/22/18 12:00 08/22/18 12:00 08/22/18 12:00 Laboratory Results 08/22/18 06:05 08/22/18 06:05 05/08/22/18 08/23/18 05:59 05:59 05:59 Intake Total 370 250 Output Total 8546 999 365 Balance -451 -748 -978 PT 15.6 SEC (12.0-15.0) H 08/01/18 21:50 INR 1.30 (0.83-1.16) H 08/01/18 21:50 - Physical Exam Constitutional: no apparent distress, appears nourished, not in pain Eyes: PERRL, anicteric sclera, EOMI Ears, Nose, Mouth, Throat: moist mucous membranes, hearing normal, ears appear normal, no oral mucosal ulcers Cardiovascular: regular rate and rhythym, no murmur, rub, or gallop Respiratory: no respiratory distress, no rales or rhonchi, clear to auscultation Gastrointestinal: normoactive bowel sounds, soft, non-tender abdomen, no palpable masses Genitourinary: no bladder fullness, no bladder tenderness, no renal bruits Skin: no rashes or abrasions, no fluctuance, no induration Musculoskeletal: generalized weakness Neurologic: AAOx3, sensation intact bilaterally Psychiatric: interacting appropriately, not anxious, not encephalopathic, thought process linear ICD10 Worksheet Patient Problems: Problems Problem Status Onset CLL (chronic lymphocytic leukemia) Acute Hyperglycemia Acute Anemia Acute Hyperbilirubinemia Acute
--- NOTE | 2018-08-22 14:57 | ASMTCMCOM ---
CM Note CM Note Notes: Patient's dialysis catheter was removed today without incident. Patient and still want to make d/c plan on a day-by-day basis. Recommendation had been for IPR; family refuses SNF. Case Management will follow. Date Signed: 08/22/2018 02:56 PM Electronically Signed By:Bela Wade RN
--- NOTE | 2018-08-22 16:24 | SOAPPROG ---
SOAP Progress Note Assessment/Plan: Assessment/Plan: CONTRERAS: oliguric, likely ATN. Pt had HD on 08/14 and then again on 08/18. No Cr stable at 3 without dialysis *Do not expect patient will need any further dialysis at this point *Now not planning on any further chemo in the near future. Temp dialysis catheter removed on 08/22 - Avoid hypotension and nephrotoxins. *Ok for discharge from nephrology standpoint. Waiting to discharge to inpatient rehab Anemia: pt transfused PRBCs multiple times this admission --per primary team and heme/onc Hyperphosphatemia: resolved Hypervolemia: pt with good UOP, will continue to monitor. Hyperkalemia: at goal *Will d/c dietary restrictions and continue to monitor K --wrote list of foods particularly high in K on patient's board in room to try to avoid Discussed with Dr. Prajapati, patient, Subjective: Feeling pretty good today. Temp dialysis catheter removed. Waiting for discharge to inpatient rehab. Objective: Vital Signs Temp Pulse Resp BP Pulse Ox 36.8 C 102 H 18 123/74 H 96 08/22/18 12:00 08/22/18 12:00 08/22/18 12:00 08/22/18 12:00 08/22/18 12:00 Laboratory Results 08/22/18 06:05 08/22/18 06:05 08/21/18 08/22/18 08/23/18 05:59 05:59 05:59 Intake Total 370 250 Output Total 1325 625 650 Balance -815 -397 -650 PT 15.6 SEC (12.0-15.0) H 08/01/18 21:50 INR 1.30 (0.83-1.16) H 08/01/18 21:50 General: alert and oriented, no acute distress Eyes: + scleral icterus OP: Clear CV: RRR Resp: nonlabored respirations Abd: Soft, NT Ext: some edema BLE (patient did not want palpation of edema) Neuro: CN II-XII Grossly intact, mentally sharp Psych: cooperative Access: no dialysis access ICD10 Worksheet Patient Problems: Problems Problem Status Onset CLL (chronic lymphocytic leukemia) Acute Hyperglycemia Acute Anemia Acute Hyperbilirubinemia Acute
[2018-08-22] MEDS: CYANO/VITAMIN B12 1000 MCG TAB PO SCH (18:10)
[2018-08-22] MEDS: LIDOCAINE 4%/MENTHOL 1% PATCH TD SCH (18:10)
[2018-08-22] MEDS: ACETAMINOPHEN 325 MG TAB PO PRN (21:19)
[2018-08-22] MEDS: INSULIN GLARGINE 100 UNITS/ML UNIT SC SCH (21:49)
[2018-08-22] MEDS: FAMOTIDINE 20 MG TAB PO SCH (21:50)
[2018-08-23 05:55] LABS: PLATELET COUNT 107 10^3/uL (150-400)
[2018-08-23] MEDS: HEPARIN 5,000 UNIT/0.5 ML INJ SC SCH ×3 (06:09→21:05)
[2018-08-23] MEDS: PATCH REMOVAL 1 EA PATCH TD SCH (06:10)
[2018-08-23] MEDS: INSULIN LISPRO 100 UNIT/ML SC SCH ×3 (07:28→17:12)
[2018-08-23] MEDS: TAMSULOSIN HCL 0.4 MG CAP PO SCH (07:29)
[2018-08-23] MEDS: SIMETHICONE 80 MG TAB CHEW PO SCH ×2 (07:29→11:51)
[2018-08-23] MEDS: FOLIC ACID 1 MG TAB PO SCH (08:06)
[2018-08-23] MEDS: predniSONE 20 MG TAB PO SCH (08:06)
[2018-08-23] MEDS: METOPROLOL TARTRATE 25 MG TAB PO SCH ×2 (08:07→21:04)
[2018-08-23] MEDS: AMIODARONE HCL 200 MG TAB PO SCH (08:07)
[2018-08-23] MEDS: ACETAMINOPHEN 325 MG TAB PO PRN (11:55)
--- NOTE | 2018-08-23 14:49 | SOAPPROG ---
SOAP Progress Note Assessment/Plan: Assessment/Plan: Patient is a 73 year old male with CLL and AIHA admitted with relapse of AIHA complicated by cardiac arrest from severe anemia precipitating ATN. 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 Looking to go to inpatient rehabilitation in the next week so will give last dose of rituxan before discharge, even if early. Family reluctant to start another therapy, goal would be venetoclax given he has paroxysmal atrial fibrillation and should be on anticoagulation (recommend against ibrutinib given these factors - not strong enough for traditional chemotherapy). Lymphadenopathy and WBC have normalized. * Olimpia+ Hemolytic anemia: secondary to CLL. He received a total of 9 units of blood; the last was 08/17. He was decreased to prednisone 60 mg qday on 08/20. Plan is to start taper 08/27. Recommend going down by 10 mg per week to 5 mg daily and then have him remain on that dose also given rituximab. Hemolysis currently slowing down, would get LDH, reticulocyte count daily. * Cardiac Arrest: due to critically low hgb; recovering, neurologically intact, ATN improving * Acute renal failure secondary to ATN from cardiac arrest; initially required intermittent hemodialysis; now off dialysis with good urine output currently in recovery phase (polyuria), would watch I/O closely to ensure doesn't become volume depleted. * Paroxysmal atrial fibrillation ([id number]) - currently rate controlled, would recommend anticoaulation as an outpatient 08/23/18 15:00 Subjective: patient reports feeling well but tired. no fevers chills or sweats. minimal amount of chest pain/discomfort, no transfusions needed. ready for inpatient rehab Objective: Vital Signs Temp Pulse Resp BP Pulse Ox 36.9 C 98 14 123/75 H 96 08/23/18 12:00 08/23/18 12:00 08/23/18 12:00 08/23/18 12:00 08/23/18 12:00 Laboratory Results 08/23/18 05:45 08/23/18 05:45 08/22/18 08/23/18 08/24/18 05:59 05:59 05:59 Intake Total 250 1350 Output Total 625 2125 125 Balance -375 -775 -125 PT 15.6 SEC (12.0-15.0) H 05/05/19 21:50 INR 1.30 (0.83-1.16) H 08/01/18 21:50 General: no acute distress, non toxic HEENT: PERRL, some icterus/pallor of conjunctiva Neck: supple without adenopathy, no JVD CV: regular in rate and rhythm without rubs thrills or gallops Chest: clear anteriorly Abdomen:soft, distended, no HSM Extremities: 1+ bilateral LE pitting edema Neuro: oriented x 3 ICD10 Worksheet Patient Problems: Problems Problem Status Onset CLL (chronic lymphocytic leukemia) Acute Hyperglycemia Acute Anemia Acute Hyperbilirubinemia Acute
--- NOTE | 2018-08-23 15:58 | HOSPPROG ---
Hospitalist Progress Note Assessment/Plan: 73yo M with h/o untreated CLL, hemolytic anemia presented with jaundice found to have severe hemolytic anemia that precipitated cardiac arrest. #AIHA 2/2 untreated CLL: Hemolysis parameters improving. s/p 9u PRBCs total. - No transfusion today - Continue pred 60mg daily, tapering per oncology. Will need PCP ppx ( considering inh pentamidine) - Planning on 4 weekly doses of rituximab, 3rd dose 08/20. May be able to get 4th dose early #Acute renal failure: Due to ATN, good UOP, now recovering - Renal following, last HD 08/18, temp HD cath now out #CLL: Untreated - Patient wants to hold tx (ibrutinib vs venetoclax) until after completing ritux and rehab #Atrial arrhythmia (afib/flutter): New diagnosis this admit - Cards consulted - continue amio 200bid, metoprolol 25bid - Patient declining anticoagulation ([id number]) #Thrombocytopenia: Slow down-trend. No e/o bleeding. - Monitor for now #Abnormal LFTs: Improved. #PEA cardiac arrest s/p ROSC: In setting of severe anemia. #Acute respiratory failure: Resolved. 2/2 pulm edema, aspiration. #Aspiration pneumonia: s/p 7 day course of levofloxacin and metronidazole #DM2 with steroid-induced hyperglycemia and intermittent hypoglycemia: A1c 5.2% . BG ok - Cont glargine 25u qhs, SSI, hold metformin #Urinary retention: Resolved, germain now out. #Hypotension: Off pressors. #Hyperkalemia: Resolved. #Hyponatremia: 2/2 volume overload. #Hyperuricemia: 10.6. Monitor. VTE ppx: SQH Code: full Dispo: Remain inpatient. ADD pending clinical course. Therapies initially recommending inpt rehab, PT recommended SNF yesterday. Family adamant about no SNF. Ongoing discussion w/CM, patient, family. Subjective: Upset that there was miscommunication between therapy services recommending snf and inpt rehab. Situation diffused with help of briefcase sewer, chargeback specialist, rn. Otherwise, no complaints except for having some gas. Objective: Vital Signs Temp Pulse Resp BP Pulse Ox 36.9 C 98 14 123/75 H 96 08/23/18 12:00 08/23/18 12:00 08/23/18 12:00 08/23/18 12:00 08/23/18 12:00 Laboratory Results 08/23/18 05:45 08/23/18 05:45 08/22/18 08/23/18 08/24/18 05:59 05:59 05:59 Intake Total 250 1350 Output Total 978 8185 125 Balance -375 -775 -125 PT 15.6 SEC (12.0-15.0) H 08/01/18 21:50 INR 1.30 (0.83-1.16) H 08/01/18 21:50 - Physical Exam Constitutional: no apparent distress, appears nourished, not in pain Eyes: PERRL, anicteric sclera, EOMI Ears, Nose, Mouth, Throat: moist mucous membranes, hearing normal, ears appear normal, no oral mucosal ulcers Cardiovascular: no murmur, rub, or gallop, tachycardia, No edema Respiratory: no respiratory distress, no rales or rhonchi, clear to auscultation Gastrointestinal: normoactive bowel sounds, soft, non-tender abdomen, no palpable masses Genitourinary: no bladder fullness, no bladder tenderness, no renal bruits Skin: no rashes or abrasions, no fluctuance, no induration Musculoskeletal: no muscle tenderness, normal joint ROM, generalized weakness Neurologic: AAOx3 Psychiatric: interacting appropriately ICD10 Worksheet Patient Problems: Problems Problem Status Onset CLL (chronic lymphocytic leukemia) Acute Hyperglycemia Acute Anemia Acute Hyperbilirubinemia Acute
--- NOTE | 2018-08-23 16:28 | ASMTCMCOM ---
CM Note CM Note Notes: Spoke with pt and his regarding PT's change in recommendation from inpt rehab to SNF. It was also discussed in rounds. Pt's became upset with CM upon hearing this information as they had not been told there was any change in the therapy recommendation. Pt has refused PT/OT on several occasions, including today, so CM was unable to determine why the rec was changed from IR to SNF. CM informed pt's that a message was left with IR to re-evaluate pt's status tomorrow as the last IR followup was 08/10 when pt was still receiving dialysis. The dialysis catheter has since been removed. CM apologized to pt's for not having enough information before going in to speak with them. CM also requested to admission discharge rn and hospitalist that we are consistent in our conversations with the pt and his . Pt's stated they prefer structure and consistency in the information they are receiving. Pt's requested to see PT note and was asked to speak with admission discharge rn. D/C plan: TBD, IR vs SNF Date Signed: 08/23/2018 04:27 PM Electronically Signed By:NATHAN Virgen
[2018-08-23] MEDS: CYANO/VITAMIN B12 1000 MCG TAB PO SCH (17:11)
[2018-08-23] MEDS: LIDOCAINE 4%/MENTHOL 1% PATCH TD SCH (17:12)
--- NOTE | 2018-08-23 18:39 | SOAPPROG ---
SOAP Progress Note Assessment/Plan: Assessment/Plan: CONTRERAS: oliguric, likely ATN. Pt had HD on 08/14 and then again on 08/18. No Cr stable at 3 without dialysis *Do not expect patient will need any further dialysis at this point *Now not planning on any further chemo in the near future. Temp dialysis catheter removed on 08/22 - Avoid hypotension and nephrotoxins. *Ok for discharge from nephrology standpoint. Waiting to discharge to inpatient rehab, likely 08/24 Anemia: pt transfused PRBCs multiple times this admission --per primary team and heme/onc Hyperphosphatemia: resolved Hypervolemia: pt with good UOP, will continue to monitor. Hyperkalemia: at goal *Will d/c dietary restrictions and continue to monitor K --wrote list of foods particularly high in K on patient's board in room to try to avoid Subjective: Patient tired today. He got up to chair, walked, etc. Not in the mood to talk. Eating better off dietary restrictions. Objective: Vital Signs Temp Pulse Resp BP Pulse Ox 36.8 C 99 18 123/81 H 99 08/23/18 16:00 08/23/18 16:00 08/23/18 16:00 08/23/18 16:00 08/23/18 16:00 Laboratory Results 08/23/18 05:45 08/23/18 05:45 08/22/18 08/23/18 08/24/18 05:59 05:59 05:59 Intake Total 250 1350 550 Output Total 625 2125 125 Balance -375 -77 425 PT 15.6 SEC (12.0-15.0) H 08/01/18 21:50 INR 1.30 (0.83-1.16) H 08/01/18 21:50 General: alert and oriented, no acute distress Eyes: + scleral icterus OP: Clear CV: RRR Resp: nonlabored respirations Abd: Soft, NT Ext: some edema BLE (patient did not want palpation of edema) Neuro: CN II-XII Grossly intact, mentally sharp Psych: cooperative Access: no dialysis access ICD10 Worksheet Patient Problems: Problems Problem Status Onset CLL (chronic lymphocytic leukemia) Acute Hyperglycemia Acute Anemia Acute Hyperbilirubinemia Acute
[2018-08-23] MEDS: INSULIN GLARGINE 100 UNITS/ML UNIT SC SCH (21:05)
[2018-08-23] MEDS: FAMOTIDINE 20 MG TAB PO SCH (21:07)
[2018-08-24] MEDS: PATCH REMOVAL 1 EA PATCH TD SCH (05:14)
[2018-08-24] MEDS: HEPARIN 5,000 UNIT/0.5 ML INJ SC SCH ×3 (06:22→22:03)
[2018-08-24] MEDS: AMIODARONE HCL 200 MG TAB PO SCH (08:54)
[2018-08-24] MEDS: FOLIC ACID 1 MG TAB PO SCH (09:14)
[2018-08-24] MEDS: predniSONE 20 MG TAB PO SCH (09:14)
[2018-08-24] MEDS: METOPROLOL TARTRATE 25 MG TAB PO SCH ×2 (09:14→20:27)
[2018-08-24] MEDS: INSULIN LISPRO 100 UNIT/ML SC SCH ×3 (09:16→18:08)
--- NOTE | 2018-08-24 09:27 | SOAPPROG ---
SOAP Progress Note Assessment/Plan: Assessment: Reviewed hx. Non oliguric ATN related to PEA arrest. Major issues are CLL with warm AIHA. 1. Non oliguric ATN Now off of dialysis. Catheter out. Volume status and lytes ok. Cr falling. Discussed with and primary team. Would continue frequent labs on DC. We are happy to participate in follow up plan as deemed best by family and primary team. 2.CLL/AIHA To maintain current therapy with ritux for now. 3. Afib Cards to see. He is getting amiodarone and beta rose. Subjective: Doing ok. Still quite sore from the CPR Objective: Vital Signs Temp Pulse Resp BP Pulse Ox 37.2 C 142 H 18 133/70 H 96 08/24/18 08:00 08/24/18 09:14 08/24/18 08:00 08/24/18 09:14 08/24/18 08:00 Laboratory Results 08/24/18 04:25 08/24/18 04:25 08/23/18 08/24/18 08/25/18 05:59 05:59 05:59 Intake Total 1350 1250 Output Total 2125 1025 200 Balance -775 225 -200 PT 15.6 SEC (12.0-15.0) H 08/01/18 21:50 INR 1.30 (0.83-1.16) H 08/01/18 21:50 Physical Exam - Physical Exam General Appearance: mild distress Respiratory: lungs clear Cardiac/Chest: tachycardia, irregularly irregular Abdomen: soft Extremities: pedal edema Neuro/Psych: alert ICD10 Worksheet Patient Problems: Problems Problem Status Onset CLL (chronic lymphocytic leukemia) Acute Hyperglycemia Acute Anemia Acute Hyperbilirubinemia Acute
--- NOTE | 2018-08-24 10:55 | SOAPPROG ---
SOAP Progress Note Assessment/Plan: Assessment: Patient is a 73 year old male with CLL and AIHA admitted with relapse of AIHA complicated by cardiac arrest from severe anemia precipitating ATN. 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 Looking to go to inpatient rehabilitation in the next week so will give last dose of rituxan before discharge, even if early. Family reluctant to start another therapy, goal would be venetoclax given he has paroxysmal atrial fibrillation and should be on anticoagulation (recommend against ibrutinib given these factors - not strong enough for traditional chemotherapy). Lymphadenopathy and WBC have normalized. * Olimpia+ Hemolytic anemia: secondary to CLL. He received a total of 9 units of blood; the last was 08/17. He was decreased to prednisone 60 mg qday on 08/20. Plan is to start taper 08/27. Recommend going down by 10 mg per week to 5 mg daily and then have him remain on that dose also given rituximab. Hemolysis currently slowing down, would get LDH, reticulocyte count daily. * Cardiac Arrest: due to critically low hgb; recovering, neurologically intact, ATN improving * Acute renal failure secondary to ATN from cardiac arrest; initially required intermittent hemodialysis; now off dialysis with good urine output currently in recovery phase (polyuria), would watch I/O closely to ensure doesn't become volume depleted. * Paroxysmal atrial fibrillation ([id number]) - currently rate controlled, would recommend anticoaulation as an outpatient Hgb is stable at 8.0 with a normal retic count and slightly elevated LDH (which is stable). His functional status is still poor. He is being evaluated today for Rehab. Once that plan is finalized, will give his last planned dose of rituximab prior to transfer. Plan: - rehab eval - rituxan prior to d/c to rehab (or SNF if he doesn't qualify) - no venetoclax for now Subjective: Feels weak Objective: Vital Signs Temp Pulse Resp BP Pulse Ox 37.2 C 142 H 18 133/70 H 96 08/24/18 08:00 08/24/18 09:14 08/24/18 08:00 08/24/18 09:14 08/24/18 08:00 Laboratory Results 08/24/18 04:25 08/24/18 04:25 08/22/18 08/23/18 08/24/18 23:59 23:59 23:59 Intake Total 1550 600 700 Output Total 2103 628 3267 Balance -325 -100 -400 PT 15.6 SEC (12.0-15.0) H 08/01/18 21:50 INR 1.30 (0.83-1.16) H 08/01/18 21:50 Physical Exam - Physical Exam General Appearance: moderate distress Respiratory: other (tubular sounds at L base) Cardiac/Chest: regular rate, rhythm Skin: pallor ICD10 Worksheet Patient Problems: Problems Problem Status Onset Anemia Acute Hyperbilirubinemia Acute CLL (chronic lymphocytic leukemia) Acute Hyperglycemia Acute
--- NOTE | 2018-08-24 14:14 | HOSPPROG ---
Hospitalist Progress Note Assessment/Plan: 73yo M with h/o untreated CLL, hemolytic anemia presented with jaundice found to have severe hemolytic anemia that precipitated cardiac arrest. #AIHA 2/2 untreated CLL: Hemolysis parameters improving. s/p 9u PRBCs total. - Continue pred 60mg daily, tapering per oncology - Planning on 4 weekly doses of rituximab, 3rd dose 08/20. D/w oncology, ok for 4th dose as early as tomorrow 08/25. #Acute renal failure: Due to ATN, off dialysis. Now concern for post-ATN diuresis. - Renal following, last HD 08/18, temp HD cath now out - Encouraging PO intake. If net negative tomorrow, consider fluid bolus #CLL: Untreated - Patient wants to hold tx (ibrutinib vs venetoclax) until after completing ritux and rehab #Atrial arrhythmia (afib/flutter): New diagnosis this admit, intermittent rapid rates - Cards consulted - continue amio 200bid, metoprolol 25bid - Patient declining anticoagulation ([id number]) #Thrombocytopenia: Slow down-trend, now stable. No e/o bleeding. - Monitor for now #Abnormal LFTs: Improved. #PEA cardiac arrest s/p ROSC: In setting of severe anemia. #Acute respiratory failure: Resolved. 2/2 pulm edema, aspiration. #Aspiration pneumonia: s/p 7 day course of levofloxacin and metronidazole #DM2 with steroid-induced hyperglycemia and intermittent hypoglycemia: A1c 5.2% . BG ok - Cont glargine 25u qhs, SSI, hold metformin #Urinary retention: Resolved, germain now out. #Hypotension: Off pressors. #Hyperkalemia: Resolved. #Hyponatremia: 2/2 volume overload. #Hyperuricemia: 10.6. Monitor. VTE ppx: SQH Code: full Dispo: Remain inpatient. ADD pending clinical course. Therapies recommending inpatient rehab, who is evaluating/getting insurance approval. CM involved. If accepted, ok to discharge once receives 4th dose of rituxan. If denied, plan to go home with home health PT/OT/RN. Subjective: Feeling a little dehyrated. HR up in 140s and irregular this morning but improved back to 90-100s after AM metoprolol and amiodarone. Objective: Vital Signs Temp Pulse Resp BP Pulse Ox 37.2 C 96 18 97/66 L 96 08/24/18 12:00 08/24/18 12:00 08/24/18 12:00 08/24/18 12:00 08/24/18 12:00 Laboratory Results 08/24/18 04:25 08/24/18 04:25 08/23/18 08/24/18 08/25/18 05:59 05:59 05:59 Intake Total 1350 1250 Output Total 2125 1025 200 Balance -775 225 -200 PT 15.6 SEC (12.0-15.0) H 08/01/18 21:50 INR 1.30 (0.83-1.16) H 08/01/18 21:50 - Physical Exam Constitutional: no apparent distress, appears nourished, not in pain Eyes: PERRL, anicteric sclera, EOMI Ears, Nose, Mouth, Throat: moist mucous membranes, hearing normal, ears appear normal, no oral mucosal ulcers Cardiovascular: no murmur, rub, or gallop, tachycardia, No edema Respiratory: no respiratory distress, no rales or rhonchi, clear to auscultation Gastrointestinal: normoactive bowel sounds, soft, non-tender abdomen, no palpable masses Genitourinary: no bladder fullness, no bladder tenderness, no renal bruits Skin: no rashes or abrasions, no fluctuance, no induration Musculoskeletal: generalized weakness Neurologic: AAOx3 Psychiatric: interacting appropriately ICD10 Worksheet Patient Problems: Problems Problem Status Onset CLL (chronic lymphocytic leukemia) Acute Hyperglycemia Acute Anemia Acute Hyperbilirubinemia Acute
--- NOTE | 2018-08-24 17:00 | ASMTCMCOM ---
CM Note CM Note Notes: Met with patient's Kaleigh and Yumiko from Inpatient Rehab. Yumiko explained the criteria [facility] would be reviewing to approve insurance auth for inpatient rehab for the patient. Kaleigh was also informed that the program may temporarily close as early as September 06, 2018 and this will affect the patient's length of stay. Kaleigh felt even 5 days of rehab could benefit the patient and she understands his stay may be cut short due to organizational changes in August. Yumiko agreed to pursue the insurance auth with [facility] and to keep us informed of their response. Discharge plan remains inpatient rehab pending insurance auth from [facility]. The patient's was informed of limitations and she was ok with her getting even 3-5 days in the program. [facility] has 24-48 hours to provide us with an answer. CM following. Date Signed: 08/24/2018 04:59 PM Electronically Signed By:Karina Vyas LCSW
[2018-08-24] MEDS: LIDOCAINE 4%/MENTHOL 1% PATCH TD SCH (18:08)
[2018-08-24] MEDS: CYANO/VITAMIN B12 1000 MCG TAB PO SCH (18:08)
[2018-08-24] MEDS: ACETAMINOPHEN 325 MG TAB PO PRN (18:33)
[2018-08-24] MEDS: FAMOTIDINE 20 MG TAB PO SCH (20:30)
[2018-08-24] MEDS: INSULIN GLARGINE 100 UNITS/ML UNIT SC SCH (22:03)
[2018-08-25 04:37] LABS: PLATELET COUNT 132 10^3/uL (150-400)
[2018-08-25] MEDS: HEPARIN 5,000 UNIT/0.5 ML INJ SC SCH ×3 (06:25→21:03)
[2018-08-25] MEDS: PATCH REMOVAL 1 EA PATCH TD SCH (06:26)
[2018-08-25] MEDS: predniSONE 20 MG TAB PO SCH (08:34)
[2018-08-25] MEDS: FOLIC ACID 1 MG TAB PO SCH (08:34)
[2018-08-25] MEDS: AMIODARONE HCL 200 MG TAB PO SCH (08:34)
[2018-08-25] MEDS: METOPROLOL TARTRATE 25 MG TAB PO SCH ×2 (08:34→20:53)
[2018-08-25] MEDS: INSULIN LISPRO 100 UNIT/ML SC SCH ×3 (08:35→18:13)
--- NOTE | 2018-08-25 14:00 | SOAPPROG ---
SOAP Progress Note Assessment/Plan: Assessment: 73 y/o M with a known h/o CLL, AIHA, and DM2 who presented with significant anemia,PEA arrest now with CONTRERAS likely 2/2 to hypovolemic ATN. CONTRERAS -Suspected ATN in setting of PEA arrest -required HD earlier this admit, now TDC out and Cr slowly improving- down to 2.8 -continue to encourage good po intake -has edema that should continue to improve-- ok for prn lasix if needed AIHA and CLL -hematology following -s/p steroids, PRBCS, and rituximab Edema DM2 worsened by steroids I discussed with ICU MD/RN and family Denita Prasad MD [facility] pager [phone] office [phone] 08/25/18 13:59 Subjective: Eating lunch when I came by, feeling better overall. Still some LE edema, no sob. Hoping to go to rehab soon. No n/v. Objective: Vital Signs Temp Pulse Resp BP Pulse Ox 36.9 C 100 16 114/64 92 08/25/18 11:33 08/25/18 11:33 08/25/18 11:33 08/25/18 11:33 08/25/18 11:33 Laboratory Results 08/25/18 04:22 08/25/18 04:22 08/24/18 08/25/18 08/26/18 05:59 05:59 05:59 Intake Total 1250 Output Total 1025 740 Balance 225 -740 PT 15.6 SEC (12.0-15.0) H 08/01/18 21:50 INR 1.30 (0.83-1.16) H 08/01/18 21:50 Physical Exam - Physical Exam General Appearance: alert, no apparent distress Respiratory: other (non labored) Cardiac/Chest: regular rate, rhythm Skin: warm/dry Extremities: other (+edema bilat LE, warm) Neuro/Psych: alert, oriented x 3 ICD10 Worksheet Patient Problems: Problems Problem Status Onset CLL (chronic lymphocytic leukemia) Acute Hyperglycemia Acute Anemia Acute Hyperbilirubinemia Acute
--- NOTE | 2018-08-25 14:19 | SOAPPROG ---
SOAP Progress Note Assessment/Plan: Assessment: Patient is a 73 year old male with CLL and AIHA admitted with relapse of AIHA complicated by cardiac arrest from severe anemia precipitating ATN. 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 Looking to go to inpatient rehabilitation in the next week so will give last dose of rituxan before discharge, even if early. Family reluctant to start another therapy, goal would be venetoclax given he has paroxysmal atrial fibrillation and should be on anticoagulation (recommend against ibrutinib given these factors - not strong enough for traditional chemotherapy). Lymphadenopathy and WBC have normalized. * Olimpia+ Hemolytic anemia: secondary to CLL. He received a total of 9 units of blood; the last was 08/17. He was decreased to prednisone 60 mg qday on 08/20. Plan is to start taper 08/27. Recommend going down by 10 mg per week to 5 mg daily and then have him remain on that dose also given rituximab. Hemolysis currently slowing down, would get LDH, reticulocyte count daily. * Cardiac Arrest: due to critically low hgb; recovering, neurologically intact, ATN improving * Acute renal failure secondary to ATN from cardiac arrest; initially required intermittent hemodialysis; now off dialysis with good urine output currently in recovery phase (polyuria), would watch I/O closely to ensure doesn't become volume depleted. * Paroxysmal atrial fibrillation ([id number] 2) - currently rate controlled, would recommend anticoaulation as an outpatient Hgb is stable at 7.8 with a normal retic count and slightly elevated LDH (which is stable). His functional status is still poor. He is being evaluated for Rehab. Will plan on giving him rituximab 825 mg tomorrow Plan: - rehab eval - rituxan prior to d/c to rehab (or SNF if he doesn't qualify) - no venetoclax for now Subjective: Feels much better. Still weak and emotionally labile Objective: Vital Signs Temp Pulse Resp BP Pulse Ox 36.9 C 100 16 114/64 92 08/25/18 11:33 08/25/18 11:33 08/25/18 11:33 08/25/18 11:33 08/25/18 11:33 Laboratory Results 08/25/18 04:22 08/25/18 04:22 08/23/18 08/24/18 08/25/18 23:59 23:59 23:59 Intake Total 600 700 Output Total 700 1100 540 Balance -100 -400 -540 PT 15.6 SEC (12.0-15.0) H 08/01/18 21:50 INR 1.30 (0.83-1.16) H 08/01/18 21:50 Physical Exam - Physical Exam General Appearance: alert EENT: scleral icterus (R), scleral icterus (L) Respiratory: lungs clear Cardiac/Chest: regular rate, rhythm Abdomen: distended Skin: jaundice, pallor ICD10 Worksheet Patient Problems: Problems Problem Status Onset CLL (chronic lymphocytic leukemia) Acute Hyperglycemia Acute Anemia Acute Hyperbilirubinemia Acute
--- NOTE | 2018-08-25 17:02 | ASMTCMCOM ---
CM Note CM Note Notes: Spoke with Yumiko from inpatient rehab and they got the insurance auth. However, it is 4:30 and too late in the day for d/c so the d/c will need to be tomorrow morning. CM to coordinate with Yumiko in the AM for transfer to the inpatient rehab program.CM following. Date Signed: 08/25/2018 05:01 PM Electronically Signed By:Karina Vyas LCSW
--- NOTE | 2018-08-25 17:19 | HOSPPROG ---
Hospitalist Progress Note Assessment/Plan: 73yo M with h/o untreated CLL, hemolytic anemia presented with jaundice found to have severe hemolytic anemia that precipitated cardiac arrest. #AIHA 2/2 untreated CLL: Hemolysis parameters improving. s/p 9u PRBCs total. - Continue pred 60mg daily, tapering per oncology at 10 mg per week down to 5 mg daily - Planning for 4th dose of Rituximab in am prior to transfer to inpt rehab #Acute renal failure: Due to ATN, off dialysis. Now concern for post-ATN diuresis. - Renal following, last HD 08/18, temp HD cath now out #CLL: Untreated - Patient wants to hold tx (ibrutinib vs venetoclax) until after completing rituximab and rehab - discussed with oncology, see above #Atrial arrhythmia (afib/flutter): New diagnosis this admit, intermittent rapid rates - Cards consulted - continue amio 200bid, metoprolol 25bid - Patient declined anticoagulation (eakav0cxer=1) #Thrombocytopenia: Slow down-trend, now stable. No e/o bleeding. - Monitor for now #Abnormal LFTs: Improved. #PEA cardiac arrest s/p ROSC: In setting of severe anemia. #Acute respiratory failure: Resolved. 2/2 pulm edema, aspiration. #Aspiration pneumonia: s/p 7 day course of levofloxacin and metronidazole #DM2 with steroid-induced hyperglycemia and intermittent hypoglycemia: A1c 5.2% . BG ok - Cont glargine 25u qhs, SSI, hold metformin #Urinary retention: Resolved, germain now out. #Hypotension: Off pressors. #Hyperkalemia: Resolved. #Hyponatremia: 2/2 volume overload. #Hyperuricemia: 10.6. Monitor. VTE ppx: SQH Code: full Dispo: Cont inpt, to inpt rehab tomorrow after Rituximab infusion Subjective: PT feels well. No pain. No CP or SOB. Appetite fair. No fevers/ chills. Wants to go to inpt rehab. Objective: Vital Signs Temp Pulse Resp BP Pulse Ox 36.9 C 100 16 114/64 92 08/25/18 11:33 08/25/18 11:33 08/25/18 11:33 08/25/18 11:33 08/25/18 11:33 Laboratory Results 08/25/18 04:22 08/25/18 04:22 08/24/18 08/25/18 08/26/18 05:59 05:59 05:59 Intake Total 1250 Output Total 1025 740 Balance 225 -740 PT 15.6 SEC (12.0-15.0) H 08/01/18 21:50 INR 1.30 (0.83-1.16) H 08/01/18 21:50 - Physical Exam Constitutional: no apparent distress Eyes: PERRL Ears, Nose, Mouth, Throat: moist mucous membranes Cardiovascular: regular rate and rhythym Respiratory: no respiratory distress, clear to auscultation Gastrointestinal: normoactive bowel sounds, soft, non-tender abdomen Skin: warm Musculoskeletal: generalized weakness Neurologic: AAOx3 Psychiatric: interacting appropriately ICD10 Worksheet Patient Problems: Problems Problem Status Onset CLL (chronic lymphocytic leukemia) Acute Hyperglycemia Acute Anemia Acute Hyperbilirubinemia Acute
[2018-08-25] MEDS: LIDOCAINE 4%/MENTHOL 1% PATCH TD SCH (18:02)
[2018-08-25] MEDS: CYANO/VITAMIN B12 1000 MCG TAB PO SCH (18:03)
[2018-08-25] MEDS: FAMOTIDINE 20 MG TAB PO SCH (20:54)
[2018-08-25] MEDS: INSULIN GLARGINE 100 UNITS/ML UNIT SC SCH (21:03)
[2018-08-26 04:27] LABS: PLATELET COUNT 147 10^3/uL (150-400)
[2018-08-26] MEDS: HEPARIN 5,000 UNIT/0.5 ML INJ SC SCH ×2 (07:04→13:01)
[2018-08-26] MEDS: PATCH REMOVAL 1 EA PATCH TD SCH (07:05)
[2018-08-26] MEDS: FOLIC ACID 1 MG TAB PO SCH (09:16)
[2018-08-26] MEDS: predniSONE 20 MG TAB PO SCH (09:16)
[2018-08-26] MEDS: AMIODARONE HCL 200 MG TAB PO SCH (09:16)
[2018-08-26] MEDS: INSULIN LISPRO 100 UNIT/ML SC SCH ×2 (09:17→12:57)
[2018-08-26] MEDS: METOPROLOL TARTRATE 25 MG TAB PO SCH (09:18)
[2018-08-26] MEDS ORDERED: ACETAMINOPHEN 325 MG TAB PO ONE (09:30)
[2018-08-26] MEDS ORDERED: diphenhydrAMINE 25 MG CAP PO ONE (09:30)
[2018-08-26] MEDS ORDERED: MEPERIDINE 25 MG/ML INJ IVP PRN (10:00)
[2018-08-26] MEDS ORDERED: NS 500 ML IV PRN (10:00)
[2018-08-26] MEDS ORDERED: RITUXIMAB IV ONE (10:00)
[2018-08-26] MEDS ORDERED: NS 1,000 ML IV PRN (10:00)
[2018-08-26] MEDS ORDERED: ACETAMINOPHEN 325 MG TAB PO PRN (10:00)
[2018-08-26] MEDS ORDERED: DEXAMETHASONE 10 MG/ML VIAL IVP PRN (10:00)
[2018-08-26] MEDS ORDERED: EPINEPHrine 1 MG/ML INJ IM PRN (10:00)
[2018-08-26] MEDS ORDERED: HYDROCORTISONE 100 MG/2 ML VIAL IVP PRN (10:00)
[2018-08-26] MEDS ORDERED: NS IV ONE (10:00)
--- NOTE | 2018-08-26 10:29 | WOCRNPDOC ---
WOCRN Advanced Assessment Note - Skin Integrity Problem, Advanced Assess Sacrum Pressure Injury Dressing Type: Mepilex Border Dressing Description: Intact Vera Wound Tissue: Blanching Pressure Injury Present on Admit: No Skin Integrity Problem Comment: What originally presented as a possible DTI, evolved as a partial thickness wound is now fully healed with no remaining discoloration. Changed the Mepilex sacral dressing placing it upside down. Tiny scattering of dry stool flecks on the base of the dressing near anus. Wipes used to clean small amount of stool from anus with patient expressing discomfort with wiping. Gently yet thoroughly cleaned and applied Calizime cream to anus. in room for care. Patient and notified of findings. Reminded patient to continue turning, off loading and good skin care as the tissue is at higher risk of injury. No need for further wound care, will sign off.
[2018-08-26 11:54] VITALS: BP 106/58
--- NOTE | 2018-08-26 13:03 | SOAPPROG ---
SOAP Progress Note Assessment/Plan: Assessment: Patient is a 73 year old male with CLL and AIHA admitted with relapse of AIHA complicated by cardiac arrest from severe anemia precipitating ATN. 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 Looking to go to inpatient rehabilitation in the next week so will give last dose of rituxan before discharge, even if early. Family reluctant to start another therapy, goal would be venetoclax given he has paroxysmal atrial fibrillation and should be on anticoagulation (recommend against ibrutinib given these factors - not strong enough for traditional chemotherapy). Lymphadenopathy and WBC have normalized. * Olimpia+ Hemolytic anemia: secondary to CLL. He received a total of 9 units of blood; the last was 08/17. He was decreased to prednisone 60 mg qday on 08/20. Plan is to start taper 08/27. Recommend going down by 10 mg per week to 5 mg daily and then have him remain on that dose also given rituximab. Hemolysis currently slowing down, would get LDH, reticulocyte count daily. * Cardiac Arrest: due to critically low hgb; recovering, neurologically intact, ATN improving * Acute renal failure secondary to ATN from cardiac arrest; initially required intermittent hemodialysis; now off dialysis with good urine output currently in recovery phase (polyuria), would watch I/O closely to ensure doesn't become volume depleted. * Paroxysmal atrial fibrillation ([id number] 2) - currently rate controlled, would recommend anticoaulation as an outpatient Hgb is 7.6 today with a normal LDH (611 today). He will be going to rehab today. I would continue his current dose of prednisone (60mg/day). We will continue to monitor his labs on rehab. He is getting his last planned dose of rituxan today. Plan: - rehab - rituxan - Continue prednisone Subjective: Looking forward to going to rehab Objective: Vital Signs Temp Pulse Resp BP Pulse Ox 36.9 C 100 20 106/58 L 95 08/26/18 11:52 08/26/18 11:52 08/26/18 11:52 08/26/18 11:52 08/26/18 11:52 Laboratory Results 08/26/18 04:12 08/26/18 04:12 08/24/18 08/25/18 08/26/18 23:59 23:59 23:59 Intake Total 700 600 720 Output Total 1100 865 350 Balance -400 -265 370 PT 15.6 SEC (12.0-15.0) H 08/01/18 21:50 INR 1.30 (0.83-1.16) H 08/01/18 21:50 Physical Exam - Physical Exam General Appearance: alert, no apparent distress EENT: scleral icterus (R), scleral icterus (L) Skin: pallor ICD10 Worksheet Patient Problems: Problems Problem Status Onset CLL (chronic lymphocytic leukemia) Acute Hyperglycemia Acute Anemia Acute Hyperbilirubinemia Acute
--- NOTE | 2018-08-26 15:30 | ASMTDCNOTE ---
Case Management Discharge Discharge Order Complete? Answers: Yes Patient to Obtain Answers: Other Notes: [facility] Inpatient Rehab Medications Discharge Comments Notes: Pt is medically stable to discharge to [facility] Inpatient Rehab. RN received report number. Updated referral was sent to Inpatient Rehab. Date Signed: 08/26/2018 03:29 PM Electronically Signed By:Erma Trujillo
--- NOTE | 2018-08-26 15:31 | SOAPPROG ---
SOAP Progress Note Assessment/Plan: Assessment: CONTRERAS after PEA arrest, non oliguric, UOP better today, creeat trending down, no HD for over 10 days CLL with Warm AIHA, recieved steroids and rituximab PEA arrest atrial fib jaundice Plan: doesn't appear to have more HD needs discussed rehab and it may take what seems like a long time to get his strength back, but he needs to keep working toward his goal of getting better continue support next Rituximab today hopefully to rehab soon 08/10/18 10:44 08/11/18 09:59 08/26/18 15:27 Subjective: at bedside remains weak, in bed no cp sob nausea or vomiting energy still low, but wants to ge better appetite improving spirits good Objective: Vital Signs Temp Pulse Resp BP Pulse Ox 36.9 C 100 20 106/58 L 95 08/26/18 11:52 08/26/18 11:52 08/26/18 11:52 08/26/18 11:52 08/26/18 11:52 Laboratory Results 08/26/18 04:12 08/26/18 04:12 08/25/18 08/26/18 08/27/18 05:59 05:59 05:59 Intake Total 1320 Output Total 740 675 Balance -740 645 PT 15.6 SEC (12.0-15.0) H 08/01/18 21:50 INR 1.30 (0.83-1.16) H 08/01/18 21:50 Physical Exam - Physical Exam General Appearance: alert Neck: normal inspection Respiratory: No rhonchi, No wheezing Cardiac/Chest: edema, systolic murmur, No friction rub Abdomen: normal bowel sounds, non-tender Extremities: pedal edema Neuro/Psych: alert, normal mood/affect, oriented x 3 ICD10 Worksheet Patient Problems: Problems Problem Status Onset CLL (chronic lymphocytic leukemia) Acute Hyperglycemia Acute Anemia Acute Hyperbilirubinemia Acute
--- NOTE | 2018-08-26 15:41 | ASDISCHSUM ---
Discharge Information Plan Status:Inpatient Rehab Medically Cleared to Leave: Discharge Date: D/C Disposition:Rehab [facility] ADT D/C Disposition:[facility] IP Projected Discharge Date:08/11/2018 11:00 AM Transportation at D/C: Discharge Delay Reason: Follow-Up Date:08/11/2018 11:00 AM Discharge Slot: Final Diagnosis: Placement Information Referral Type:Rehabilitation Hospital Referral ID:[id number] Provider Name:[facility] Inpatient Rehab Address 1:[address] Phone Number: Address 2: Fax Number: [facility]:[place] Selection Factors: State:[place] Referral Type:*Home Health Care Services Referral ID:[id number] Provider Name: Address 1: Phone Number: Address 2: Fax Number: City: Selection Factors: State: Patient Contact Information Contact Name:LAURA Relationship: Address:[address] City:[place] Alternate Phone: State/Zip Code:[place] [address] Email: Financial Information Financial Class:Medicare Advantage Plans Primary Plan Desc:[facility] ADVANTAGE [employer] Primary Plan Number:[id number] Secondary Plan Desc: Secondary Plan Number: Assessment Information [facility] KLEBER Progress Note CM Note CM Note Notes: Pt is a 73 yo M with a history of CLL, warm autoimmune hemolytic anemia, and diabetes type 2. Giancarlo Saleh was called on pt this am. CM provided support to his , Kaleigh, including check-ins throughout the day. Pt is currently vented and sedated but has followed some commands. Kaleigh reports she and Al met in College and that she feels he is the kindest man she has met. She says he makes her laugh all the time and is her best friend. Kaleigh just retired from [facility] [facility] 18 months ago. CM will continue to follow as pt progresses for discharge planning and to provide ongoing support. Plan: TBD Date Signed: 08/02/2018 03:53 PM Electronically Signed By:ZOHRA Szymanski [facility] CM Progress Note CM Note CM Note Notes: Patient has not been able to participate in therapies yet. Awaiting recommendations for d/c planning. D/C plan TBD. CM is following. Date Signed: 08/05/2018 09:26 AM Electronically Signed By:Karina Vyas LCSW [facility] CM Progress Note CM Note CM Note Notes: Patient's Kaleigh would like to cancel the family meeting today and revisit the option next week. CM following. Date Signed: 08/06/2018 02:04 PM Electronically Signed By:Karina Vyas LCSW [facility] CM Progress Note CM Note CM Note Notes: CM spoke with pt in the room and with pt's Kaleigh ([phone]). They would both prefer pt discharge to [facility] inpatient rehab, which is the recommendation of therapies. Kaleigh doesn not think IpR outside of [place] would work for her. Referral sent to [facility] IpR and message left for Yumiko. CM to follow. D/C Plan: IpR Date Signed: 08/08/2018 12:24 PM Electronically Signed By:Lucila Haas RN [facility] Progress Note CM Note CM Note Notes: CM notified by inpatient rehab that they are unable to accommodate pt on dialysis. CM notified pt's and sisters and Kaleigh is very upset and does not want to consider any other facility. She asked for director's name of inpatient rehab and said she is going to advocate for herself. CM notified Yumiko from inpt rehab and said she would relay Kaleigh's contact information to Susan Simms. Kaleigh said she would NOT consider a SNF, despite providing list of nicer facilities in the area, including private pay facilities. She said she would rather him to go home with homecare instead of going to a SNF. CM to follow as pt continues to progress. CM line installation supervisor notified of situation. Plan: TBD. Date Signed: 08/10/2018 03:04 PM Electronically Signed By:ZOHRA Szymanski [facility] Progress Note CM Note CM Note Notes: Spoke with patient's , Kaleigh and she states she is ready for patient to be transferred to when the DrViviana's are ready. Patient is scheduled for dialysis and blood transfusion today. Kaleigh was informed Inpatient Rehab cannot take a patient on dialysis ( per Susan Simms, Director) but they will follow the patient's progress and reevaluate him when he is medically ready for rehab. (if he still qualifies) Kaleigh states if patient does not get inpatient rehab then she will want home health PT/OT and she chooses [facility] as her home health resource. D/C plan remains inpatient rehab when medically ready or [facility] PT/OT if patient does not need higher level of care. CM following. ' Date Signed: 08/11/2018 01:40 PM Electronically Signed By:Karina Vyas LCSW [facility] CM Progress Note CM Note CM Note Notes: Spoke w Yumiko at [facility] - they may have a bed for patient next week if he does not require dialysis anymore. Also spoke with Gina Archibald, critical care physician assistant at [facility]. She would like to be kept in the loop re: patient's d/c plan. [phone] Current Discharge plan: [facility] IPR vs home with [facility] Date Signed: 08/12/2018 03:42 PM Electronically Signed By:Bela Wade RN [facility] CM Progress Note CM Note CM Note Notes: CM met with pt in his room. He was not up to having a conversation and gave CM permission to speak with his Kaleigh and sister Kamla. Kaleigh had gone home to sleep, per Kamla, so CM spoke with Kamla. KLEBER explained that UR says pt does not meet criteria for inpatient rehab (needs to meet 3 modifiers and not be on dialysis, which he most likely will still be on upon D/C) and that hospitalist strongly recommends SNF. CM left a list of SNFs to be given to . Sister says will most likely not consider that option. Per previous CM notes, if inpatient rehab is not an option she wants [facility] PT and OT. CM put in a referral today. CM will continue to follow. CM D/C plan: TBD Date Signed: 08/13/2018 03:41 PM Electronically Signed By:Elaine French [facility] CM Progress Note CM Note CM Note Notes: Pt discussed in rounds and is not ready for discharge. Pt was seen by Palliative care who will follow up again tomorrow. CM available for needs. PLAN: Likely IP REHAB or HHC when medically cleared Date Signed: 08/16/2018 05:43 PM Electronically Signed By:Camelia Simpson.IJEOMA PYLE [facility] CM Progress Note CM Note CM Note Notes: Pt discussed in rounds and Pt continues to have low platelet and Hct, not ready for D/c Palliative care met with Pt and who is opening to [facility]. If Pt off dialysis he may be accepted to IP Rehab if there is a bed. Yumiko (IP Rehab Coordinator) has been watching his progress. CM will continue to monitor for needs. PLAN: IP Rehab vs HHC when medically stable. Date Signed: 08/17/2018 05:04 PM Electronically Signed By:Camelia Simpson.RN,THERMAL CUTTING MACHINE OPERATOR [facility] CM Progress Note CM Note CM Note Notes: Patient continues to make slow progress. His last HD was 08/18, and if no need arises he will have catheter removed Wednesday 08/23. Inpatient rehab is following and will accept based on the above. Case Management will follow. Date Signed: 08/20/2018 12:33 PM Electronically Signed By:Bela Wade RN [facility] CM Progress Note CM Note CM Note Notes: Patient's dialysis catheter was removed today without incident. Patient and still want to make d/c plan on a day-by-day basis. Recommendation had been for IPR; family refuses SNF. Case Management will follow. Date Signed: 08/22/2018 02:56 PM Electronically Signed By:Bela Wade RN [facility] CM Progress Note CM Note CM Note Notes: Spoke with pt and his regarding PT's change in recommendation from inpt rehab to SNF. It was also discussed in rounds. Pt's became upset with CM upon hearing this information as they had not been told there was any change in the therapy recommendation. Pt has refused PT/OT on several occasions, including today, so CM was unable to determine why the rec was changed from IR to SNF. CM informed pt's that a message was left with IR to re-evaluate pt's status tomorrow as the last IR followup was 08/10 when pt was still receiving dialysis. The dialysis catheter has since been removed. CM apologized to pt's for not having enough information before going in to speak with them. KLEBER also requested to smelter charger and hospitalist that we are consistent in our conversations with the pt and his . Pt's stated they prefer structure and consistency in the information they are receiving. Pt's requested to see PT note and was asked to speak with smelter charger. D/C plan: TBD, IR vs SNF Date Signed: 08/23/2018 04:27 PM Electronically Signed By:NATHAN Virgen [facility] Progress Note CM Note CM Note Notes: Met with patient's Kaleigh and Yumiko from Inpatient Rehab. Yumiko explained the criteria [place] would be reviewing to approve insurance auth for inpatient rehab for the patient. Kaleigh was also informed that the program may temporarily close as early as September 06, 2018 and this will affect the patient's length of stay. Kaleigh felt even 5 days of rehab could benefit the patient and she understands his stay may be cut short due to organizational changes in August. Yumiko agreed to pursue the insurance auth with [place] and to keep us informed of their response. Discharge plan remains inpatient rehab pending insurance auth from [place]. The patient's was informed of limitations and she was ok with her getting even 3-5 days in the program. [facility] has 24-48 hours to provide us with an answer. CM following. Date Signed: 08/24/2018 04:59 PM Electronically Signed By:Karina Vyas LCSW [facility] CM Progress Note CM Note CM Note Notes: Spoke with Yumiko from inpatient rehab and they got the insurance auth. However, it is 4:30 and too late in the day for d/c so the d/c will need to be tomorrow morning. CM to coordinate with Yumiko in the AM for transfer to the inpatient rehab program.CM following. Date Signed: 08/25/2018 05:01 PM Electronically Signed By:Karina Vyas LCSW Case Management Discharge Plan Note Case Management Discharge Discharge Order Complete? Answers: Yes Patient to Obtain Answers: Other Notes: [facility] Inpatient Rehab Medications Discharge Comments Notes: Pt is medically stable to discharge to [facility] Inpatient Rehab. RN received report number. Updated referral was sent to Inpatient Rehab. Date Signed: 08/26/2018 03:29 PM Electronically Signed By:Erma Trujillo [facility] CM Progress Note CM Note CM Note Notes: RN wheel chaired pt to [facility] Inpatient Rehab. Date Signed: 08/26/2018 03:40 PM Electronically Signed By:Erma Trujillo Intervention Information Intervention Type:*IM-Signed Date of Service:08/26/2018 01:50 PM Patient Type:Inpatient Staff Member:Kiara Faulkner Hours: Discipline: Severity: Comment:
--- NOTE | 2018-08-26 15:41 | ASMTCMCOM ---
CM Note CM Note Notes: RN wheel chaired pt to [facility] Inpatient Rehab. Date Signed: 08/26/2018 03:40 PM Electronically Signed By:Erma Trujillo
--- NOTE | 2018-08-26 15:48 | PDIAF ---
- Diagnosis Diagnosis: hemolytic anemia Code Status: Full Code - Medication Management Discharge Medications: electronically signed and located in the Home Medication List. - Orders Services needed: Registered Nurse, Physical Therapy, Occupational Therapy, Speech Language Pathologist Diet Recommendation: no restrictions on diet Additional Instructions: Wound care: Change dressing to Sacrum/Coccyx every 7 days and prn. 1. Clean with ns and gauze or soap and water in the shower 2. Cover with Mepilex Border Sacrum or other bordered foam sacral dressing. You have a pressure injury (also known as a bedsore) on your tailbone. To help heal this wound and avoid further injury please do the followin. Reposition yourself frequently, at least every 15 minutes when sitting. Try to stand for at least 3 min every hour so that the tissues fully reperfuse with blood. We recommend sitting on an air cushion. Please never use a doughnut. 2. When youre in bed, try to rest on your side as much as possible, and change position every two hours (for example, turn or tilt from your right side toward your left).~ If you sleep on a sleep number or medical bed, keep the head of the bed below 30 degrees and keep all pressure off your low back for at least 5 minutes at least every two hours.~ 3. As needed, you may use Calazime, dimethicone moisture barrier cream, or any vkfk-zxa-nesirzt diaper rash cream to help prevent or treat a moisture- related rash to your bottom area and buttocks. 4. Please feel free to contact [facility] outpatient [facility] for an appointment, at [phone], If your wounds dont improve, or if you have any further questions or concerns. Zeus Kowalski RN team - Follow Up Care Current Providers and Referrals: Cameron Rodriguez MD [Medical Doctor] - Patient,NotPresent [Unknown] - As per Instructions Aaron Yoo MD [Medical Doctor] -
--- NOTE | 2018-08-26 16:26 | CPEKG ---
Test Reason : OPEN Blood Pressure : / mmHG Vent. Rate : 118 BPM Atrial Rate : 294 BPM P-R Int : 183 ms QRS Dur : 136 ms QT Int : 349 ms P-R-T Axes : 117 270 020 degrees QTc Int : 490 ms Atrial flutter RBBB and LAFB Confirmed by Eleuterio Crum ([id number]) on 08/26/2018 4:26:45 PM Referred By: Salbador Waller Confirmed By:Eleuterio Crum
--- NOTE | 2018-08-26 17:37 | PDIAF ---
- Diagnosis Diagnosis: hemolytic anemia Code Status: Full Code - Medication Management Discharge Medications: electronically signed and located in the Home Medication List. - Orders Services needed: Registered Nurse, Physical Therapy, Occupational Therapy, Speech Language Pathologist Diet Recommendation: no restrictions on diet Additional Instructions: Wound care: Change dressing to Sacrum/Coccyx every 7 days and prn. 1. Clean with ns and gauze or soap and water in the shower 2. Cover with Mepilex Border Sacrum or other bordered foam sacral dressing. You have a pressure injury (also known as a bedsore) on your tailbone. To help heal this wound and avoid further injury please do the followin. Reposition yourself frequently, at least every 15 minutes when sitting. Try to stand for at least 3 min every hour so that the tissues fully reperfuse with blood. We recommend sitting on an air cushion. Please never use a doughnut. 2. When youre in bed, try to rest on your side as much as possible, and change position every two hours (for example, turn or tilt from your right side toward your left).~ If you sleep on a sleep number or medical bed, keep the head of the bed below 30 degrees and keep all pressure off your low back for at least 5 minutes at least every two hours.~ 3. As needed, you may use Calazime, dimethicone moisture barrier cream, or any mrfm-cnw-sbncebv diaper rash cream to help prevent or treat a moisture- related rash to your bottom area and buttocks. 4. Please feel free to contact [facility] outpatient [facility] for an appointment, at [phone], If your wounds dont improve, or if you have any further questions or concerns. Zeus Kowalski RN WC team - Labs/Radiology BMP Date: 08/30/18 (weekly) CBC w/diff Date: 08/30/18 (weekly) Other Lab Name, Date and Time: LDH weekly, starting 08/30 - Follow Up Care Current Providers and Referrals: Cameron Rodriguez MD [Medical Doctor] - Patient,NotPresent [Unknown] - As per Instructions Mumtaz Song MD [Medical Doctor] - Aaron Yoo MD [Medical Doctor] -
--- NOTE | 2018-08-26 18:24 | GDS ---
[f rep st] DISCHARGE SUMMARY DISCHARGE DIAGNOSES: 1. Pulseless electrical activity cardiac arrest secondary to profound anemia. 2. 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 3. Chronic lymphocytic leukemia. 4. Acute kidney injury, likely secondary to acute tubular necrosis post arrest. 5. Atrial fibrillation, not on anticoagulation. 6. Thrombocytopenia. 7. Acute respiratory failure, resolved. 8. Aspiration pneumonia, status post 7 days of Levaquin and Flagyl. 9. History of diabetes mellitus with steroid-induced hyperglycemia. A1c is 5.2%. 10. Urinary retention, resolved. Zazueta out. 11. Presence of a peripherally inserted central catheter line. 12. Sacral pressure injury. CONSULTANTS: 1. Dr. Sara Batres, oncology. 2. Dr. Talib Cantu, nephrology. 3. Dr. Marcelo Irizarry, pulmonology and critical care. 4. Dr. Aaron Yoo, cardiology. HISTORY: For details, please see history and physical dated August 01, 2018. In brief, the patient is a 73-year-old male with history of untreated CLL who presented to the emergency department with jaundi ce. He has a known history of autoimmune hemolytic anemia, and on arrival, his hemoglobin was 3.5. He was admitted to the hospital for further management. HOSPITAL COURSE: The patient was admitted to intensive care unit. He was Olimpia positive, and there was some delay in obtaining blood products. Unfortunately, he suffered cardiac arrest with a hemogl obin of 3.5 on the morning of August 02. He received 3 doses of epinephrine, and the first unit of blood was circulated during CPR. Return of spontaneous circulation occurred. He was intubated for airway protection, and he remained in sinus tachycardia with good blood pressure. Oncology consult was obt ained, and he was started on high-dose Solu-Medrol 125 mg twice daily. We followed his LDH, which ca me down from 3000 to normal at 611 on the day of discharge. He should continue to have weekly LDH ch ecks in addition to weekly CBCs and Chem panels. He did suffer ATN, acute renal injury secondary to cardiac arrest. His creatinine has stabilized at 2.8 from a peak of 5.4. This may take several week s to fully recover. Nephrology consult was obtained, and he did require dialysis. A tunneled dialys is catheter was placed. His hospital course was further complicated by new-onset atrial fibrillation . Echocardiogram showed an ejection fraction of 75% to 80%, no wall motion abnormality, mild mitral regurgitation, and no other significant valve disease. Cardiology consult was obtained. He was star kierra on amiodarone and metoprolol for rate control. He has a CHADS-VASc score of 2. Anticoagulation was considered; however, patient declined due to the bleeding risk with hemolytic anemia and low hemo globin. In total, he required 9 units of packed red blood cells. His hemoglobin has been stable for the past week, though it remains low at 7.6. He was followed by Hematology/Oncology throughout his hospitalization and received 4 of 4 cycles of Rituxan. At this point, it is decided to defer venetocl ax or other chemotherapy treatment for his CLL until he has improved performance status. His steroid s have been decreased to prednisone 60 mg daily. He will be continued on this dose with a plan to ta per by 10 mg each week until he is down to 5 mg daily. He had ongoing physical therapy and occupatio nal therapy, and inpatient rehab was recommended. On the day of discharge, he is hemodynamically sta ble with blood pressure 106/58, heart rate 100, respiratory rate 20. He is 95% on room air. DISPOSITION: Patient is discharged to inpatient rehab in stable condition. FOLLOWUP: 1. Dr. Cameron Rodriguez, hematology/oncology. 2. Dr. Aaron Yoo, cardiology. 3. Primary Care. DISCHARGE MEDICATIONS: Please see [id number] for completed outpatient medication list. Medication on discharge include: Tylenol 650 p.o. q.4 hours p.r.n.; amiodarone 200 mg p.o. daily; Pe pcid 20 mg p.o. q.h.s.; folic acid 1 mg p.o. daily; insulin glargine 25 units q.h.s.; insulin lispro sliding scale t.i.d. meals; Lidoderm patch; metoprolol 25 mg p.o. b.i.d.; prednisone 60 mg p.o. daily for 1 week, then 50 mg p.o. daily for 1 week, then 40 mg p.o. daily for 1 week, then 30 mg p.o. tomas y for 1 week, then 20 mg p.o. daily for 1 week, then 5 mg p.o. daily. He will continue all other out patient medications as previously prescribed. Metformin was discontinued given his acute renal injury. Ongoing wound care instructions are provided in his discharge paperwork. /[id number]/MODL
== END 2018-08-26 16:27 | DRG 808 ==
LOC: EDUNIT# → EEVIPCON 20:43 → OBSVTOIN 20:43 → F2N 22:09 → F1N 08-11 16:58
PROVIDERS: ADMIT Internal Medicine; ATTEND Hospitalist
PROC: 30233N1 Transfusion of Nonautologous Red Blood Cells into Peripheral Vein, Percutaneous Approach (ICD-10-PCS; principal; 2018-08-02)
PROC: 5A1945Z Respiratory Ventilation, 24-96 Consecutive Hours (ICD-10-PCS; 2018-08-02)
PROC: 0BH17EZ Insertion of Endotracheal Airway into Trachea, Via Natural or Artificial Opening (ICD-10-PCS; 2018-08-02)
PROC: 5A2204Z Restoration of Cardiac Rhythm, Single (ICD-10-PCS; 2018-08-02)
PROC: 0D9670Z Drainage of Stomach with Drainage Device, Via Natural or Artificial Opening (ICD-10-PCS; 2018-08-02)
PROC: 02H633Z Insertion of Infusion Device into Right Atrium, Percutaneous Approach (ICD-10-PCS; 2018-08-02)
PROC: 5A1D70Z Performance of Urinary Filtration, Intermittent, Less than 6 Hours Per Day (ICD-10-PCS; 2018-08-03)
PROC: 5A09458 Assistance with Respiratory Ventilation, 24-96 Consecutive Hours, Intermittent Positive Airway Pressure (ICD-10-PCS; 2018-08-03)
PROC: 02HV33Z Insertion of Infusion Device into Superior Vena Cava, Percutaneous Approach (ICD-10-PCS; 2018-08-04)
PROC: 3E03305 Introduction of Other Antineoplastic into Peripheral Vein, Percutaneous Approach (ICD-10-PCS; 2018-08-05)
DX: D59.1 Other autoimmune hemolytic anemias (principal); I46.8 Cardiac arrest due to other underlying condition; N17.0 Acute kidney failure with tubular necrosis; E87.2 Acidosis; C91.10 Chronic lymphocytic leukemia of B-cell type not having achieved remission; I49.8 Other specified cardiac arrhythmias; E11.65 Type 2 diabetes mellitus with hyperglycemia; R57.1 Hypovolemic shock; K72.00 Acute and subacute hepatic failure without coma; J96.00 Acute respiratory failure, unspecified whether with hypoxia or hypercapnia; J69.0 Pneumonitis due to inhalation of food and vomit; E87.1 Hypo-osmolality and hyponatremia; E83.39 Other disorders of phosphorus metabolism; E79.0 Hyperuricemia without signs of inflammatory arthritis and tophaceous disease; L89.152 Pressure ulcer of sacral region, stage 2; R33.9 Retention of urine, unspecified; Z79.52 Long term (current) use of systemic steroids; Z79.84 Long term (current) use of oral hypoglycemic drugs; Z79.4 Long term (current) use of insulin
CPT/HCPCS: 82435-PO; 82565-PO; 82947-PO; 83605-ER; 84132-PO; 84295-PO; 84520-PO; 85014-ER; 85520-90; 86704-90; 86850-90; 86860-90; 86870-90; 86905-90; 86922-90; 86978-90; 92507-GN; 92523-GN; 96374; 97110-GP; 97116-GP; 97162-GP; 97166-GO; 97530-GO; 97530-GP; 97535-GO; 99001-90; C1751; J0171; J1642; J1644; J1650; J1815; J1940; J1956; J2704; J2930; J2997; J3010; J3475; J7512; J9312; P9016; P9021; P9047; Q9967

== ENCOUNTER 2018-08-26 16:28 | Inpatient (IN) | payer OTHER | END 2018-09-20 12:45 | disposition short-term general hospital (02) | DRG 945 | LOC: F3E 16:28 | PROC: F0636ZZ Communicative/Cognitive Integration Skills Treatment of Neurological System - Whole Body (ICD-10-PCS; principal; 2018-08-31 15:30) | PROC: F07M3ZZ Motor Function Treatment of Musculoskeletal System - Whole Body (ICD-10-PCS; 2018-08-31 15:30) | PROC: F08Z7ZZ Vocational Activities and Functional Community or Work Reintegration Skills Treatment (ICD-10-PCS; 2018-08-31 15:30) | PROC: 3E04305 Introduction of Other Antineoplastic into Central Vein, Percutaneous Approach (ICD-10-PCS; 2018-08-31 15:30) | PROC: 30243S1 Transfusion of Nonautologous Globulin into Central Vein, Percutaneous Approach (ICD-10-PCS; 2018-08-31 15:30) | PROC: 30243N1 Transfusion of Nonautologous Red Blood Cells into Central Vein, Percutaneous Approach (ICD-10-PCS; 2018-08-31 15:30) | PROC: 0W9B3ZZ Drainage of Left Pleural Cavity, Percutaneous Approach (ICD-10-PCS; 2018-08-31 15:30) | PROC: 0W9B30Z Drainage of Left Pleural Cavity with Drainage Device, Percutaneous Approach (ICD-10-PCS; 2018-08-31 15:30) | DX: Z51.89 Encounter for other specified aftercare (principal); R53.1 Weakness; R53.81 Other malaise; D59.1 Other autoimmune hemolytic anemias; C91.Z0 Other lymphoid leukemia not having achieved remission; R41.840 Attention and concentration deficit; J86.9 Pyothorax without fistula; B95.4 Other streptococcus as the cause of diseases classified elsewhere; B96.89 Other specified bacterial agents as the cause of diseases classified elsewhere; J95.812 Postprocedural air leak; G47.00 Insomnia, unspecified; N18.9 Chronic kidney disease, unspecified; D63.1 Anemia in chronic kidney disease; D69.59 Other secondary thrombocytopenia; R60.0 Localized edema; M62.81 Muscle weakness (generalized); M21.372 Foot drop, left foot; K11.7 Disturbances of salivary secretion; E11.65 Type 2 diabetes mellitus with hyperglycemia; E11.649 Type 2 diabetes mellitus with hypoglycemia without coma; T38.0X5A Adverse effect of glucocorticoids and synthetic analogues, initial encounter; Z79.4 Long term (current) use of insulin; Z79.84 Long term (current) use of oral hypoglycemic drugs; I48.91 Unspecified atrial fibrillation; Z86.74 Personal history of sudden cardiac arrest ==

== ENCOUNTER 2018-09-20 12:46 | Inpatient (IN) | payer OTHER | END 2018-09-25 10:15 | disposition home health service (06) | LOC: F3E 12:46 ==